=== PATIENT | female | born 1985 | race Caucasian/White ===

== ENCOUNTER 2022-01-29 12:18 | Outpatient (CLI) | payer BC, SELFPAY ==
--- NOTE | ~2022-01-29 | XR_ITS ---
EXAMINATION: XR chest 2V DATE: 01/29/2022 12:34 INDICATION: Cough for 3 months. TECHNIQUE: Frontal and lateral views of the chest were obtained. COMPARISON: Chest single view 10/23/2014, CT abdomen and pelvis 12/12/2016 FINDINGS: The chest demonstrates clear lungs without pneumonia, pleural effusion, or pneumothorax. Th e heart size is normal. Breast implants are noted. IMPRESSION: 1. No acute cardiopulmonary disease. Reviewed, dictated and finalized at location A.
== END 2022-01-29 12:19 | disposition home or self-care (01) ==
PROVIDERS: PCP Family Medicine; Visit Provider Nurse Practitioner Family
DX: R05.9 Cough, unspecified (principal)
CPT/HCPCS: 71046

== ENCOUNTER 2022-06-01 12:13 | Emergency (ER) | payer BC, SELFPAY ==
[2022-06-01 12:22] VITALS: BP 116/82; PULSE 65; RESP 20; TEMP 36.9; O2SAT 99
--- NOTE | 2022-06-01 12:47 | ED.EAR ---
HPI - Ear Problem General Chief complaint: Ear Stated complaint: left ear issue Time Seen by Provider: 06/01/22 12:47 Source: patient Mode of arrival: ambulatory Limitations: no limitations History of Present Illness HPI Narrative: 36-year-old female presented for complaint of left ear pressure for 3 days. States she felt a sudden onset of pressure while swimming, and has not been able to hear out of the ear since. She denies significant pain, drainage ear ringing, headache or sinus congestion. She has used hydrogen peroxide and Debrox for history of earwax impactions. MD Complaint: ear pain Related Data Home Medications Medication Instructions Recorded Confirmed alprazolam 1 mg tablet 0.5 mg PO DAILY 07/07/21 06/01/22 dextroamphetamine-amphetamine 30 15 mg PO DAILY 07/07/21 06/01/22 mg tablet escitalopram oxalate 10 mg tablet 10 mg PO DAILY 07/07/21 06/01/22 zolpidem 10 mg tablet 10 mg PO ONCE 07/07/21 06/01/22 Allergies Allergy/AdvReac Type Severity Reaction Status Date / Time oak Allergy Mild Unknown Verified 06/01/22 12:27 CATS Allergy Mild WATERY EYES Uncoded 06/01/22 12:27 DUST MITES Allergy Mild WATERY EYES Uncoded 06/01/22 12:27 Review of Systems Review of Systems: CONSTITUTIONAL: Denies malaise, chills, or fever. EYES: Denies visual changes, redness, or discharge. ENT: Denies rhinorrhea, congestion, sinus pain, and sore throat. Reports ear pain CARDIOVASCULAR: Denies chest pain, palpitations, or edema. RESPIRATORY: Denies cough or dyspnea. GASTROINTESTINAL: Denies abdominal pain, nausea, vomiting, diarrhea SKIN: Denies rash or itching. MUSCULOSKELETAL: Denies myalgia. NEUROLOGIC: Denies headache. All systems reviewed & are unremarkable except as noted in HPI and below PMFSH Past Medical History Medical History BMI 25.0-25.9,adult Family History Family History Father No problems noted. Mother No problems noted. 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 There is no relevant family history pertinent to the presenting complaint Exam Narrative: GENERAL: Well-appearing EYES: conjunctivae clear ENT: Nares clear. Mucous membranes moist. TMs unable to visualize bilaterally due to cerumen impaction; no tragal tenderness. Oropharynx not erythematous without lesions. CHEST: Clear to auscultation, breath sounds equal. No wheezing, rhonchi, rales, or stridor.s. HEART: Regular rate and rhythm. No murmur heard. SKIN: Warm, dry, no rash. NEURO: Alert and oriented x3. PSYCH: Normal mood and affect Course Course Emergency Course: Patient is aware of diagnosis, understands and agrees to treatment plan. Anticipatory guidance given. Patient agrees to follow-up as directed and is aware of reasons to seek care at the emergency department. Portions of this record may have been created with voice recognition software Level of Care: Express Care Visit Vital Signs Vital signs: Vital Signs Temperature 98.5 F 06/01/22 12:22 Pulse Rate 65 06/01/22 12:22 Respiratory Rate 20 06/01/22 12:22 Blood Pressure 116/82 06/01/22 12:22 Pulse Oximetry 99 06/01/22 12:22 Oxygen Delivery Room Air 06/01/22 12:22 Temperature 98.5 F 06/01/22 12:22 Pulse Rate 65 06/01/22 12:22 Respiratory Rate 20 06/01/22 12:22 Blood Pressure 116/82 06/01/22 12:22 Pulse Oximetry 99 06/01/22 12:22 Oxygen Delivery Room Air 06/01/22 12:22 Reviewed Procedur
== END 2022-06-01 13:30 | disposition home or self-care (01) ==
PROVIDERS: Emergency Provider Nurse Practitioner Family; PCP Family Medicine
DX: H66.002 Acute suppurative otitis media without spontaneous rupture of ear drum, left ear (principal); H61.23 Impacted cerumen, bilateral
CPT/HCPCS: 69210; 99213; A9270; G0463

== ENCOUNTER 2022-06-08 14:34 | Outpatient (CLI) | payer BC, SELFPAY ==
--- NOTE | ~2022-06-08 | XR_ITS ---
XR lumbar spine min 4V 06/08/2022 14:56 Indication: Low back pain Procedure: 5 views lumbar spine Comparison: 02/26/2011 Findings: Vertebral body and disc heights are preserved. Normal lumbar lordosis. No fracture, subluxa tion or spondylolisthesis. Sacral foramen are symmetric. Impression: 1: No acute abnormality of the lumbar spine. Reviewed, dictated and finalized at location A. Impression: 1: No acute abnormality of the lumbar spine.
== END 2022-06-08 14:35 | disposition home or self-care (01) ==
PROVIDERS: PCP Family Medicine; Visit Provider Nurse Practitioner Family
DX: M54.50 Low back pain, unspecified (principal)
CPT/HCPCS: 72110

== ENCOUNTER 2022-06-12 04:31 | Emergency (ER) | payer BC, SELFPAY ==
--- NOTE | ~2022-06-12 | CT_ITS ---
EXAMINATION: CT abdomen pelvis w con DATE: 06/12/2022 06:24 INDICATION: Epigastric abdominal pain TECHNIQUE: Computed tomography (CT) of the abdomen and pelvis was performed with 100 CC Omnipaque 300 intravenous contrast. Automated exposure control and iterative reconstruction technique were employe jeanette. Exam dose: 385.99 mGy-cm total exam DLP. COMPARISON: 12/12/2017 CT abdomen pelvis FINDINGS: The lung bases are clear of infiltrate or consolidation. Normal heart size. No pericardial or pleural effusion. Status post bilateral augmentation mammoplasty. The liver, spleen, pancreas, adrenal glands and kidneys are unremarkable. No bile duct or pancreatic duct dilatation. No urinary tract calculus or hydroureteronephrosis. The u rinary bladder is unremarkable. Normal caliber of the abdominal aorta. No intraperitoneal or retroperitoneal or pelvic mass lesion or adenopathy or ascites. Retroverted uterus. 2.7 cm peripherally enhancing involuting left ovarian cyst.. Mild free fluid in t he posterior cul-de-sac. There is prominent thickening of the wall of the gastric antrum. Prominent fluid accumulation in the duodenum. There are nondilated fluid containing small bowel segments with air-fluid levels. There is a prominent of fecal material within the colon. No bowel obstruction or intraperitoneal free air is d etected. Included skeletal structures are unremarkable. IMPRESSION: Thickening of the wall of the gastric antrum, fluid containing small bowel segments with air-fluid levels seminal consider gastroenteritis. Involuting 2.7 cm left ovarian cyst with mild free fluid in the posterior cul-de-sac Reviewed, dictated and finalized at Location [facility]. Reviewed, dictated and finalized at location A. IMPRESSION: Thickening of the wall of the gastric antrum, fluid containing sma ll bowel segments with air-fluid levels seminal consider gastroenteritis. Involuting 2.7 cm left ovarian cyst with mild free fluid in the posterior cul-d e-sac
[2022-06-12 04:33] VITALS: BP 130/90; PULSE 95; RESP 18; TEMP 36.1; O2SAT 99
[2022-06-12 04:47] VITALS: BP 131/118; PULSE 84; RESP 18; O2SAT 99
--- NOTE | 2022-06-12 04:58 | ED.ABDPAIN ---
HPI - Abdominal Pain General Chief Complaint: Nausea/Vomiting/Diarrhea Stated Complaint: abd and back pain Time Seen by Provider: 06/12/22 04:50 History of Present Illness HPI narrative: Patient is a 36-year-old female complaining of gastric pain, 7 out of 10, radiating to back accompanied by coffee-ground emesis that started last night. Patient states that she only had 1 episode of coffee-ground emesis, has not had any since. Patient states that she has a history of peptic ulcer. Related Data Home Medications Medication Instructions Recorded Confirmed alprazolam 1 mg tablet 0.5 mg PO DAILY 07/07/21 06/10/22 dextroamphetamine-amphetamine 30 15 mg PO DAILY 07/07/21 06/10/22 mg tablet escitalopram oxalate 10 mg tablet 10 mg PO DAILY 07/07/21 06/10/22 zolpidem 10 mg tablet 10 mg PO ONCE 07/07/21 06/10/22 Allergies Allergy/AdvReac Type Severity Reaction Status Date / Time oak Allergy Mild Unknown Verified 06/12/22 04:36 CATS Allergy Mild WATERY EYES Uncoded 06/12/22 04:36 DUST MITES Allergy Mild WATERY EYES Uncoded 06/12/22 04:36 Review of Systems Review of Systems: All systems reviewed & are unremarkable except as noted in HPI and below Constitutional: Constitutional: Denies body ache(s), Denies chills, Denies excessive sweating, Denies fatigue, Denies fever(s), Denies headache(s), Denies lethargy, Denies malaise, Denies weakness and Denies weight loss Eyes: Eyes: Denies blurry vision, Denies change in vision and Denies loss of vision ENT: Denies dizziness, Denies ear discharge, Denies headache(s), Denies lip swelling, Denies epistaxis, Denies nasal congestion, Denies neck pain, Denies throat swelling and Denies tongue swelling Cardiovascular: Cardiovascular: Denies chest pain, Denies chest pain at rest, Denies chest pain with activity, Denies diaphoresis, Denies rapid heart rate, Denies edema, Denies irregular heart rhythm, Denies lightheadedness, Denies palpitations, Denies dyspnea and Denies dyspnea on exertion Respiratory: Respiratory: Denies chest congestion, Denies cough, Denies hemoptysis, Denies dyspnea and Denies dyspnea on exertion Gastrointestinal: Gastrointestinal: Denies melena, Denies hematochezia and Denies diarrhea Musculoskeletal: Musculoskeletal: Denies abnormal gait, Denies deformity, Denies joint swelling, Denies limited range of motion, Denies neck pain and Denies numbness Neurologic: Denies Abnormal speech present, Denies abnormal gait, Denies confusion, Denies dizziness, Denies headache(s), Denies focal weakness, Denies loss of vision, Denies numbness, Denies Other visual disturbances, Denies Sensory deficit (Neuro) and Denies weakness Psychiatric: Psychiatric: Denies confusion, Denies depression, Denies auditory hallucinations, Denies homicidal ideation and Denies suicidal ideation Endocrine: Endocrine: Denies cold intolerance, Denies excessive sweating, Denies fatigue, Denies heat intolerance and Denies palpitations Hematologic/Lymphatic: Hematologic/Lymphatic: Denies easy bleeding and Denies easy bruising Allergic/Immunologic: Allergic/Immunologic: Denies lip swelling, Denies throat swelling and Denies tongue swelling PMFSH Past Medical History Medical History BMI 25.0-25.9,adult Diarrhea Family History Family History Father No problems noted. Mother No problems noted. 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
[2022-06-12 05:05] LABS: Basophils Percent Auto 0.4 % (0.2-1.2); Eosinophils Absolute Auto 0.3 K/mm3 (0-0.3); Eosinophils Percent Auto 3.5 % (0-4.4); Hematocrit 41.9 % (37.0-47.0); Hemoglobin 14.3 g/dL (12.0-15.0); Immature Granulocyte Absolute 0.02 K/mm3 (0.00-0.031); Immature Granulocyte Percent A 0.2 % (0-0.5); Lymphocytes Absolute Auto 2.45 K/mm3 (0.9-3.2); Lymphocytes Percent Auto 26.2 % (18.3-44.2); Mean Corpuscular HGB Conc 34.1 g/dl (32-36); Mean Corpuscular Hemoglobin 30.4 pg (26-34); Mean Platelet Volume 9.6 fl (7.4-10.4); Monocytes Absolute Auto 0.6 K/mm3 (0.1-0.6); Monocytes Percent Auto 6.5 % (2.6-8.5); Neutrophils Absolute Auto 5.9 K/mm3 (1.3-6.7); Neutrophils Percent Auto 63.2 % (45.5-73.1); Platelet Count Result 279 k/mm3 (150-375); Red Blood Count 4.71 M/mm3 (4.2-5.4); Red Cell Distribution Width 12.3 % (11.5-14.5); White Blood Count 9.4 K/mm3 (4.5-10.0)
[2022-06-12] MEDS: LACTATED RINGERS 1,000 ML 999 ML IV CONT (05:16)
[2022-06-12] MEDS: PANTOPRAZOLE SODIUM IV 40 MG VIAL 80 MG IV PUSH (05:17)
[2022-06-12 05:21] LABS: Alanine Aminotransferase 14 U/L (6-35); Albumin Level 4.5 g/dL (3.5-5.1); Alkaline Phosphatase 56 U/L (38-126); Anion Gap 8 mmol/L (8-16); Aspartate Amino Transferase 22 U/L (14-36); Bilirubin,Total 0.4 mg/dL (0.2-1.3); Blood Urea Nitrogen 11 mg/dL (7-17); Calcium 9.7 mg/dL (8.4-10.2); Carbon Dioxide 32 mmol/L (22-30); Chloride 101 mmol/L (98-107); Estimated CRCL calculation 66 ml/min; Estimated Glomerular Filt Rate > 60; Glucose 105 mg/dL (65-110); Lipase 46 U/L (23-300); Potassium 3.9 mmol/L (3.4-5.0); Sodium 141 mmol/L (137-145)
[2022-06-12] MEDS: PROMETHAZINE HCL 25 MG/ML AMPUL 12.5 MG IV PUSH (05:21)
[2022-06-12] MEDS: HYDROmorphone HCL INJ (*CRX) 1 MG/ML SYR 0.5 MG IV PUSH ×2 (05:35→06:44)
[2022-06-12] MEDS: HYDROcodone/acetaminophen (*CRX) 7.5-325 MG TABLET 1 TAB PO (07:15)
== END 2022-06-12 07:20 | disposition home or self-care (01) ==
PROVIDERS: Emergency Provider Emergency Medicine; PCP Family Medicine
DX: K27.4 Chronic or unspecified peptic ulcer, site unspecified, with hemorrhage (principal)
CPT/HCPCS: 36415; 74177; 80053; 81025; 83690; 85025; 96361; 96374; 96375; 96376; 99284; A9270; C9113; J1170; J2550; J7120; Q9967

== ENCOUNTER 2023-01-11 10:42 | Emergency (ER) | payer BC, SELFPAY ==
[2023-01-11 11:20] VITALS: BP 113/81; PULSE 86; RESP 16; TEMP 36.6; O2SAT 96
[2023-01-11 11:28] VITALS: BP 124/85
[2023-01-11 12:15] LABS: Alanine Aminotransferase 16 U/L (6-35); Albumin Level 4.8 g/dL (3.5-5.1); Alkaline Phosphatase 59 U/L (38-126); Anion Gap 6 mmol/L (8-16); Appearance Urine Clear (Clear); Aspartate Amino Transferase 21 U/L (14-36); Basophils Percent Auto 0.4 % (0.2-1.2); Bilirubin Urine Negative (Negative); Bilirubin,Total 0.4 mg/dL (0.2-1.3); Blood Urea Nitrogen 16 mg/dL (7-17); Blood Urine Negative (Negative); Calcium 8.3 mg/dL (8.4-10.2); Carbon Dioxide 26 mmol/L (22-30); Chloride 101 mmol/L (98-107); Color Urine Yellow (Yellow); Eosinophils Absolute Auto 0.4 K/mm3 (0-0.3); Eosinophils Percent Auto 3.6 % (0-4.4); Estimated CRCL calculation 85 ml/min; Estimated Glomerular Filt Rate > 60; Glucose 112 mg/dL (65-110); Glucose Urine UA Negative (Negative); Hematocrit 41.8 % (37.0-47.0); Immature Granulocyte Absolute 0.03 K/mm3 (0.00-0.031); Immature Granulocyte Percent A 0.3 % (0-0.5); Ketones Urine Negative (Negative); Leukocyte Esterase Ur Negative LEU/UL (Negative); Lipase 46 U/L (23-300); Lymphocytes Absolute Auto 1.74 K/mm3 (0.9-3.2); Lymphocytes Percent Auto 16.1 % (18.3-44.2); Mean Corpuscular HGB Conc 33.5 g/dl (32-36); Mean Corpuscular Hemoglobin 30.5 pg (26-34); Mean Corpuscular Volume 91.1 fl (80-100); Monocytes Absolute Auto 0.4 K/mm3 (0.1-0.6); Monocytes Percent Auto 3.9 % (2.6-8.5); Neutrophils Absolute Auto 8.2 K/mm3 (1.3-6.7); Neutrophils Percent Auto 75.7 % (45.5-73.1); Nitrate Urine Negative (Negative); Platelet Count Result 265 k/mm3 (150-375); Potassium 3.7 mmol/L (3.4-5.0); Protein Urine 1+ mg/dL (Negative); Red Blood Count 4.59 M/mm3 (4.2-5.4); Sodium 133 mmol/L (137-145); Specific Grav Ur 1.015 (1.001-1.035); Urobilinogen Urine 0.2 mg/dL (<2.0); White Blood Count 10.8 K/mm3 (4.5-10.0); pH Urine 8.5 (5.0-9.0)
[2023-01-11 12:25] LABS: Mucus Urine Rare /lpf; Squamous Epithelial Cell Urine Moderate /hpf (Few); WBC Urine 0-3 /hpf
[2023-01-11 12:29] LABS: Add Urine Microscopic? YES
--- NOTE | 2023-01-11 12:35 | ED.ABDPAIN ---
HPI - Abdominal Pain General Chief Complaint: Abdominal Pain Stated Complaint: vomiting blood/back spasms Time Seen by Provider: 01/11/23 12:05 History of Present Illness HPI narrative: Patient is a 37-year-old female with a history of peptic ulcers presenting with abdominal pain. Patient states that she has been diagnosed with ulcers and this feels similarly to these prior episodes. States that the pain started yesterday in her epigastrium and goes to her back. States that this leads to muscle spasms. States that she then had several episodes of emesis overnight with a small amount of blood in it. States she was able to eat part of a banana this morning but she again developed severe pain and nausea. States that she has seen GI in the past but she has not seen them for a while. She is on daily Protonix and Carafate. She denies fevers or chills, chest pain, shortness of breath, diarrhea, constipation, dysuria, hematuria. States she is currently menstruating. States she had a normal bowel movement this morning. Related Data Home Medications Medication Instructions Recorded Confirmed alprazolam 1 mg tablet 0.5 mg PO DAILY 07/07/21 06/21/22 dextroamphetamine-amphetamine 30 15 mg PO DAILY 07/07/21 06/21/22 mg tablet escitalopram oxalate 10 mg tablet 10 mg PO DAILY 07/07/21 06/21/22 zolpidem 10 mg tablet 10 mg PO ONCE 07/07/21 06/21/22 Allergies Allergy/AdvReac Type Severity Reaction Status Date / Time oak Allergy Mild Unknown Verified 06/21/22 17:45 CATS Allergy Mild WATERY EYES Uncoded 06/21/22 17:45 DUST MITES Allergy Mild WATERY EYES Uncoded 06/21/22 17:45 Review of Systems Review of Systems: All systems reviewed & are unremarkable except as noted in HPI and below PMFSH Past Medical History Medical History BMI 23.0-23.9, adult BMI 25.0-25.9,adult Diarrhea Family History Family History Father No problems noted. Mother No problems noted. 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 HEAD: Normocephalic, atraumatic. EYES: PERRLA and EOMI. ENT: Nares clear, no rhinorrhea or epistaxis. Mucous membranes moist. NECK: Supple. CHEST: Clear to auscultation. No respiratory distress. HEART: Regular rate and rhythm. No murmur heard. Normal peripheral pulses. ABDOMEN: Soft, mild epigastric and left upper quadrant tenderness, no guarding or rebound. EXTREMITIES: Normal range of motion. No edema. SKIN: Warm, dry, no rash. NEURO: No focal deficits. Alert and oriented x3. PSYCH: Normal mood and affect. Course Vital Signs Vital signs: Vital Signs Temperature 97.8 F 01/11/23 11:20 Pulse Rate 86 01/11/23 11:20 Respiratory Rate 16 01/11/23 11:20 Blood Pressure 113/81 01/11/23 11:20 Pulse Oximetry 96 01/11/23 11:20 Oxygen Delivery Room Air 01/11/23 11:20 Temperature 97.8 F 01/11/23 11:20 Pulse Rate 61 01/11/23 14:39 Respiratory Rate 16 01/11/23 14:39 Blood Pressure 122/93 H 01/11/23 14:39 Pulse Oximetry 100 01/11/23 14:39 Oxygen Delivery Room Air 01/11/23 11:20 MDM - Abdominal Pain MDM Narrative Medical decision making narrative: Patient is a 37-year-old female presenting with 1 day of epigastric pain and vomiting. Vitals are within normal limits. Exam is remarkable for mild epigastric and left upper quadrant tenderness. Patient states that this feels similarly to prior [facility]
[2023-01-11] MEDS: SODIUM CHLORIDE 0.9% IV 1,000 ML 999 ML IV CONT (12:46)
[2023-01-11] MEDS: HYDROmorphone HCL INJ (*CRX) 1 MG/ML SYR 0.5 MG IV PUSH (12:48)
[2023-01-11] MEDS: ONDANSETRON INJ 4 MG/2 ML VIAL IV PUSH (12:48)
[2023-01-11] MEDS: FAMOTIDINE 20 MG/2 ML VIAL IV PUSH (12:48)
[2023-01-11 12:50] VITALS: BP 114/81; PULSE 64; RESP 16; O2SAT 100
[2023-01-11] MEDS: BELLADONNA ALK/PHENOB ELIX 10 ML, MAG HYDROX/ALUMINUM HYD/SIMETH 30 ML, LIDOCAINE HCL 2... PO (14:34)
[2023-01-11] MEDS: HYDROcodone/acetaminophen (*CRX) 5-325 MG TABLET 1 TAB PO (14:34)
[2023-01-11 14:39] VITALS: BP 122/93; PULSE 61; RESP 16; O2SAT 100
== END 2023-01-11 16:05 | disposition home or self-care (01) ==
PROVIDERS: Emergency Medicine; Emergency Provider Emergency Medicine; PCP Family Medicine
DX: R10.9 Unspecified abdominal pain (principal); R11.2 Nausea with vomiting, unspecified
CPT/HCPCS: 36415; 80053; 81001; 81025; 83690; 85025; 96361; 96374; 96375; 99284; A9270; J1170; J2405; J7030

== ENCOUNTER → 2024-09-24 14:17 | Outpatient (REF) | payer BC, SELFPAY | LOC: ANHLAB 14:17 | PROVIDERS: PCP Family Medicine; Visit Provider Plastic Surgery | DX: D23.5 Other benign neoplasm of skin of trunk (principal) | CPT/HCPCS: 88305 ==

== ENCOUNTER 2024-11-22 08:09 | Outpatient (CLI) | payer SELFPAY ==
[2024-11-22 08:32] LABS: Basophils Absolute Auto 0.1 K/mm3 (0.0-0.1); Basophils Percent Auto 0.8 % (0.2-1.2); Eosinophils Absolute Auto 0.3 K/mm3 (0-0.3); Eosinophils Percent Auto 5.5 % (0-4.4); Hematocrit 40.9 % (37.0-47.0); Hemoglobin 13.5 g/dL (12.0-15.0); Immature Granulocyte Absolute 0.02 K/mm3 (0.00-0.031); Immature Granulocyte Percent A 0.3 % (0-0.5); Lymphocytes Absolute Auto 2.09 K/mm3 (0.9-3.2); Lymphocytes Percent Auto 34.8 % (18.3-44.2); Mean Corpuscular Hemoglobin 30.3 pg (26-34); Mean Corpuscular Volume 91.9 fl (80-100); Mean Platelet Volume 9.1 fl (7.4-10.4); Monocytes Absolute Auto 0.4 K/mm3 (0.1-0.6); Neutrophils Absolute Auto 3.1 K/mm3 (1.3-6.7); Neutrophils Percent Auto 51.6 % (45.5-73.1); Platelet Count Result 254 k/mm3 (150-375); Red Blood Count 4.45 M/mm3 (4.2-5.4)
[2024-11-22 08:48] LABS: Alanine Aminotransferase 21 U/L (6-35); Albumin Level 4.2 g/dL (3.5-5.1); Alkaline Phosphatase 59 U/L (38-126); Anion Gap 5 mmol/L (4-12); Aspartate Amino Transferase 23 U/L (14-36); Bilirubin,Total 0.3 mg/dL (0.2-1.3); Blood Urea Nitrogen 18 mg/dL (7-17); Calcium 8.4 mg/dL (8.4-10.2); Carbon Dioxide 26 mmol/L (22-30); Chloride 108 mmol/L (98-107); Estimated Glomerular Filt Rate > 60; Glucose 95 mg/dL (65-110); Potassium 4.2 mmol/L (3.4-5.0); Sodium 139 mmol/L (137-145)
[2024-11-22 08:51] LABS: Rheumatoid Factor < 12.0 IU/ML (<12)
[2024-11-22 09:18] LABS: Thyroid Stimulating Hormone 0.753 uIU/mL (0.465-4.680)
[2024-11-22 09:25] LABS: Iron 72 ug/dL (37-170)
[2024-11-22 09:32] LABS: Percent Iron Saturation 21 % (20-50)
[2024-11-24 07:44] LABS: ANA Cascade Screen NEGATIVE (NEGATIVE)
== END 2024-11-22 08:10 | disposition home or self-care (01) ==
PROVIDERS: PCP Family Medicine; Visit Provider Nurse Practitioner Adult Health
DX: E55.9 Vitamin D deficiency, unspecified (principal); K27.4 Chronic or unspecified peptic ulcer, site unspecified, with hemorrhage; Z13.29 Encounter for screening for other suspected endocrine disorder; R53.83 Other fatigue; M79.2 Neuralgia and neuritis, unspecified; M79.641 Pain in right hand; M79.642 Pain in left hand
CPT/HCPCS: 36415; 80053; 82306; 82607; 82746; 83540; 83550; 84443; 85025; 86038; 86225; 86235; 86364; 86430

== ENCOUNTER 2024-11-22 10:55 | Outpatient (CLI) | payer SELFPAY ==
--- NOTE | ~2024-11-22 | XR_ITS ---
EXAM: XR hand LT 2V, XR hand RT 2V DATE: 11/22/2024 11:40 HISTORY: M79.641 - Pain in right hand . COMPARISON: None available. FINDINGS: Normal mineralization. No fracture or dislocation. No lytic or blastic lesion. Mild scatte red arthritic changes, typical of osteoarthritis. No erosion or periosteal change. Soft tissues withi n normal limits. IMPRESSION: Mild polyarticular osteoarthritis of the hands. Reviewed, dictated and finalized at location K. FF CLERK IMPRESSION: Mild polyarticular osteoarthritis of the hands.
== END 2024-11-22 10:56 | disposition home or self-care (01) ==
PROVIDERS: PCP Family Medicine; Visit Provider Nurse Practitioner Adult Health
DX: M19.042 Primary osteoarthritis, left hand (principal); M19.041 Primary osteoarthritis, right hand
CPT/HCPCS: 73120

== ENCOUNTER 2025-03-25 20:13 | Observation (INO) | payer OTHER, SELFPAY ==
--- NOTE | ~2025-03-25 | CT_ITS ---
EXAMINATION: CT abdomen pelvis w con DATE: 03/25/2025 21:40 INDICATION: epigastirc pain, n/v, hx pud TECHNIQUE: Computed tomography (CT) of the abdomen and pelvis was performed with 100 mL Omnipaque-350 intravenous contrast. Automated exposure control and iterative reconstruction technique were employe d. The dose-length product was 311.09 mGy-cm. COMPARISON: None. FINDINGS: Lower thorax: Bilateral breast implants. Liver: Normal. Biliary/Gallbladder: Gallbladder is normal. No bile duct dilation. Pancreas: No mass or duct dilation. Spleen: Normal. Adrenals:No mass. Kidneys: No suspicious mass, obstructing stone, or hydronephrosis. GI tract: Mild distal esophageal and moderate antral wall edema. No small or large bowel dilation. Ap pendix not confidently visualized. Mesentery/Peritoneum: No ascites, mass, or free air. Retroperitoneum: No mass. Pelvis: Pelvic organs are within normal limits. Retroverted uterus. 2.0 cm simple appearing right ova rishabh cyst Soft Tissues: Soft tissues and body wall unremarkable. Bones: No acute osseous finding. IMPRESSION: Mild esophagitis. Moderate antral gastritis. Reviewed, dictated and finalized at location K.
--- OUTSIDE RECORDS SUMMARY | 2025-03-25 20:16 | XMS_ITS | Encounter Summary ---
Author Organization [facility] Address [address] [place] [address] Phone Care Team Providers Care Communications Director Name Role Phone Provider, None Primary Care Provider Mario Perez MD Primary Care Provider [phone] Encounter Details Date Type Department Care Team (Late st Contact Info) Description 01/15/2022 Lab Requisition [facility] Services [address] [place] [id number] Ana Espinoza, TRAFFIC OPERATIONS ENGINEER, CANVAS GOODS MAKER [address] [place] [address] Encounter for pre-employment examination Social History Tobacco Use Types Packs/Day Years Used Date Smoking Tobacco: Never Assessed Comments Unknown Sex and Gender Information Value Date Recorded Sex Assigned at Not on file Legal Sex Female 7:09 PM CDT Gender Identity Not on file Sexual Orientation Not on file COVID-19 Exposure Response Date Recorded In the last month, have you been in contact with someone who was confirmed or suspected to have Coronavirus / COVID-19? No / Unsure 01/15/2022 8:51 AM STOCK PARTS INSPECTOR documented as of this encounter Plan of Treatment Not on file documented as of this encounter Procedures Procedure Name Priority Date/Time Associated Diagnosis Comments QUANTIFERON-TB GOLD PLUS Routine 01/15/2022 9:00 AM STOCK PARTS INSPECTOR Encounter for pre-employment examination MMRV PANEL Routine 01/15/2022 9:00 AM STOCK PARTS INSPECTOR Encounter for pre-employment examination MUMPS IGG Routine 01/15/2022 9:00 AM STOCK PARTS INSPECTOR Encounter for pre-employment examination HERPES ZOSTER (VARICELLA) IGG Routine 01/15/2022 9:00 AM STOCK PARTS INSPECTOR Encounter for pre-employment examination RUBEOLA (MEASLES) IGG Routine 01/15/2022 9:00 AM STOCK PARTS INSPECTOR Encounter for pre-employment examination RUBELLA IMMUNITY IGG Routine 01/15/2022 9:00 AM STOCK PARTS INSPECTOR Encounter for pre-employment examination HEPATITIS B SURFACE ANTIBODY (HBSAB) Routine 01/15/2022 9:00 AM STOCK PARTS INSPECTOR Encounter for pre-employment examination documented in this encounter Results * HERPES ZOSTER (VARICELLA) IGG (01/15/2022 9:00 AM STOCK PARTS INSPECTOR) VARICELLA ZOSTER IGG 4.6 >=1.1 AI 01/15/2022 11:30 PM STOCK PARTS INSPECTOR [facility] Blood No Phlebotomy Charged / Unknown 01/15/2022 9:00 AM STOCK PARTS INSPECTOR 01/15/2022 1:08 PM STOCK PARTS INSPECTOR Narrative [facility] - 01/15/2022 11:30 PM STOCK PARTS INSPECTOR <= 0.8 Negative. No detectable VZV IgG antibody. 0.9 - 1.0 Equivocal >=1.1 Positive Antibody testing was performed by multiplex flow immunoassay on the Visitar platform. us Ana L Behjoe TRAFFIC OPERATIONS ENGINEER, CANVAS GOODS MAKER IMMUNOLOGY ORDERABL ES Final Result [facility] [address] [place] [address], * (ABNORMAL) RUBEOLA (MEASLES) IGG (01/15/2022 9:00 AM STOCK PARTS INSPECTOR) MEASLES AB IGG 0.7(L) >=1.1 AI 01/15/2022 11:30 PM STOCK PARTS INSPECTOR [facility] Blood No Phlebotomy Charged / Unknown 01/15/2022 9:00 AM STOCK PARTS INSPECTOR 01/15/2022 1:08 PM STOCK PARTS INSPECTOR Narrative [facility] - 01/15/2022 11:30 PM STOCK PARTS INSPECTOR <= 0.8 Negative. No detectable Measles IgG antibody. 0.9 - 1.0 Equivocal >=1.1 Positive Antibody testing was performed by multiplex flow immunoassay on the BioPlex platform. us Ana L Behrends TRAFFIC OPERATIONS ENGINEER, CANVAS GOODS MAKER IMMUNOLOGY ORDERABL ES Final Result Performing Organization Address City/[facility]/ZIP Co de Phone Number [facility] [address] [place] [address], [place] * RUBELLA IMMUNITY IGG (01/15/2022 9:00 AM STOCK PARTS INSPECTOR) RUBELLA IMMUNITY Immune Immune, Invalid 01/15/2022 11:30 PM STOCK PARTS INSPECTOR [facility] Blood No Phlebotomy Charged / Unknown 01/15/2022 9:00 AM STOCK PARTS INSPECTOR 01/15/2022 1:08 PM STOCK PARTS INSPECTOR Narrative [facility] - 01/15/2022 11:30 PM STOCK PARTS INSPECTOR Antibody testing was performed by multiplex flow immunoassay on the BioPlex platform. us Ana L Behrends TRAFFIC OPERATIONS ENGINEER, CANVAS GOODS MAKER CHEMISTRY ORDERABLE S Final Result Performing Organization Address City/[facility]/ZIP Co de Phone Number [facility] [address] [place] [address], [place] * MUMPS IGG (01/15/2022 9:00 AM STOCK PARTS INSPECTOR) Mumps Ab IgG 1.2 >=1.1 AI 01/15/2022 11:30 PM STOCK PARTS INSPECTOR [facility] Blood No Phlebotomy Charged / Unknown 01/15/2022 9:00 AM STOCK PARTS INSPECTOR 01/15/2022 1:08 PM STOCK PARTS INSPECTOR Narrative [facility] - 01/15/2022 11:30 PM STOCK PARTS INSPECTOR <= 0.8 Negative. No detectable Mumps IgG antibody. 0.9 - 1.0 Equivocal >=1.1 Positive Antibody testing was performed by multiplex flow immunoassay on the Visitar platform. us Ana Espinoza APRN, CNP IMMUNOLOGY ORDERABL ES Final Result [facility] [address] [place] [address], [place] * QUANTIFERON-TB GOLD PLUS (01/15/2022 9:00 AM STOCK PARTS INSPECTOR) NIL CONTROL 0.05 <8.01 IU/mL 01/17/2022 1:34 PM STOCK PARTS INSPECTOR [facility] TB ANTIGEN 1 0.03 <0.35 IU/mL 01/17/2022 1:34 PM STOCK PARTS INSPECTOR [facility] TB ANTIGEN 2 0.01 <0.35 IU/mL 01/17/2022 1:34 PM STOCK PARTS INSPECTOR [facility] MITOGEN CONTROL 8.21 >0.49 IU/mL 01/18/20 22 1:34 PM STOCK PARTS INSPECTOR [facility] INTEPRETATION TB NEGATIVE NEGATIVE, NEGATIVE (TB antigen response less than 25% of internal negative control value) 01/17/2022 1:34 PM STOCK PARTS INSPECTOR [facility] Comment:No immune response t o Mycobacterium tuberculosis antigens was noted. M. tuberculosis infection unlikely. Blood No Phlebotomy Charged / Unknown 01/15/2022 9:00 AM STOCK PARTS INSPECTOR 01/15/2022 1:08 PM STOCK PARTS INSPECTOR Narrative [facility] - 01/17/2022 1:34 PM STOCK PARTS INSPECTOR A POSITIVE QUANTIFERON-TB GOLD PLUS RESULT SHOULD NOT BE THE SOLE OR DEFINITIVE BASIS FOR DETERMINING INFECTION WITH M.TUBERCULOSIS. Diagnosing or excluding tuberculosis disease, and assessing the probability of LTBI, requires a combination of epidemiological, historical, medical and diagnostic findings (e.g., acid fast bacilli (AFB) smear and culture, chest xray) that should be taken into account when interpreting QFT-Plus results. Furthermore, the magnitude of the measured gamma interferon level cannot be correlated to stage or degree of infection, level of immune responsiveness, or likelihood for progression to active disease. The Nil control adjusts for background (e.g., elevated levels of circulating gamma interferon or presence of heterophile antibodies). The Mitogen control serves as an internal positive control and verifies each specimen tested can produce a gamma interferon response. Low mitogen may occur with insufficient lymphocytes, reduced lymphocyte activity due to improper specimen handling, filling/mixing of the mitogen tube, or inability of the patient's lymphocytes to generate gamma interferon. Infection with other Mycobacteria, including M. kansasii, M. szulgai, and M. marinum, may cause false positive results. A negative QuantiFERON-TB Gold Plus result does not preclude the possibility of M. tuberculosis infection or tuberculosis disease: false negative results can be due to incorrect blood sample collection/ improper handling of the specimen, stage of infection (e.g., specimen obtained prior to the development of cellular immune response), co-morbid conditions which affect immune function, or other individual immunological factors. The minimum number of lymphocytes required for a reliable test has not been established and may also be variable. Diagnostic testing for Mycobacterium tuberculosis using Interferon Gamma Release Assays should follow applicable published guidelines, including when testing in populations such as children, women, and HIV-infected or otherwise immunocompromised individuals. https://www.cdc.gov/tb/publications/guidelines/testing.htm us Ana Espinoza APRN, CANVAS GOODS MAKER IMMUNOLOGY ORDERABL ES Final Result Performing Organization Address [facility] Co de Phone Number [facility] [address] [place] [address], [place] * HEPATITIS B SURFACE ANTIBODY (HBSAB) (01/15/2022 9:00 AM STOCK PARTS INSPECTOR) HEPATITIS B SURFACE ANTIBODY 47.68 mIU/mL [facility] ARCH [id number] 01/15/2022 11:22 PM STOCK PARTS INSPECTOR [facility] Comment: Detected Range: >12.00 Individual is considered immune to HBV infection Blood No Phlebotomy Charged / Unknown 01/15/2022 9:00 AM STOCK PARTS INSPECTOR 01/15/2022 1:08 PM STOCK PARTS INSPECTOR us Ana Espinoza TRAFFIC OPERATIONS ENGINEER, CANVAS GOODS MAKER CHEMISTRY ORDERABLE S Final Result Performing Organization Address [facility] Co de Phone Number [facility] [address] [place] [address], documented in this encounter Visit Diagnoses Diagnosis Encounter for pre-employment examination Health examination of defined subpopulation documented in this encounter Care Teams Communications Director Relationship Specialty Start Date End Date Provider, None [place] PCP - General 01/15/22 08/03/22 Mario Hernandez MD [address] [place], [place] [id number] PCP - General Family Medicine 08/04/22 documented as of this encounter
--- OUTSIDE RECORDS SUMMARY | 2025-03-25 20:16 | XMS_ITS | Clinical Summary ---
Author Organization [facility] Address [address] [facility], [address] [address] Phone Care Team Providers Care Fish Hatchery Superintendent Name Role Phone Mario Hernandez MD Primary Care Provider [phone] Social History Tobacco Use Types Packs/Day Years Used Date Smoking Tobacco: Never Assessed Comments Unknown Sex and Gender Information Value Date Recorded Sex Assigned at Not on file Legal Sex Female 7:09 PM CDT Gender Identity Not on file Sexual Orientation Not on file Plan of Treatment Health Maintenance Due Date Last Done Comments Hepatitis C Virus (HCV) Screening 1983 TdaP Immunization 1983 Hepatitis B Immunization (1 of 3 - 19+ 3-dose series) 2002 SARS-COV-2 Immunization ( season) 2024 03/17/2021 Influenza Immunization (Seas on Ended) 2025 Respiratory Syncytial Virus (RSV) Immunization (Adult) (1 - 1-dose 75+ series) 2058 Meningococcal Immunization (ACWY) Aged Out No longer eligible based on patient's age to complete this topic Pneumococcal Immunization Combined Aged Out No longer eligible based on patient's age to complete this topic Rotavirus Immunization Aged Out No lo nger eligible based on patient's age to complete this topic Care Teams Fish Hatchery Superintendent Relationship Specialty Start Date End Date Mario Hernandez MD [address] [address] PCP - General Family Medicine 08/04/22
--- OUTSIDE RECORDS SUMMARY | 2025-03-25 20:16 | XMS_ITS | Referral Summary ---
Author Organization [facility] [address] [place] [address] Care Team Providers Care Pressure Tester Operator Name Role Phone Micki Pride MD Primary Care Provider [phone] Encounters Date Type Department Care Team Description 02/20/2025 4:30 PM CDT Telemedicine [address] [phone] Yobany Mehta MD Moderate episode of recurrent major depressive disorder (HCC) (Primary Dx); Panic disorder; JOSEPHINE (generalized anxiety disorder); Attention deficit hyperactivity disorder (ADHD), combined type; Insomnia, unspecified type 02/14/[address] [phone] Yobany Mehta MD 01/01/2025 4:30 PM LIME KILN WORKER HELPER Telemedicine [address] [phone] Yobany Mehta MD Moderate episode of recurrent major depressive disorder (HCC) (Primary Dx); Panic disorder; JOSEPHINE (generalized anxiety disorder); Attention deficit hyperactivity disorder (ADHD), unspecified ADHD type 12/26/[address] [phone] Yobany Mehta MD Med Refill (Adderall ) from Last 3 Months Allergies Active Allergy Reactions Criticality Noted Date Comments Nsaids (Non-Steroidal Anti-Inflammatory Drug) Unknown 12/11/2016 Stomach ulcer Medications Ubrelvy 100 mg tablet 3 Active traZODone (DESYREL) 50 mg tablet TAKE 1 TABLET BY MOUTH EVERY NIGHT 30 tablet 4 Active dextroamphetamine -amphetamine (AdderalL) 30 mg tabletIndications :Attention-Defici t Hyperactivity Disorder Take 1 tablet (30 mg total) by mouth 2 (two) times a day 60 tablet 4 Active dextroamphetamine -amphetamine (AdderalL) 30 mg tabletIndications :Attention-Defici t Hyperactivity Disorder Take 1 tablet (30 mg total) by mouth 2 (two) times a day 60 tablet 4 Active dextroamphetamine -amphetamine (AdderalL) 30 mg tabletIndications :Attention-Defici t Hyperactivity Disorder Take 1 tablet (30 mg total) by mouth 2 (two) times a day 60 tablet 4 Active traZODone (DESYREL) 50 mg tabletIndications :insomnia associated with depression Take 1 tablet (50 mg total) by mouth nightly as needed for sleep 60 tablet 2 4 Active dextroamphetamine -amphetamine (AdderalL) 20 mg tabletIndications :Attention-Defici t Hyperactivity Disorder Take 1 tablet (20 mg total) by mouth 2 (two) times a day 60 tablet 4 Active dextroamphetamine -amphetamine (AdderalL) 10 mg tabletIndications :Attention-Defici t Hyperactivity Disorder Take 1 tablet (10 mg total) by mouth 2 (two) times a day 60 tablet 4 Active dextroamphetamine -amphetamine (AdderalL) 10 mg tabletIndications :Attention-Defici t Hyperactivity Disorder Take 1 tablet (10 mg total) by mouth 2 (two) times a day 60 tablet 4 Active eszopiclone (LUNESTA) 3 mg tabletIndications :Insomnia Take 1 tablet (3 mg total) by mouth daily Take immediately before bedtime 30 tablet 4 Active QUEtiapine (SEROquel) 50 mg tablet Take 1-2 tablets (50-100 mg total) by mouth nightly as needed (insomnia) 60 tablet 4 Active traZODone (DESYREL) 100 mg tablet TAKE 1 TABLET(100 MG) BY MOUTH EVERY NIGHT NEEDED FOR SLEEP 30 tablet 2 5 Active dextroamphetamine -amphetamine (AdderalL) 10 mg tabletIndications :Attention-Defici t Hyperactivity Disorder Take 1 tablet (10 mg total) by mouth 2 (two) times a day 60 tablet 5 Active escitalopram (LEXAPRO) 20 mg tablet TAKE 1 TABLET(20 MG) BY MOUTH DAILY 30 tablet 2 5 Active ALPRAZolam (XANAX) 1 mg tabletIndications :Anxiety with Depression,Genera lized Anxiety Disorder,Panic Disorder,anxiety Take 1 tablet (1 mg total) by mouth 2 (two) times a day as needed for anxiety 60 tablet 2 5 Active zolpidem (Ambien) 10 mg tabletIndications :Sleep-Onset Insomnia Take 1 tablet (10 mg total) by mouth nightly as needed for sleep 30 tablet 2 5 Active Active Problems Problem Noted Date Diagnosed Date Recurrent major depression 03/30/2023 Panic disorder 03/30/2023 JOSEPHINE (generalized anxiety disorder) 03/30/2023 ADHD 03/30/2023 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 Social History Tobacco Use Types Packs/Day Years Used Date Smoking Tobacco: Never Assessed Comments Unknown Sex and Gender Information Value Date Recorded Sex Assigned at Not on file Legal Sex Female 3:14 AM LIME KILN WORKER HELPER Gender Identity Female 03/30/2023 10:16 AM CDT Sexual Orientation Not on file Last Filed Vital Signs Vital Sign Reading Time Taken Comments Blood Pressure 120/90 11/01/2023 2:17 PM LIME KILN WORKER HELPER Pulse 90 11/01/2023 2:17 PM LIME KILN WORKER HELPER Temperature 36.5 C (97.7 F) 11/01/2023 2:17 PM LIME KILN WORKER HELPER Respiratory Rate 18 11/01/2023 2:17 PM LIME KILN WORKER HELPER Oxygen Saturation 97% 11/01/2023 2:17 PM LIME KILN WORKER HELPER Inhaled Oxygen Concentration - - Weight 59.9 kg (132 lb) 11/01/2023 2:17 PM LIME KILN WORKER HELPER Height 157.5 cm (5' 2 ) 11/01/2023 2:17 PM LIME KILN WORKER HELPER Body Mass Index 24.14 11/01/2023 2:17 PM LIME KILN WORKER HELPER Plan of Treatment [place] [address] [facility] [place] [address] [facility] Care Teams Pressure Tester Operator Relationship Specialty Start Date End Date Micki Pride MD PCP - General 02/28/14
--- OUTSIDE RECORDS SUMMARY | 2025-03-25 20:16 | XMS_ITS | Clinical Summary ---
Author Organization [facility] Physician Office Building [address] [place] [phone] Care Team Providers Care Biofuels Product Development Manager Name Role Phone Micki Pride MD Primary Care Provider [phone] Allergies Active Allergy Reactions Criticality Noted Date [...] disorder) 03/30/2023 ADHD 03/30/2023 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 Encounters Date Type Department Care Team Description 02/20/2025 4:30 PM CDT Telemedicine [facility] [address] [place] [phone] Yobany Mehta MD Moderate episode of recurrent major depressive disorder (HCC) (Primary Dx); Panic disorder; JOSEPHINE (generalized anxiety disorder); Attention deficit hyperactivity disorder (ADHD), combined type; Insomnia, unspecified type 02/14/[address] [place] [phone] Yobany Mehta MD 01/01/2025 4:30 PM HYDRODYNAMICIST Telemedicine [address] [place] [phone] Yobany Mehta MD Moderate episode of recurrent major depressive disorder (HCC) (Primary Dx); Panic disorder; JOSEPHINE (generalized anxiety disorder); Attention deficit hyperactivity disorder (ADHD), unspecified ADHD type 12/26/[address] [place] [phone] Yobany Mehta MD Med Refill (Adderall ) from Last 3 Months Social History Tobacco Use Types Packs/Day Years Used Date Smoking Tobacco: Never Assessed Comments Unknown Sex and Gender Information Value Date Recorded Sex Assigned at Not on file Legal Sex Female 3:14 AM HYDRODYNAMICIST Gender Identity Female 03/30/2023 10:16 AM CDT Sexual Orientation Not on file Obstetrics History Last Filed Vital Signs Vital Sign Reading Time Taken Comments Blood Pressure 120/90 11/01/2023 2:17 PM HYDRODYNAMICIST Pulse 90 11/01/2023 2:17 PM HYDRODYNAMICIST Temperature 36.5 C (97.7 F) 11/01/2023 2:17 PM HYDRODYNAMICIST Respiratory Rate 18 11/01/2023 2:17 PM HYDRODYNAMICIST Oxygen Saturation 97% 11/01/2023 2:17 PM HYDRODYNAMICIST Inhaled Oxygen Concentration - - Weight 59.9 kg (132 lb) 11/01/2023 2:17 PM HYDRODYNAMICIST Height 157.5 cm (5' 2 ) 11/01/2023 2:17 PM HYDRODYNAMICIST Body Mass Index 24.14 11/01/2023 2:17 PM HYDRODYNAMICIST Plan of Treatment Health Maintenance Due Date Last Done Comments Breast Cancer Screening-Mammogram 1983 Cervical Cancer Screening 1983 Depression Screening 1983 Hepatitis C Screening 1983 DTaP/Tdap/Td Vaccine (1 - Tdap) 1994 Varicella Vaccines (1 of 2 - 13+ 2-dose series) 1996 Hepatitis B Screening 2001 Regular Well Visit/Exam 18-64 2001 Covid-19 Vaccine (2 - 2023-2 5 season) 2024 03/17/2021 Influenza Vaccine (Season Ended) 2025 10/26/20 22 HPV Vaccines Aged Out No longer eligi ble based on patient's age to complete this topic Pneumococcal vaccine <65 Aged Out No longer eligible based on patient's age to complete this topic [facility] PPO Care Teams Biofuels Product Development Manager Relationship Specialty Start Date End Date Micki Pride MD PCP - General 02/28/14
[2025-03-25 20:19] VITALS: BP 130/86; PULSE 87; RESP 16; TEMP 36.7; O2SAT 100
--- NOTE | 2025-03-25 20:22 | ECG_ITS ---
Test Date: 2025-03-25 20:33:50 Measurements Intervals [place] Rate: 77 P: 58 HI: 137 QRS: 60 QRSD: 100 T: 56 QT: 373 QTc: 425 Interpretive Statements SINUS RHYTHM No previous ECG available for comparison Electronically Signed On 03-26-2025 14:51:03 CDT by Johnathan Gonzalez M.D.
[2025-03-25 20:37] LABS: Basophils Percent Auto 0.5 % (0.2-1.2); Eosinophils Absolute Auto 0.4 K/mm3 (0-0.3); Eosinophils Percent Auto 4.4 % (0-4.4); Hemoglobin 11.1 g/dL (12.0-15.0); Immature Granulocyte Absolute 0.01 K/mm3 (0.00-0.031); Immature Granulocyte Percent A 0.1 % (0-0.5); Lymphocytes Absolute Auto 3.65 K/mm3 (0.9-3.2); Lymphocytes Percent Auto 42.9 % (18.3-44.2); Mean Corpuscular HGB Conc 31.7 g/dl (32-36); Mean Corpuscular Hemoglobin 29.1 pg (26-34); Mean Corpuscular Volume 91.6 fl (80-100); Mean Platelet Volume 10.3 fl (7.4-10.4); Monocytes Absolute Auto 0.5 K/mm3 (0.1-0.6); Neutrophils Absolute Auto 3.9 K/mm3 (1.3-6.7); Neutrophils Percent Auto 46.1 % (45.5-73.1); Platelet Count Result 262 k/mm3 (150-375); Red Blood Count 3.82 M/mm3 (4.2-5.4); White Blood Count 8.5 K/mm3 (4.5-10.0)
[2025-03-25 20:38] LABS: BEDSIDEPREGUCG Negative (Negative)
[2025-03-25 20:45] LABS: Add Urine Microscopic? YES; Appearance Urine Clear (Clear); Bacteria Urine None Seen /hpf; Bilirubin Urine Negative (Negative); Blood Urine Negative (Negative); Color Urine Yellow (Yellow); Glucose Urine UA Negative (Negative); Ketones Urine Trace mg/dL (Negative); Leukocyte Esterase Ur Trace LEU/UL (Negative); Nitrate Urine Negative (Negative); Non Pathogenic Casts 0-2; Protein Urine Negative (Negative); RBC Urine 0-2 /hpf (0-2); Specific Grav Ur 1.016 (1.001-1.035); Squamous Epithelial Cell Urine Few /hpf (Few); Urobilinogen Urine 0.2 mg/dL (<2.0); WBC Urine 0-5 /hpf (0-3)
[2025-03-25 20:47] LABS: Alanine Aminotransferase 17 U/L (6-35); Albumin Level 4.1 g/dL (3.5-5.1); Alkaline Phosphatase 49 U/L (38-126); Anion Gap 5 mmol/L (4-12); Aspartate Amino Transferase 29 U/L (14-36); Bilirubin,Total 0.3 mg/dL (0.2-1.3); Blood Urea Nitrogen 24 mg/dL (7-17); Calcium 8.5 mg/dL (8.4-10.2); Carbon Dioxide 30 mmol/L (22-30); Chloride 102 mmol/L (98-107); Estimated CRCL calculation 69 ml/min; Estimated Glomerular Filt Rate > 60; Glucose 90 mg/dL (65-110); Lipase 53 U/L (23-300); Potassium 3.8 mmol/L (3.4-5.0); Sodium 137 mmol/L (137-145)
--- OUTSIDE RECORDS SUMMARY | 2025-03-25 20:48 | XMS_ITS | Referral Summary ---
Author Organization [facility] Physician Office Building [address] [place] [phone] Care Team Providers Care Media Center Specialist Name Role Phone Micki Pride MD Primary Care Provider [phone] Encounters Date Type Department Care Team Description 02/20/2025 4:30 PM CDT Telemedicine [address] [phone] Yobany Mehta MD Moderate episode of recurrent major depressive disorder (HCC) (Primary Dx); Panic disorder; JOSEPHINE (generalized anxiety disorder); Attention deficit hyperactivity disorder (ADHD), combined type; Insomnia, unspecified type 02/14/[address] [phone] Yobany Mehta MD 01/01/2025 4:30 PM CENTER MACHINE SET UP OPERATOR Telemedicine [address] [phone] Yobany Mehta MD Moderate episode of recurrent major depressive disorder (HCC) (Primary Dx); Panic disorder; JOSEPHINE (generalized anxiety disorder); Attention deficit hyperactivity disorder (ADHD), unspecified ADHD type 12/26/[address] [phone] Yobany Mehta MD Med Refill [...] on file Legal Sex Female 3:14 AM CENTER MACHINE SET UP OPERATOR Gender Identity Female 03/30/2023 10:16 AM CDT Sexual Orientation Not on file Last Filed Vital Signs Vital Sign Reading Time Taken Comments Blood Pressure 120/90 11/01/2023 2:17 PM CENTER MACHINE SET UP OPERATOR Pulse 90 11/01/2023 2:17 PM CENTER MACHINE SET UP OPERATOR Temperature 36.5 C (97.7 F) 11/01/2023 2:17 PM CENTER MACHINE SET UP OPERATOR Respiratory Rate 18 11/01/2023 2:17 PM CENTER MACHINE SET UP OPERATOR Oxygen Saturation 97% 11/01/2023 2:17 PM CENTER MACHINE SET UP OPERATOR Inhaled Oxygen Concentration - - Weight 59.9 kg (132 lb) 11/01/2023 2:17 PM CENTER MACHINE SET UP OPERATOR Height 157.5 cm (5' 2 ) 11/01/2023 2:17 PM CENTER MACHINE SET UP OPERATOR Body Mass Index 24.14 11/01/2023 2:17 PM CENTER MACHINE SET UP OPERATOR Plan of Treatment [place] [address] [facility] [place] [address] [facility] Care Teams Media Center Specialist Relationship Specialty Start Date End Date Micki Pride MD PCP - General 02/28/14
--- OUTSIDE RECORDS SUMMARY | 2025-03-25 20:48 | XMS_ITS | Encounter Summary ---
Author Organization [facility] Address [address] [place] [address] Phone Care Team Providers Care Floatlight Powder Mixer Name Role Phone Provider, None Primary Care Provider Mario Perez MD Primary Care Provider [phone] Encounter Details Date Type Department Care Team (Late st Contact Info) Description 01/15/2022 Lab Requisition [facility] [address] [place] [id number] Ana Espinoza, FINE ARTS CHAIR, INTERDISCIPLINARY PROFESSOR [address] [place] [address] Encounter for pre-employment examination Social [...] COVID-19? No / Unsure 01/15/2022 8:51 AM MARKETING PROJECT LEAD documented as of this encounter Plan of Treatment Not on file documented as of this encounter Procedures Procedure Name Priority Date/Time Associated Diagnosis Comments QUANTIFERON-TB GOLD PLUS Routine 01/15/2022 9:00 AM MARKETING PROJECT LEAD Encounter for pre-employment examination MMRV PANEL Routine 01/15/2022 9:00 AM MARKETING PROJECT LEAD Encounter for pre-employment examination MUMPS IGG Routine 01/15/2022 9:00 AM MARKETING PROJECT LEAD Encounter for pre-employment examination HERPES ZOSTER (VARICELLA) IGG Routine 01/15/2022 9:00 AM MARKETING PROJECT LEAD Encounter for pre-employment examination RUBEOLA (MEASLES) IGG Routine 01/15/2022 9:00 AM MARKETING PROJECT LEAD Encounter for pre-employment examination RUBELLA IMMUNITY IGG Routine 01/15/2022 9:00 AM MARKETING PROJECT LEAD Encounter for pre-employment examination HEPATITIS B SURFACE ANTIBODY (HBSAB) Routine 01/15/2022 9:00 AM MARKETING PROJECT LEAD Encounter for pre-employment examination documented in this encounter Results * HERPES ZOSTER (VARICELLA) IGG (01/15/2022 9:00 AM MARKETING PROJECT LEAD) VARICELLA ZOSTER IGG 4.6 >=1.1 AI 01/15/2022 11:30 PM MARKETING PROJECT LEAD [facility] Blood No Phlebotomy Charged / Unknown 01/15/2022 9:00 AM MARKETING PROJECT LEAD 01/15/2022 1:08 PM MARKETING PROJECT LEAD Narrative [facility] - 01/15/2022 11:30 PM MARKETING PROJECT LEAD <= 0.8 Negative. No detectable VZV IgG antibody. 0.9 - 1.0 Equivocal >=1.1 Positive Antibody testing was performed by multiplex flow immunoassay on the [employer] platform. us Ana L Behjoe FINE ARTS CHAIR, INTERDISCIPLINARY PROFESSOR IMMUNOLOGY ORDERABL ES Final Result [facility] [address] [place] [address], * (ABNORMAL) RUBEOLA (MEASLES) IGG (01/15/2022 9:00 AM MARKETING PROJECT LEAD) MEASLES AB IGG 0.7(L) >=1.1 AI 01/15/2022 11:30 PM MARKETING PROJECT LEAD [facility] Blood No Phlebotomy Charged / Unknown 01/15/2022 9:00 AM MARKETING PROJECT LEAD 01/15/2022 1:08 PM MARKETING PROJECT LEAD Narrative [facility] - 01/15/2022 11:30 PM MARKETING PROJECT LEAD <= 0.8 Negative. No detectable Measles IgG antibody. 0.9 - 1.0 Equivocal >=1.1 Positive Antibody testing was performed by multiplex flow immunoassay on the [employer] platform. us Ana L Behrends FINE ARTS CHAIR, INTERDISCIPLINARY PROFESSOR IMMUNOLOGY ORDERABL ES Final Result Performing Organization Address City/[facility]/ZIP Co de Phone Number [facility] [address] [place] [address], [place] * RUBELLA IMMUNITY IGG (01/15/2022 9:00 AM MARKETING PROJECT LEAD) RUBELLA IMMUNITY Immune Immune, Invalid 01/15/2022 11:30 PM MARKETING PROJECT LEAD [facility] Blood No Phlebotomy Charged / Unknown 01/15/2022 9:00 AM MARKETING PROJECT LEAD 01/15/2022 1:08 PM MARKETING PROJECT LEAD Narrative [facility] - 01/15/2022 11:30 PM MARKETING PROJECT LEAD Antibody testing was performed by multiplex flow immunoassay on the [employer] platform. us Ana L Behrends FINE ARTS CHAIR, INTERDISCIPLINARY PROFESSOR CHEMISTRY ORDERABLE S Final Result Performing Organization Address City/[facility]/ZIP Co de Phone Number [facility] [address] [place] [address], [place] * MUMPS IGG (01/15/2022 9:00 AM MARKETING PROJECT LEAD) Mumps Ab IgG 1.2 >=1.1 AI 01/15/2022 11:30 PM MARKETING PROJECT LEAD [facility] Blood No Phlebotomy Charged / Unknown 01/15/2022 9:00 AM MARKETING PROJECT LEAD 01/15/2022 1:08 PM MARKETING PROJECT LEAD Narrative [facility] - 01/15/2022 11:30 PM MARKETING PROJECT LEAD <= 0.8 Negative. No detectable Mumps IgG antibody. 0.9 - 1.0 Equivocal >=1.1 Positive Antibody testing was performed by multiplex flow immunoassay on the [employer] platform. us Ana Espinoza APRN, CNP IMMUNOLOGY ORDERABL ES Final Result [facility] [address] [place] [address], [place] * QUANTIFERON-TB GOLD PLUS (01/15/2022 9:00 AM MARKETING PROJECT LEAD) NIL CONTROL 0.05 <8.01 IU/mL 01/17/2022 1:34 PM MARKETING PROJECT LEAD [facility] TB ANTIGEN 1 0.03 <0.35 IU/mL 01/17/2022 1:34 PM MARKETING PROJECT LEAD [facility] TB ANTIGEN 2 0.01 <0.35 IU/mL 01/17/2022 1:34 PM MARKETING PROJECT LEAD [facility] MITOGEN CONTROL 8.21 >0.49 IU/mL 01/18/20 22 1:34 PM MARKETING PROJECT LEAD [facility] INTEPRETATION TB NEGATIVE NEGATIVE, NEGATIVE (TB antigen response less than 25% of internal negative control value) 01/17/2022 1:34 PM MARKETING PROJECT LEAD [facility] Comment:No immune response t o Mycobacterium tuberculosis antigens was noted. M. tuberculosis infection unlikely. Blood No Phlebotomy Charged / Unknown 01/15/2022 9:00 AM MARKETING PROJECT LEAD 01/15/2022 1:08 PM MARKETING PROJECT LEAD Narrative [facility] - 01/17/2022 1:34 PM MARKETING PROJECT LEAD A POSITIVE QUANTIFERON-TB GOLD PLUS RESULT SHOULD [...] immunocompromised individuals. https://www.cdc.gov/tb/publications/guidelines/testing.htm us Ana Espinoza APRN, INTERDISCIPLINARY PROFESSOR IMMUNOLOGY ORDERABL ES Final Result Performing Organization Address [facility] Co de Phone Number [facility] [address] [place] [address], [place] * HEPATITIS B SURFACE ANTIBODY (HBSAB) (01/15/2022 9:00 AM MARKETING PROJECT LEAD) HEPATITIS B SURFACE ANTIBODY 47.68 mIU/mL [facility] ARCH [id number] B 01/15/2022 11:22 PM MARKETING PROJECT LEAD [facility] Comment: Detected Range: >12.00 Individual is considered immune to HBV infection Blood No Phlebotomy Charged / Unknown 01/15/2022 9:00 AM MARKETING PROJECT LEAD 01/15/2022 1:08 PM MARKETING PROJECT LEAD us Ana Espinoza FINE ARTS CHAIR, INTERDISCIPLINARY PROFESSOR CHEMISTRY ORDERABLE S Final Result Performing Organization Address [facility] Co de Phone Number [facility] [address] [place] [address], documented in this encounter Visit Diagnoses Diagnosis Encounter for pre-employment examination Health examination of defined subpopulation documented in this encounter Care Teams Floatlight Powder Mixer Relationship Specialty Start Date End Date Provider, None [place] PCP - General 01/15/22 08/03/22 Mario Hernandez MD [address] [place], [place] [id number] PCP - General Family Medicine 08/04/22 documented as of this encounter
--- OUTSIDE RECORDS SUMMARY | 2025-03-25 20:48 | XMS_ITS | Clinical Summary ---
Author Organization [facility] [address] [place] [phone] Care Team Providers Care News Analyst Name Role Phone Micki Pride MD Primary Care Provider [phone] Allergies Active Allergy Reactions Criticality Noted Date [...] Team Description 02/20/2025 4:30 PM CDT Telemedicine [facility] [address] [place] [phone] Yobany Mehta MD Moderate episode of recurrent major depressive disorder (HCC) (Primary Dx); Panic disorder; JOSEPHINE (generalized anxiety disorder); Attention deficit hyperactivity disorder (ADHD), combined type; Insomnia, unspecified type 02/14/[address] [place] [phone] Yobany Mehta MD 01/01/2025 4:30 PM VALUE ANALYST Telemedicine [address] [place] [phone] Yobany Mehta MD Moderate episode of recurrent major depressive disorder (HCC) (Primary Dx); Panic disorder; JOSEPHINE (generalized anxiety disorder); Attention deficit hyperactivity disorder (ADHD), unspecified ADHD type 12/26/[address] [place] [phone] Yobany Mehta MD Med Refill (Adderall ) from Last 3 Months Social History Tobacco Use Types Packs/Day Years Used Date Smoking Tobacco: Never Assessed Comments Unknown Sex and Gender Information Value Date Recorded Sex Assigned at Not on file Legal Sex Female 3:14 AM VALUE ANALYST Gender Identity Female 03/30/2023 10:16 AM CDT Sexual Orientation Not on file Obstetrics History Last Filed Vital Signs Vital Sign Reading Time Taken Comments Blood Pressure 120/90 11/01/2023 2:17 PM VALUE ANALYST Pulse 90 11/01/2023 2:17 PM VALUE ANALYST Temperature 36.5 C (97.7 F) 11/01/2023 2:17 PM VALUE ANALYST Respiratory Rate 18 11/01/2023 2:17 PM VALUE ANALYST Oxygen Saturation 97% 11/01/2023 2:17 PM VALUE ANALYST Inhaled Oxygen Concentration - - Weight 59.9 kg (132 lb) 11/01/2023 2:17 PM VALUE ANALYST Height 157.5 cm (5' 2 ) 11/01/2023 2:17 PM VALUE ANALYST Body Mass Index 24.14 11/01/2023 2:17 PM VALUE ANALYST Plan of Treatment Health Maintenance Due Date [...] patient's age to complete this topic Insurance [employer] PPO [facility] PPO Care Teams News Analyst Relationship Specialty Start Date End Date Micki Pride MD PCP - General 02/28/14
--- OUTSIDE RECORDS SUMMARY | 2025-03-25 20:48 | XMS_ITS | Clinical Summary ---
Author Organization [facility] Address [address] [facility], [address] [phone] Phone Care Team Providers Care Ship Cleaner Name Role Phone Mario Hernandez MD Primary Care Provider [phone] Social History Tobacco Use Types Packs/Day Years [...] age to complete this topic Care Teams Ship Cleaner Relationship Specialty Start Date End Date Mario Hernandez MD [address] [address] PCP - General Family Medicine 08/04/22
--- NOTE | 2025-03-25 20:57 | ED_ITS ---
HPI - Abdominal Pain General Chief Complaint: Abdominal Pain Stated Complaint: coffee ground emesis, abd/back pn Time Seen by Provider: 03/25/25 20:26 Source: patient Mode of arrival: ambulatory Limitations: no limitations History of Present Illness HPI narrative: Patient is a 39-year-old female who presents the ED with report of epigastric abdominal pain. Patient has history of peptic ulcer disease, history of bleeding ulcers. She states this pain feels similar. She began feeling somewhat nauseous over the weekend, developed pain throughout her epigastric region, radiating to her back. States this feels similar to her previous episodes of ulcer related pain. Is on Protonix daily. Has had previous endoscopies, but does not currently follow with GI. She reports vomiting small amounts of coffee-ground emesis yesterday and today. Denies bright red hematemesis. She states it has been a couple of days since her last bowel movement, but it was normal at that time. Denies rectal bleeding or melena. Denies fevers, shortness of breath, chest pain. Related Data Home Medications Medication Instructions Recorded Confirmed Last Taken Type alprazolam 1 mg tablet 0.5 mg PO DAILY 07/07/21 11/20/24 Unknown History escitalopram oxalate 10 mg tablet 10 mg PO DAILY 07/07/21 11/20/24 Unknown History zolpidem 10 mg tablet 10 mg PO ONCE 07/07/21 11/20/24 Unknown History dextroamphetamine-amphetamine 30 10 mg PO BID 09/12/24 11/20/24 Unknown History mg tablet Allergies Allergy/AdvReac Type Severity Reaction Status Date / Time cat dander Allergy Mild Watery Eye Verified 03/25/25 20:14 house dust mite Allergy Mild Watery Eye Verified 03/25/25 20:14 oak Allergy Mild Unknown Verified 03/25/25 20:14 NSAIDS (Non-Steroidal AdvReac Severe Abdominal Verified 03/25/25 20:14 Anti-Inflamma Pain Review of Systems 2 Review of Systems: All systems reviewed & are unremarkable except as noted in HPI. All systems reviewed & are unremarkable except as noted in HPI and below PMFSH Past Medical History Medical History Peptic ulcer disease Screening for thyroid disorder Bilateral hand pain Neuralgia Well woman exam Back skin lesion Thoracic back pain Screening for lipoid disorders Diarrhea Family History Family History Father No problems noted. Mother No problems noted. 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 HEAD: Normocephalic, atraumatic. RESPIRATORY: Airway patent, respirations nonlabored. Clear to auscultation bilaterally, no rales, rhonchi, wheezing. CARDIOVASCULAR: Regular rate and rhythm without murmurs, rubs, or gallops. ABDOMINAL: Soft, tenderness to palpation epigastric region, nondistended. Normoactive BS. MUSCULOSKELETAL: Moves all extremities. No gross deformities. No tenderness throughout midline spine. SKIN: Warm, dry, normal color. NEURO: A&O X3. Speech clear. Cranial nerves II-XII grossly intact. Steady gait. No ataxic movements. PSYCHIATRIC: Appropriate mood and affect. Normal interaction. Course Vital Signs Vital signs: Vital Signs Temperature 98.1 F 03/25/25 20:19 Pulse Rate 87 03/25/25 20:19 Respiratory Rate 16 03/25/25 20:19 Blood Pressure 130/86 03/25/25 20:19 Pulse Oximetry 100 03/25/25 20:19 Oxygen Delivery Room Air 03/25/25 20:19 Temperature 98.1 F 03/25/25 20:19 Pulse Rate 75 03/25/25 21:48 Respiratory Rate 17 03/25/25 21:48 Blood Pressure 134/86 03/25/25 21:48 Pulse Oximetry 96 03/25/25 21:48 Oxygen Delivery Room Air 03/25/25 20:19 MDM - Abdominal Pain MDM Narrative Medical decision making narrative: Patient presented to ED with epigastric abdominal pain, small amounts of coffee- ground emesis X2d. History of peptic ulcer disease with history of bleeding ulcers. Vital signs are stable upon arrival. Patient in no acute distress. Cbc without leukocytosis. Hemoglobin today 11.1. This does appear to be an approx 2.5 point drop in her hemoglobin from November of this year. Platelets within normal range. CMP is unremarkable. No significant electrolyte derangement. Normal LFTs and lipase. UA is clear. negative. EKG without concerning ischemic changes. CT scan of abdomen/pelvis was obtained and showing evidence of moderate antral gastritis, esophagitis. Consistent with clinical picture. Discussed lab and imaging findings with patient. She was given Protonix, GI cocktail, morphine, Zofran, fluids. Given additional dose of Dilaudid for pain control. She is still reporting fairly persistent pain. Given significant ongoing pain, acute drop in hemoglobin, will admit for continued pain control, serial H&Hs, potential endoscopy. Discussed case with Dr. Ladd, GI, agrees with plan, will consult. Discussed case with Dr. Fowler, hospitalist, accepted patient for admission. Patient and family in agreement with plan. Medical Records Attestation: I reviewed the patient's medical records. Lab Data Attestation: I reviewed the patient's lab results. 03/25/25 23:23 03/25/25 20:26 Labs: Lab Results 03/25/25 03/25/25 03/25/25 Range/Units 20:26 20:30 20:36 WBC 8.5 (4.5-10.0) K/mm3 RBC 3.82 L (4.2-5.4) M/mm3 Hgb 11.1 L (12.0-15.0) g/dL Hct 35.0 L (37.0-47.0) % MCV 91.6 (80-100) fl MCH 29.1 (26-34) pg MCHC 31.7 L (32-36) g/dl RDW 13.0 (11.5-14.5) % Plt Count 262 (150-375) k/mm3 MPV 10.3 (7.4-10.4) fl Immature Gran % (Auto) 0.1 (0-0.5) % Neut % (Auto) 46.1 (45.5-73.1) % Lymph % (Auto) 42.9 (18.3-44.2) % [place] % (Auto) 6.0 (2.6-8.5) % Eos % (Auto) 4.4 (0-4.4) % Baso % (Auto) 0.5 (0.2-1.2) % Lymph # (Auto) 3.65 H (0.9-3.2) K/mm3 [place] # (Auto) 0.5 (0.1-0.6) K/mm3 Eos # (Auto) 0.4 H (0-0.3) K/mm3 Baso # (Auto) 0.0 (0.0-0.1) K/mm3 Abs Immat Gran (auto) 0.01 (0.00-0.031) K/mm3 Absolute Neuts (auto) 3.9 (1.3-6.7) K/mm3 Absolute Nucleated RBC 0.000 (0.0-0.012) K/mm3 Nucleated RBC % 0.0 (0.0-0.2) % Sodium 137 (137-145) mmol/L Potassium 3.8 (3.4-5.0) mmol/L Chloride 102 (98-107) mmol/L Carbon Dioxide 30 (22-30) mmol/L Anion Gap 5 (4-12) mmol/L BUN 24 H (7-17) mg/dL Creatinine 0.73 (0.7-1.0) mg/dL Estim Creat Clear Calc 69 ml/min Estimated GFR > 60 (59 - ) Glucose 90 (65-110) mg/dL Lactic Acid (0.7-2.0) mmol/L Calcium 8.5 (8.4-10.2) mg/dL Total Bilirubin 0.3 (0.2-1.3) mg/dL AST 29 (14-36) U/L ALT 17 (6-35) U/L Alkaline Phosphatase 49 (38-126) U/L Total Protein 7.0 (6.3-8.2) g/dL Albumin 4.1 (3.5-5.1) g/dL Lipase 53 (23-300) U/L Urine Color Yellow (Yellow) Urine Appearance Clear (Clear) Urine pH 6.0 (5.0-9.0) Ur Specific [place] 1.016 (1.001-1.035) Urine Protein Negative (Negative) mg/dL Urine Glucose (UA) Negative (Negative) mg/dL Urine Ketones Trace H (Negative) mg/dL Ur Blood (Man) Negative (Negative) Urine Nitrate Negative (Negative) Urine Bilirubin Negative (Negative) Urine Urobilinogen 0.2 (<2.0) mg/dL Leukocyte Esterase Rfl Trace H (Negative) FOX/UL Urine RBC 0-2 (0-2) /hpf Urine WBC 0-5 (0-3) /hpf Ur Squamous Epith Cells Few (Few) /hpf Urine Bacteria None seen /hpf Urine Casts 0-2 POC Urine HCG, Qual Negative (Negative) 03/25/25 Range/Units 23:23 WBC (4.5-10.0) K/mm3 RBC (4.2-5.4) M/mm3 Hgb 10.5 L (12.0-15.0) g/dL Hct 33.7 L (37.0-47.0) % MCV (80-100) fl MCH (26-34) pg MCHC (32-36) g/dl RDW (11.5-14.5) % Plt Count (150-375) k/mm3 MPV (7.4-10.4) fl Immature Gran % (Auto) (0-0.5) % Neut % (Auto) (45.5-73.1) % Lymph % (Auto) (18.3-44.2) % [place] % (Auto) (2.6-8.5) % Eos % (Auto) (0-4.4) % Baso % (Auto) (0.2-1.2) % Lymph # (Auto) (0.9-3.2) K/mm3 [place] # (Auto) (0.1-0.6) K/mm3 Eos # (Auto) (0-0.3) K/mm3 Baso # (Auto) (0.0-0.1) K/mm3 Abs Immat Gran (auto) (0.00-0.031) K/mm3 Absolute Neuts (auto) (1.3-6.7) K/mm3 Absolute Nucleated RBC (0.0-0.012) K/mm3 Nucleated RBC % (0.0-0.2) % Sodium (137-145) mmol/L Potassium (3.4-5.0) mmol/L Chloride (98-107) mmol/L Carbon Dioxide (22-30) mmol/L Anion Gap (4-12) mmol/L BUN (7-17) mg/dL Creatinine (0.7-1.0) mg/dL Estim Creat Clear Calc ml/min Estimated GFR (59 - ) Glucose (65-110) mg/dL Lactic Acid 0.7 (0.7-2.0) mmol/L Calcium (8.4-10.2) mg/dL Total Bilirubin (0.2-1.3) mg/dL AST (14-36) U/L ALT (6-35) U/L Alkaline Phosphatase (38-126) U/L Total Protein (6.3-8.2) g/dL Albumin (3.5-5.1) g/dL Lipase (23-300) U/L Urine Color (Yellow) Urine Appearance (Clear) Urine pH (5.0-9.0) Ur Specific [place] (1.001-1.035) Urine Protein (Negative) mg/dL Urine Glucose (UA) (Negative) mg/dL Urine Ketones (Negative) mg/dL Ur Blood (Man) (Negative) Urine Nitrate (Negative) Urine Bilirubin (Negative) Urine Urobilinogen (<2.0) mg/dL Leukocyte Esterase Rfl (Negative) FOX/UL Urine RBC (0-2) /hpf Urine WBC (0-3) /hpf Ur Squamous Epith Cells (Few) /hpf Urine Bacteria /hpf Urine Casts POC Urine HCG, Qual (Negative) Imaging Data Attestation: I personally reviewed and interpreted this imaging study as follows: Radiologist's impression: ITS Impressions Abdomen/Pelvis CT 03/25/25 21:49 IMPRESSION: Mild esophagitis. Moderate antral gastritis. ECG Data EKG #1: Attestation: I personally reviewed and interpreted this ECG as follows: ECG completion date: 03/25/25 ECG completion time: 20:33 normal rate (77), sinus rhythm and no ST changes Discharge Plan Discharge Clinical Impression: Epigastric abdominal pain, Peptic ulcer disease with hemorrhage Anemia Qualifiers: Anemia type: unspecified type Qualified Code(s): D64.9 - Anemia, unspecified Gastritis Qualifiers: Gastritis type: unspecified gastritis Chronicity: acute Gastritis bleeding: w ith bleeding Qualified Code(s): K29.01 - Acute gastritis with bleeding Patient Disposition: Still a Patient Condition: Stable Patient Language: Latvian Prescriptions: No Action escitalopram oxalate 10 mg tablet 10 mg PO DAILY zolpidem 10 mg tablet 10 mg PO ONCE alprazolam 1 mg tablet 0.5 mg PO DAILY dextroamphetamine-amphetamine 30 mg tablet 10 mg PO BID meloxicam 7.5 mg tablet 7.5 mg PO DAILY Qty: 14 0RF prednisone 10 mg tablet 10 mg PO TID Qty: 15 0RF Rx Instructions: Take 3 times daily for 5 days. sucralfate [Carafate] 1 gram tablet 1 g PO Q6H PRN (Reason: stomach upset) Qty: 20 0RF pantoprazole [Protonix] 40 mg tablet,delayed release (DR/EC) 40 mg PO QAM Qty: 30 2RF Ubrelvy 100 mg tablet 100 mg PO ONCE Qty: 10 2RF Rx Instructions: as a single dose; may repeat once in >=2 hours after first dose if needed Follow-up/Referrals: Mario Hernandez MD [Primary Care Provider] -
[2025-03-25] MEDS: BELLADONNA ALK/PHENOB ELIX 10 ML, MAG HYDROX/ALUMINUM HYD/SIMETH 30 ML, LIDOCAINE 2% VI... PO (21:15)
[2025-03-25] MEDS: PANTOPRAZOLE SODIUM IV 40 MG VIAL IV PUSH (21:15)
[2025-03-25] MEDS: ONDANSETRON INJ 4 MG/2 ML VIAL IV PUSH (21:16)
[2025-03-25] MEDS: MORPHINE SULFATE (*CRX) 4 MG/ML INJ IV PUSH (21:16)
[2025-03-25] MEDS: SODIUM CHLORIDE 0.9% IV 1,000 ML 999 ML IV CONT (21:24)
[2025-03-25] MEDS: SODIUM CHLORIDE 0.9% IV 50 ML 999 ML (21:25)
[2025-03-25 21:48] VITALS: BP 134/86; PULSE 75; RESP 17; O2SAT 96
[2025-03-25] MEDS: HYDROmorphone HCL INJ (*CRX) 2 MG/ML VIAL 0.5 MG IV PUSH ×2 (22:30→23:24)
[2025-03-25 23:34] LABS: Hematocrit 33.7 % (37.0-47.0); Hemoglobin 10.5 g/dL (12.0-15.0)
[2025-03-25 23:49] LABS: Lactic Acid Reflex 0.7 mmol/L (0.7-2.0)
[2025-03-25 23:52] VITALS: PULSE 81; RESP 13; O2SAT 96
--- NOTE | 2025-03-25 23:55 | P.HP_ITS ---
H&P: HPI History of Present Illness Date/Time: 03/25/25 23:55 Chief Complaint: Abdominal pain Narrative: Patient is a 39-year-old female with a past medical history of chronic back pain and multiple bleeding ulcers in the past. Patient reports that she has a history of chronic back pain, which started in 2010, and she was diagnosed with various bleeding ulcers (6) in 2011. The patient has been seen for pain management lately for her back pain. She was prescribed tramadol, and no surgical intervention was performed in her spine including steroid injection. Patient felt nauseous on Tuesday, and her nausea was aggravated more severely on Tuesday, along with back pain. On Tuesday, she had a small amount of hematemesis. 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 Pertinent ED labs: WBC 8.5, hemoglobin 10.5(13.5 on 11/22/2024), platelet 262, sodium 137, potassium 3.8, BUN 24, creatinine 0.73, GFR greater than 60 CT abdomen pelvis shows mild esophagitis and moderate antral gastritis. Lactic acid pending The patient is admitted to the setting of upper GI bleed. Dr. Ladd is consulted. Patient will be NPO for possible EGD tomorrow. Patient will be started with the Protonix 40 mg IV b.i.d.. Patient has irregular menstrual cycles but denies any heavy menstrual bleeding. Will monitor serial H&H Review of Systems Review of Systems: All systems reviewed & are unremarkable except as noted in HPI. All systems reviewed & are unremarkable except as noted in HPI and below PMFSH Past Medical History Medical History Peptic ulcer disease Screening for thyroid disorder Bilateral hand pain Neuralgia Well woman exam Back skin lesion Thoracic back pain Screening for lipoid disorders Diarrhea Family History Family History Father No problems noted. Mother No problems noted. 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 Gender identity (if verbalized by the patient): Female Spiritual care concerns: No Meds Home Medications and Allergies Home Medications Medication Instructions Recorded Confirmed Type alprazolam 1 mg tablet 0.5 mg PO DAILY PRN anxiety 07/07/21 03/26/25 History escitalopram oxalate 10 mg tablet 10 mg PO DAILY 07/07/21 03/26/25 History zolpidem 10 mg tablet 10 mg PO QHS 07/07/21 03/26/25 History pantoprazole 40 mg tablet,delayed 40 mg PO QAM #30 tabs 12/17/22 03/26/25 Rx release (Protonix) dextroamphetamine-amphetamine 30 10 mg PO BID 09/12/24 03/26/25 History mg tablet ubrogepant 100 mg tablet (Ubrelvy) 100 mg PO ONCE #10 tabs 03/22/25 03/26/25 Rx tizanidine 4 mg capsule 4 mg PO TID PRN muscle spasticity 03/26/25 03/26/25 History Allergies Allergy/AdvReac Type Severity Reaction Status Date / Time cat dander Allergy Mild Watery Eye Verified 03/25/25 20:14 house dust mite Allergy Mild Watery Eye Verified 03/25/25 20:14 oak Allergy Mild Unknown Verified 03/25/25 20:14 NSAIDS (Non-Steroidal AdvReac Severe Abdominal Verified 03/25/25 20:14 Anti-Inflamma Pain Vital Signs Vital Signs - 24 hr 03/25/25 20:19 03/25/25 21:48 03/25/25 23:52 Temperature 98.1 F Pulse Rate 87 75 81 Respiratory Rate 16 17 13 Blood Pressure 130/86 134/86 Pulse Oximetry 100 96 96 Oxygen Delivery Room Air Exam Narrative: GENERAL: Mildly uncomfortable appearing, well-nourished, non-toxic, in no acute distress. HEAD: Normocephalic, atraumatic. RESPIRATORY: Airway patent, respirations nonlabored. Clear to auscultation bilaterally, no rales, rhonchi, wheezing. CARDIOVASCULAR: Regular rate and rhythm without murmurs, rubs, or gallops. ABDOMINAL: Soft, tenderness to palpation epigastric region, nondistended. Normoactive BS. MUSCULOSKELETAL: Moves all extremities. No gross deformities. No tenderness throughout midline spine. SKIN: Warm, dry, normal color. NEURO: A&O X3. Speech clear. Cranial nerves II-XII grossly intact. Steady gait. No ataxic movements. PSYCHIATRIC: Appropriate mood and affect. Normal interaction. H&P: Results Labs Labs: Short CBC 03/25/25 03/25/25 Range/Units 20:26 23:23 WBC 8.5 (4.5-10.0) K/mm3 Hgb 11.1 L 10.5 L (12.0-15.0) g/dL Hct 35.0 L 33.7 L (37.0-47.0) % Plt Count 262 (150-375) k/mm3 BMP 03/25/25 20:26 Sodium 137 Potassium 3.8 Chloride 102 Carbon Dioxide 30 BUN 24 H Creatinine 0.73 Glucose 90 Calcium 8.5 Liver Function 03/25/25 Range/Units 20:26 Total Bilirubin 0.3 (0.2-1.3) mg/dL AST 29 (14-36) U/L ALT 17 (6-35) U/L Alkaline Phosphatase 49 (38-126) U/L Albumin 4.1 (3.5-5.1) g/dL Urine 03/25/25 Range/Units 20:36 Urine Color Yellow (Yellow) Urine Appearance Clear (Clear) Urine pH 6.0 (5.0-9.0) Ur Specific [place] 1.016 (1.001-1.035) Urine Protein Negative (Negative) mg/dL Urine Glucose (UA) Negative (Negative) mg/dL Assessment and Plan Assessment and plan (1) Hx of gastric ulcer: Code(s): Z87.11 - Personal history of peptic ulcer disease Status: Acute (2) Peptic ulcer disease with hemorrhage: Code(s): K27.4 - Chronic or unspecified peptic ulcer, site unspecified, with hemorrhage Status: Acute (3) Peptic ulcer disease: Code(s): K27.9 - Peptic ulcer, site unspecified, unspecified as acute or chronic, without hemorrhage or perforation Status: Acute (4) Gastritis: Qualifiers: Chronicity: acute Gastritis bleeding: with bleeding Gastritis type: unspecified gastritis Qualified Code(s): K29.01 - Acute gastritis with bleeding Code(s): K29.70 - Gastritis, unspecified, without bleeding Status: Acute (5) Epigastric abdominal pain: Code(s): R10.13 - Epigastric pain Status: Acute (6) Back pain: Code(s): M54.9 - Dorsalgia, unspecified Status: Acute Plan Upper GI bleed History of multiple ulcer/GI clips Monitor H&H NPO for possible upper EGD Last EGD approximately 2 years ago Started on IV fluids NS at 100 mL/hr Protonix 40 mg IV b.i.d. Since patient has active bleeding transfuse early for hemoglobin less than 10 GI consulted Back Pain Chronic Multimodal pain management PT OT Call if any changes in CGS/Motor/Sensory exam Anxiety Continue home medication Medication reconciliation pending DVT prophylaxis: SCD GI prophylaxis: Protonix 40 mg IV b.i.d. Hospitalist MIPS Advance Care Plan I have confirmed that the patient's Advanced Care Plan is present, code status is documented, or surrogate decision maker is listed in patient medical record.: Yes Medication Reconciliation I have utilized all available resources to obtain, update and review the patients current medications (includes all prescriptions, OTC, herbals, cannabis, and nutritional supplements).: Yes
[2025-03-26] VITALS (9 sets, daily range): BP systolic 100–127; BP diastolic 63–82; PULSE 60–101; RESP 13–21; TEMP 36.2–36.6; O2SAT 94–100; BMI 25.2
[2025-03-26] MEDS: MORPHINE SULFATE (*CRX) 4 MG/ML INJ 1 MG IV PUSH ×2 (01:04→06:16)
--- NOTE | 2025-03-26 01:24 | ADMGEN ---
This patient, Yesenia Miranda, was admitted to Medical Room 254-01. Patient/family oriented to hospital policies and general routines including ID bracelet, bed and alarms, visiting hours, pain management, procedures, bathroom and other care routines, personal items, smoking policy, room service/diet, and visiting hours. Information on how to activate the Rapid Response Team has been discussed. Patient/Family are encouraged to report perceived risks to care and to ask questions if they do not understand what they are told or what they should do.
[2025-03-26] MEDS: ZOLPIDEM TARTRATE (*CRX) 5 MG TABLET 10 MG PO (01:28)
[2025-03-26] MEDS: SODIUM CHLORIDE 0.9% IV 1,000 ML 100 ML IV CONT ×2 (01:44→12:14)
[2025-03-26] MEDS: HYDROmorphone HCL INJ (*CRX) 2 MG/ML VIAL 0.5 MG IV PUSH ×3 (03:31→11:56)
[2025-03-26] MEDS: ONDANSETRON INJ 4 MG/2 ML VIAL IV PUSH (03:31)
[2025-03-26 05:07] LABS: Hematocrit 33.4 % (37.0-47.0); Hemoglobin 10.6 g/dL (12.0-15.0)
[2025-03-26] MEDS: LORazepam INJ (*CRX) 2 MG/ML VIAL 0.5 MG IV PUSH (10:19)
[2025-03-26] MEDS: PANTOPRAZOLE SODIUM IV 40 MG VIAL IV PUSH (10:55)
[2025-03-26 11:12] LABS: Hematocrit 31.7 % (37.0-47.0); Hemoglobin 9.7 g/dL (12.0-15.0)
--- NOTE | 2025-03-26 14:18 | P.PNIM_ITS ---
Progress Note: A&P Assessment and Plan (1) Peptic ulcer disease with hemorrhage: Code(s): K27.4 - Chronic or unspecified peptic ulcer, site unspecified, with hemorrhage Status: Acute Assessment and Plan: Diagnosed with various bleeding ulcers (6) in 2012, CT abdomen pelvis shows mild esophagitis and moderate antral gastritis. Last EGD approximately 2 years ago * Monitor H&H * NPO * Started on IV fluids NS at 100 mL/hr * Protonix 40 mg IV b.i.d. * Since patient has active bleeding transfuse early for hemoglobin less than 10 * GI consulted EGD 03/26/2025 1700 (2) Back pain: Code(s): M54.9 - Dorsalgia, unspecified Status: Acute Assessment and Plan: The patient has been seen for pain management lately for her back pain. She was prescribed tramadol, and no surgical intervention was performed in her spine including steroid injection * Gave Valium x 1 dose * pain management * Lidocaine patch * recommended PT * follows with a pain specialist outpatient Plan Code status: Full code per patient DVT prophylaxis: SCD's Stress ulcer prophylaxis: Protonix 40 BID PT/OT notes: NA Disposition: Patient admitted for exacerbation of PUD plan for EGD later today for further evaluation. Time Spent With Patient Time with patient: 15 - 25 minutes Subjective Date/time seen: 03/26/25 14:18 Interval history: Patient is a 39 year old female admitted for evaluation of PUD with bleeding ulcer and back pain with plans for EGD 03/26/2025. 03/26/25: Patient still reported back pain/spasm reports HX of and exacerbates her PUD. Patient denies N/V but reports ABD pain. Review of Systems Review of Systems: All systems reviewed & are unremarkable except as noted in HPI. All systems reviewed & are unremarkable except as noted in HPI and below Exam Narrative: GENERAL: Mildly uncomfortable RESPIRATORY: Clear to auscultation CARDIOVASCULAR: Tachycardia ABDOMINAL: Soft, tenderness to palpation epigastric region, nondistended. Normoactive BS. MUSCULOSKELETAL: Moves all extremities. tenderness throughout midline spine. SKIN: Warm, dry, normal color. NEURO: A&O X3. Speech clear PSYCHIATRIC: anxious tearful due to pain Objective Data Vital Signs Vital Signs: Vital Signs - 24 hr 03/25/25 20:19 03/25/25 21:48 03/25/25 23:52 Temperature 98.1 F Pulse Rate 87 75 81 Respiratory Rate 16 17 13 Blood Pressure 130/86 134/86 Pulse Oximetry 100 96 96 Oxygen Delivery Room Air 03/26/25 01:08 03/26/25 01:20 03/26/25 01:45 Temperature 97.8 F Pulse Rate 80 82 Respiratory Rate 14 17 Blood Pressure 124/82 113/69 Pulse Oximetry 97 94 Oxygen Delivery Room Air 03/26/25 04:59 03/26/25 07:49 Temperature 97.7 F Pulse Rate 96 101 H Respiratory Rate 16 Blood Pressure 117/75 Pulse Oximetry 99 99 Oxygen Delivery Room Air Intake/Output Intake/Output: Intake & Output 03/23/25 03/24/25 03/25/25 03/26/25 23:59 23:59 23:59 23:59 Intake Total 1050 1000 Output Total 200 Balance 1050 800 Meds/Results Medications: Active Medications Generic Name Dose Route Start Last Admin Trade Name Freq PRN Reason Stop Dose Admin Hydromorphone HCl 0.5 mg 03/26/25 14:16 Hydromorphone Hcl Inj (*Crx) 2 Mg/Ml Vial IV PUSH Q3H PRN Pain Rated 7-10 Sodium Chloride 1,000 mls @ 100 mls/hr 03/25/25 23:50 03/26/25 12:14 Normal Saline Iv IV CONT 100 mls/hr .Q10H KAILA Administration Lorazepam 0.5 mg 03/26/25 08:50 03/26/25 10:19 Lorazepam Inj (*Crx) 2 Mg/Ml Vial IV PUSH 0.5 mg BID PRN Administration Anxiety Ondansetron HCl 4 mg 03/25/25 23:48 03/26/25 03:31 Ondansetron Inj 4 Mg/2 Ml Vial IV PUSH 4 mg Q4H PRN Administration Nausea Pantoprazole Sodium 40 mg 03/26/25 09:00 03/26/25 10:55 Pantoprazole Sodium Iv 40 Mg Vial IV PUSH 40 mg BID KAILA Administration Zolpidem Tartrate 10 mg 03/26/25 01:00 03/26/25 01:28 Zolpidem Tartrate (*Crx) 5 Mg Tablet PO 10 mg HS PRN Administration Insomnia Radiology Results: ITS Impressions Abdomen/Pelvis CT 03/25/25 21:49 IMPRESSION: Mild esophagitis. Moderate antral gastritis. Labs Labs: Laboratory Results - last 24 hr 03/25/25 03/25/25 03/25/25 20:26 20:30 20:36 WBC 8.5 RBC 3.82 L Hgb 11.1 L Hct 35.0 L MCV 91.6 MCH 29.1 MCHC 31.7 L RDW 13.0 Plt Count 262 MPV 10.3 Immature Gran % (Auto) 0.1 Neut % (Auto) 46.1 Lymph % (Auto) 42.9 [place] % (Auto) 6.0 Eos % (Auto) 4.4 Baso % (Auto) 0.5 Lymph # (Auto) 3.65 H [place] # (Auto) 0.5 Eos # (Auto) 0.4 H Baso # (Auto) 0.0 Abs Immat Gran (auto) 0.01 Absolute Neuts (auto) 3.9 Absolute Nucleated RBC 0.000 Nucleated RBC % 0.0 Sodium 137 Potassium 3.8 Chloride 102 Carbon Dioxide 30 Anion Gap 5 BUN 24 H Creatinine 0.73 Estim Creat Clear Calc 69 Estimated GFR > 60 Glucose 90 Lactic Acid Calcium 8.5 Total Bilirubin 0.3 AST 29 ALT 17 Alkaline Phosphatase 49 Total Protein 7.0 Albumin 4.1 Lipase 53 Urine Color Yellow Urine Appearance Clear Urine pH 6.0 Ur Specific [place] 1.016 Urine Protein Negative Urine Glucose (UA) Negative Urine Ketones Trace H Ur Blood (Man) Negative Urine Nitrate Negative Urine Bilirubin Negative Urine Urobilinogen 0.2 Leukocyte Esterase Rfl Trace H Urine RBC 0-2 Urine WBC 0-5 Ur Squamous Epith Cells Few Urine Bacteria None seen Urine Casts 0-2 POC Urine HCG, Qual Negative Blood Type Antibody Screen 03/25/25 03/26/25 03/26/25 23:23 04:28 10:59 WBC RBC Hgb 10.5 L 10.6 L 9.7 L Hct 33.7 L 33.4 L 31.7 L MCV MCH MCHC RDW Plt Count MPV Immature Gran % (Auto) Neut % (Auto) Lymph % (Auto) [place] % (Auto) Eos % (Auto) Baso % (Auto) Lymph # (Auto) [place] # (Auto) Eos # (Auto) Baso # (Auto) Abs Immat Gran (auto) Absolute Neuts (auto) Absolute Nucleated RBC Nucleated RBC % Sodium Potassium Chloride Carbon Dioxide Anion Gap BUN Creatinine Estim Creat Clear Calc Estimated GFR Glucose Lactic Acid 0.7 Calcium Total Bilirubin AST ALT Alkaline Phosphatase Total Protein Albumin Lipase Urine Color Urine Appearance Urine pH Ur Specific [place] Urine Protein Urine Glucose (UA) Urine Ketones Ur Blood (Man) Urine Nitrate Urine Bilirubin Urine Urobilinogen Leukocyte Esterase Rfl Urine RBC Urine WBC Ur Squamous Epith Cells Urine Bacteria Urine Casts POC Urine HCG, Qual Blood Type O Positive Antibody Screen Negative Quality VTE Prophylaxis VTE prophylaxis: mechanical ordered -Patient's previous records reviewed on admission -ER notes reviewed in detail on admission -discussed all findings and current treatment plan with patient/Family/POA -Consultations reviewed for recommendations -Patient's disposition for safe discharge discussed with case technician Dictation performed by [facility] direct speech recognition software, therefore personal care assistant variants and typographical errors may occur. Hospitalist MIPS Advance Care Plan I have confirmed that the patient's Advanced Care Plan is present, code status is documented, or surrogate decision maker is listed in patient medical record.: Yes Medication Reconciliation I have utilized all available resources to obtain, update and review the patients current medications (includes all prescriptions, OTC, herbals, cannabis, and nutritional supplements).: Yes The patient is not eligible for med reconciliation; the patient is in a emergent medical situation where delaying treatment would jeopardize the patients health.: No
[2025-03-26] MEDS: diazePAM INJ (*CRX) 10 MG/2 ML SYRINGE 5 MG IV PUSH (14:34)
[2025-03-26] MEDS: LACTATED RINGERS 1,000 ML 150 ML IV CONT (14:58)
--- NOTE | 2025-03-26 15:00 | WPDGICN ---
Assessment and Plan Assessment and plan (1) Gastritis: Qualifiers: Chronicity: acute Gastritis bleeding: with bleeding Gastritis type: unspecified gastritis Qualified Code(s): K29.01 - Acute gastritis with bleeding Code(s): K29.70 - Gastritis, unspecified, without bleeding Status: Acute Assessment and Plan: noted drop of h/h, known history of gastric ulcers using protonix daily, denies nsaid's egd today to check, continue in the meantime with protonix bid more recommendations after egd (2) Epigastric abdominal pain: Code(s): R10.13 - Epigastric pain Status: Acute (3) Coffee ground emesis: Code(s): K92.0 - Hematemesis Status: Acute (4) Acute blood loss anemia: Code(s): D62 - Acute posthemorrhagic anemia Status: Acute (5) Hx of gastric ulcer: Code(s): Z87.11 - Personal history of peptic ulcer disease Status: Acute GI Consult Note Consult date/time: 03/26/25 15:00 Reason for consult: epigastric pain, coffee ground emesis HPI: Yesenia Miranda is a 39 year old female with known gastric ulcers in the past that required endoscopic intervention, she had negative H pylori and also tested for Pedro Saenz that was negative. Here with new onset of epigastric pain since Tuesday radiated to her back then nausea and finally coffee ground emesis, denies melena. No nsaid's use. Hgb 9.6 from normal baseline 13, bun elevated 24, normal creatinine. CT scan showed gastritis. She normally takes protonix once daily Review of Systems Constitutional: Constitutional: Denies headache(s) Eyes: Eyes: Denies blurry vision ENT: Reports Normal hearing present and Denies headache(s) Cardiovascular: Cardiovascular: Denies chest pain and Denies dyspnea Respiratory: Respiratory: Denies dyspnea Gastrointestinal: Gastrointestinal: Reports no additional gastrointestinal complaints Genitourinary: Genitourinary: Denies dysuria Musculoskeletal: Musculoskeletal: Reports back pain Integumentary/Breasts: Skin/Breast: Denies dry skin Neurologic: Reports Normal hearing present Psychiatric: Psychiatric: Denies anxiety PMFSH Past Medical History Medical History (Updated 03/26/25 @ 15:10 by New Moran MD) Acute blood loss anemia Coffee ground emesis Peptic ulcer disease Screening for thyroid disorder Bilateral hand pain Neuralgia Well woman exam Back skin lesion Thoracic back pain Screening for lipoid disorders Diarrhea Family History Family History Father No problems noted. Mother No problems noted. 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 Gender identity (if verbalized by the patient): Female Spiritual care concerns: No Meds Home Medications and Allergies Home Medications Medication Instructions Recorded Confirmed Type alprazolam 1 mg tablet 0.5 mg PO DAILY PRN anxiety 07/07/21 03/26/25 History escitalopram oxalate 10 mg tablet 10 mg PO DAILY 07/07/21 03/26/25 History zolpidem 10 mg tablet 10 mg PO QHS 07/07/21 03/26/25 History pantoprazole 40 mg tablet,delayed 40 mg PO QAM #30 tabs 12/17/22 03/26/25 Rx release (Protonix) dextroamphetamine-amphetamine 30 10 mg PO BID 09/12/24 03/26/25 History mg tablet ubrogepant 100 mg tablet (Ubrelvy) 100 mg PO ONCE #10 tabs 03/22/25 03/26/25 Rx tizanidine 4 mg capsule 4 mg PO TID PRN muscle spasticity 03/26/25 03/26/25 History Allergies Allergy/AdvReac Type Severity Reaction Status Date / Time cat dander Allergy Mild Watery Eye Verified 03/25/25 20:14 house dust mite Allergy Mild Watery Eye Verified 03/25/25 20:14 oak Allergy Mild Unknown Verified 03/25/25 20:14 NSAIDS (Non-Steroidal AdvReac Severe Abdominal Verified 03/25/25 20:14 Anti-Inflamma Pain Vital Signs Vital Signs - 24 hr 03/25/25 20:19 03/25/25 21:48 03/25/25 23:52 Temperature 98.1 F Pulse Rate 87 75 81 Respiratory Rate 16 17 13 Blood Pressure 130/86 134/86 Pulse Oximetry 100 96 96 Oxygen Delivery Room Air 03/26/25 01:08 03/26/25 01:20 03/26/25 01:45 Temperature 97.8 F Pulse Rate 80 82 Respiratory Rate 14 17 Blood Pressure 124/82 113/69 Pulse Oximetry 97 94 Oxygen Delivery Room Air 03/26/25 04:59 03/26/25 07:49 03/26/25 14:53 Temperature 97.7 F 97.2 F L Pulse Rate 96 101 H 67 Respiratory Rate 16 16 Blood Pressure 117/75 127/80 Pulse Oximetry 99 99 97 Oxygen Delivery Room Air Room Air Exam Const: General: comfortable and no acute distress HENMT: Face/Nose/Sinus: Normal nares present Eyes: General: appearance normal, both eyes and all related structures Neck: Neck: supple Resp: Auscultation: clear to auscultation bilaterally Cardio: Rate: regular rate Rhythm: regular rhythm GI: Inspection: non-distended GI Palp: Yes Soft to palpation and Yes Tenderness to palpation present (GI) (mild epigastric, no rebound) Auscultation: normal bowel sounds Skin: General skin exam: normal color Neuro: Speech: normal speech Motor exam (neuro): 5/5 motor strength present throughout Extrem: General: normal to inspection Psych: Mental Status: mental status grossly normal Results Labs 03/26/25 10:59 03/25/25 20:26 Labs: Short CBC 03/25/25 03/25/25 03/26/25 Range/Units 20:26 23:23 04:28 WBC 8.5 (4.5-10.0) K/mm3 Hgb 11.1 L 10.5 L 10.6 L (12.0-15.0) g/dL Hct 35.0 L 33.7 L 33.4 L (37.0-47.0) % Plt Count 262 (150-375) k/mm3 03/26/25 Range/Units 10:59 WBC (4.5-10.0) K/mm3 Hgb 9.7 L (12.0-15.0) g/dL Hct 31.7 L (37.0-47.0) % Plt Count (150-375) k/mm3 BMP 03/25/25 20:26 Sodium 137 Potassium 3.8 Chloride 102 Carbon Dioxide 30 BUN 24 H Creatinine 0.73 Glucose 90 Calcium 8.5 Liver Function 03/25/25 Range/Units 20:26 Total Bilirubin 0.3 (0.2-1.3) mg/dL AST 29 (14-36) U/L ALT 17 (6-35) U/L Alkaline Phosphatase 49 (38-126) U/L Albumin 4.1 (3.5-5.1) g/dL Urine 03/25/25 Range/Units 20:36 Urine Color Yellow (Yellow) Urine Appearance Clear (Clear) Urine pH 6.0 (5.0-9.0) Ur Specific [place] 1.016 (1.001-1.035) Urine Protein Negative (Negative) mg/dL Urine Glucose (UA) Negative (Negative) mg/dL
--- NOTE | 2025-03-26 15:01 | WPDANESEPPF ---
Anes - Initial Pre Proc Eval Procedure: Operation Date: 03/26/25 17:00 Proposed Procedures p Esophagogastroduodenoscopy - New Moran MD Date/Time: 03/26/25 15:01 Surgeon: Mk Fowler MD Pre Op Diagnosis: PUD, Epigastric pain, Anemia Patient Data Age: 39 Gender: F Height: 1.57 m Weight: 62.6 kg Last Vital Signs Temp 36.2 C L 03/26/25 14:53 Pulse 67 03/26/25 14:53 Resp 16 03/26/25 14:53 BP 127/80 03/26/25 14:53 Pulse Ox 97 03/26/25 14:53 O2 Del Method Room Air 03/26/25 14:53 Allergies Allergy/AdvReac Type Severity Reaction Status Date / Time cat dander Allergy Mild Watery Eye Verified 03/25/25 20:14 house dust mite Allergy Mild Watery Eye Verified 03/25/25 20:14 oak Allergy Mild Unknown Verified 03/25/25 20:14 NSAIDS (Non-Steroidal AdvReac Severe Abdominal Verified 03/25/25 20:14 Anti-Inflamma Pain Home Medications Medication Instructions Recorded Confirmed Type alprazolam 1 mg tablet 0.5 mg PO DAILY PRN anxiety 07/07/21 03/26/25 History escitalopram oxalate 10 mg tablet 10 mg PO DAILY 07/07/21 03/26/25 History zolpidem 10 mg tablet 10 mg PO QHS 07/07/21 03/26/25 History pantoprazole 40 mg tablet,delayed 40 mg PO QAM #30 tabs 12/17/22 03/26/25 Rx release (Protonix) dextroamphetamine-amphetamine 30 10 mg PO BID 09/12/24 03/26/25 History mg tablet ubrogepant 100 mg tablet (Ubrelvy) 100 mg PO ONCE #10 tabs 03/22/25 03/26/25 Rx tizanidine 4 mg capsule 4 mg PO TID PRN muscle spasticity 03/26/25 03/26/25 History Laboratory Tests 03/25/25 03/25/25 03/25/25 20:26 20:30 20:36 WBC 8.5 K/mm3 (4.5-10.0) RBC 3.82 L M/mm3 (4.2-5.4) Hgb 11.1 L g/dL (12.0-15.0) Hct 35.0 L % (37.0-47.0) MCV 91.6 fl (80-100) MCH 29.1 pg (26-34) MCHC 31.7 L g/dl (32-36) RDW 13.0 % (11.5-14.5) Plt Count 262 k/mm3 (150-375) MPV 10.3 fl (7.4-10.4) Immature Gran % (Auto) 0.1 % (0-0.5) Neut % (Auto) 46.1 % (45.5-73.1) Lymph % (Auto) 42.9 % (18.3-44.2) [place] % (Auto) 6.0 % (2.6-8.5) Eos % (Auto) 4.4 % (0-4.4) Baso % (Auto) 0.5 % (0.2-1.2) Lymph # (Auto) 3.65 H K/mm3 (0.9-3.2) [place] # (Auto) 0.5 K/mm3 (0.1-0.6) Eos # (Auto) 0.4 H K/mm3 (0-0.3) Baso # (Auto) 0.0 K/mm3 (0.0-0.1) Abs Immat Gran (auto) 0.01 K/mm3 (0.00-0.031) Absolute Neuts (auto) 3.9 K/mm3 (1.3-6.7) Absolute Nucleated RBC 0.000 K/mm3 (0.0-0.012) Nucleated RBC % 0.0 % (0.0-0.2) Sodium 137 mmol/L (137-145) Potassium 3.8 mmol/L (3.4-5.0) Chloride 102 mmol/L (98-107) Carbon Dioxide 30 mmol/L (22-30) Anion Gap 5 mmol/L (4-12) BUN 24 H mg/dL (7-17) Creatinine 0.73 mg/dL (0.7-1.0) Estim Creat Clear Calc 69 ml/min Estimated GFR > 60 (59 - ) Glucose 90 mg/dL (65-110) Lactic Acid Calcium 8.5 mg/dL (8.4-10.2) Total Bilirubin 0.3 mg/dL (0.2-1.3) AST 29 U/L (14-36) ALT 17 U/L (6-35) Alkaline Phosphatase 49 U/L (38-126) Total Protein 7.0 g/dL (6.3-8.2) Albumin 4.1 g/dL (3.5-5.1) Lipase 53 U/L (23-300) Urine Color Yellow (Yellow) Urine Appearance Clear (Clear) Urine pH 6.0 (5.0-9.0) Ur Specific [place] 1.016 (1.001-1.035) Urine Protein Negative mg/dL (Negative) Urine Glucose (UA) Negative mg/dL (Negative) Urine Ketones Trace H mg/dL (Negative) Ur Blood (Man) Negative (Negative) Urine Nitrate Negative (Negative) Urine Bilirubin Negative (Negative) Urine Urobilinogen 0.2 mg/dL (<2.0) Leukocyte Esterase Rfl Trace H FOX/UL (Negative) Urine RBC 0-2 /hpf (0-2) Urine WBC 0-5 /hpf (0-3) Ur Squamous Epith Cells Few /hpf (Few) Urine Bacteria None seen /hpf Urine Casts 0-2 POC Urine HCG, Qual Negative (Negative) Blood Type Antibody Screen 03/25/25 03/26/25 03/26/25 23:23 04:28 10:59 WBC RBC Hgb 10.5 L g/dL 10.6 L g/dL 9.7 L g/dL (12.0-15.0) (12.0-15.0) (12.0-15.0) Hct 33.7 L % 33.4 L % 31.7 L % (37.0-47.0) (37.0-47.0) (37.0-47.0) MCV MCH MCHC RDW Plt Count MPV Immature Gran % (Auto) Neut % (Auto) Lymph % (Auto) [place] % (Auto) Eos % (Auto) Baso % (Auto) Lymph # (Auto) [place] # (Auto) Eos # (Auto) Baso # (Auto) Abs Immat Gran (auto) Absolute Neuts (auto) Absolute Nucleated RBC Nucleated RBC % Sodium Potassium Chloride Carbon Dioxide Anion Gap BUN Creatinine Estim Creat Clear Calc Estimated GFR Glucose Lactic Acid 0.7 mmol/L (0.7-2.0) Calcium Total Bilirubin AST ALT Alkaline Phosphatase Total Protein Albumin Lipase Urine Color Urine Appearance Urine pH Ur Specific [place] Urine Protein Urine Glucose (UA) Urine Ketones Ur Blood (Man) Urine Nitrate Urine Bilirubin Urine Urobilinogen Leukocyte Esterase Rfl Urine RBC Urine WBC Ur Squamous Epith Cells Urine Bacteria Urine Casts POC Urine HCG, Qual Blood Type O Positive Antibody Screen Negative Patient hx anesthesia problems: none Family hx anesthesia problems: none Results Review: All pre-operative results and documents have been reviewed as part of the pre-operative evaluation. [facility] Past Medical History Medical History Peptic ulcer disease Screening for thyroid disorder Bilateral hand pain Neuralgia Well woman exam Back skin lesion Thoracic back pain Screening for lipoid disorders Diarrhea Family History Family History Father No problems noted. Mother No problems noted. 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 Informed Consent: The patient's anesthetic plan and its attendant risks and benefits were discussed with the patient/family/POA. Questions were solicited and answers provided to the satisfaction of the patient/family/POA.
--- NOTE | 2025-03-26 16:16 | P.DS_ITS ---
DS: Admitting Diagnosis Discharge Date 03/26/2025 Admitting Diagnosis Coffee-ground emesis/ gastritis/ back pain DS: Discharge Diagnosis Discharge Diagnosis (1) Peptic ulcer disease with hemorrhage: Code(s): K27.4 - Chronic or unspecified peptic ulcer, site unspecified, with hemorrhage Status: Acute Assessment and Plan: Diagnosed with various bleeding ulcers (6) in 2012, CT abdomen pelvis shows mild esophagitis and moderate antral gastritis. Last EGD approximately 2 years ago * Continue with PPI BID * follow-up EGD 3-4 months (2) Back pain: Code(s): M54.9 - Dorsalgia, unspecified Status: Acute Assessment and Plan: The patient has been seen for pain management lately for her back pain. She was prescribed tramadol, and no surgical intervention was performed in her spine including steroid injection * valium PRN * pain management * Lidocaine patch * recommended PT * follows with a pain specialist outpatient Plan Disposition: Discharged to home DS: Summary Hospital Course Reason for hospitalization: coffee-ground emesis/ gastritis/ back pain Hospital Course: Admission: Patient was [id number] female with a past medical history of chronic back pain and multiple bleeding ulcers in the past. Patient reports that she has a history of chronic back pain, which started in 2010, and she was diagnosed with various bleeding ulcers (6) in 2011. The patient has been seen for pain management lately for her back pain. She was prescribed tramadol, and no surgical intervention was performed in her spine including steroid injection. Patient felt nauseous on Tuesday, and her nausea was aggravated more severely on Tuesday, along with back pain. On Tuesday, she had a small amount of hematemesis. 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 In the ED: WBC 8.5, hemoglobin 10.5(13.5 on 11/22/2024), platelet 262, sodium 137, potassium 3.8, BUN 24, creatinine 0.73, GFR greater than 60 CT abdomen pelvis shows mild esophagitis and moderate antral gastritis. Hospital course: The patient was admitted to the setting of upper GI bleed with a consult to Dr. Ladd. patient was made NPO and underwent an EGD for further evaluation at which time they found gastritis but no active bleed. Patient still with moderate to severe back pain which she reports chronic follows with pain specialist outpatient but improved when I gave 1 time dose Valium for muscle spasm. Postprocedure patient was tolerating oral intake with no complaints and hemoglobin was stable. Patient was discharged to home increase her pantoprazole to b.i.d. advised her to advance diet as tolerated and to follow-up with neurosurgeon for further evaluation of her chronic back pain as well as with her pain specialist. patient ambulatory on own and was discharged home patient acknowledged and agreed with discharge plan. Status at Discharge Functional status at discharge: independent ambulation Overall status at discharge: patient is back to baseline Time Spent with Patient Time attestation: Total time spent providing and/or coordinating discharge services: Time spent: Greater than 30 minutes Exam Narrative: GENERAL: Mildly uncomfortable but tolerated oral intake post EGD RESPIRATORY: Clear to auscultation CARDIOVASCULAR: Tachycardia ABDOMINAL: Soft, tenderness to palpation epigastric region, nondistended. Normoactive BS. MUSCULOSKELETAL: Moves all extremities. tenderness throughout midline spine but improved with medication SKIN: Warm, dry, normal color. NEURO: A&O X3. Speech clear PSYCHIATRIC: anxious tearful due to pain DS: Data Data Completed and Pending Pending studies at discharge: Pending at discharge 03/26/25 15:16 Surgical [PTH] Routine Labs on day of discharge: Labs from last 24 hours 03/26/25 03/26/25 03/25/25 10:59 04:28 23:23 WBC RBC Hgb 9.7 L 10.6 L 10.5 L Hct 31.7 L 33.4 L 33.7 L MCV MCH MCHC RDW Plt Count MPV Immature Gran % (Auto) Neut % (Auto) Lymph % (Auto) [place] % (Auto) Eos % (Auto) Baso % (Auto) Lymph # (Auto) [place] # (Auto) Eos # (Auto) Baso # (Auto) Abs Immat Gran (auto) Absolute Neuts (auto) Absolute Nucleated RBC Nucleated RBC % Sodium Potassium Chloride Carbon Dioxide Anion Gap BUN Creatinine Estim Creat Clear Calc Estimated GFR Glucose Lactic Acid 0.7 Calcium Total Bilirubin AST ALT Alkaline Phosphatase Total Protein Albumin Lipase Urine Color Urine Appearance Urine pH Ur Specific [place] Urine Protein Urine Glucose (UA) Urine Ketones Ur Blood (Man) Urine Nitrate Urine Bilirubin Urine Urobilinogen Leukocyte Esterase Rfl Urine RBC Urine WBC Ur Squamous Epith Cells Urine Bacteria Urine Casts POC Urine HCG, Qual Blood Type O Positive Antibody Screen Negative 03/25/25 03/25/25 03/25/25 20:36 20:30 20:26 WBC 8.5 RBC 3.82 L Hgb 11.1 L Hct 35.0 L MCV 91.6 MCH 29.1 MCHC 31.7 L RDW 13.0 Plt Count 262 MPV 10.3 Immature Gran % (Auto) 0.1 Neut % (Auto) 46.1 Lymph % (Auto) 42.9 [place] % (Auto) 6.0 Eos % (Auto) 4.4 Baso % (Auto) 0.5 Lymph # (Auto) 3.65 H [place] # (Auto) 0.5 Eos # (Auto) 0.4 H Baso # (Auto) 0.0 Abs Immat Gran (auto) 0.01 Absolute Neuts (auto) 3.9 Absolute Nucleated RBC 0.000 Nucleated RBC % 0.0 Sodium 137 Potassium 3.8 Chloride 102 Carbon Dioxide 30 Anion Gap 5 BUN 24 H Creatinine 0.73 Estim Creat Clear Calc 69 Estimated GFR > 60 Glucose 90 Lactic Acid Calcium 8.5 Total Bilirubin 0.3 AST 29 ALT 17 Alkaline Phosphatase 49 Total Protein 7.0 Albumin 4.1 Lipase 53 Urine Color Yellow Urine Appearance Clear Urine pH 6.0 Ur Specific [place] 1.016 Urine Protein Negative Urine Glucose (UA) Negative Urine Ketones Trace H Ur Blood (Man) Negative Urine Nitrate Negative Urine Bilirubin Negative Urine Urobilinogen 0.2 Leukocyte Esterase Rfl Trace H Urine RBC 0-2 Urine WBC 0-5 Ur Squamous Epith Cells Few Urine Bacteria None seen Urine Casts 0-2 POC Urine HCG, Qual Negative Blood Type Antibody Screen Discharge Plan Discharge Attending physician on discharge: Gutierrez Wills Consulting providers: Jenniffer Guevara; New Moran; Johnathan Gonzalez; Yusef Finch; Jenniffer Schulz; Henrry Rowan Discharging Clinician: Jenniffer Guevara Anticipated Discharge Date/Time: 03/26/25 16:07 Patient Disposition: Home Activity: may shower and as tolerated Diet: as tolerated Discharge Instructions: Gastritis: * Continue with pantoprazole twice a day care home * Advance diet as tolerated * Follow-up EGD in 3-4 months for evaluation of healing * Avoid NSAIDS Back Pain * I have prescribed Flexeril and Valium as needed for muscle spasm * Can use lidocaine patches OTC * follow-up with pain specialist * Recommend follow-up with neurosurgery for further evaluation of back pain Patient Instructions: Antibiotic Form Patient Language: Honduran Stand Alone Forms: General Discharge Information Follow-up/Referrals: New Moran MD [Physician] - Call for Appointment (3-4 months ) Discharge Medications: New cyclobenzaprine 10 mg Tablet 10 mg PO Q8H PRN (Reason: Muscle Spasm) Qty: 30 0RF lidocaine [Lidoderm] 5 % Adhesive Patch,Medicated 1 patch transdermal DAILY Qty: 30 0RF diazepam [Valium] 5 mg tablet 5 mg PO BID PRN (Reason: muscle spasm) Qty: 10 0RF Continued escitalopram oxalate 10 mg tablet 10 mg PO DAILY zolpidem 10 mg tablet 10 mg PO QHS alprazolam 1 mg tablet 0.5 mg PO DAILY PRN (Reason: anxiety) dextroamphetamine-amphetamine 30 mg tablet 10 mg PO BID tizanidine 4 mg capsule 4 mg PO TID PRN (Reason: muscle spasticity) Ubrelvy 100 mg tablet 100 mg PO ONCE Qty: 10 2RF Rx Instructions: as a single dose; may repeat once in >=2 hours after first dose if needed Changed pantoprazole [Protonix] 40 mg tablet,delayed release (DR/EC) 40 mg PO BID Qty: 60 2RF Date of admission: 03/25/25 23:48 Primary Care Provider: Mario Hernandez Admitting Provider: Mk Fowler Attending physician on admission: Gutierrez Wills Condition: Stable Quality VTE Prophylaxis VTE prophylaxis: mechanical ordered -Patient's previous records reviewed on admission -ER notes reviewed in detail on admission -discussed all findings and current treatment plan with patient/Family/POA -Consultations reviewed for recommendations -Patient's disposition for safe discharge discussed with correctional case manager Dictation performed by [employer] direct speech recognition software, therefore examiner of currency variants and typographical errors may occur. Hospitalist MIPS Heart Failure (Exclusion) Patient has history of Heart Transplant or Left Ventricular Assistive Device?: No IF YES, STOP HERE Heart Failure (Qualifier) Patient has current or prior documentation of LVEF less than or equal to 40%, or mod/servere depressed LVSF?: No IF NO, STOP HERE
[2025-03-26 16:44] LABS: HPYLORIRESULT Negative (Negative)
== END 2025-03-26 17:34 | disposition home or self-care (01) ==
LOC: ANHED 23:16 → ANH2MED 03-26 07:29
PROVIDERS: Emergency Medicine; Internal Medicine Gastroenterology; Admitting Provider General Practice; Emergency Provider Physician Assistant; PCP Family Medicine; Visit Provider Internal Medicine
PROC: 0DJ08ZZ Inspection of Upper Intestinal Tract, Via Natural or Artificial Opening Endoscopic (ICD-10-PCS; CPT 43239; principal; 2025-03-26 17:00)
DX: K25.4 Chronic or unspecified gastric ulcer with hemorrhage (principal); K29.51 Unspecified chronic gastritis with bleeding; D62 Acute posthemorrhagic anemia; M54.9 Dorsalgia, unspecified; G89.29 Other chronic pain; F41.9 Anxiety disorder, unspecified; Z79.899 Other long term (current) drug therapy; Z87.11 Personal history of peptic ulcer disease
CPT/HCPCS: 43239; 36415; 74177; 80053; 81001; 81025; 83605; 83690; 85014; 85018; 85025; 86850; 86900; 86901; 87081; 88305; 88342; 93005; 96361; 96374; 96375; 96376; 99285; A9270; G0378; J1171; J2003; J2060; J2270; J2405; J2470; J2704; J3360; J7030; J7120; Q9967

== ENCOUNTER 2025-04-02 21:14 | Emergency (ER) | payer OTHER, BC, SELFPAY ==
--- OUTSIDE RECORDS SUMMARY | 2025-04-02 21:17 | XMS_ITS | Clinical Summary ---
Author Organization [facility] [address] [place] [phone] Care Team Providers Care Ict Security Specialist Name Role Phone Micki Pride MD Primary Care Provider [phone] Allergies Active Allergy Reactions Criticality Noted Date [...] Team Description 02/20/2025 4:30 PM CDT Telemedicine [facility] [address] [place] [phone] Yobany Mehta MD Moderate episode of recurrent major depressive disorder (HCC) (Primary Dx); Panic disorder; JOSEPHINE (generalized anxiety disorder); Attention deficit hyperactivity disorder (ADHD), combined type; Insomnia, unspecified type 02/14/2025 Telephone [facility] [id number] [facility] [address] [place] [phone] Yobany Mehta MD from Last 3 Months Social History Tobacco Use Types Packs/Day Years Used Date Smoking Tobacco: Never Assessed Comments Unknown Sex and Gender Information Value Date Recorded Sex Assigned at Not on file Legal Sex 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 Gender Identity Female 03/30/2023 10:16 AM CDT Sexual Orientation Not on file Obstetrics History Last Filed Vital Signs Vital Sign Reading Time Taken Comments Blood Pressure 120/90 11/01/2023 2:17 PM BALANCE BRIDGE INSPECTOR Pulse 90 11/01/2023 2:17 PM BALANCE BRIDGE INSPECTOR Temperature 36.5 C (97.7 F) 11/01/2023 2:17 PM BALANCE BRIDGE INSPECTOR Respiratory Rate 18 11/01/2023 2:17 PM BALANCE BRIDGE INSPECTOR Oxygen Saturation 97% 11/01/2023 2:17 PM BALANCE BRIDGE INSPECTOR Inhaled Oxygen Concentration - - Weight 59.9 kg (132 lb) 11/01/2023 2:17 PM BALANCE BRIDGE INSPECTOR Height 157.5 cm (5' 2) 11/01/2023 2:17 PM BALANCE BRIDGE INSPECTOR Body Mass Index 24.14 11/01/2023 2:17 PM BALANCE BRIDGE INSPECTOR Plan of Treatment Health Maintenance Due Date [...] patient's age to complete this topic Insurance [facility] P[facility] Care Teams Ict Security Specialist Relationship Specialty Start Date End Date Micki Pride MD PCP - General 02/28/14
--- OUTSIDE RECORDS SUMMARY | 2025-04-02 21:17 | XMS_ITS | Encounter Summary ---
Author Organization [facility] Address [address] [place] [address] Phone Care Team Providers Care Verification Clerk Name Role Phone Provider, None Primary Care Provider Mario Perez MD Primary Care Provider [phone] Encounter Details Date Type Department Care Team (Late st Contact Info) Description 01/15/2022 Lab Requisition [facility] [address] [place] [id number] Ana Espinoza, YOUTH CORRECTIONS OFFICER, PARACHUTE OFFICER [address] [place] [address] Encounter for pre-employment examination Social [...] COVID-19? No / Unsure 01/15/2022 8:51 AM COMPLIANCE ADMINISTRATOR documented as of this encounter Plan of Treatment Not on file documented as of this encounter Procedures Procedure Name Priority Date/Time Associated Diagnosis Comments QUANTIFERON-TB GOLD PLUS Routine 01/15/2022 9:00 AM COMPLIANCE ADMINISTRATOR Encounter for pre-employment examination MMRV PANEL Routine 01/15/2022 9:00 AM COMPLIANCE ADMINISTRATOR Encounter for pre-employment examination MUMPS IGG Routine 01/15/2022 9:00 AM COMPLIANCE ADMINISTRATOR Encounter for pre-employment examination HERPES ZOSTER (VARICELLA) IGG Routine 01/15/2022 9:00 AM COMPLIANCE ADMINISTRATOR Encounter for pre-employment examination RUBEOLA (MEASLES) IGG Routine 01/15/2022 9:00 AM COMPLIANCE ADMINISTRATOR Encounter for pre-employment examination RUBELLA IMMUNITY IGG Routine 01/15/2022 9:00 AM COMPLIANCE ADMINISTRATOR Encounter for pre-employment examination HEPATITIS B SURFACE ANTIBODY (HBSAB) Routine 01/15/2022 9:00 AM COMPLIANCE ADMINISTRATOR Encounter for pre-employment examination documented in this encounter Results * HERPES ZOSTER (VARICELLA) IGG (01/15/2022 9:00 AM COMPLIANCE ADMINISTRATOR) VARICELLA ZOSTER IGG 4.6 >=1.1 AI 01/15/2022 11:30 PM COMPLIANCE ADMINISTRATOR [facility] Blood No Phlebotomy Charged / Unknown 01/15/2022 9:00 AM COMPLIANCE ADMINISTRATOR 01/15/2022 1:08 PM COMPLIANCE ADMINISTRATOR Narrative [facility] - 01/15/2022 11:30 PM COMPLIANCE ADMINISTRATOR <= 0.8 Negative. No detectable VZV IgG antibody. 0.9 - 1.0 Equivocal >=1.1 Positive Antibody testing was performed by multiplex flow immunoassay on the [employer] platform. us Ana L Behjoe YOUTH CORRECTIONS OFFICER, PARACHUTE OFFICER IMMUNOLOGY ORDERABL ES Final Result [facility] [address] [place] [address], * (ABNORMAL) RUBEOLA (MEASLES) IGG (01/15/2022 9:00 AM COMPLIANCE ADMINISTRATOR) MEASLES AB IGG 0.7(L) >=1.1 AI 01/15/2022 11:30 PM COMPLIANCE ADMINISTRATOR [facility] Blood No Phlebotomy Charged / Unknown 01/15/2022 9:00 AM COMPLIANCE ADMINISTRATOR 01/15/2022 1:08 PM COMPLIANCE ADMINISTRATOR Narrative [facility] - 01/15/2022 11:30 PM COMPLIANCE ADMINISTRATOR <= 0.8 Negative. No detectable Measles IgG antibody. 0.9 - 1.0 Equivocal >=1.1 Positive Antibody testing was performed by multiplex flow immunoassay on the [employer] platform. us Ana L Behrends YOUTH CORRECTIONS OFFICER, PARACHUTE OFFICER IMMUNOLOGY ORDERABL ES Final Result Performing Organization Address City/[facility]/ZIP Co de Phone Number [facility] [address] [place] [address], [place] * RUBELLA IMMUNITY IGG (01/15/2022 9:00 AM COMPLIANCE ADMINISTRATOR) RUBELLA IMMUNITY Immune Immune, Invalid 01/15/2022 11:30 PM COMPLIANCE ADMINISTRATOR [facility] Blood No Phlebotomy Charged / Unknown 01/15/2022 9:00 AM COMPLIANCE ADMINISTRATOR 01/15/2022 1:08 PM COMPLIANCE ADMINISTRATOR Narrative [facility] - 01/15/2022 11:30 PM COMPLIANCE ADMINISTRATOR Antibody testing was performed by multiplex flow immunoassay on the [employer] platform. us Ana L Behrends YOUTH CORRECTIONS OFFICER, PARACHUTE OFFICER CHEMISTRY ORDERABLE S Final Result Performing Organization Address City/[facility]/ZIP Co de Phone Number [facility] [address] [place] [address], [place] * MUMPS IGG (01/15/2022 9:00 AM COMPLIANCE ADMINISTRATOR) Mumps Ab IgG 1.2 >=1.1 AI 01/15/2022 11:30 PM COMPLIANCE ADMINISTRATOR [facility] Blood No Phlebotomy Charged / Unknown 01/15/2022 9:00 AM COMPLIANCE ADMINISTRATOR 01/15/2022 1:08 PM COMPLIANCE ADMINISTRATOR Narrative [facility] - 01/15/2022 11:30 PM COMPLIANCE ADMINISTRATOR <= 0.8 Negative. No detectable Mumps IgG antibody. 0.9 - 1.0 Equivocal >=1.1 Positive Antibody testing was performed by multiplex flow immunoassay on the [employer] platform. us Ana Espinoza APRN, CNP IMMUNOLOGY ORDERABL ES Final Result [facility] [address] [place] [address], [place] * QUANTIFERON-TB GOLD PLUS (01/15/2022 9:00 AM COMPLIANCE ADMINISTRATOR) NIL CONTROL 0.05 <8.01 IU/mL 01/17/2022 1:34 PM COMPLIANCE ADMINISTRATOR [facility] TB ANTIGEN 1 0.03 <0.35 IU/mL 01/17/2022 1:34 PM COMPLIANCE ADMINISTRATOR [facility] TB ANTIGEN 2 0.01 <0.35 IU/mL 01/17/2022 1:34 PM COMPLIANCE ADMINISTRATOR [facility] MITOGEN CONTROL 8.21 >0.49 IU/mL 01/18/20 22 1:34 PM COMPLIANCE ADMINISTRATOR [facility] INTEPRETATION TB NEGATIVE NEGATIVE, NEGATIVE (TB antigen response less than 25% of internal negative control value) 01/17/2022 1:34 PM COMPLIANCE ADMINISTRATOR [facility] Comment:No immune response t o Mycobacterium tuberculosis antigens was noted. M. tuberculosis infection unlikely. Blood No Phlebotomy Charged / Unknown 01/15/2022 9:00 AM COMPLIANCE ADMINISTRATOR 01/15/2022 1:08 PM COMPLIANCE ADMINISTRATOR Narrative [facility] - 01/17/2022 1:34 PM COMPLIANCE ADMINISTRATOR A POSITIVE QUANTIFERON-TB GOLD PLUS RESULT SHOULD [...] immunocompromised individuals. https://www.cdc.gov/tb/publications/guidelines/testing.htm us Ana Espinoza APRN, PARACHUTE OFFICER IMMUNOLOGY ORDERABL ES Final Result Performing Organization Address [facility] Co de Phone Number [facility] [address] [place] [address], [place] * HEPATITIS B SURFACE ANTIBODY (HBSAB) (01/15/2022 9:00 AM COMPLIANCE ADMINISTRATOR) HEPATITIS B SURFACE ANTIBODY 47.68 mIU/mL [facility] ARCH [id number] B 01/15/2022 11:22 PM COMPLIANCE ADMINISTRATOR [facility] Comment: Detected Range: >12.00 Individual is considered immune to HBV infection Blood No Phlebotomy Charged / Unknown 01/15/2022 9:00 AM COMPLIANCE ADMINISTRATOR 01/15/2022 1:08 PM COMPLIANCE ADMINISTRATOR us Ana Espinoza YOUTH CORRECTIONS OFFICER, PARACHUTE OFFICER CHEMISTRY ORDERABLE S Final Result Performing Organization Address [facility] Co de Phone Number [facility] [address] [place] [address], documented in this encounter Visit Diagnoses Diagnosis Encounter for pre-employment examination Health examination of defined subpopulation documented in this encounter Care Teams Verification Clerk Relationship Specialty Start Date End Date Provider, None [place] PCP - General 01/15/22 08/03/22 Mario Hernandez MD [address] [place], [place] [id number] PCP - General Family Medicine 08/04/22 documented as of this encounter
--- OUTSIDE RECORDS SUMMARY | 2025-04-02 21:17 | XMS_ITS | Clinical Summary ---
Author Organization [facility] Address [address] [facility], [address] [address] Phone Care Team Providers Care Stove Mounter Name Role Phone Mario Hernandez MD Primary Care Provider [phone] Social History Tobacco Use Types Packs/Day Years [...] (Adult) (1 - 1-dose 75+ series) 2058 Human Papillomavirus (HPV) Immunization Aged Out No longer eligible b ased on patient's age to complete this topic Meningococcal Immunization (ACWY) Aged Out No longer eligible based on patient's age to complete this topic Pneumococcal Immunization Combined Aged Out No longer eligible based on patient's age to complete this topic Rotavirus Immunization Aged Out No lo nger eligible based on patient's age to complete this topic Care Teams Stove Mounter Relationship Specialty Start Date End Date Mario Hernandez MD [address] [place] [address] PCP - General Family Medicine 08/04/22
--- OUTSIDE RECORDS SUMMARY | 2025-04-02 21:17 | XMS_ITS | Referral Summary ---
Author Organization [facility] [address] [place] [phone] Care Team Providers Care Development Rep Name Role Phone Micki Pride MD Primary Care Provider [phone] Encounters Date Type Department Care Team Description 02/20/2025 4:30 PM CDT Telemedicine [address] [phone] Yobany Mehta MD Moderate episode of recurrent major depressive disorder (HCC) (Primary Dx); Panic disorder; JOSEPHINE (generalized anxiety disorder); Attention deficit hyperactivity disorder (ADHD), combined type; Insomnia, unspecified type 02/14/[address] [address] Yobany Mehta MD from Last 3 Months Allergies Active Allergy [...] on file Legal Sex Female 3:14 AM BIT SHAVER Gender Identity Female 03/30/2023 10:16 AM CDT Sexual Orientation Not on file Last Filed Vital Signs Vital Sign Reading Time Taken Comments Blood Pressure 120/90 11/01/2023 2:17 PM BIT SHAVER Pulse 90 11/01/2023 2:17 PM BIT SHAVER Temperature 36.5 C (97.7 F) 11/01/2023 2:17 PM BIT SHAVER Respiratory Rate 18 11/01/2023 2:17 PM BIT SHAVER Oxygen Saturation 97% 11/01/2023 2:17 PM BIT SHAVER Inhaled Oxygen Concentration - - Weight 59.9 kg (132 lb) 11/01/2023 2:17 PM BIT SHAVER Height 157.5 cm (5' 2) 11/01/2023 2:17 PM BIT SHAVER Body Mass Index 24.14 11/01/2023 2:17 PM BIT SHAVER Plan of Treatment Not on file Insurance [employer] HEALTHCARE PPO LOCAL PLUS [facility] PPO Care Teams Development Rep Relationship Specialty Start Date End Date Micki Pride MD PCP - General 02/28/14
[2025-04-02 21:28] VITALS: BP 133/81; PULSE 84; RESP 18; TEMP 36.6; O2SAT 100
--- OUTSIDE RECORDS SUMMARY | 2025-04-02 22:58 | XMS_ITS | Referral Summary ---
Author Organization [facility] [address] [place] [phone] Care Team Providers Care Cherry Sorter Name Role Phone Micki Pride MD Primary Care Provider [phone] Encounters Date Type Department Care Team Description 02/20/2025 4:30 PM CDT Telemedicine [address] [address] Yobany Mehta MD Moderate episode of recurrent major depressive disorder (HCC) (Primary Dx); Panic disorder; JOSEPHINE (generalized anxiety disorder); Attention deficit hyperactivity disorder (ADHD), combined type; Insomnia, unspecified type 02/14/[address] [address] Yobany Mehta MD from Last [...] on file Legal Sex Female 3:14 AM MOLD SHOP SUPERVISOR Gender Identity Female 03/30/2023 10:16 AM CDT Sexual Orientation Not on file Last Filed Vital Signs Vital Sign Reading Time Taken Comments Blood Pressure 120/90 11/01/2023 2:17 PM MOLD SHOP SUPERVISOR Pulse 90 11/01/2023 2:17 PM MOLD SHOP SUPERVISOR Temperature 36.5 C (97.7 F) 11/01/2023 2:17 PM MOLD SHOP SUPERVISOR Respiratory Rate 18 11/01/2023 2:17 PM MOLD SHOP SUPERVISOR Oxygen Saturation 97% 11/01/2023 2:17 PM MOLD SHOP SUPERVISOR Inhaled Oxygen Concentration - - Weight 59.9 kg (132 lb) 11/01/2023 2:17 PM MOLD SHOP SUPERVISOR Height 157.5 cm (5' 2) 11/01/2023 2:17 PM MOLD SHOP SUPERVISOR Body Mass Index 24.14 11/01/2023 2:17 PM MOLD SHOP SUPERVISOR Plan of Treatment Not on file Insurance [employer] PPO LOCAL PLUS [facility] PPO Care Teams Cherry Sorter Relationship Specialty Start Date End Date Micki Pride MD PCP - General 02/28/14
--- OUTSIDE RECORDS SUMMARY | 2025-04-02 22:59 | XMS_ITS | Clinical Summary ---
Author Organization [facility] [address] [place] [phone] Care Team Providers Care Certified Drug Counselor Name Role Phone Micki Pride MD Primary Care Provider [phone] Allergies Active Allergy Reactions Criticality Noted Date [...] Team Description 02/20/2025 4:30 PM CDT Telemedicine [facility] [address] [place] [phone] Yobany Mehta MD Moderate episode of recurrent major depressive disorder (HCC) (Primary Dx); Panic disorder; JOSEPHINE (generalized anxiety disorder); Attention deficit hyperactivity disorder (ADHD), combined type; Insomnia, unspecified type 02/14/2025 Telephone [facility] [address] [facility] [address] [place] [phone] Yobany Mehta MD from Last 3 Months Social History Tobacco Use Types Packs/Day Years Used Date Smoking Tobacco: Never Assessed Comments Unknown Sex and Gender Information Value Date Recorded Sex Assigned at Not on file Legal Sex Female 3:14 AM SHELL SHOP SUPERVISOR Gender Identity Female 03/30/2023 10:16 AM CDT Sexual Orientation Not on file Obstetrics History Last Filed Vital Signs Vital Sign Reading Time Taken Comments Blood Pressure 120/90 11/01/2023 2:17 PM SHELL SHOP SUPERVISOR Pulse 90 11/01/2023 2:17 PM SHELL SHOP SUPERVISOR Temperature 36.5 C (97.7 F) 11/01/2023 2:17 PM SHELL SHOP SUPERVISOR Respiratory Rate 18 11/01/2023 2:17 PM SHELL SHOP SUPERVISOR Oxygen Saturation 97% 11/01/2023 2:17 PM SHELL SHOP SUPERVISOR Inhaled Oxygen Concentration - - Weight 59.9 kg (132 lb) 11/01/2023 2:17 PM SHELL SHOP SUPERVISOR Height 157.5 cm (5' 2) 11/01/2023 2:17 PM SHELL SHOP SUPERVISOR Body Mass Index 24.14 11/01/2023 2:17 PM SHELL SHOP SUPERVISOR Plan of Treatment Health Maintenance Due Date [...] patient's age to complete this topic Insurance [facility] PPO [facility] Care Teams Certified Drug Counselor Relationship Specialty Start Date End Date Micki Pride MD PCP - General 02/28/14
[2025-04-02] MEDS: diazePAM (*CRX) 5 MG TABLET PO (23:15)
[2025-04-02] MEDS: HYDROcodone/acetaminophen (*CRX) 5-325 MG TABLET 1 TAB PO (23:15)
--- NOTE | 2025-04-02 23:27 | ECG_ITS ---
Test Date: 2025-04-03 01:49:32 Measurements Intervals [place] Rate: 79 P: 56 UT: 141 QRS: 48 QRSD: 99 T: 59 QT: 393 QTc: 451 Interpretive Statements SINUS RHYTHM POSSIBLE LEFT ATRIAL ENLARGEMENT [-0.1mV P-WAVE IN V1/V2] NONSPECIFIC T-WAVE ABNORMALITY ABNORMAL ECG Compared to ECG 03/25/2025 20:33:50 No significant changes Electronically Signed On 04-03-2025 13:11:30 CDT by David Mcdowell M.D.
--- NOTE | 2025-04-02 23:28 | PC.NURSE ---
pt verbalized dizzy/weak, wanting ct redone since previous admission and HGB checked so we know that she is not bleeding out. EDP Courtney notified.
[2025-04-02] MEDS: SUCRALFATE 1 GM TABLET PO (23:30)
[2025-04-02 23:33] VITALS: PULSE 82; RESP 10; O2SAT 100
[2025-04-02 23:34] VITALS: BP 123/92; PULSE 80; RESP 13; O2SAT 100
[2025-04-02 23:42] LABS: Alanine Aminotransferase 19 U/L (6-35); Albumin Level 4.5 g/dL (3.5-5.1); Alkaline Phosphatase 57 U/L (38-126); Anion Gap 9 mmol/L (4-12); Aspartate Amino Transferase 29 U/L (14-36); Bilirubin,Total 0.2 mg/dL (0.2-1.3); Blood Urea Nitrogen 20 mg/dL (7-17); Calcium 8.4 mg/dL (8.4-10.2); Carbon Dioxide 25 mmol/L (22-30); Chloride 103 mmol/L (98-107); Estimated CRCL calculation 67 ml/min; Estimated Glomerular Filt Rate > 60; Glucose 84 mg/dL (65-110); Potassium 3.5 mmol/L (3.4-5.0); Sodium 137 mmol/L (137-145)
[2025-04-02 23:45] VITALS: PULSE 79; RESP 15; O2SAT 99
[2025-04-02 23:46] VITALS: BP 116/82; PULSE 82; RESP 16; O2SAT 100
[2025-04-02 23:58] LABS: Basophils Absolute Auto 0.1 K/mm3 (0.0-0.1); Basophils Percent Auto 0.8 % (0.2-1.2); Eosinophils Absolute Auto 0.3 K/mm3 (0-0.3); Eosinophils Percent Auto 4.2 % (0-4.4); Hemoglobin 11.2 g/dL (12.0-15.0); Immature Granulocyte Absolute 0.06 K/mm3 (0.00-0.031); Immature Granulocyte Percent A 0.8 % (0-0.5); Lymphocytes Absolute Auto 3.38 K/mm3 (0.9-3.2); Lymphocytes Percent Auto 43.3 % (18.3-44.2); Mean Corpuscular HGB Conc 32.9 g/dl (32-36); Mean Corpuscular Hemoglobin 29.1 pg (26-34); Mean Corpuscular Volume 88.3 fl (80-100); Monocytes Absolute Auto 0.6 K/mm3 (0.1-0.6); Monocytes Percent Auto 7.2 % (2.6-8.5); Neutrophils Absolute Auto 3.4 K/mm3 (1.3-6.7); Neutrophils Percent Auto 43.7 % (45.5-73.1); Platelet Count Result 312 k/mm3 (150-375); Red Blood Count 3.85 M/mm3 (4.2-5.4); Red Cell Distribution Width 13.1 % (11.5-14.5); White Blood Count 7.8 K/mm3 (4.5-10.0)
[2025-04-03] VITALS (12 sets, daily range): BP systolic 127; BP diastolic 92; PULSE 76–82; RESP 11–18; TEMP 36.6; O2SAT 97–100
--- NOTE | 2025-04-03 00:42 | ED_ITS ---
HPI - Abdominal Pain General Chief Complaint: Abdominal Pain Stated Complaint: abd pain/back pain Time Seen by Provider: 04/02/25 22:49 History of Present Illness HPI narrative: Patient was admitted here recently and diagnosed with multiple stomach ulcers presents here with ongoing abdominal pain and chronic back pain. Had trouble getting her prescriptions filled at the pharmacy, had seen her doctor earlier. Related Data Home Medications ?Medication ?Instructions ?Recorded ?Confirmed ?Last Taken ?Type alprazolam 1 mg tablet 0.5 mg PO DAILY PRN anxiety 07/07/21 04/01/25 Unknown History escitalopram oxalate 10 mg tablet 10 mg PO DAILY 07/07/21 04/01/25 03/26/25 History zolpidem 10 mg tablet 10 mg PO QHS 07/07/21 04/01/25 03/26/25 History Allergies Allergy/AdvReac Type Severity Reaction Status Date / Time cat dander Allergy Mild Watery Eye Verified 04/02/25 21:15 house dust mite Allergy Mild Watery Eye Verified 04/02/25 21:15 oak Allergy Mild Unknown Verified 04/02/25 21:15 NSAIDS (Non-Steroidal AdvReac Severe Abdominal Verified 04/02/25 21:15 Anti-Inflamma Pain PMFSH Past Medical History Medical History Acute blood loss anemia Coffee ground emesis Peptic ulcer disease Screening for thyroid disorder Bilateral hand pain Neuralgia Well woman exam Back skin lesion Thoracic back pain Screening for lipoid disorders Diarrhea Family History Family History Father No problems noted. Mother No problems noted. 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 Gender identity (if verbalized by the patient): Female Spiritual care concerns: No Course Vital Signs Vital signs: Vital Signs Temperature 97.9 F 04/02/25 21:28 Pulse Rate 84 04/02/25 21:28 Respiratory Rate 18 04/02/25 21:28 Blood Pressure 133/81 04/02/25 21:28 Pulse Oximetry 100 04/02/25 21:28 Oxygen Delivery Room Air 04/02/25 21:28 Temperature 97.9 F 04/02/25 21:28 Pulse Rate 84 04/02/25 21:28 Respiratory Rate 18 04/02/25 21:28 Blood Pressure 133/81 04/02/25 21:28 Pulse Oximetry 100 04/02/25 21:28 Oxygen Delivery Room Air 04/02/25 21:28 MDM - Abdominal Pain MDM Narrative Medical decision making narrative: Patient was admitted here recently and diagnosed with multiple stomach ulcers presents here with ongoing abdominal pain and chronic back pain. Had trouble getting her prescriptions filled at the pharmacy, had seen her doctor earlier. I did review the offices in nodes as well as her admission records and endoscopy results showing the gastritis/ulcers. I did discuss with patient that I unfortunately do not feel comfortable prescribing her narcotics for her chronic pain especially since she has interventional pain physician. I will however give her a does of medications here and add additional medications for her ulcers. She would like to have blood work again to make sure her hemoglobin is stable and thankfully especially gone up 2 points. Patient continuing to ask for narcotic pain medication. At this point I do feel she is stable for discharge since she is in no distress, has normal labs, has normal vital signs, and her symptoms are essentially chronic have been ongoing for months to years. I have let her know she should follow up with doctor for any further issues; she has follow-up already with her pain specialist in 2 days Lab Data 04/02/25 23:26 04/02/25 23:26 Labs: Lab Results 04/02/25 Range/Units 23:26 WBC 7.8 (4.5-10.0) K/mm3 RBC 3.85 L (4.2-5.4) M/mm3 Hgb 11.2 L (12.0-15.0) g/dL Hct 34.0 L (37.0-47.0) % MCV 88.3 (80-100) fl MCH 29.1 (26-34) pg MCHC 32.9 (32-36) g/dl RDW 13.1 (11.5-14.5) % Plt Count 312 (150-375) k/mm3 MPV 10.0 (7.4-10.4) fl Immature Gran % (Auto) 0.8 H (0-0.5) % Neut % (Auto) 43.7 L (45.5-73.1) % Lymph % (Auto) 43.3 (18.3-44.2) % [place] % (Auto) 7.2 (2.6-8.5) % Eos % (Auto) 4.2 (0-4.4) % Baso % (Auto) 0.8 (0.2-1.2) % Lymph # (Auto) 3.38 H (0.9-3.2) K/mm3 [place] # (Auto) 0.6 (0.1-0.6) K/mm3 Eos # (Auto) 0.3 (0-0.3) K/mm3 Baso # (Auto) 0.1 (0.0-0.1) K/mm3 Abs Immat Gran (auto) 0.06 H (0.00-0.031) K/mm3 Absolute Neuts (auto) 3.4 (1.3-6.7) K/mm3 Absolute Nucleated RBC 0.000 (0.0-0.012) K/mm3 Nucleated RBC % 0.0 (0.0-0.2) % Sodium 137 (137-145) mmol/L Potassium 3.5 (3.4-5.0) mmol/L Chloride 103 (98-107) mmol/L Carbon Dioxide 25 (22-30) mmol/L Anion Gap 9 (4-12) mmol/L BUN 20 H (7-17) mg/dL Creatinine 0.87 (0.7-1.0) mg/dL Estim Creat Clear Calc 67 ml/min Estimated GFR > 60 (59 - ) Glucose 84 (65-110) mg/dL Calcium 8.4 (8.4-10.2) mg/dL Total Bilirubin 0.2 (0.2-1.3) mg/dL AST 29 (14-36) U/L ALT 19 (6-35) U/L Alkaline Phosphatase 57 (38-126) U/L Total Protein 7.0 (6.3-8.2) g/dL Albumin 4.5 (3.5-5.1) g/dL Discharge Plan Discharge Clinical Impression: Abdominal pain, Back pain Patient Disposition: Home Condition: Stable Instructions: Diet for Stomach Ulcers and Gastritis (ED) Additional Instructions: Please follow-up with your doctor, your GI doctor, and your interventional pain physician, if your symptoms get worse especially if you notice any new vomiting or blood in your vomit, come back to the hospital. Patient Language: Colombian Prescriptions: New sucralfate 1 gram tablet 1 g PO DAILY Qty: 30 0RF famotidine 20 mg tablet 20 mg PO DAILY Qty: 30 0RF ondansetron 4 mg tablet,disintegrating 4 mg PO Q8H PRN (Reason: nausea and vomiting) Qty: 14 0RF No Action escitalopram oxalate 10 mg tablet 10 mg PO DAILY zolpidem 10 mg tablet 10 mg PO QHS alprazolam 1 mg tablet 0.5 mg PO DAILY PRN (Reason: anxiety) tramadol 50 mg tablet 50 mg PO Q8H PRN (Reason: pain) Qty: 60 0RF metaxalone 800 mg tablet 800 mg PO TID PRN (Reason: muscle pain) Qty: 60 0RF lidocaine [Lidoderm] 5 % Adhesive Patch,Medicated 1 patch transdermal DAILY Qty: 30 0RF pantoprazole [Protonix] 40 mg tablet,delayed release (DR/EC) 40 mg PO BID Qty: 60 2RF Ubrelvy 100 mg tablet 100 mg PO ONCE Qty: 10 2RF Rx Instructions: as a single dose; may repeat once in >=2 hours after first dose if needed Follow-up/Referrals: Mario Hernandez MD [Primary Care Provider] -
[2025-04-03] MEDS: ONDANSETRON INJ 4 MG/2 ML VIAL IV PUSH (00:50)
[2025-04-03] MEDS: FAMOTIDINE 20 MG/2 ML VIAL IV PUSH (00:50)
[2025-04-03] MEDS: MORPHINE SULFATE (*CRX) 2 MG/ML INJ IV PUSH (00:53)
== END 2025-04-03 02:31 | disposition home or self-care (01) ==
PROVIDERS: Emergency Provider Emergency Medicine; PCP Family Medicine
DX: R10.9 Unspecified abdominal pain (principal); M54.9 Dorsalgia, unspecified; G89.29 Other chronic pain; K27.9 Peptic ulcer, site unspecified, unspecified as acute or chronic, without hemorrhage or perforation; R94.31 Abnormal electrocardiogram [ECG] [EKG]
CPT/HCPCS: 36415; 80053; 85025; 93005; 96374; 96375; 99284; A9270; J2270; J2405

== ENCOUNTER 2025-07-12 01:10 | Day surgery (SDC) | payer OTHER, SELFPAY ==
[2025-06-26 13:01] VITALS: BMI 24.5
--- OUTSIDE RECORDS SUMMARY | 2025-07-11 16:00 | XMS_ITS | Encounter Summary ---
Author Organization [facility] Healthcare Address [address] [place] [address] Care Team Providers Care Assistant To The Director Name Role Phone Micki Pride MD Primary Care Provider [phone] Reason for Visit * Reason Comments Anxiety Depression Panic Attack ADHD Encounter Details Date Type Department Care Team (Latest Contact Info) Description 07/11/2025 4:00 PM CDT Telemedicine [facility] Medical [facility] [id number] [address] [place] [id number] [address] Attention deficit hyperactivity disorder (ADHD), combined type (Primary Dx); JOSEPHINE (generalized anxiety disorder); Panic disorder Social History Tobacco Use Types Packs/Day Years Used Date Smoking Tobacco: Never Assessed Comments Unknown Sex and Gender Information Value Date Recorded Sex Assigned at Not on file 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 Gender Identity Female 03/30/2023 10:16 AM CDT Sexual Orientation Not on file documented as of this encounter Ordered Prescriptions Prescription Sig Dispense Quantity Refills Last Filled Start Date End Date ALPRAZolam (XANAX) 1 mg tabletIndications: Anxiety with Depression,General ized Anxiety Disorder,Panic Disorder,anxiety Take 1 tablet (1 mg total) by mouth 2 (two) times a day as needed for anxiety 60 tablet 2 07/11/2025 zolpidem (Ambien) 10 mg tabletIndications: Sleep-Onset Insomnia Take 1 tablet (10 mg total) by mouth nightly as needed for sleep 30 tablet 2 07/11/2025 escitalopram (LEXAPRO) 20 mg tablet Take 1 tablet (20 mg total) by mouth daily 30 tablet 2 07/11/2025 buPROPion XL (Wellbutrin XL) 150 mg 24 hr tabletIndications: major depressive disorder Take 1 tablet (150 mg total) by mouth every morning 30 tablet 2 07/11/2025 documented in this encounter Progress Notes * Yobany Mehta MD - 07/11/2025 4:00 PM CDT CONFIDENTIAL: NOT FOR SECONDARY RELEASE This was a telemedicine visit with Yesenia Miranda alone which took place via real-time video connection. During the visit, I was located in [facility] and the patient was located at home in the [facility]. Time started: 4:50 pm Time ended: 5:30 pm My total time on 07/11/2025 was spent in the activities documented in the note. This includes time spent prior to the visit and after the visit in direct care of the patient. This time does not include time spent in any separately reportable services. I have explained the option of participating in a telemedicine visit to the patient. After being given an opportunity to ask questions about and discuss this type of visit, the patient verbally consented to proceeding with the telemedicine visit. The patient understands that this service replaces an office visit and they may be billed and/or responsible for any applicable copayments. Subjective/Objective Patient ID: Yesenia Miranda is a 39 y.o. female. Chief Complaint:I have not been doing well Anxiety, Depression, and Panic Attack (ADHD) HPI: Patient laments not to have been doing well during today's encounter. She goes on laments thatdilip has been feeling really depressed since the past couple weeks, and also has been struggling with her sleep so much so she went through a period of 40 hours staying awake. She further laments jam has no drive/motivation do anything here lately, and not just her usual self hence the need forsomething to be done to get her to start feeling better, and not as depressed like she is feeling right now. She subsequently welcomed recommendation for adjunctive Wellbutrin XL trial to augment hercurrent psychotropic medications to help improve her depression/get her start feeling better. We then discussed risk, benefits, alternatives, and adverse effects of Wellbutrin XL with patient who voiced understanding, and gave consent. She states that she has been taking her medications, and deniedany medication adverse effects. Appetite is not optimal. Review of Systems Constitutional: Negative. HENT: Negative. Eyes: Negative. Respiratory: Negative. Cardiovascular: Negative. Gastrointestinal: Negative. Endocrine: Negative. Genitourinary: Negative. Musculoskeletal: Negative. Skin: Negative. Allergic/Immunologic: Negative. Neurological: Negative. Hematological: Negative. Psychiatric/Behavioral: Positive for dysphoric mood. The patient is nervous/anxious. MENTAL STATUS EXAMINATION: General appearance and Behavior: cooperative Good eye contact Speech: Normal rate Normal tone Normal volume Normal latency - 3 seconds Average vocabulary Thought Process: linear Content of Thought: She denies Si, Hi, and or AVH Mood: depressed Affect: congruent with mood Insight: fair Judgement: fair Sensorium and Intellect: normal Orientation: full(x3) Memory:intact Attention/Concentration:fair Associations: normal Language:normal Fund of Knowledge: adequate Musculoskeletal:normal Physical Exam Constitutional: Appearance: Normal appearance. HENT: Head: Normocephalic. Neurological: Mental Status: She is alert. Assessment/Plan : Patient is currently not doing well due to worsening depression for which we haveinitiated adjunctive Wellbutrin XL p.o. 150 mg Q a.m. to help target. She will continue her other current psychotropic medications of Ambien p.o. 10 mg Q HS p.r.n. for sleep induction, hydroxyzine p.o. 25 mg Q HS PRN for sleep maintenance, Lexapro p.o. 20 mg q.day, and alprazolam p.o. 1 mg b.i.d. p.r.n. for anxiety/panic attacks for now with the exception of trazodone, Adderall and Seroquel all of which we have since formally discontinued. She will be re-evaluated in 4-6 weeks' time. Psychotherapy: I provided cognitive behavioral and supportive psychotherapy focusing on increasing pleasant events, increasing socialization, coping with anxiety and coping with depression. Diagnoses and all orders for this visit: Attention deficit hyperactivity disorder (ADHD), combined type (F90.2) (Primary) JOSEPHINE (generalized anxiety disorder) (F41.1) Panic disorder (F41.0) Other orders - buPROPion XL (Wellbutrin XL) 150 mg 24 hr tablet; Take 1 tablet (150 mg total) by mouth every morning - escitalopram (LEXAPRO) 20 mg tablet; Take 1 tablet (20 mg total) by mouth daily - zolpidem (Ambien) 10 mg tablet; Take 1 tablet (10 mg total) by mouth nightly as needed for sleep - ALPRAZolam (XANAX) 1 mg tablet; Take 1 tablet (1 mg total) by mouth 2 (two) times a day as neededfor anxiety documented in this encounter Plan of Treatment Not on file documented as of this encounter Visit Diagnoses Diagnosis Attention deficit hyperactivity disorder (ADHD), combined type- Primary JOSEPHINE (generalized anxiety disorder) Generalized anxiety disorder Panic disorder Panic disorder without agoraphobia documented in this encounter Discontinued Medications Medication Sig Discontinue Reason Start Date End Da te escitalopram (LEXAPRO) 20 mg tablet TAKE 1 TABLET(20 MG) BY MOUTH DAILY Reorder 04/21/2025 07/11/2025 ALPRAZolam (XANAX) 1 mg tabletIndications:Anxiet y with Depression,Generalized Anxiety Disorder,Panic Disorder,anxiety Take 1 tablet (1 mg total) by mouth 2 (two) times a day as needed for anxiety Reorder 05/02/2025 07/11/2025 zolpidem (Ambien) 10 mg tabletIndications:Sleep- Onset Insomnia Take 1 tablet (10 mg total) by mouth nightly as needed for sleep Reorder 05/02/2025 07/11/2025 documented as of this encounter Care Teams Assistant To The Director Relationship Specialty Start Date End Date Micki Pride MD PCP - General 02/28/14 documented as of this encounter
--- OUTSIDE RECORDS SUMMARY | 2025-07-12 01:15 | XMS_ITS | Clinical Summary ---
Author Organization [facility] Address [address], [address] [address] Phone Care Team Providers Care Cash Management Associate Name Role Phone Mario Hernandez MD Primary Care Provider [phone] Social History Tobacco Use Types Packs/Day Years [...] of 3 - 19+ 3-dose series) 2002 Pap Smear 2004 Human Papillomavirus (HPV) Immunization (1 - 3-dose SCDM series) 2010 Cervical Cancer Screening (CCS) 2013 HPV/Cotest 2013 SARS-COV-2 Immunization ( season) 2024 03/17/2021 Influenza Immunization (#1) 2025 Respiratory Syncytial Virus (RSV) Immunization (Adult) (1 - 1-dose 75+ series) 2058 Meningococcal Immunization (ACWY) Aged Out No longer eligible based on patient's age to complete this topic Pneumococcal Immunization Combined Aged Out No longer eligible based on patient's age to complete this topic Rotavirus Immunization Aged Out No lo nger eligible based on patient's age to complete this topic Care Teams Cash Management Associate Relationship Specialty Start Date End Date Mario Hernandez MD [address] [address] [place] [address] PCP - General Family Medicine 08/04/22
--- OUTSIDE RECORDS SUMMARY | 2025-07-12 01:15 | XMS_ITS | Patient Health Record ---
Author Organization [facility] [employer] [facility] Address [address] [place] [address] Care Team Providers Care Produce Assistant Name Role Phone Jozef Thomas Unavailable [phone] Reason For Referral No Information Medications Medication SIG (Take, Route, Frequency, Duration) Notes Start Date End Date Status Lexapro 20 MG Tablet Oral 09/08/2018 Active Adderall 10 MG Tablet Oral 09/08/2018 Active Zolpidem Tartrate 5 MG Tablet Oral 09/08/2018 Active Zolpidem Tartrate 10 MG Tablet Oral 09/08/2018 Active Xanax 1 MG Tablet Oral 09/08/2018 A ctive ALPRAZolam 1 MG Tablet Oral 09/08/2018 Active Ambien 10 MG Tablet Oral 09/08/2018 Active Belsomra 20 mg Tablet Oral 09/08/2018 Active Adderall 5 MG Tablet Oral 09/08/2018 Active Social History Social History Additional Details Category Social Info Options Details Migrated Social History Migrated Social History Alcohol Intake: Occasional 09/08/2018,Tobacco Years: Never smoker 09/08/2018 Plan Of Treatment No Information Insurance Providers Payer Name Payer Address Payer Phone Subscriber Number Group Number Insured Name Patient Relationship to Insured Coverage Start Date Coverage End Date [facility] [address] [place] [address] [id number] ANGUIANO Spouse - patient is the spouse of the insured
--- OUTSIDE RECORDS SUMMARY | 2025-07-12 01:15 | XMS_ITS | Clinical Summary ---
Author Organization [facility] Physician Office Building [address] [place] [address] Care Team Providers Care Manager Oracle Name Role Phone Micki Pride MD Primary Care Provider [phone] Allergies Active Allergy Reactions Criticality Noted Date Comments Nsaids (Non-Steroidal Anti-Inflammatory Drug) Unknown 12/11/2016 Stomach ulcer Medications Ubrelvy 100 mg tablet 10/15/20 23 Active traZODone (DESYREL) 50 mg tablet TAKE 1 TABLET BY MOUTH EVERY NIGHT 30 tablet 11/24/19 24 Active dextroamphetamine -amphetamine (AdderalL) 30 mg tabletIndications :Attention-Defici t Hyperactivity Disorder Take 1 tablet (30 mg total) by mouth 2 (two) times a day 60 tablet 02/07/20 24 Active dextroamphetamine -amphetamine (AdderalL) 30 mg tabletIndications :Attention-Defici t Hyperactivity Disorder Take 1 tablet (30 mg total) by mouth 2 (two) times a day 60 tablet 03/06/20 24 Active dextroamphetamine -amphetamine (AdderalL) 30 mg tabletIndications :Attention-Defici t Hyperactivity Disorder Take 1 tablet (30 mg total) by mouth 2 (two) times a day 60 tablet 01/10/20 24 Active traZODone (DESYREL) 50 mg tabletIndications :insomnia associated with depression Take 1 tablet (50 mg total) by mouth nightly as needed for sleep 60 tablet 2 02/16/20 24 Active dextroamphetamine -amphetamine (AdderalL) 20 mg tabletIndications :Attention-Defici t Hyperactivity Disorder Take 1 tablet (20 mg total) by mouth 2 (two) times a day 60 tablet 03/29/20 24 Active dextroamphetamine -amphetamine (AdderalL) 10 mg tabletIndications :Attention-Defici t Hyperactivity Disorder Take 1 tablet (10 mg total) by mouth 2 (two) times a day 60 tablet 10/02/20 24 Active dextroamphetamine -amphetamine (AdderalL) 10 mg tabletIndications :Attention-Defici t Hyperactivity Disorder Take 1 tablet (10 mg total) by mouth 2 (two) times a day 60 tablet 10/30/20 24 Active eszopiclone (LUNESTA) 3 mg tabletIndications :Insomnia Take 1 tablet (3 mg total) by mouth daily Take immediately before bedtime 30 tablet 11/04/20 24 Active QUEtiapine (SEROquel) 50 mg tablet Take 1-2 tablets (50-100 mg total) by mouth nightly as needed (insomnia) 60 tablet 11/10/20 24 Active traZODone (DESYREL) 100 mg tablet TAKE 1 TABLET(100 MG) BY MOUTH EVERY NIGHT NEEDED FOR SLEEP 30 tablet 2 11/22/19 25 Active dextroamphetamine -amphetamine (AdderalL) 10 mg tabletIndications :Attention-Defici t Hyperactivity Disorder Take 1 tablet (10 mg total) by mouth 2 (two) times a day 60 tablet 12/20/19 25 Active hydrOXYzine (ATARAX) 25 mg tablet TAKE 1 TABLET BY MOUTH AT BEDTIME NEEDED 20 tablet 2 07/11/20 25 Active buPROPion XL (Wellbutrin XL) 150 mg 24 hr tabletIndications :major depressive disorder Take 1 tablet (150 mg total) by mouth every morning 30 tablet 2 07/11/20 25 Active escitalopram (LEXAPRO) 20 mg tablet Take 1 tablet (20 mg total) by mouth daily 30 tablet 2 07/11/20 25 Active zolpidem (Ambien) 10 mg tabletIndications :Sleep-Onset Insomnia Take 1 tablet (10 mg total) by mouth nightly as needed for sleep 30 tablet 2 07/11/20 25 Active ALPRAZolam (XANAX) 1 mg tabletIndications :Anxiety with Depression,Genera lized Anxiety Disorder,Panic Disorder,anxiety Take 1 tablet (1 mg total) by mouth 2 (two) times a day as needed for anxiety 60 tablet 2 07/11/20 25 Active escitalopram (LEXAPRO) 20 mg tablet TAKE 1 TABLET(20 MG) BY MOUTH DAILY 30 tablet 2 04/21/20 25 025 Discontin ued(Reord er) ALPRAZolam (XANAX) 1 mg tabletIndications :Anxiety with Depression,Genera lized Anxiety Disorder,Panic Disorder,anxiety Take 1 tablet (1 mg total) by mouth 2 (two) times a day as needed for anxiety 60 tablet 2 05/02/20 25 025 Discontin ued(Reord er) zolpidem (Ambien) 10 mg tabletIndications :Sleep-Onset Insomnia Take 1 tablet (10 mg total) by mouth nightly as needed for sleep 30 tablet 2 05/02/20 25 025 Discontin ued(Reord er) Active Problems Problem Noted Date Diagnosed Date Recurrent major depression 03/30/2023 Panic disorder 03/30/2023 JOSEPHINE (generalized anxiety disorder) 03/30/2023 ADHD 03/30/2023 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 Encounters Date Type Department Care Team Description 07/11/2025 4:00 PM CDT Telemedicine [address] [address] Yobany Mehta MD Attention deficit hyperactivity disorder (ADHD), combined type (Primary Dx); JOSEPHINE (generalized anxiety disorder); Panic disorder 06/24/[address] [address] Yobany Mehta MD Med Refill (Early fill request Ambien/Called in Hydroxyzine ) 05/02/2025 4:00 PM CDT Telemedicine [address] [address] Yobany Mehta MD Moderate episode of recurrent major depressive disorder (HCC) (Primary Dx); Panic disorder; JOSEPHINE (generalized anxiety disorder); Attention deficit hyperactivity disorder (ADHD), combined type from Last 3 Months Social History Tobacco Use Types Packs/Day Years Used Date Smoking Tobacco: Never Assessed Comments Unknown Sex and Gender Information Value Date Recorded Sex Assigned at Not on file 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 Gender Identity Female 03/30/2023 10:16 AM CDT Sexual Orientation Not on file Obstetrics History Last Filed Vital Signs Vital Sign Reading Time Taken Comments Blood Pressure 120/90 11/01/2023 2:17 PM TEST ARCHITECT Pulse 90 11/01/2023 2:17 PM TEST ARCHITECT Temperature 36.5 C (97.7 F) 11/01/2023 2:17 PM TEST ARCHITECT Respiratory Rate 18 11/01/2023 2:17 PM TEST ARCHITECT Oxygen Saturation 97% 11/01/2023 2:17 PM TEST ARCHITECT Inhaled Oxygen Concentration - - Weight 59.9 kg (132 lb) 11/01/2023 2:17 PM TEST ARCHITECT Height 157.5 cm (5' 2) 11/01/2023 2:17 PM TEST ARCHITECT Body Mass Index 24.14 11/01/2023 2:17 PM TEST ARCHITECT Plan of Treatment Health Maintenance Due Date Last Done Comments Breast Cancer Screening-Mammogram 1983 Cervical Cancer Screening 1983 Depression Screening 1983 Hepatitis C Screening 1983 Varicella Vaccines (1 of 2 - 13+ 2-dose series) 1996 Hepatitis B Screening 2001 Regular Well Visit/Exam 18-64 2001 HPV Vaccines (1 - 3-dose SCD M series) 2010 Covid-19 Vaccine (2 - 2023-2 5 season) 2024 03/17/2021 Influenza Vaccine (#1) 2025 10/26/2022 DTaP/Tdap/Td Vaccine (2 - Td or Tdap) 06/27/2027 06/27/2017 Pneumococcal vaccine <65 Aged Out No longer eligible based on patient's age to complete this topic Insurance [facility] Care Teams Manager Oracle Relationship Specialty Start Date End Date Micki Pride MD PCP - General 02/28/14
--- OUTSIDE RECORDS SUMMARY | 2025-07-12 01:15 | XMS_ITS | Encounter Summary ---
Author Organization [facility] Address [address] [place] [address] Phone Care Team Providers Care Finisher Cold Rolling Name Role Phone Provider, None Primary Care Provider Mario Perez MD Primary Care Provider [phone] Encounter Details Date Type Department Care Team (Late st Contact Info) Description 01/15/2022 Lab Requisition [facility] [address] [place] [id number] Ana Espinoza, STOP ATTACHER, HOGSHEAD WEIGHER [address] [place] [address] Encounter for pre-employment examination Social [...] COVID-19? No / Unsure 01/15/2022 8:51 AM HEDIS MANAGER documented as of this encounter Plan of Treatment Not on file documented as of this encounter Procedures Procedure Name Priority Date/Time Associated Diagnosis Comments QUANTIFERON-TB GOLD PLUS Routine 01/15/2022 9:00 AM HEDIS MANAGER Encounter for pre-employment examination MMRV PANEL Routine 01/15/2022 9:00 AM HEDIS MANAGER Encounter for pre-employment examination MUMPS IGG Routine 01/15/2022 9:00 AM HEDIS MANAGER Encounter for pre-employment examination HERPES ZOSTER (VARICELLA) IGG Routine 01/15/2022 9:00 AM HEDIS MANAGER Encounter for pre-employment examination RUBEOLA (MEASLES) IGG Routine 01/15/2022 9:00 AM HEDIS MANAGER Encounter for pre-employment examination RUBELLA IMMUNITY IGG Routine 01/15/2022 9:00 AM HEDIS MANAGER Encounter for pre-employment examination HEPATITIS B SURFACE ANTIBODY (HBSAB) Routine 01/15/2022 9:00 AM HEDIS MANAGER Encounter for pre-employment examination documented in this encounter Results * HERPES ZOSTER (VARICELLA) IGG (01/15/2022 9:00 AM HEDIS MANAGER) VARICELLA ZOSTER IGG 4.6 >=1.1 AI 01/15/2022 11:30 PM HEDIS MANAGER [facility] Blood No Phlebotomy Charged / Unknown 01/15/2022 9:00 AM HEDIS MANAGER 01/15/2022 1:08 PM HEDIS MANAGER Narrative [facility] - 01/15/2022 11:30 PM HEDIS MANAGER <= 0.8 Negative. No detectable VZV IgG antibody. 0.9 - 1.0 Equivocal >=1.1 Positive Antibody testing was performed by multiplex flow immunoassay on the [employer] platform. us Ana L Behjoe STOP ATTACHER, HOGSHEAD WEIGHER IMMUNOLOGY ORDERABL ES Final Result [facility] [address] [place] [address], * (ABNORMAL) RUBEOLA (MEASLES) IGG (01/15/2022 9:00 AM HEDIS MANAGER) MEASLES AB IGG 0.7(L) >=1.1 AI 01/15/2022 11:30 PM HEDIS MANAGER [facility] Blood No Phlebotomy Charged / Unknown 01/15/2022 9:00 AM HEDIS MANAGER 01/15/2022 1:08 PM HEDIS MANAGER Narrative [facility] - 01/15/2022 11:30 PM HEDIS MANAGER <= 0.8 Negative. No detectable Measles IgG antibody. 0.9 - 1.0 Equivocal >=1.1 Positive Antibody testing was performed by multiplex flow immunoassay on the [employer] platform. us Ana L Behrends STOP ATTACHER, HOGSHEAD WEIGHER IMMUNOLOGY ORDERABL ES Final Result Performing Organization Address City/[facility]/ZIP Co de Phone Number [facility] [address] [place] [address], [place] * RUBELLA IMMUNITY IGG (01/15/2022 9:00 AM HEDIS MANAGER) RUBELLA IMMUNITY Immune Immune, Invalid 01/15/2022 11:30 PM HEDIS MANAGER [facility] Blood No Phlebotomy Charged / Unknown 01/15/2022 9:00 AM HEDIS MANAGER 01/15/2022 1:08 PM HEDIS MANAGER Narrative [facility] - 01/15/2022 11:30 PM HEDIS MANAGER Antibody testing was performed by multiplex flow immunoassay on the [employer] platform. us Ana L Behrends STOP ATTACHER, HOGSHEAD WEIGHER CHEMISTRY ORDERABLE S Final Result Performing Organization Address City/[facility]/ZIP Co de Phone Number [facility] [address] [place] [address], [place] * MUMPS IGG (01/15/2022 9:00 AM HEDIS MANAGER) Mumps Ab IgG 1.2 >=1.1 AI 01/15/2022 11:30 PM HEDIS MANAGER [facility] Blood No Phlebotomy Charged / Unknown 01/15/2022 9:00 AM HEDIS MANAGER 01/15/2022 1:08 PM HEDIS MANAGER Narrative [facility] - 01/15/2022 11:30 PM HEDIS MANAGER <= 0.8 Negative. No detectable Mumps IgG antibody. 0.9 - 1.0 Equivocal >=1.1 Positive Antibody testing was performed by multiplex flow immunoassay on the [employer] platform. us Ana Espinoza APRN, CNP IMMUNOLOGY ORDERABL ES Final Result [facility] [address] [place] [address], [place] * QUANTIFERON-TB GOLD PLUS (01/15/2022 9:00 AM HEDIS MANAGER) NIL CONTROL 0.05 <8.01 IU/mL 01/17/2022 1:34 PM HEDIS MANAGER [facility] TB ANTIGEN 1 0.03 <0.35 IU/mL 01/17/2022 1:34 PM HEDIS MANAGER [facility] TB ANTIGEN 2 0.01 <0.35 IU/mL 01/17/2022 1:34 PM HEDIS MANAGER [facility] MITOGEN CONTROL 8.21 >0.49 IU/mL 01/18/20 22 1:34 PM HEDIS MANAGER [facility] INTEPRETATION TB NEGATIVE NEGATIVE, NEGATIVE (TB antigen response less than 25% of internal negative control value) 01/17/2022 1:34 PM HEDIS MANAGER [facility] Comment:No immune response t o Mycobacterium tuberculosis antigens was noted. M. tuberculosis infection unlikely. Blood No Phlebotomy Charged / Unknown 01/15/2022 9:00 AM HEDIS MANAGER 01/15/2022 1:08 PM HEDIS MANAGER Narrative [facility] - 01/17/2022 1:34 PM HEDIS MANAGER A POSITIVE QUANTIFERON-TB GOLD PLUS RESULT SHOULD [...] immunocompromised individuals. https://www.cdc.gov/tb/publications/guidelines/testing.htm us Ana Espinoza APRN, HOGSHEAD WEIGHER IMMUNOLOGY ORDERABL ES Final Result Performing Organization Address [facility] Co de Phone Number [facility] [address] [place] [address], [place] * HEPATITIS B SURFACE ANTIBODY (HBSAB) (01/15/2022 9:00 AM HEDIS MANAGER) HEPATITIS B SURFACE ANTIBODY 47.68 mIU/mL [facility] [id number] B 01/15/2022 11:22 PM HEDIS MANAGER [facility] Comment: Detected Range: >12.00 Individual is considered immune to HBV infection Blood No Phlebotomy Charged / Unknown 01/15/2022 9:00 AM HEDIS MANAGER 01/15/2022 1:08 PM HEDIS MANAGER us Ana Espinoza STOP ATTACHER, HOGSHEAD WEIGHER CHEMISTRY ORDERABLE S Final Result Performing Organization Address [facility] Co de Phone Number [facility] [address] [place] [address], documented in this encounter Visit Diagnoses Diagnosis Encounter for pre-employment examination Health examination of defined subpopulation documented in this encounter Care Teams Finisher Cold Rolling Relationship Specialty Start Date End Date Provider, None [place] PCP - General 01/15/22 08/03/22 Mario Hernandez MD [address] [place], [place] [id number] PCP - General Family Medicine 08/04/22 documented as of this encounter
--- NOTE | 2025-07-12 07:14 | WPDANESEPPF ---
Anes - Initial Pre Proc Eval Procedure: Operation Date: 07/12/25 08:45 Proposed Procedures p Esophagogastroduodenoscopy - New Moran MD Date/Time: 07/12/25 07:14 Surgeon: New Moran MD Pre Op Diagnosis: Gastric ulcer Patient Data Age: 39 Gender: F Height: 1.6 m Weight: 63 kg Allergies Allergy/AdvReac Type Severity Reaction Status Date / Time cat dander Allergy Mild Watery Eye Verified 07/12/25 07:35 house dust mite Allergy Mild Watery Eye Verified 07/12/25 07:35 oak Allergy Mild Unknown Verified 07/12/25 07:35 NSAIDS (Non-Steroidal AdvReac Severe Abdominal Verified 07/12/25 07:35 Anti-Inflamma Pain metoclopramide (From Reglan) AdvReac Unknown Anxiety Verified 07/12/25 07:35 Home Medications ?Medication ?Instructions ?Recorded ?Confirmed ?Type alprazolam 1 mg tablet 0.5 mg PO DAILY PRN anxiety 07/07/21 06/26/25 History zolpidem 10 mg tablet 10 mg PO QHS 07/07/21 07/12/25 History pantoprazole 40 mg tablet,delayed 40 mg PO BID #60 tabs 03/26/25 07/12/25 Rx release (Protonix) famotidine 20 mg tablet 20 mg PO DAILY #30 tabs 04/03/25 07/12/25 Rx ondansetron 4 mg disintegrating 4 mg PO Q8H PRN nausea and 04/03/25 06/26/25 Rx tablet vomiting #14 tabs sucralfate 1 gram tablet 1 g PO DAILY #30 tabs 04/03/25 07/12/25 Rx escitalopram oxalate 20 mg tablet 20 mg PO DAILY 05/21/25 07/12/25 History Patient hx anesthesia problems: none Family hx anesthesia problems: none Results Review: All pre-operative results and documents have been reviewed as part of the pre-operative evaluation. [facility] Past Medical History Medical History (Updated 07/12/25 @ 07:15 by Pravin Richardson DO) GERD (gastroesophageal reflux disease) Stomach ulcer Migraine Arthritis Anxiety Allergies Acute blood loss anemia Coffee ground emesis Peptic ulcer disease Screening for thyroid disorder Bilateral hand pain Neuralgia Well woman exam Back skin lesion Thoracic back pain Screening for lipoid disorders Diarrhea Surgical History Surgical History H/O breast implant Family History Family History Father No problems noted. Mother No problems noted. Grandparent Alcoholism Esophageal cancer Depression Diabetes mellitus Heart disease Hypertension Other Malignant neoplasm of prostate Social History Social History Smoking status: Never smoker Second hand tobacco smoke exposure: No Alcohol intake: current Drinks per week: 2 Alcohol use details: socially Substance use: never Substance use type: does not use Do You Feel Safe in your Home?: Yes Lack of Transportation: No Lack of Food: Never True Current Housing: I Have Housing Concerned About Future Housing: No Difficulty Paying Gas/Electric Bills: No Difficulty Paying for Meds: No Currently Unemployed: No Education: Master's Degree or Higher Difficulty w/ Childcare or Family Care: No Living arrangements: with family Occupation/Education: occupation 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 Informed Consent: The patient's anesthetic plan and its attendant risks and benefits were discussed with the patient/family/POA. Questions were solicited and answers provided to the satisfaction of the patient/family/POA.
[2025-07-12 07:37] VITALS: BP 129/88; PULSE 76; RESP 16; TEMP 36.4; O2SAT 100; BMI 24.0
[2025-07-12 07:44] LABS: BEDSIDEPREGUCG Negative (Negative)
[2025-07-12] MEDS: LACTATED RINGERS 1,000 ML 150 ML IV CONT ×2 (07:47→08:22)
--- NOTE | 2025-07-12 08:18 | PM.HPGS ---
History of Present Illness History of Present Illness Consent: Risks, benefits, and alternatives have been discussed and questions answered. Patient agrees to proceed with procedure. Chief complaint: Gastric ulcer Narrative: Yesenia Miranda is a 39 year old female with gastric ulcers on protonix bid Review of Systems Review of Systems: All systems reviewed & are unremarkable except as noted in HPI and below PMFSH Past Medical History Medical History (Updated 07/12/25 @ 07:15 by Pravin Richardson, DO) GERD (gastroesophageal reflux disease) Stomach ulcer Migraine Arthritis Anxiety Allergies Acute blood loss anemia Coffee ground emesis Peptic ulcer disease Screening for thyroid disorder Bilateral hand pain Neuralgia Well woman exam Back skin lesion Thoracic back pain Screening for lipoid disorders Diarrhea Surgical History Surgical History H/O breast implant Family History Family History Father No problems noted. Mother No problems noted. Grandparent Alcoholism Esophageal cancer Depression Diabetes mellitus Heart disease Hypertension Other Malignant neoplasm of prostate Social History Social History Smoking status: Never smoker Second hand tobacco smoke exposure: No Alcohol intake: current Drinks per week: 2 Alcohol use details: socially Substance use: never Substance use type: does not use Do You Feel Safe in your Home?: Yes Lack of Transportation: No Lack of Food: Never True Current Housing: I Have Housing Concerned About Future Housing: No Difficulty Paying Gas/Electric Bills: No Difficulty Paying for Meds: No Currently Unemployed: No Education: Master's Degree or Higher Difficulty w/ Childcare or Family Care: No Living arrangements: with family Occupation/Education: occupation 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 Gender identity (if verbalized by the patient): Female Spiritual care concerns: No Meds Home Medications and Allergies Home Medications ?Medication ?Instructions ?Recorded ?Confirmed ?Type alprazolam 1 mg tablet 0.5 mg PO DAILY PRN anxiety 07/07/21 06/26/25 History zolpidem 10 mg tablet 10 mg PO QHS 07/07/21 07/12/25 History pantoprazole 40 mg tablet,delayed 40 mg PO BID #60 tabs 03/26/25 07/12/25 Rx release (Protonix) famotidine 20 mg tablet 20 mg PO DAILY #30 tabs 04/03/25 07/12/25 Rx ondansetron 4 mg disintegrating 4 mg PO Q8H PRN nausea and 04/03/25 06/26/25 Rx tablet vomiting #14 tabs sucralfate 1 gram tablet 1 g PO DAILY #30 tabs 04/03/25 07/12/25 Rx escitalopram oxalate 20 mg tablet 20 mg PO DAILY 05/21/25 07/12/25 History Allergies Allergy/AdvReac Type Severity Reaction Status Date / Time cat dander Allergy Mild Watery Eye Verified 07/12/25 07:35 house dust mite Allergy Mild Watery Eye Verified 07/12/25 07:35 oak Allergy Mild Unknown Verified 07/12/25 07:35 NSAIDS (Non-Steroidal AdvReac Severe Abdominal Verified 07/12/25 07:35 Anti-Inflamma Pain metoclopramide (From Reglan) AdvReac Unknown Anxiety Verified 07/12/25 07:35 Vital Signs Vital Signs - 24 hr 07/12/25 07:37 Temperature 97.5 F L Pulse Rate 76 Respiratory Rate 16 Blood Pressure 129/88 Pulse Oximetry 100 Oxygen Delivery Room Air Exam Const: General: comfortable and no acute distress HENMT: Face/Nose/Sinus: Normal nares present Eyes: General: appearance normal, both eyes and all related structures Neck: Neck: no JVD Resp: Auscultation: clear to auscultation bilaterally Cardio: Rate: regular rate Rhythm: regular rhythm GI: Inspection: non-distended GI Palp: Yes Soft to palpation Skin: General skin exam: normal color Neuro: General: gait normal Speech: normal speech Extrem: General: normal to inspection Psych: Mental Status: mental status grossly normal Assessment and Plan Assessment and plan (1) Peptic ulcer disease: Code(s): K27.9 - Peptic ulcer, site unspecified, unspecified as acute or chronic, without hemorrhage or perforation Status: Acute Assessment and Plan: egd
[2025-07-12 08:23] VITALS: BP 97/60; PULSE 65; RESP 16; O2SAT 98
--- NOTE | 2025-07-12 08:23 | S_PTH ---
PATIENT: Yesenia Miranda LOC: [facility] L[facility]#:[id number] AGE/SX: 39/F ROOM: RE07/12/[address]: New Moran MD : 1985 BED: DIS: 07/12/2025 SPEC #: [id number] RECD: 07/12/25 10:37 STATUS: RFANCISCA REMarianne #: [id number] TENISHA: 07/12/25 08:[address]: New Moran DEPT: [facility] Surgical RECD BY: Shireen Rowland ENTERED: 07/12/25 10:37 SP TYPE: Surgical OTHR DR: Mario Hernandez MD Tissues: A - Gastric Biopsy Procedures: Hematoxylin and Eosin Stain Gross and Microscopic Level 4
[2025-07-12 08:33] VITALS: BP 115/83; PULSE 73; RESP 21; O2SAT 98
[2025-07-12 08:43] VITALS: BP 114/73; PULSE 78; RESP 16; O2SAT 100
== END 2025-07-12 08:55 | disposition home or self-care (01) ==
PROVIDERS: Anesthesiology; PCP Family Medicine; Referring Provider Internal Medicine Gastroenterology; Visit Provider Internal Medicine Gastroenterology
PROC: 0DJ08ZZ Inspection of Upper Intestinal Tract, Via Natural or Artificial Opening Endoscopic (ICD-10-PCS; CPT 43239; principal; 2025-07-12 08:45)
DX: K29.50 Unspecified chronic gastritis without bleeding (principal); K21.9 Gastro-esophageal reflux disease without esophagitis; M19.90 Unspecified osteoarthritis, unspecified site; F41.9 Anxiety disorder, unspecified; D62 Acute posthemorrhagic anemia; Z98.890 Other specified postprocedural states; Z87.11 Personal history of peptic ulcer disease; Z80.0 Family history of malignant neoplasm of digestive organs; Z80.42 Family history of malignant neoplasm of prostate; Z82.49 Family history of ischemic heart disease and other diseases of the circulatory system
CPT/HCPCS: 43239; 88305; J2704; J7120

== ENCOUNTER 2025-07-22 14:44 | Outpatient (CLI) | payer OTHER, SELFPAY ==
--- OUTSIDE RECORDS SUMMARY | 2025-07-22 14:49 | XMS_ITS | Encounter Summary ---
Author Organization [facility] Address [address] [place] [address] Phone Care Team Providers Care Record Press Tender Name Role Phone Provider, None Primary Care Provider Mario Perez MD Primary Care Provider [phone] Encounter Details Date Type Department Care Team (Late st Contact Info) Description 01/15/2022 Lab Requisition [facility] [address] [place] [id number] Ana Espinoza, PROPERTY MANAGER, PATTERNMAKER HELPER [address] [place] [address] Encounter for pre-employment examination Social [...] COVID-19? No / Unsure 01/15/2022 8:51 AM GEM CUTTER documented as of this encounter Plan of Treatment Not on file documented as of this encounter Procedures Procedure Name Priority Date/Time Associated Diagnosis Comments QUANTIFERON-TB GOLD PLUS Routine 01/15/2022 9:00 AM GEM CUTTER Encounter for pre-employment examination MMRV PANEL Routine 01/15/2022 9:00 AM GEM CUTTER Encounter for pre-employment examination MUMPS IGG Routine 01/15/2022 9:00 AM GEM CUTTER Encounter for pre-employment examination HERPES ZOSTER (VARICELLA) IGG Routine 01/15/2022 9:00 AM GEM CUTTER Encounter for pre-employment examination RUBEOLA (MEASLES) IGG Routine 01/15/2022 9:00 AM GEM CUTTER Encounter for pre-employment examination RUBELLA IMMUNITY IGG Routine 01/15/2022 9:00 AM GEM CUTTER Encounter for pre-employment examination HEPATITIS B SURFACE ANTIBODY (HBSAB) Routine 01/15/2022 9:00 AM GEM CUTTER Encounter for pre-employment examination documented in this encounter Results * HERPES ZOSTER (VARICELLA) IGG (01/15/2022 9:00 AM GEM CUTTER) VARICELLA ZOSTER IGG 4.6 >=1.1 AI 01/15/2022 11:30 PM GEM CUTTER [facility] Blood No Phlebotomy Charged / Unknown 01/15/2022 9:00 AM GEM CUTTER 01/15/2022 1:08 PM GEM CUTTER Narrative [facility] - 01/15/2022 11:30 PM GEM CUTTER <= 0.8 Negative. No detectable VZV IgG antibody. 0.9 - 1.0 Equivocal >=1.1 Positive Antibody testing was performed by multiplex flow immunoassay on the [employer] Software platform. us Ana L Behjoe PROPERTY MANAGER, PATTERNMAKER HELPER IMMUNOLOGY ORDERABL ES Final Result [facility] [address] [place] [address], * (ABNORMAL) RUBEOLA (MEASLES) IGG (01/15/2022 9:00 AM GEM CUTTER) MEASLES AB IGG 0.7(L) >=1.1 AI 01/15/2022 11:30 PM GEM CUTTER [facility] Blood No Phlebotomy Charged / Unknown 01/15/2022 9:00 AM GEM CUTTER 01/15/2022 1:08 PM GEM CUTTER Narrative [facility] - 01/15/2022 11:30 PM GEM CUTTER <= 0.8 Negative. No detectable Measles IgG antibody. 0.9 - 1.0 Equivocal >=1.1 Positive Antibody testing was performed by multiplex flow immunoassay on the [employer] platform. us Ana L Behrends PROPERTY MANAGER, PATTERNMAKER HELPER IMMUNOLOGY ORDERABL ES Final Result Performing Organization Address City/[facility]/ZIP Co de Phone Number [facility] [address] [place] [address], [place] * RUBELLA IMMUNITY IGG (01/15/2022 9:00 AM GEM CUTTER) RUBELLA IMMUNITY Immune Immune, Invalid 01/15/2022 11:30 PM GEM CUTTER [facility] Blood No Phlebotomy Charged / Unknown 01/15/2022 9:00 AM GEM CUTTER 01/15/2022 1:08 PM GEM CUTTER Narrative [facility] - 01/15/2022 11:30 PM GEM CUTTER Antibody testing was performed by multiplex flow immunoassay on the [employer] platform. us Ana L Behrends PROPERTY MANAGER, PATTERNMAKER HELPER CHEMISTRY ORDERABLE S Final Result Performing Organization Address City/[facility]/ZIP Co de Phone Number [facility] [address] [place] [address], [place] * MUMPS IGG (01/15/2022 9:00 AM GEM CUTTER) Mumps Ab IgG 1.2 >=1.1 AI 01/15/2022 11:30 PM GEM CUTTER [facility] Blood No Phlebotomy Charged / Unknown 01/15/2022 9:00 AM GEM CUTTER 01/15/2022 1:08 PM GEM CUTTER Narrative [facility] - 01/15/2022 11:30 PM GEM CUTTER <= 0.8 Negative. No detectable Mumps IgG antibody. 0.9 - 1.0 Equivocal >=1.1 Positive Antibody testing was performed by multiplex flow immunoassay on the [employer] Software platform. us Ana Espinoza APRN, CNP IMMUNOLOGY ORDERABL ES Final Result [facility] [address] [place] [address], [place] * QUANTIFERON-TB GOLD PLUS (01/15/2022 9:00 AM GEM CUTTER) NIL CONTROL 0.05 <8.01 IU/mL 01/17/2022 1:34 PM GEM CUTTER [facility] TB ANTIGEN 1 0.03 <0.35 IU/mL 01/17/2022 1:34 PM GEM CUTTER [facility] TB ANTIGEN 2 0.01 <0.35 IU/mL 01/17/2022 1:34 PM GEM CUTTER [facility] MITOGEN CONTROL 8.21 >0.49 IU/mL 01/18/20 22 1:34 PM GEM CUTTER [facility] INTEPRETATION TB NEGATIVE NEGATIVE, NEGATIVE (TB antigen response less than 25% of internal negative control value) 01/17/2022 1:34 PM GEM CUTTER [facility] Comment:No immune response t o Mycobacterium tuberculosis antigens was noted. M. tuberculosis infection unlikely. Blood No Phlebotomy Charged / Unknown 01/15/2022 9:00 AM GEM CUTTER 01/15/2022 1:08 PM GEM CUTTER Narrative [facility] - 01/17/2022 1:34 PM GEM CUTTER A POSITIVE QUANTIFERON-TB GOLD PLUS RESULT SHOULD [...] immunocompromised individuals. https://www.cdc.gov/tb/publications/guidelines/testing.htm us Ana Espinoza APRN, PATTERNMAKER HELPER IMMUNOLOGY ORDERABL ES Final Result Performing Organization Address [facility] Co de Phone Number [facility] [address] [place] [address], [place] * HEPATITIS B SURFACE ANTIBODY (HBSAB) (01/15/2022 9:00 AM GEM CUTTER) HEPATITIS B SURFACE ANTIBODY 47.68 mIU/mL [facility] ARCH [id number] 01/15/2022 11:22 PM GEM CUTTER [facility] Comment: Detected Range: >12.00 Individual is considered immune to HBV infection Blood No Phlebotomy Charged / Unknown 01/15/2022 9:00 AM GEM CUTTER 01/15/2022 1:08 PM GEM CUTTER us Ana Espinoza PROPERTY MANAGER, PATTERNMAKER HELPER CHEMISTRY ORDERABLE S Final Result Performing Organization Address [facility] Co de Phone Number [facility] [address] [place] [address], documented in this encounter Visit Diagnoses Diagnosis Encounter for pre-employment examination Health examination of defined subpopulation documented in this encounter Care Teams Record Press Tender Relationship Specialty Start Date End Date Provider, None [place] PCP - General 01/15/22 08/03/22 Mario Hernandez MD [address] [place], [place] [id number] PCP - General Family Medicine 08/04/22 documented as of this encounter
--- OUTSIDE RECORDS SUMMARY | 2025-07-22 14:49 | XMS_ITS | Clinical Summary ---
Author Organization [facility] [address] [place] [id number] Care Team Providers Care Plate Glass Installer Helper Name Role Phone Micki Pride MD Primary Care Provider [phone] Allergies Active Allergy Reactions Criticality Noted Date [...] Team Description 07/11/2025 4:00 PM CDT Telemedicine [address] [address] Yobany Mehta MD Attention deficit hyperactivity disorder (ADHD), combined type (Primary Dx); JOSEPHINE (generalized anxiety disorder); Panic disorder 06/24/[address] [address] Yobany Mehta MD Med Refill (Early fill request Ambien/Called in Hydroxyzine ) 05/02/2025 4:00 PM CDT Telemedicine [address] [address] Yobany Mehta MD Moderate [...] on file Legal Sex Female 3:14 AM ARCHITECTURAL JOB CAPTAIN Gender Identity Female 03/30/2023 10:16 AM CDT Sexual Orientation Not on file Obstetrics History Last Filed Vital Signs Vital Sign Reading Time Taken Comments Blood Pressure 120/90 11/01/2023 2:17 PM ARCHITECTURAL JOB CAPTAIN Pulse 90 11/01/2023 2:17 PM ARCHITECTURAL JOB CAPTAIN Temperature 36.5 C (97.7 F) 11/01/2023 2:17 PM ARCHITECTURAL JOB CAPTAIN Respiratory Rate 18 11/01/2023 2:17 PM ARCHITECTURAL JOB CAPTAIN Oxygen Saturation 97% 11/01/2023 2:17 PM ARCHITECTURAL JOB CAPTAIN Inhaled Oxygen Concentration - - Weight 59.9 kg (132 lb) 11/01/2023 2:17 PM ARCHITECTURAL JOB CAPTAIN Height 157.5 cm (5' 2) 11/01/2023 2:17 PM ARCHITECTURAL JOB CAPTAIN Body Mass Index 24.14 11/01/2023 2:17 PM ARCHITECTURAL JOB CAPTAIN Plan of Treatment Health Maintenance Due Date Last Done Comments Breast Cancer Screening-Mammogram 1985 Cervical Cancer Screening 1985 Depression Screening 1985 Hepatitis C Screening 1985 Varicella Vaccines (1 of 2 - 13+ 2-dose series) 1996 Hepatitis B Screening 2001 Regular Well Visit/Exam 18-64 2001 HPV Vaccines (1 - 3-dose SCD M series) 2010 Covid-19 Vaccine (2 - 2024-2 6 season) 2025 03/17/2021 Influenza Vaccine (#1) 2025 10/26/2022 DTaP/Tdap/Td Vaccine (2 - Td or Tdap) 06/27/2027 06/27/2017 Pneumococcal vaccine <65 Aged Out No longer eligible based on patient's age to complete this topic Insurance [facility] H[facility]/PPO Address: [address] [address] [place] [address] [facility] Care Teams Plate Glass Installer Helper Relationship Specialty Start Date End Date Micki Pride MD PCP - General 02/28/14
--- OUTSIDE RECORDS SUMMARY | 2025-07-22 14:49 | XMS_ITS | Clinical Summary ---
Author Organization [facility] Address [address] [place], [address] [address] Phone Care Team Providers Care Head Of Sales Name Role Phone Mario Hernandez MD Primary Care Provider [phone] Social History Tobacco Use Types Packs/Day Years [...] Cervical Cancer Screening (CCS) 2013 HPV/Cotest 2013 Influenza Immunization (#1) 2025 SARS-COV-2 Immunization ( season) 2025 03/17/2021 Respiratory Syncytial Virus (RSV) Immunization (Adult) (1 - 1-dose 75+ series) 2058 Meningococcal Immunization (ACWY) Aged Out No longer eligible based on patient's age to complete this topic Pneumococcal Immunization Combined Aged Out No longer eligible based on patient's age to complete this topic Rotavirus Immunization Aged Out No lo nger eligible based on patient's age to complete this topic Care Teams Head Of Sales Relationship Specialty Start Date End Date Mario Hernandez MD [address] [place] [address] PCP - General Family Medicine 08/04/22
[2025-07-22 15:08] LABS: Hematocrit 39.1 % (37.0-47.0); Hemoglobin 12.9 g/dL (12.0-15.0); Immature Granulocyte Percent A 0.2 % (0-0.5); Lymphocytes Absolute Auto 2.35 K/mm3 (0.9-3.2); Mean Corpuscular HGB Conc 33.0 g/dl (32-36); Mean Corpuscular Hemoglobin 27.8 pg (26-34); Mean Corpuscular Volume 84.3 fl (80-100); Nucleated Red Blood Cells Absolute Auto 0.000 K/mm3 (0.0-0.012); Nucleated Red Blood Cells Perc 0.0 % (0.0-0.2); Platelet Count Result 296 k/mm3 (150-375); Red Blood Count 4.64 M/mm3 (4.2-5.4); White Blood Count 6.2 K/mm3 (4.5-10.0)
[2025-07-22 15:30] LABS: Alanine Aminotransferase 22 U/L (6-35); Albumin Level 4.7 g/dL (3.5-5.1); Alkaline Phosphatase 72 U/L (38-126); Anion Gap 8 mmol/L (4-12); Aspartate Amino Transferase 27 U/L (14-36); Bilirubin,Total 0.3 mg/dL (0.2-1.3); Blood Urea Nitrogen 10 mg/dL (7-17); Calcium 8.8 mg/dL (8.4-10.2); Carbon Dioxide 26 mmol/L (22-30); Chloride 102 mmol/L (98-107); Estimated Glomerular Filt Rate > 60; Glucose 94 mg/dL (65-110); Potassium 3.7 mmol/L (3.4-5.0); Sodium 136 mmol/L (137-145); Total Protein 8.0 g/dL (6.3-8.2)
[2025-07-22 15:38] LABS: NT Pro B Type Natriuretic Pept < 20 pg/mL (19.9-100)
[2025-07-22 15:59] LABS: Thyroid Stimulating Hormone 0.509 uIU/mL (0.465-4.680)
== END 2025-07-22 14:45 | disposition home or self-care (01) ==
LOC: ANHLAB 14:47
PROVIDERS: PCP Family Medicine
DX: R07.9 Chest pain, unspecified (principal); Z87.11 Personal history of peptic ulcer disease; R53.83 Other fatigue; E55.9 Vitamin D deficiency, unspecified; F41.9 Anxiety disorder, unspecified; R07.0 Pain in throat
CPT/HCPCS: 36415; 80053; 82306; 83880; 84443; 85025

== ENCOUNTER 2025-08-01 22:40 | Observation (INO) | payer OTHER, SELFPAY ==
--- NOTE | ~2025-08-01 | CT_ITS ---
EXAMINATION: CT brain wo con DATE: 08/03/2025 09:10 INDICATION: Intractable migraine headache. TECHNIQUE: Computed tomography (CT) of the head was performed without intravenous contrast. The mA was adjusted according to patient size. Iterative reconstruction technique was employed. The dose-length product was 605.33 mGy-cm. COMPARISON: None FINDINGS: There is no intracranial hemorrhage, acute infarction, or abnormal intracranial mass lesion. The ventricles are normal in size. The orbits are normal. The paranasal sinuses are clear. The mastoid air cells are normal. IMPRESSION: 1. Normal brain. Reviewed, dictated and finalized at location E. IMPRESSION: 1. Normal brain.
--- NOTE | ~2025-08-01 | XR_ITS ---
Examination: XR chest 2V Clinical History: CP Comparison: 01/29/2022 Technique: PA and Lateral Findings: Cardiomediastinal silhouette normal size and configuration. Lungs clear. No acute bony abnormality. IMPRESSION: 1. No acute cardiopulmonary findings. Reviewed, dictated and finalized at location R.
--- NOTE | ~2025-08-01 | CT_ITS ---
CTA CHEST ABDOMEN PELVIS CLINICAL HISTORY: CP radiates to her back, R/O AORTIC DISSECTION, PE . COMPARISON: Chest x-ray today CT abdomen and pelvis 03/25/2025 TECHNIQUE: Helical CT performed from thoracic inlet to symphysis pubis IV contrast information not listed in PACS Coronal, sagittal reformats. Multiplanar MIPS CT images acquired with automatic exposure control for dose reduction DLP: 346 mGy-cm FINDINGS: CHEST- Thoracic Aorta: No dissection. No aneurysm. Pulmonary arteries: Normal caliber. No PE Lungs/Pleura: Clear. Heart: Unremarkable. Tracheobronchial tree: Patent. Nodes: No enlarged nodes. Bones: No acute bony abnormality. Soft tissues: Breast implants. ABDOMEN/PELVIS- CTA Abdominal aorta: No aneurysm or dissection. Common iliac arteries: Patent. External iliac arteries: Patent. Hypogastric arteries: Patent. CFAs: Patent. Proximal visualized SFAs and profundas: Patent. Celiac: Patent. SMA: Patent. LOGAN: Patent. Renal arteries: Patent. NON-CTA Liver: Enlarged. Steatosis. Gallbladder: Unremarkable. Spleen: Unremarkable. Pancreas: Unremarkable. Adrenal glands: Unremarkable. Kidneys: Right kidney- No hydronephrosis. No renal stones. Left kidney- No hydronephrosis. No renal stones. Distal esophagus/stomach: Mild distal esophageal wall thickening. Small bowel loops: Normal caliber and wall thickness. Colon: A few diverticula. Normal caliber and wall thickness. Normal RLQ appendix. Nodes: No enlarged nodes. Peritoneum: No ascites. No free air. Urinary bladder: Unremarkable. Uterus: Unremarkable. Adnexa: No masses. Tampon within vaginal vault. Bones: No acute bony abnormality. Soft tissues: Unremarkable. IMPRESSION: CHEST- 1. No acute cardiopulmonary findings. ABDOMEN/PELVIS- 1. No acute abdominopelvic findings. 2. Mild chronic esophagitis. Reviewed, dictated and finalized at location R.
[2025-08-01 22:40] VITALS: BP 119/75; PULSE 97; RESP 16; TEMP 36.4; O2SAT 100
--- NOTE | 2025-08-01 22:42 | ECG_ITS ---
Test Date: 2025-08-01 22:51:00 Measurements Intervals [place] Rate: 83 P: 71 WY: 140 QRS: 69 QRSD: 96 T: 59 QT: 386 QTc: 456 Interpretive Statements SINUS RHYTHM POSSIBLE LEFT ATRIAL ENLARGEMENT [-0.1mV P-WAVE IN V1/V2] NONSPECIFIC T-WAVE ABNORMALITY ABNORMAL ECG Compared to ECG 04/03/2025 01:49:32 No significant changes Electronically Signed On 08-02-2025 08:07:27 CDT by David Mcdowell M.D.
[2025-08-01 23:03] LABS: Hematocrit 36.2 % (37.0-47.0); Hemoglobin 11.8 g/dL (12.0-15.0); Immature Granulocyte Percent A 0.3 % (0-0.5); Lymphocytes Absolute Auto 3.79 K/mm3 (0.9-3.2); Mean Corpuscular HGB Conc 32.6 g/dl (32-36); Mean Corpuscular Hemoglobin 27.3 pg (26-34); Mean Corpuscular Volume 83.8 fl (80-100); Nucleated Red Blood Cells Absolute Auto 0.000 K/mm3 (0.0-0.012); Nucleated Red Blood Cells Perc 0.0 % (0.0-0.2); Platelet Count Result 289 k/mm3 (150-375); Red Blood Count 4.32 M/mm3 (4.2-5.4); White Blood Count 9.6 K/mm3 (4.5-10.0)
[2025-08-01 23:14] LABS: INR 1.0; Prothrombin Time 13.5 Seconds (11.1-14.7)
[2025-08-01 23:15] LABS: Partial Thromboplastin Time 28.5 Seconds (22.3-36.8)
[2025-08-01 23:34] LABS: Alanine Aminotransferase 17 U/L (6-35); Albumin Level 4.4 g/dL (3.5-5.1); Alkaline Phosphatase 65 U/L (38-126); Anion Gap 8 mmol/L (4-12); Aspartate Amino Transferase 35 U/L (14-36); Bilirubin,Total 0.3 mg/dL (0.2-1.3); Blood Urea Nitrogen 12 mg/dL (7-17); Calcium 8.5 mg/dL (8.4-10.2); Carbon Dioxide 25 mmol/L (22-30); Chloride 101 mmol/L (98-107); Estimated Glomerular Filt Rate > 60; Glucose 75 mg/dL (65-110); Lipase 194 U/L (23-300); Potassium 3.5 mmol/L (3.4-5.0); Sodium 134 mmol/L (137-145); Total Protein 7.4 g/dL (6.3-8.2)
[2025-08-01 23:41] LABS: Troponin I < 0.012 ng/mL (0.000-0.034)
[2025-08-02] VITALS (37 sets, daily range): BP systolic 106–141; BP diastolic 78–104; PULSE 60–93; RESP 9–24; TEMP 36.6–36.9; O2SAT 92–100; BMI 24.7
--- NOTE | 2025-08-02 | ECHO_ITS ---
Patient Info Name: Yesenia Miranda Age: 39 years : 1985 Gender: Female Ht: 62 in Wt: 135 lbs BSA: 1.65 m2 HR: 93 bpm BP: 131 / 97 mmHg Technical Quality: Fair Exam Date: 08/02/2025 1:24 PM Patient Status: unknown Admit Date: 08/02/2025 Exam Type: CA echo dop color flow w con Complete two-dimensional, color flow and Doppler transthoracic echocardiogram is performed with contrast to opacify the left ventricle and to improve the deliniation of the left ventricle endocardial borders. Staff Referring Physician: Massiel Hunt NP Automotive Assembler: Christie Duenas Attending Provider: Gutierrez Wills Contrast/Agitated Saline Contrast/Ag. Saline: Definity Amount: 2.00 ml Summary 1. Definity contrast administered improved wall motion interpretation. 2. Left ventricular chamber dimension is normal. 3. Left ventricular systolic function is normal, estimated at 60-65. 4. The left ventricular diastolic function is normal. 5. E/e' 4 is not elevated. Left Ventricle E/e' 4 is not elevated. Left ventricular chamber dimension is normal. Left ventricular systolic function is normal, estimated at 60-65. The left ventricular diastolic function is normal. Definity contrast administered improved wall motion interpretation. Right Ventricle Right ventricular chamber dimension is normal. Right ventricular systolic function is normal. Left Atria Left atrial chamber dimension is normal. Right Atria Right atrial chamber dimension is normal. Aortic Valve The aortic valve is trileaflet. There is no aortic valve stenosis. There is no aortic valve regurgitation. Pulmonic Valve There is no pulmonic regurgitation. Mitral Valve There is no mitral valve stenosis. There is no mitral valve regurgitation. Tricuspid Valve There is no tricuspid valve regurgitation. Pericardium/Pleural There is no pericardial effusion. Inferior Vena Cava Normal inferior vena cava with >50% collapse upon inspiration consistent with normal right atrial pressure, 5 mmHg. Aorta The aortic root size at the sinus of Valsalva is normal. Left Ventricular Outflow Tract Name Value Normal LVOT 2D LVOT Diameter 1.9 cm LVOT Doppler LVOT Peak Velocity 101 cm/s LVOT Peak Gradient 4 mmHg LVOT Mean Gradient 2 mmHg LVOT VTI 20 cm LVOT VTI/AV VTI Ratio 1.1 LVOT Stroke Volume 57 ml LVOT CO 11.5 l/min LVOT CI 7.0 l/min/m2 Pulmonic Valve Name Value Normal PV Doppler PV Peak Velocity 71 cm/s PV Peak Gradient 2 mmHg Mitral Valve Name Value Normal MV Diastolic Function MV E Peak Velocity 53 cm/s MV A Peak Velocity 39 cm/s MV E/A 1.3 MV Decel Time (PW) 283 ms MV Annular TDI MV E/e' (Septal) 7.1 MV E/e' (Lateral) 3.3 MV E/e' (Average) 5.2 Tricuspid Valve Name Value Normal Estimated PAP/RSVP RA Pressure 5 mmHg <=5 TV Annular TDI TV Lateral Sally s' Velocity 7.3 cm/s >=9.5 Aorta Name Value Normal Ascending Aorta Ao Root Diameter (MM) 3.0 cm Ao Root Diam Index (MM) 1.8 cm/m2 Aortic Valve Name Value Normal AV Doppler AV Peak Velocity 98 cm/s AV Peak Gradient 4 mmHg AV Mean Gradient 2 mmHg AV VTI 19 cm AV Area (Cont Eq VTI) 3.0 cm2 >=3.0 AV Area (Cont Eq Phil) 2.9 cm2 AV DI (Phil) 1.04 AV Regurgitation 2D LVOT Area 2.8 cm2 Ventricles Name Value Normal LV Dimensions 2D/MM IVS Diastolic Thickness (2D) 0.8 cm 0.6-1.0 LVID Diastole (2D) 4.6 cm 3.8-5.2 LVIW Diastolic Thickness (2D) 0.8 cm 0.6-0.9 LVID Systole (2D) 3.1 cm 2.2-3.5 LVOT Diameter 1.9 cm LV Mass (2D Cubed) 118.45 g 67.00-162.00 LV Mass Index (2D Cubed) 72 g/m2 43-95 Relative Wall Thickness (2D) 0.35 <=0.42 LV Fractional Shortening/Ejection Fraction 2D/MM LV Fractional Shortening (2D) 33 % 27-45 LV EF (2D Teichholz) 62 % LV Diastolic Volume (4C MOD) 91 ml LV EF (4C MOD) 49 % LV Diastolic Volume (2C MOD) 92 ml LV EF (2C MOD) 55 % LV Diastolic Volume (BP MOD) 92 ml 46-106 LV Diastolic Volume Index (BP MOD) 56 ml/m2 29-61 LV Systolic Volume (BP MOD) 44 ml 14-42 LV Systolic Volume Index (BP MOD) 27 ml/m2 8-24 LV EF (BP MOD) 52 % 54-74 LV Diastolic Length (4C) 7.5 cm LV Systolic Length (4C) 6.3 cm LV Stroke Volume (4C MOD) 45 ml RV Dimensions 2D/MM RVID Diastole (2D) 3.1 cm 2.1-3.5 Atria Name Value Normal LA Dimensions LA Dimension (MM) 3.0 cm 2.7-3.8 LA Volume (4C A-L) 49 ml LA Volume (BP A-L) 41 ml RA Dimensions RA Systolic Major Helena Length (4C) 4.0 cm 2.2-2.8 RA Area (4C) 12.3 cm2 <=18.0 Report Signatures
[2025-08-02] MEDS: LORazepam (*CRX) 0.5 MG TABLET PO (00:31)
[2025-08-02] MEDS: PANTOPRAZOLE SODIUM IV 40 MG VIAL IV PUSH (00:31)
--- OUTSIDE RECORDS SUMMARY | 2025-08-02 00:41 | XMS_ITS | Clinical Summary ---
Author Organization [facility] Address [address], [address] [address] Phone Care Team Providers Care Lobby Concierge Name Role Phone Mario Hernandez MD Primary Care Provider [phone] Social History Tobacco Use Types Packs/Day Years [...] age to complete this topic Care Teams Lobby Concierge Relationship Specialty Start Date End Date Mario Hernandez MD [address] [place] [address] PCP - General Family Medicine 08/04/22
--- OUTSIDE RECORDS SUMMARY | 2025-08-02 00:41 | XMS_ITS | Clinical Summary ---
Author Organization [facility] Physician Office Building [address] [place] [address] Care Team Providers Care Whizzer Operator Name Role Phone Micki Pride MD Primary Care Provider [phone] Allergies Active Allergy Reactions Criticality Noted Date [...] anxiety 60 tablet 2 07/11/20 25 Active dextroamphetamine -amphetamine (AdderalL) 10 mg tabletIndications :Attention-Defici t Hyperactivity Disorder Take 1 tablet (10 mg total) by mouth 2 (two) times a day 60 tablet 07/25/20 Active escitalopram (LEXAPRO) 20 mg tablet TAKE [...] Encounters Date Type Department Care Team Description 07/25/2025 1:15 PM CDT Telemedicine [address] [address] Yobany Mehta MD Moderate episode of recurrent major depressive disorder (HCC) (Primary Dx); Panic disorder; JOSEPHINE (generalized anxiety disorder); Attention deficit hyperactivity disorder (ADHD), combined type 07/11/2025 4:00 PM CDT Telemedicine [address] [address] Yobany Mehta MD Attention deficit hyperactivity disorder (ADHD), combined type (Primary Dx); JOSEPHINE (generalized anxiety disorder); Panic disorder 06/24/[address] [address] Yobany Mehta MD Med Refill (Early fill request Ambien/Called in Hydroxyzine ) 05/02/2025 4:00 PM CDT Telemedicine [facility] [id number] [address] Yobany Mehta MD Moderate episode [...] on file Legal Sex Female 3:14 AM WOOD GRAINER Gender Identity Female 03/30/2023 10:16 AM CDT Sexual Orientation Not on file Obstetrics History Last Filed Vital Signs Vital Sign Reading Time Taken Comments Blood Pressure 120/90 11/01/2023 2:17 PM WOOD GRAINER Pulse 90 11/01/2023 2:17 PM WOOD GRAINER Temperature 36.5 C (97.7 F) 11/01/2023 2:17 PM WOOD GRAINER Respiratory Rate 18 11/01/2023 2:17 PM WOOD GRAINER Oxygen Saturation 97% 11/01/2023 2:17 PM WOOD GRAINER Inhaled Oxygen Concentration - - Weight 59.9 kg (132 lb) 11/01/2023 2:17 PM WOOD GRAINER Height 157.5 cm (5' 2) 11/01/2023 2:17 PM WOOD GRAINER Body Mass Index 24.14 11/01/2023 2:17 PM WOOD GRAINER Plan of Treatment Health Maintenance Due Date [...] patient's age to complete this topic Insurance [facility] Care Teams Whizzer Operator Relationship Specialty Start Date End Date Micki Pride MD PCP - General 02/28/14
--- OUTSIDE RECORDS SUMMARY | 2025-08-02 00:41 | XMS_ITS | Encounter Summary ---
Author Organization [facility] Address [address] [address] Phone Care Team Providers Care Grab Jack Man Name Role Phone Provider, None Primary Care Provider Mario Perez MD Primary Care Provider [phone] Encounter Details Date Type Department Care Team (Late st Contact Info) Description 01/15/2022 Lab Requisition [facility] Services [address] [place] [id number] Ana Espinoza, PROFESSOR OF PSYCHIATRY, HAND DRY CLEANER [address] [place] [address] Encounter for pre-employment examination Social [...] COVID-19? No / Unsure 01/15/2022 8:51 AM VALVE PIPE IRRIGATOR documented as of this encounter Plan of Treatment Not on file documented as of this encounter Procedures Procedure Name Priority Date/Time Associated Diagnosis Comments QUANTIFERON-TB GOLD PLUS Routine 01/15/2022 9:00 AM VALVE PIPE IRRIGATOR Encounter for pre-employment examination MMRV PANEL Routine 01/15/2022 9:00 AM VALVE PIPE IRRIGATOR Encounter for pre-employment examination MUMPS IGG Routine 01/15/2022 9:00 AM VALVE PIPE IRRIGATOR Encounter for pre-employment examination HERPES ZOSTER (VARICELLA) IGG Routine 01/15/2022 9:00 AM VALVE PIPE IRRIGATOR Encounter for pre-employment examination RUBEOLA (MEASLES) IGG Routine 01/15/2022 9:00 AM VALVE PIPE IRRIGATOR Encounter for pre-employment examination RUBELLA IMMUNITY IGG Routine 01/15/2022 9:00 AM VALVE PIPE IRRIGATOR Encounter for pre-employment examination HEPATITIS B SURFACE ANTIBODY (HBSAB) Routine 01/15/2022 9:00 AM VALVE PIPE IRRIGATOR Encounter for pre-employment examination documented in this encounter Results * HERPES ZOSTER (VARICELLA) IGG (01/15/2022 9:00 AM VALVE PIPE IRRIGATOR) VARICELLA ZOSTER IGG 4.6 >=1.1 AI 01/15/2022 11:30 PM VALVE PIPE IRRIGATOR [facility] Blood No Phlebotomy Charged / Unknown 01/15/2022 9:00 AM VALVE PIPE IRRIGATOR 01/15/2022 1:08 PM VALVE PIPE IRRIGATOR Narrative [facility] - 01/15/2022 11:30 PM VALVE PIPE IRRIGATOR <= 0.8 Negative. No detectable VZV IgG antibody. 0.9 - 1.0 Equivocal >=1.1 Positive Antibody testing was performed by multiplex flow immunoassay on the [employer] platform. us Ana L Behjoe PROFESSOR OF PSYCHIATRY, HAND DRY CLEANER IMMUNOLOGY ORDERABL ES Final Result [facility] [address] [place] [address], * (ABNORMAL) RUBEOLA (MEASLES) IGG (01/15/2022 9:00 AM VALVE PIPE IRRIGATOR) MEASLES AB IGG 0.7(L) >=1.1 AI 01/15/2022 11:30 PM VALVE PIPE IRRIGATOR [facility] Blood No Phlebotomy Charged / Unknown 01/15/2022 9:00 AM VALVE PIPE IRRIGATOR 01/15/2022 1:08 PM VALVE PIPE IRRIGATOR Narrative [facility] - 01/15/2022 11:30 PM VALVE PIPE IRRIGATOR <= 0.8 Negative. No detectable Measles IgG antibody. 0.9 - 1.0 Equivocal >=1.1 Positive Antibody testing was performed by multiplex flow immunoassay on the [employer] platform. us Ana L Behrends PROFESSOR OF PSYCHIATRY, HAND DRY CLEANER IMMUNOLOGY ORDERABL ES Final Result Performing Organization Address City/[facility]/ZIP Co de Phone Number [facility] [address] [place] [address], [place] * RUBELLA IMMUNITY IGG (01/15/2022 9:00 AM VALVE PIPE IRRIGATOR) RUBELLA IMMUNITY Immune Immune, Invalid 01/15/2022 11:30 PM VALVE PIPE IRRIGATOR [facility] Blood No Phlebotomy Charged / Unknown 01/15/2022 9:00 AM VALVE PIPE IRRIGATOR 01/15/2022 1:08 PM VALVE PIPE IRRIGATOR Narrative [facility] - 01/15/2022 11:30 PM VALVE PIPE IRRIGATOR Antibody testing was performed by multiplex flow immunoassay on the [employer] platform. us Ana L Behrends PROFESSOR OF PSYCHIATRY, HAND DRY CLEANER CHEMISTRY ORDERABLE S Final Result Performing Organization Address City/[facility]/ZIP Co de Phone Number [facility] [address] [place] [address], [place] * MUMPS IGG (01/15/2022 9:00 AM VALVE PIPE IRRIGATOR) Mumps Ab IgG 1.2 >=1.1 AI 01/15/2022 11:30 PM VALVE PIPE IRRIGATOR [facility] Blood No Phlebotomy Charged / Unknown 01/15/2022 9:00 AM VALVE PIPE IRRIGATOR 01/15/2022 1:08 PM VALVE PIPE IRRIGATOR Narrative [facility] - 01/15/2022 11:30 PM VALVE PIPE IRRIGATOR <= 0.8 Negative. No detectable Mumps IgG antibody. 0.9 - 1.0 Equivocal >=1.1 Positive Antibody testing was performed by multiplex flow immunoassay on the [employer] platform. us Ana Espinoza APRN, CNP IMMUNOLOGY ORDERABL ES Final Result [facility] [address] [place] [address], [place] * QUANTIFERON-TB GOLD PLUS (01/15/2022 9:00 AM VALVE PIPE IRRIGATOR) NIL CONTROL 0.05 <8.01 IU/mL 01/17/2022 1:34 PM VALVE PIPE IRRIGATOR [facility] TB ANTIGEN 1 0.03 <0.35 IU/mL 01/17/2022 1:34 PM VALVE PIPE IRRIGATOR [facility] TB ANTIGEN 2 0.01 <0.35 IU/mL 01/17/2022 1:34 PM VALVE PIPE IRRIGATOR [facility] MITOGEN CONTROL 8.21 >0.49 IU/mL 01/18/20 22 1:34 PM VALVE PIPE IRRIGATOR [facility] INTEPRETATION TB NEGATIVE NEGATIVE, NEGATIVE (TB antigen response less than 25% of internal negative control value) 01/17/2022 1:34 PM VALVE PIPE IRRIGATOR [facility] Comment:No immune response t o Mycobacterium tuberculosis antigens was noted. M. tuberculosis infection unlikely. Blood No Phlebotomy Charged / Unknown 01/15/2022 9:00 AM VALVE PIPE IRRIGATOR 01/15/2022 1:08 PM VALVE PIPE IRRIGATOR Narrative [facility] - 01/17/2022 1:34 PM VALVE PIPE IRRIGATOR A POSITIVE QUANTIFERON-TB GOLD PLUS RESULT SHOULD [...] immunocompromised individuals. https://www.cdc.gov/tb/publications/guidelines/testing.htm us Ana Espinoza APRN, HAND DRY CLEANER IMMUNOLOGY ORDERABL ES Final Result Performing Organization Address [facility] [[email or web address]] Co de Phone Number [facility] [address] [place] [address], [place] * HEPATITIS B SURFACE ANTIBODY (HBSAB) (01/15/2022 9:00 AM VALVE PIPE IRRIGATOR) HEPATITIS B SURFACE ANTIBODY 47.68 mIU/mL [facility] ARCH [id number] B 01/15/2022 11:22 PM VALVE PIPE IRRIGATOR [facility] Comment: Detected Range: >12.00 Individual is considered immune to HBV infection Blood No Phlebotomy Charged / Unknown 01/15/2022 9:00 AM VALVE PIPE IRRIGATOR 01/15/2022 1:08 PM VALVE PIPE IRRIGATOR us Ana Espinoza PROFESSOR OF PSYCHIATRY, HAND DRY CLEANER CHEMISTRY ORDERABLE S Final Result Performing Organization Address [facility] [[email or web address]] Co de Phone Number [facility] [address] [place] [address], documented in this encounter Visit Diagnoses Diagnosis Encounter for pre-employment examination Health examination of defined subpopulation documented in this encounter Care Teams Grab Jack Man Relationship Specialty Start Date End Date Provider, None [place] PCP - General 01/15/22 08/03/22 Mario Hernandez MD [address] [place], [place] [id number] PCP - General Family Medicine 08/04/22 documented as of this encounter
--- NOTE | 2025-08-02 00:44 | ED_ITS ---
HPI - Chest Pain General Chief Complaint: Chest Pain Stated Complaint: Chest pain-shortness of breath Time Seen by Provider: 08/02/25 00:20 History of Present Illness HPI narrative: The patient states that a few hours prior to presentation to the ER she started having severe chest pain, felt like it was going up to her jaw and her arm, with nausea, shortness of breath, has had symptoms like this about a week ago that resolved. Has history of panic attacks, ulcers, this feels different. She is worried about her heart and has a clinical rehabilitation aide appointment in the next 2 weeks Related Data Home Medications ?Medication ?Instructions ?Recorded ?Confirmed ?Last Taken ?Type alprazolam 1 mg tablet 0.5 mg PO DAILY PRN anxiety 07/07/21 07/22/25 Unknown History zolpidem 10 mg tablet 10 mg PO QHS 07/07/2107/11/25 History escitalopram oxalate 20 mg tablet 20 mg PO DAILY 05/2107/22/25 07/11/25 History Allergies Allergy/AdvReac Type Severity Reaction Status Date / Time cat dander Allergy Mild Watery Eye Verified 07/22/25 13:13 house dust mite Allergy Mild Watery Eye Verified 07/22/25 13:13 oak Allergy Mild Unknown Verified 07/22/25 13:13 NSAIDS (Non-Steroidal AdvReac Severe Abdominal Verified 07/22/25 13:13 Anti-Inflamma Pain metoclopramide (From Reglan) AdvReac Unknown Anxiety Verified 07/22/25 13:13 Review of Systems 2 Review of Systems: All systems reviewed & are unremarkable except as noted in HPI and below PMFSH Past Medical History Medical History GERD (gastroesophageal reflux disease) Stomach ulcer Migraine Arthritis Anxiety Allergies Acute blood loss anemia Coffee ground emesis Peptic ulcer disease Screening for thyroid disorder Bilateral hand pain Neuralgia Well woman exam Back skin lesion Thoracic back pain Screening for lipoid disorders Diarrhea Surgical History Surgical History H/O breast implant Family History Family History Father No problems noted. Mother No problems noted. Grandparent Alcoholism Esophageal cancer Depression Diabetes mellitus Heart disease Hypertension Other Malignant neoplasm of prostate Social History Social History (Updated 07/22/25 @ 13:12 by Leydi Flores MA) Smoking status: Never smoker Second hand tobacco smoke exposure: No Alcohol intake: current Drinks per week: 2 Alcohol use details: socially Substance use: never Substance use type: does not use Do You Feel Safe in your Home?: Yes Lack of Transportation: No Lack of Food: Never True Current Housing: I Have Housing Concerned About Future Housing: No Difficulty Paying Gas/Electric Bills: No Difficulty Paying for Meds: No Currently Unemployed: No Education: Master's Degree or Higher Difficulty w/ Childcare or Family Care: No Living arrangements: with family Occupation/Education: occupation 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 EYES: EOMI, conjunctiva normal ENT: Hearing grossly intact LUNGS: Nonlabored breathing. HEART: [Regular rate and rhythm], normal radial pulses bilaterally ABD: [Soft], [nontender to palpation] EXT: Normal range of motion SKIN: [No rashes or lesions.] NEURO: [Alert and oriented x 3. No gross focal sensory or strength deficits.] PSYCH: Anxious affect Course Vital Signs Vital signs: Vital Signs Temperature 97.6 F 08/01/25 22:40 Pulse Rate 97 08/01/25 22:40 Respiratory Rate 16 08/01/25 22:40 Blood Pressure 119/75 08/01/25 22:40 Pulse Oximetry 100 08/01/25 22:40 Oxygen Delivery Room Air 08/01/25 22:40 Temperature 97.6 F 08/01/25 22:40 Pulse Rate 97 08/01/25 22:40 Respiratory Rate 16 08/01/25 22:40 Blood Pressure 119/75 08/01/25 22:40 Pulse Oximetry 100 08/02/25 00:10 Oxygen Delivery Room Air 08/02/25 00:10 MDM - Chest Pain MDM Narrative Medical decision making narrative: Patient with history of anxiety/panic attacks, gastric ulcers, presenting here with chest pain. On exam patient is anxious appearing but with otherwise normal cardiopulmonary exam. I will obtain EKG and chest xray to rule out arrhythmia/ischemia, pneumothorax, or other cause of chest discomfort/shortness of breath. Chest x-ray on my independent interpretation does not show any acute abnormality, no pneumothorax or consolidation. EKG - 12-Lead: Performed at 2251. Interpreted by me. [Sinus rhythm]. Rate 83. [Normal] axis. AR-interval [normal]. QRS duration [normal]. QTc [normal]. [No ST segment elevation or depression]. [T-wave normal]. Impression: No EKG evidence of acute ischemia or dysrhythmia. Symptomatic management provided here. She is x-ray on my independent interpretation does not show any obvious consolidations or pneumothorax Perc negative. No DVT symptoms. Troponins negative. Patient reassured on her negative findings here. I do feel patient is stable for discharge home at this time with followup to their doctor and clinical rehabilitation aide, and return here if symptoms return or worsen. Agreeable to outpatient management with return precautions. Lab Data 08/01/25 22:57 08/01/25 22:57 Labs: Lab Results 08/01/25 08/01/25 Range/Units 22:56 22:57 WBC 9.6 (4.5-10.0) K/mm3 RBC 4.32 (4.2-5.4) M/mm3 Hgb 11.8 L (12.0-15.0) g/dL Hct 36.2 L (37.0-47.0) % MCV 83.8 (80-100) fl MCH 27.3 (26-34) pg MCHC 32.6 (32-36) g/dl RDW 14.7 H (11.5-14.5) % Plt Count 289 (150-375) k/mm3 MPV 9.2 (7.4-10.4) fl Immature Gran % (Auto) 0.3 (0-0.5) % Neut % (Auto) 48.5 (45.5-73.1) % Lymph % (Auto) 39.3 (18.3-44.2) % Mobile % (Auto) 7.3 (2.6-8.5) % Eos % (Auto) 3.9 (0-4.4) % Baso % (Auto) 0.7 (0.2-1.2) % Lymph # (Auto) 3.79 H (0.9-3.2) K/mm3 Mobile # (Auto) 0.7 H (0.1-0.6) K/mm3 Eos # (Auto) 0.4 H (0-0.3) K/mm3 Baso # (Auto) 0.1 (0.0-0.1) K/mm3 Abs Immat Gran (auto) 0.03 (0.00-0.031) K/mm3 Absolute Neuts (auto) 4.7 (1.3-6.7) K/mm3 Absolute Nucleated RBC 0.000 (0.0-0.012) K/mm3 Nucleated RBC % 0.0 (0.0-0.2) % PT 13.5 (11.1-14.7) Seconds INR 1.0 APTT 28.5 (22.3-36.8) Seconds Sodium 134 L (137-145) mmol/L Potassium 3.5 (3.4-5.0) mmol/L Chloride 101 (98-107) mmol/L Carbon Dioxide 25 (22-30) mmol/L Anion Gap 8 (4-12) mmol/L BUN 12 (7-17) mg/dL Creatinine 0.83 (0.7-1.0) mg/dL Estim Creat Clear Calc Not Reportable Estimated GFR > 60 (59 - ) Glucose 75 (65-110) mg/dL Calcium 8.5 (8.4-10.2) mg/dL Total Bilirubin 0.3 (0.2-1.3) mg/dL AST 35 (14-36) U/L ALT 17 (6-35) U/L Alkaline Phosphatase 65 (38-126) U/L Troponin I < 0.012 (0.000-0.034) ng/mL Total Protein 7.4 (6.3-8.2) g/dL Albumin 4.4 (3.5-5.1) g/dL Lipase 194 (23-300) U/L Discharge Plan Discharge Clinical Impression: Chest pain Patient Disposition: Home Condition: Stable Instructions: Chest Pain (ED) Additional Instructions: Please follow-up with clinical rehabilitation aide and your primary care doctor. Continue taking your medications you are prescribed and you can always return to the emergency room for any further issues. Patient Language: Wolof Prescriptions: No Action zolpidem 10 mg tablet 10 mg PO QHS alprazolam 1 mg tablet 0.5 mg PO DAILY PRN (Reason: anxiety) escitalopram oxalate 20 mg tablet 20 mg PO DAILY sucralfate 1 gram tablet 1 g PO DAILY Qty: 30 0RF famotidine 20 mg tablet 20 mg PO DAILY Qty: 30 0RF ondansetron 4 mg tablet,disintegrating 4 mg PO Q8H PRN (Reason: nausea and vomiting) Qty: 14 0RF pantoprazole [Protonix] 40 mg tablet,delayed release (DR/EC) 40 mg PO BID Qty: 60 2RF Follow-up/Referrals: Mario Hernandez MD [Primary Care Provider, Family Practice]
[2025-08-02] MEDS: MORPHINE SULFATE (*CRX) 2 MG/ML INJ IV PUSH ×4 (00:51→22:24)
[2025-08-02] MEDS: diazePAM INJ (*CRX) 10 MG/2 ML SYRINGE (03:36)
[2025-08-02 03:58] LABS: Troponin I < 0.012 ng/mL (0.000-0.034)
[2025-08-02] MEDS: MAG HYDROX/AL HYDROX/SIMETH 30 ML UDC PO (04:00)
[2025-08-02] MEDS: HYDROmorphone HCL INJ (*CRX) 1 MG/ML SYR 0.5 MG IV PUSH (04:02)
[2025-08-02 05:19] LABS: Troponin I < 0.012 ng/mL (0.000-0.034)
--- NOTE | 2025-08-02 05:53 | ADMGEN ---
This patient, Yesenia Miranda, was admitted to IMU Room 212-01. Patient/family oriented to hospital policies and general routines including ID bracelet, bed and alarms, visiting hours, pain management, procedures, bathroom and other care routines, personal items, smoking policy, room service/diet, and visiting hours. Information on how to activate the Rapid Response Team has been discussed. Patient/Family are encouraged to report perceived risks to care and to ask questions if they do not understand what they are told or what they should do. Received report from GEORGE Mcwilliams at 0416, patient arrived via stretcher without issue at 0426 with family. at bedside.
--- NOTE | 2025-08-02 09:58 | PCCARD ---
SPOKE WITH PATIENTS RN APPROXIMATELY 9:00AM. THE PATIENT HAD EATEN BREAKFAST AND SHE WASN'T SURE IF SHE HAD CAFFEINE. COULD NOT DO LEXISCAN STRESS TEST TODAY 08/02 DUE TO NOT BEING NPO SINCE MIDNIGHT
--- NOTE | 2025-08-02 10:21 | ECG_ITS ---
Test Date: 2025-08-02 01:50:11 Measurements Intervals [place] Rate: 78 P: 59 UT: 147 QRS: 49 QRSD: 102 T: 28 QT: 400 QTc: 457 Interpretive Statements SINUS RHYTHM Nonspecific T-wave abnormality Abnormal ECG Electronically Signed On 08-02-2025 13:00:16 CDT by David Mcdowell M.D.
--- NOTE | 2025-08-02 10:31 | ECG_ITS ---
Test Date: 2025-08-02 10:38:27 Measurements Intervals [place] Rate: 86 P: 72 IN: 123 QRS: 69 QRSD: 101 T: 54 QT: 380 QTc: 456 Interpretive Statements SINUS RHYTHM NORMAL ECG Compared to ECG 08/02/2025 01:50:11 T-wave abnormality no longer present Electronically Signed On 08-02-2025 13:05:35 CDT by David Mcdowell M.D.
[2025-08-02] MEDS: NITROGLYCERIN SL 0.4 MG TABLET SUBLINGUAL ×2 (11:32→11:41)
--- NOTE | 2025-08-02 13:07 | CONS_ITS ---
Report was recreated on 08/14/25. Original report was signed by Jeane Frederick APRN on 08/02/25 at 1328. Assessment and Plan Assessment and plan (1) Chest pain: Qualifiers: Chest pain type: unspecified Qualified Code(s): R07.9 - Chest pain, unspecified Code(s): R07.9 - Chest pain, unspecified Status: Acute (2) Gastritis: Qualifiers: Chronicity: acute Gastritis bleeding: with bleeding Gastritis type: u nspecified gastritis Qualified Code(s): K29.01 - Acute gastritis with bleeding Code(s): K29.70 - Gastritis, unspecified, without bleeding Status: Acute (3) Elevated blood pressure reading: Code(s): R03.0 - Elevated blood-pressure reading, without diagnosis of hypertension Status: Acute Plan Chest pain. Etiology remains unclear at this time, pain has both typical and atypical features. Patient has r/o for VT with negative serial enzymes. EKG NSR with no acute ST/T wave changes. CXR with no acute cardiopulmonary process and CTA chest negative for PE or dissection. A 2D echocardiogram has been ordered to look for any LV dysfunction or WMA. Will add CCB to help with possible coronary spasm and elevated BP noted. Will check lipid panel. If echo without significant finding would recommend OP evaluation with stress test vs coronary CTA, would be hesistant to perform LHC on patient with negative w/u and no risk factors for CAD. Elevated BP. patient with no history of hypertension. Unclear if secondary to anxiety. Will add low dose norvasc 2.5 mg daily as noted above and monitor Gastritis. with recent EGD that showed no active bleeding. Remains on PPI and carfate at home Anxiety. continue present medication regimen as per primary team Insomnia History of Present Illness History of Present Illness Consult date/time: 08/02/25 13:07 Requesting physician: Virginia Cueva MD Consult reason: chest pain Reason For Visit: chest pain Narrative: Yesenia Miranda is a 39 y.o. female with a PMH of gastritis with stomach ulceration and anxiety. Patient reports that about 2 weeks ago she was at home when she developed a sharp stabbing like pain that radiated across her chest. She went in and saw her PCP, who referred her to outpatient cardiology for echo and telemetry monitoring. She states last night she was sitting at home when pain returned. Pain was stabbing and heavy across her chest it radiated to jaw and back. She at that point told her mother she needed to go to the ER. She denies any shortness of breath, dizziness, or palpitations. No previous cardiac history. She was admitted to the ER and once again this morning had recurrent chest pain that was made better with nitro. We were consulted for further evaluation Review of Systems 2 Review of Systems: All systems reviewed & are unremarkable except as noted in HPI and below (in HPI ) [facility]LY [facility] Past Medical History Medical History GERD (gastroesophageal reflux disease) Stomach ulcer Migraine Arthritis Anxiety Allergies Acute blood loss anemia Coffee ground emesis Peptic ulcer disease Screening for thyroid disorder Bilateral hand pain Neuralgia Well woman exam Back skin lesion Thoracic back pain Screening for lipoid disorders Diarrhea Surgical History Surgical History H/O breast implant Family History Family History Father No problems noted. Mother No problems noted. Grandparent Alcoholism Esophageal cancer Depression Diabetes mellitus Heart disease Hypertension Other Malignant neoplasm of prostate Social History Social History (Updated 07/22/25 @ 13:12 by Leydi Flores MA) Smoking status: Never smoker Second hand tobacco smoke exposure: No Alcohol intake: current Drinks per week: 2 Alcohol use details: socially Substance use: never Substance use type: does not use Do You Feel Safe in your Home?: Yes Lack of Transportation: No Lack of Food: Never True Current Housing: I Have Housing Concerned About Future Housing: No Difficulty Paying Gas/Electric Bills: No Difficulty Paying for Meds: No Currently Unemployed: No Education: Master's Degree or Higher Difficulty w/ Childcare or Family Care: No Living arrangements: with family Occupation/Education: occupation 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 Gender identity (if verbalized by the patient): Female Spiritual care concerns: No Meds Home Medications and Allergies Home Medications ?Medication ?Instructions ?Recorded ?Confirmed ?Type alprazolam 1 mg tablet 1 mg PO DAILY PRN anxiety 07/07/2108/02 History zolpidem 10 mg tablet 10 mg PO QHS 07/07/21 08/02/25 History pantoprazole 40 mg tablet,delayed 40 mg PO BID #60 tabs 03/26/25 08/02/25 Rx release (Protonix) famotidine 20 mg tablet 20 mg PO DAILY #30 tabs 04/03/25 5 Rx ondansetron 4 mg disintegrating 4 mg PO Q8H PRN nausea and 04/03/2507/15 Rx tablet vomiting #14 tabs sucralfate 1 gram tablet 1 g PO DAILY #30 tabs 04/03/25 08/02/25 Rx escitalopram oxalate 20 mg tablet 20 mg PO HS 05/21/25 08/02/25 History Allergies Allergy/AdvReac Type Severity Reaction Status Date / Time cat dander Allergy Mild Watery Eye Verified 07/22/25 13:13 house dust mite Allergy Mild Watery Eye Verified 07/22/25 13:13 oak Allergy Mild Unknown Verified 07/22/25 13:13 NSAIDS (Non-Steroidal AdvReac Severe Abdominal Verified 07/22/25 13:13 Anti-Inflamma Pain metoclopramide (From Reglan) AdvReac Unknown Anxiety Verified 07/22/25 13:13 Vital Signs Vital Signs - 24 hr 08/01/25 22:40 08/02/25 00:04 08/02/25 00:05 Temperature 36.4 C Pulse Rate 97 77 83 Respiratory Rate 16 21 H Blood Pressure 119/75 129/92 H Pulse Oximetry 100 100 100 Oxygen Delivery Room Air 08/02/25 00:10 08/02/25 00:18 08/02/25 00:30 Temperature Pulse Rate 72 83 Respiratory Rate 16 14 Blood Pressure Pulse Oximetry 100 100 98 Oxygen Delivery Room Air 08/02/25 00:32 08/02/25 00:45 08/02/25 01:00 Temperature Pulse Rate 76 74 81 Respiratory Rate 17 14 23 H Blood Pressure 111/87 Pulse Oximetry 97 98 98 Oxygen Delivery 08/02/25 01:01 08/02/25 01:17 08/02/25 01:18 Temperature Pulse Rate 81 81 82 Respiratory Rate 9 L 16 16 Blood Pressure 132/100 H 138/97 H Pulse Oximetry 95 100 97 Oxygen Delivery 08/02/25 01:31 08/02/25 01:46 08/02/25 02:02 Temperature Pulse Rate 87 84 82 Respiratory Rate 15 16 13 Blood Pressure 138/104 H Pulse Oximetry 92 97 100 Oxygen Delivery 08/02/25 02:03 08/02/25 02:18 08/02/25 02:34 Temperature Pulse Rate 80 84 92 Respiratory Rate 15 13 17 Blood Pressure Pulse Oximetry 99 99 98 Oxygen Delivery 08/02/25 02:46 08/02/25 03:00 08/02/25 03:17 Temperature Pulse Rate 87 80 80 Respiratory Rate 10 L 14 10 L Blood Pressure Pulse Oximetry 98 98 98 Oxygen Delivery 08/02/25 03:34 08/02/25 03:46 08/02/25 04:06 Temperature Pulse Rate 75 77 89 Respiratory Rate 10 L 18 17 Blood Pressure Pulse Oximetry 98 99 98 Oxygen Delivery 08/02/25 05:14 08/02/25 06:00 08/02/25 08:00 Temperature 36.8 C 36.6 C Pulse Rate 78 71 93 Respiratory Rate 14 16 Blood Pressure 128/81 131/97 H Pulse Oximetry 100 97 Oxygen Delivery 08/02/25 11:59 Temperature 36.8 C Pulse Rate 83 Respiratory Rate 24 H Blood Pressure 141/92 H Pulse Oximetry 97 Oxygen Delivery Exam 2 Const: General: comfortable and no acute distress Eyes: General: appearance normal, both eyes and all related structures Neck: Neck: supple and no JVD Other: no carotid bruit Resp: Effort & Inspection: normal respiratory effort Auscultation: clear to auscultation bilaterally Cardio: Rate: regular rate Rhythm: regular rhythm GI: GI Palp: Yes Soft to palpation Auscultation: normal bowel sounds Skin: General skin exam: normal color and no rashes or lesions noted Neuro: Speech: normal speech Extrem: General: normal to inspection Psych: Mental Status: mental status grossly normal Results Labs and Meds 08/01/25 22:57 08/01/25 22:57 Lab results: Cardiac Enzymes 08/01/25 08/02/25 08/02/25 Range/Units 22:57 01:42 04:47 AST 35 (14-36) U/L Troponin I < 0.012 < 0.012 < 0.012 (0.000-0.034) ng/mL Coagulation 08/01/25 Range/Units 22:56 PT 13.5 (11.1-14.7) Seconds APTT 28.5 (22.3-36.8) Seconds CBC 08/01/25 Range/Units 22:57 WBC 9.6 (4.5-10.0) K/mm3 RBC 4.32 (4.2-5.4) M/mm3 Hgb 11.8 L (12.0-15.0) g/dL Hct 36.2 L (37.0-47.0) % Plt Count 289 (150-375) k/mm3 Lymph # (Auto) 3.79 H (0.9-3.2) K/mm3 [place] # (Auto) 0.7 H (0.1-0.6) K/mm3 Eos # (Auto) 0.4 H (0-0.3) K/mm3 Baso # (Auto) 0.1 (0.0-0.1) K/mm3 Comprehensive Metabolic Panel 08/01/25 Range/Units 22:57 Sodium 134 L (137-145) mmol/L Potassium 3.5 (3.4-5.0) mmol/L Chloride 101 (98-107) mmol/L Carbon Dioxide 25 (22-30) mmol/L BUN 12 (7-17) mg/dL Creatinine 0.83 (0.7-1.0) mg/dL Glucose 75 (65-110) mg/dL Calcium 8.5 (8.4-10.2) mg/dL AST 35 (14-36) U/L ALT 17 (6-35) U/L Alkaline Phosphatase 65 (38-126) U/L Total Protein 7.4 (6.3-8.2) g/dL Albumin 4.4 (3.5-5.1) g/dL Patient Weight 08/02/25 23:59 Weight 61.5 kg EKG Interpretation EKG: sinus rhythm EKG shows: sinus rhythm (with nonspecific T-wave changes. No acute ST/T wave changes ) Please be advised this is a medical document. It is intended for [id number] communication. It is written in medical language and may contain unfamiliar abbreviations or verbiage. Medical documents are intended to carry relevant information, facts as evident, and the clinical opinion of the practitioner at the time of the encounter. This report may have been done utilizing a voice recognition system. Attempts have been made to correct errors. However, there may be uncorrected grammatical, spelling, and recognition errors present. The file time of this note does not necessarily represent the time the patient was seen. Report Initialized date/time: 680908/02/25 1317 Electronically signed by: [id number]/02/25 1328 Med Solano MD 08/03/25 0806
[2025-08-02] MEDS: PERFLUTREN LIPID MICROSPHERES 1.5 ML VIAL DILUTED TO 10 ML TOTAL VOLUME IV PUSH (13:30)
[2025-08-02] MEDS: traMADol HCL (*CRX) 25 MG TABLET PO ×2 (14:23→19:51)
[2025-08-02] MEDS: ACETAMINOPHEN 325 MG TABLET 650 MG PO ×2 (14:24→22:16)
[2025-08-02 14:38] LABS: Cholesterol 171 mg/dL (0-200); HDL Direct 59 mg/dL; Triglycerides 67 mg/dL (<150)
--- NOTE | 2025-08-02 14:40 | PM.IMHP ---
H&P: HPI History of Present Illness Date/Time: 08/02/25 14:40 Chief Complaint: Chest pain Narrative: 39-year-old female with history of peptic ulcer disease, GERD, anxiety and depression, presenting with recurrent chest pain. It happened 1 time in the past but spontaneous resolved. Again happened on 07/22/2025, she reports it as sharp chest pain in the middle of her chest which radiates to her back into her bilateral jaws. Feels like it is a knife twisting. Associated lightheadedness and shortness of breath due to the severe pain. Does not feel like it is related to her peptic ulcer disease, she had an EGD in 07/12/2025 which reports gastritis, resolution of large ulcers. She does not feel the pain is due to stress/anxiety disorder, that has been controlled. She took her p.r.n. Xanax for and is not prove her pain. She has been ordered to have a Holter monitor and echocardiogram after having a normal EKG in her PCP office. Those were not done yet. She reports she had a PFO the child and a previous murmur but there is no intervention and has not been an issue. She denies palpitations, cough, fever, abdominal pain, syncope, diarrhea. Review of Systems Review of Systems: All systems reviewed & are unremarkable except as noted in HPI and below (Subjective) [facility] Past Medical History Medical History GERD (gastroesophageal reflux disease) Stomach ulcer Migraine Arthritis Anxiety Allergies Acute blood loss anemia Coffee ground emesis Peptic ulcer disease Screening for thyroid disorder Bilateral hand pain Neuralgia Well woman exam Back skin lesion Thoracic back pain Screening for lipoid disorders Diarrhea Surgical History Surgical History H/O breast implant Family History Family History Father No problems noted. Mother No problems noted. Grandparent Alcoholism Esophageal cancer Depression Diabetes mellitus Heart disease Hypertension Other Malignant neoplasm of prostate Social History Social History (Updated 07/22/25 @ 13:12 by Leydi Flores MA) Smoking status: Never smoker Second hand tobacco smoke exposure: No Alcohol intake: current Drinks per week: 2 Alcohol use details: socially Substance use: never Substance use type: does not use Do You Feel Safe in your Home?: Yes Lack of Transportation: No Lack of Food: Never True Current Housing: I Have Housing Concerned About Future Housing: No Difficulty Paying Gas/Electric Bills: No Difficulty Paying for Meds: No Currently Unemployed: No Education: Master's Degree or Higher Difficulty w/ Childcare or Family Care: No Living arrangements: with family Occupation/Education: occupation 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 Gender identity (if verbalized by the patient): Female Spiritual care concerns: No Meds Home Medications and Allergies Home Medications ?Medication ?Instructions ?Recorded ?Confirmed ?Type alprazolam 1 mg tablet 1 mg PO DAILY PRN anxiety 07/07/21 08/02/25 History zolpidem 10 mg tablet 10 mg PO QHS 07/07/21 08/02/25 History pantoprazole 40 mg tablet,delayed 40 mg PO BID #60 tabs 03/26/25 08/02/25 Rx release (Protonix) famotidine 20 mg tablet 20 mg PO DAILY #30 tabs 04/03/25 08/02/25 Rx ondansetron 4 mg disintegrating 4 mg PO Q8H PRN nausea and 04/03/25 08/02/25 Rx tablet vomiting #14 tabs sucralfate 1 gram tablet 1 g PO DAILY #30 tabs 04/03/25 08/02/25 Rx escitalopram oxalate 20 mg tablet 20 mg PO HS 05/21/25 08/02/25 History Allergies Allergy/AdvReac Type Severity Reaction Status Date / Time cat dander Allergy Mild Watery Eye Verified 07/22/25 13:13 house dust mite Allergy Mild Watery Eye Verified 07/22/25 13:13 oak Allergy Mild Unknown Verified 07/22/25 13:13 NSAIDS (Non-Steroidal AdvReac Severe Abdominal Verified 07/22/25 13:13 Anti-Inflamma Pain metoclopramide (From Reglan) AdvReac Unknown Anxiety Verified 07/22/25 13:13 Vital Signs Vital Signs - 24 hr 08/01/25 22:40 08/02/25 00:04 08/02/25 00:05 Temperature 97.6 F Pulse Rate 97 77 83 Respiratory Rate 16 21 H Blood Pressure 119/75 129/92 H Pulse Oximetry 100 100 100 Oxygen Delivery Room Air 08/02/25 00:10 08/02/25 00:18 08/02/25 00:30 Temperature Pulse Rate 72 83 Respiratory Rate 16 14 Blood Pressure Pulse Oximetry 100 100 98 Oxygen Delivery Room Air 08/02/25 00:32 08/02/25 00:45 08/02/25 01:00 Temperature Pulse Rate 76 74 81 Respiratory Rate 17 14 23 H Blood Pressure 111/87 Pulse Oximetry 97 98 98 Oxygen Delivery 08/02/25 01:01 08/02/25 01:17 08/02/25 01:18 Temperature Pulse Rate 81 81 82 Respiratory Rate 9 L 16 16 Blood Pressure 132/100 H 138/97 H Pulse Oximetry 95 100 97 Oxygen Delivery 08/02/25 01:31 08/02/25 01:46 08/02/25 02:02 Temperature Pulse Rate 87 84 82 Respiratory Rate 15 16 13 Blood Pressure 138/104 H Pulse Oximetry 92 97 100 Oxygen Delivery 08/02/25 02:03 08/02/25 02:18 08/02/25 02:34 Temperature Pulse Rate 80 84 92 Respiratory Rate 15 13 17 Blood Pressure Pulse Oximetry 99 99 98 Oxygen Delivery 08/02/25 02:46 08/02/25 03:00 08/02/25 03:17 Temperature Pulse Rate 87 80 80 Respiratory Rate 10 L 14 10 L Blood Pressure Pulse Oximetry 98 98 98 Oxygen Delivery 08/02/25 03:34 08/02/25 03:46 08/02/25 04:06 Temperature Pulse Rate 75 77 89 Respiratory Rate 10 L 18 17 Blood Pressure Pulse Oximetry 98 99 98 Oxygen Delivery 08/02/25 05:14 08/02/25 06:00 08/02/25 08:00 Temperature 98.2 F 98 F Pulse Rate 78 71 93 Respiratory Rate 14 16 Blood Pressure 128/81 131/97 H Pulse Oximetry 100 97 Oxygen Delivery 08/02/25 08:00 08/02/25 10:00 08/02/25 11:59 Temperature 98.3 F Pulse Rate 77 74 83 Respiratory Rate 24 H Blood Pressure 141/92 H Pulse Oximetry 97 Oxygen Delivery 08/02/25 12:00 08/02/25 14:00 Temperature Pulse Rate 78 78 Respiratory Rate Blood Pressure Pulse Oximetry Oxygen Delivery Exam Const: General: comfortable and no acute distress Other: A&O x3 HENMT: Mouth: Yes moist mucous membranes Eyes: Pupils: Equal, round and reactive pupils present Neck: Neck: supple Resp: Effort & Inspection: normal respiratory effort Auscultation: clear to auscultation bilaterally Cardio: Rate: regular rate Rhythm: regular rhythm Heart sounds: no murmurs and no rubs GI: Inspection: non-distended GI Palp: Yes Soft to palpation and No Tenderness to palpation present (GI) Auscultation: normal bowel sounds : General: Yes bladder normal to palpation Neuro: Motor exam (neuro): 5/5 motor strength present throughout Extrem: General: no edema Psych: Mental Status: mental status grossly normal H&P: Results Labs Labs: Short CBC 08/01/25 Range/Units 22:57 WBC 9.6 (4.5-10.0) K/mm3 Hgb 11.8 L (12.0-15.0) g/dL Hct 36.2 L (37.0-47.0) % Plt Count 289 (150-375) k/mm3 BMP 08/01/25 22:57 Sodium 134 L Potassium 3.5 Chloride 101 Carbon Dioxide 25 BUN 12 Creatinine 0.83 Glucose 75 Calcium 8.5 Cardiac Enzymes 08/01/25 08/02/25 08/02/25 Range/Units 22:57 01:42 04:47 Troponin I < 0.012 < 0.012 < 0.012 (0.000-0.034) ng/mL Liver Function 08/01/25 Range/Units 22:57 Total Bilirubin 0.3 (0.2-1.3) mg/dL AST 35 (14-36) U/L ALT 17 (6-35) U/L Alkaline Phosphatase 65 (38-126) U/L Albumin 4.4 (3.5-5.1) g/dL Assessment and Plan Assessment and plan (1) Anxiety: Code(s): F41.9 - Anxiety disorder, unspecified Status: Acute (2) Chest pain: Qualifiers: Chest pain type: unspecified Qualified Code(s): R07.9 - Chest pain, unspecified Code(s): R07.9 - Chest pain, unspecified Status: Acute (3) Peptic ulcer disease: Code(s): K27.9 - Peptic ulcer, site unspecified, unspecified as acute or chronic, without hemorrhage or perforation Status: Acute Plan 39-year-old female with history of peptic ulcer disease, GERD, anxiety and depression, presenting with recurrent chest pain. It happened 1 time in the past but spontaneous resolved. Again happened on 07/22/2025, she reports it as sharp chest pain in the middle of her chest which radiates to her back into her bilateral jaws. Feels like it is a knife twisting. Associated lightheadedness and shortness of breath due to the severe pain. Does not feel like it is related to her peptic ulcer disease, she had an EGD in 07/12/2025 which reports gastritis, resolution of large ulcers. She does not feel the pain is due to stress/anxiety disorder, that has been controlled. She took her p.r.n. Xanax for and is not prove her pain. She has been ordered to have a Holter monitor and echocardiogram after having a normal EKG in her PCP office. Those were not done yet. She reports she had a PFO the child and a previous murmur but there is no intervention and has not been an issue. She denies palpitations, cough, fever, abdominal pain, syncope, diarrhea. ----- ACS ruled out. Patient had return of pain this afternoon, given morphine with interval resolution, then returned and resolved with nitroglycerin x2. 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 Consult Cardiology. CTA negative for PE or dissection, surface echocardiogram pending. Cardiology has added calcium channel janice for possible coronary spasm. Slightly elevated blood pressure although she is under stress. Check lipid panel. Discussed with the patient the side effects of medications especially including narcotics, Ambien, Xanax and a synergistic effects. ----- Patient lives at home with . She is independent at baseline. 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 Denies alcohol use, illicit drugs, tobacco abuse. Patient wishes to be full code. Saline lock IV. SCDs. Continue to monitor on telemetry. Hospitalist [facility] Advance Care Plan I have confirmed that the patient's Advanced Care Plan is present, code status is documented, or surrogate decision maker is listed in patient medical record.: Yes Medication Reconciliation I have utilized all available resources to obtain, update and review the patients current medications (includes all prescriptions, OTC, herbals, cannabis, and nutritional supplements).: Yes
--- NOTE | 2025-08-02 14:44 | IVDEFINITY ---
Prior to administration of IV Definity the patient was educated on the risks and benefits of the imaging enhancing agent including potential adverse side effects. The patient verbalized understanding. Allergies were verified. No exclusion criteria were identified and at least one of the following inclusion criteria were met: 1) physician request, 2) patient technically difficult to image (per the [place] [employer] guidelines of two or more segments not discernable within the apical view), or 3) questionable left ventricular function. ?
[2025-08-02] MEDS: ALPRAZolam (*CRX) 0.5 MG TABLET 1 MG PO (19:50)
[2025-08-02] MEDS: ESCITALOPRAM OXALATE 10 MG TABLET 20 MG PO (19:51)
[2025-08-02] MEDS: PANTOPRAZOLE 40 MG TABLET PO (19:51)
[2025-08-02] MEDS: ZOLPIDEM TARTRATE (*CRX) 5 MG TABLET 10 MG PO (19:51)
[2025-08-02] MEDS: ONDANSETRON INJ 4 MG/2 ML VIAL IV PUSH (22:15)
[2025-08-03] VITALS (9 sets, daily range): BP systolic 90–98; BP diastolic 51–60; PULSE 54–77; RESP 12–16; TEMP 36.5–37.1; O2SAT 97–100
[2025-08-03] MEDS: HYDROmorphone HCL INJ (*CRX) 1 MG/ML SYR 0.5 MG IV PUSH (00:48)
[2025-08-03] MEDS: SUCRALFATE 1 GM TABLET PO (08:49)
[2025-08-03] MEDS: PANTOPRAZOLE 40 MG TABLET PO (08:49)
[2025-08-03] MEDS: traMADol HCL (*CRX) 25 MG TABLET PO (08:49)
[2025-08-03] MEDS: FAMOTIDINE 20 MG TABLET PO (08:49)
--- NOTE | 2025-08-03 12:00 | P.PNCA_ITS ---
Progress Note: A&P Assessment and Plan (1) Chest pain: Qualifiers: Chest pain type: unspecified Qualified Code(s): R07.9 - Chest pain, unspecified Code(s): R07.9 - Chest pain, unspecified Status: Acute Plan 39-year-old lady with what appears to be noncardiac chest pain. Explained to the patient and her that the fact that pain is alleviated with nitroglycerin does not indicated his necessarily related to myocardial ischemia. The fact that her troponin levels remain completely undetectable is strong e vidence against any sort of ischemic component to her symptoms. In my opinion she can be discharged and I will see her in the office for outpatient follow-up and determine if further testing such as stress testing would be necessary to arrange. Her echocardiogram that was done yesterday cannot be read because the computer software in the echo lab was not functioning at this time and echocardiogram therefore are not presented to me for interpretation. She does not have to wait in the hospital for that to be interpreted in my opinion Med Solano MD [facility] Subjective Date/time seen: Date of service: 08/03/25 12:00 Interval history: Follow-up visit in this 47-year-old lady with: Chest pain syndrome which is atypical of angina on noncardiac by history. She feels better this morning reports that nitroglycerin improved her symptoms yesterday and she feels well this morning. ECGs are all unremarkable troponin levels are also unremarkable. No exertional symptoms to indicate angina and no risk factors for premature coronary artery disease. She does have an interesting history of severe peptic ulcer disease but reports that the symptoms do not feel like any of her GI symptoms in the past. Exam Const: General: comfortable and no acute distress Other: Pleasant healthy-looking lady without any complaints at this time HENMT: Mouth: Yes moist mucous membranes Eyes: Sclera: sclerae normal Neck: Neck: supple Resp: Effort & Inspection: normal respiratory effort Auscultation: clear to auscultation bilaterally Cardio: Rate: regular rate Rhythm: regular rhythm Other: No murmur no gallop Skin: General skin exam: normal color Neuro: Other: Alert and oriented Objective Data Vital Signs Vital Signs: Vital Signs - 24 hr 08/02/25 14:00 08/02/25 15:49 08/02/25 16:00 Temperature 36.9 C Pulse Rate 78 73 Respiratory Rate 16 Blood Pressure 106/78 Pulse Oximetry 100 100 Oxygen Delivery Nasal Cannula Oxygen Flow Rate 2 08/02/25 16:00 08/02/25 18:00 08/02/25 20:00 Temperature 36.9 C Pulse Rate 70 87 80 Respiratory Rate 16 Blood Pressure 114/83 Pulse Oximetry 99 Oxygen Delivery Oxygen Flow Rate 08/02/25 20:00 08/02/25 20:00 08/02/25 21:44 Temperature Pulse Rate 70 Respiratory Rate Blood Pressure Pulse Oximetry 99 99 Oxygen Delivery Nasal Cannula Nasal Cannula Oxygen Flow Rate 2 2 08/02/25 21:58 08/02/25 22:31 08/02/25 23:16 Temperature 36.8 C Pulse Rate 60 85 Respiratory Rate 15 Blood Pressure 130/87 Pulse Oximetry 98 Oxygen Delivery Room Air Oxygen Flow Rate 08/03/25 00:00 08/03/25 02:00 08/03/25 04:00 Temperature Pulse Rate 59 L 59 L Respiratory Rate Blood Pressure Pulse Oximetry Oxygen Delivery Room Air Oxygen Flow Rate 08/03/25 04:00 08/03/25 04:00 08/03/25 06:00 Temperature 36.5 C Pulse Rate 77 61 61 Respiratory Rate 14 Blood Pressure 98/60 L Pulse Oximetry 99 Oxygen Delivery Oxygen Flow Rate 08/03/25 08:00 08/03/25 11:50 Temperature 36.6 C 37.1 C Pulse Rate 54 L 62 Respiratory Rate 12 16 Blood Pressure 90/55 L 92/51 L Pulse Oximetry 100 97 Oxygen Delivery Oxygen Flow Rate Intake/Output Intake/Output: Intake & Output 07/31/25 08/01/25 08/02/25 08/03/25 23:59 23:59 23:59 23:59 Intake Total 240 1020 Balance 240 1020 Meds/Results Medications: Active Medications Generic Name Dose Route Start Last Admin Trade Name Freq PRN Reason Stop Dose Admin Acetaminophen 650 mg 08/02/25 14:04 08/02/25 22:16 Acetaminophen 325 Mg Tablet PO 650 mg Q4H PRN Administration Headache Alprazolam 1 mg 08/02/25 14:39 08/02/25 19:50 Alprazolam (*Crx) 0.5 Mg Tablet PO 1 mg DAILY PRN Administration Anxiety Amlodipine Besylate 2.5 mg 08/02/25 13:15 08/03/25 08:49 Amlodipine Besylate 2.5 Mg Tablet PO Not Given QAM [facility] Escitalopram Oxalate 20 mg 08/02/25 21:00 08/02/25 19:51 Escitalopram Oxalate 10 Mg Tablet PO 20 mg HS KAILA Administration Famotidine 20 mg 08/03/25 09:00 08/03/25 08:49 Famotidine 20 Mg Tablet PO 20 mg DAILY KAILA Administration Morphine Sulfate 2 mg 08/02/25 10:38 08/02/25 22:24 Morphine Sulfate (*Crx) 2 Mg/Ml Inj IV PUSH 2 mg Q4H PRN Administration Pain Rated 7-10 Ondansetron HCl 4 mg 08/02/25 14:39 Ondansetron Hcl Odt 4 Mg Tablet PO Q8H PRN Nausea And Vomiting Pantoprazole Sodium 40 mg 08/02/25 21:00 08/03/25 08:49 Pantoprazole 40 Mg Tablet PO 40 mg Q12HR KAILA Administration Sucralfate 1 gm 08/03/25 09:00 08/03/25 08:49 Sucralfate 1 Gm Tablet PO 1 gm DAILY KAILA Administration Tramadol HCl 25 mg 08/02/25 14:16 08/03/25 08:49 Tramadol Hcl (*Crx) 25 Mg Tablet PO 25 mg Q4H PRN Administration Pain Rated 4-6 Zolpidem Tartrate 10 mg 08/02/25 21:00 08/02/25 19:51 Zolpidem Tartrate (*Crx) 5 Mg Tablet PO 10 mg QHS KAILA Administration Radiology Results: ITS Impressions Chest X-Ray 08/02/25 06:01 IMPRESSION: 1. No acute cardiopulmonary findings. Chest/Abdomen/Pelvis CTA 08/02/25 09:05 IMPRESSION: CHEST- 1. No acute cardiopulmonary findings. ABDOMEN/PELVIS- 1. No acute abdominopelvic findings. 2. Mild chronic esophagitis. Head CT 08/03/25 09:22 IMPRESSION: 1. Normal brain. Labs Labs: Laboratory Results - last 24 hr 08/02/25 04:47 Triglycerides 67 Cholesterol 171 LDL Cholesterol Direct 84 HDL Direct 59
--- NOTE | 2025-08-03 14:20 | P.DS_ITS ---
DS: Admitting Diagnosis Discharge Date 08/03/2025 Admitting Diagnosis Chest pain DS: Discharge Diagnosis Discharge Diagnosis (1) Anxiety: Code(s): F41.9 - Anxiety disorder, unspecified Status: Acute (2) Chest pain: Qualifiers: Chest pain type: unspecified Qualified Code(s): R07.9 - Chest pain, unspecified Code(s): R07.9 - Chest pain, unspecified Status: Acute DS: Summary Hospital Course Hospital Course: 39-year-old female with history of peptic ulcer disease, GERD, anxiety and depression, presenting with recurrent chest pain. It happened 1 time in the past but spontaneous resolved. Again happened on 07/22/2025, she reports it as sharp chest pain in the middle of her chest which radiates to her back into her bilateral jaws. Feels like it is a knife twisting. Associated lightheadedness and shortness of breath due to the severe pain. Does not feel like it is related to her peptic ulcer disease, she had an EGD in 07/12/2025 which reports gastritis, resolution of large ulcers. She does not feel the pain is due to stress/anxiety disorder, that has been controlled. She took her p.r.n. Xanax for and is not prove her pain. She has been ordered to have a Holter monitor and echocardiogram after having a normal EKG in her PCP office. Those were not done yet. She reports she had a PFO the child and a previous murmur but there is no intervention and has not been an issue. She denies palpitations, cough, fever, abdominal pain, syncope, diarrhea. ----- She has been seen by Cardiology and they have advised she follow-up in the outpatient setting. ACS ruled out. She is discharged in stable condition to home on 08/03/2025. The patient is currently resting comfortably without any pain. Request nitroglycerin for possible esophageal spasm as that has helped her pain. We discussed the risks especially since she has a headache after using it and she usually has a blood pressure which is on the lower side. Advised caution, close follow with PCP. Patient understands, all of her questions were answered to her satisfaction. She was full code. Time Spent with Patient Time attestation: Total time spent providing and/or coordinating discharge services: Time spent: Greater than 30 minutes Exam Const: General: comfortable and no acute distress Other: Pleasant healthy-looking lady without any complaints at this time. No chest wall tenderness. HENMT: Mouth: Yes moist mucous membranes Eyes: Sclera: sclerae normal Neck: Neck: supple Resp: Effort & Inspection: normal respiratory effort Auscultation: clear to auscultation bilaterally Cardio: Rate: regular rate Rhythm: regular rhythm Other: No murmur no gallop Skin: General skin exam: normal color Neuro: Other: Alert and oriented DS: Data Data Completed and Pending Labs on day of discharge: Labs from last 24 hours 08/02/25 04:47 Triglycerides 67 Cholesterol 171 LDL Cholesterol Direct 84 HDL Direct 59 Discharge Plan Discharge Attending physician on discharge: Virginia Cueva Consulting providers: Jeane Frederick Discharging Clinician: Virginia Cueva Patient Disposition: Home Activity: may shower Diet: as tolerated Patient Instructions: Antibiotic Form Patient Language: Senegalese Stand Alone Forms: General Discharge Information Follow-up/Referrals: Med Solano MD [Physician, Cardiology] - 08/16/25 Referral Note: hospital f/u Mario Hernandez MD [Primary Care Provider, Family Practice] - 08/08/25 Referral Note: hospital f/u. Discharge Medications: New nitroglycerin 0.4 mg tablet, sublingual 0.4 mg sublingual ONCE Qty: 7 0RF Rx Instructions: as a single dose; administer 5-10 minutes before situation known to precipitate spasm/pain Continued zolpidem 10 mg tablet 10 mg PO QHS alprazolam 1 mg tablet 1 mg PO DAILY PRN (Reason: anxiety) escitalopram oxalate 20 mg tablet 20 mg PO HS sucralfate 1 gram tablet 1 g PO DAILY Qty: 30 0RF famotidine 20 mg tablet 20 mg PO DAILY Qty: 30 0RF ondansetron 4 mg tablet,disintegrating 4 mg PO Q8H PRN (Reason: nausea and vomiting) Qty: 14 0RF pantoprazole [Protonix] 40 mg tablet,delayed release (DR/EC) 40 mg PO BID Qty: 60 2RF Date of admission: 08/02/25 03:15 Primary Care Provider: Mario Hernandez Admitting Provider: Gutierrez Wills Attending physician on admission: Nnanna,Onyema Condition: Stable Hospitalist MIPS Heart Failure (Exclusion) Patient has history of Heart Transplant or Left Ventricular Assistive Device?: No IF YES, STOP HERE Heart Failure (Qualifier) Patient has current or prior documentation of LVEF less than or equal to 40%, or mod/servere depressed LVSF?: No IF NO, STOP HERE
--- OUTSIDE RECORDS SUMMARY | 2025-08-05 10:00 | XMS_ITS | Encounter Summary ---
Author Organization [facility] Address [address] [place] [address] Phone Care Team Providers Care Profiler Hand Name Role Phone Provider, None Primary Care Provider Mario Perez MD Primary Care Provider [phone] Encounter Details Date Type Department Care Team (Late st Contact Info) Description 01/15/2022 Lab Requisition [facility] [address] [place] [id number] Ana Espinoza, CORRECTIONAL COUNSELOR/CASE MANAGER, INSTALLMENT ACCOUNT CHECKER [address] [place] [address] Encounter for pre-employment examination Social [...] COVID-19? No / Unsure 01/15/2022 8:51 AM SLOT MACHINE DEPARTMENT FLOORPERSON documented as of this encounter Plan of Treatment Not on file documented as of this encounter Procedures Procedure Name Priority Date/Time Associated Diagnosis Comments QUANTIFERON-TB GOLD PLUS Routine 01/15/2022 9:00 AM SLOT MACHINE DEPARTMENT FLOORPERSON Encounter for pre-employment examination MMRV PANEL Routine 01/15/2022 9:00 AM SLOT MACHINE DEPARTMENT FLOORPERSON Encounter for pre-employment examination MUMPS IGG Routine 01/15/2022 9:00 AM SLOT MACHINE DEPARTMENT FLOORPERSON Encounter for pre-employment examination HERPES ZOSTER (VARICELLA) IGG Routine 01/15/2022 9:00 AM SLOT MACHINE DEPARTMENT FLOORPERSON Encounter for pre-employment examination RUBEOLA (MEASLES) IGG Routine 01/15/2022 9:00 AM SLOT MACHINE DEPARTMENT FLOORPERSON Encounter for pre-employment examination RUBELLA IMMUNITY IGG Routine 01/15/2022 9:00 AM SLOT MACHINE DEPARTMENT FLOORPERSON Encounter for pre-employment examination HEPATITIS B SURFACE ANTIBODY (HBSAB) Routine 01/15/2022 9:00 AM SLOT MACHINE DEPARTMENT FLOORPERSON Encounter for pre-employment examination documented in this encounter Results * HERPES ZOSTER (VARICELLA) IGG (01/15/2022 9:00 AM SLOT MACHINE DEPARTMENT FLOORPERSON) VARICELLA ZOSTER IGG 4.6 >=1.1 AI 01/15/2022 11:30 PM SLOT MACHINE DEPARTMENT FLOORPERSON [facility] Blood No Phlebotomy Charged / Unknown 01/15/2022 9:00 AM SLOT MACHINE DEPARTMENT FLOORPERSON 01/15/2022 1:08 PM SLOT MACHINE DEPARTMENT FLOORPERSON Narrative [facility] - 01/15/2022 11:30 PM SLOT MACHINE DEPARTMENT FLOORPERSON <= 0.8 Negative. No detectable VZV IgG antibody. 0.9 - 1.0 Equivocal >=1.1 Positive Antibody testing was performed by multiplex flow immunoassay on the [employer] platform. us Ana L Behjoe CORRECTIONAL COUNSELOR/CASE MANAGER, INSTALLMENT ACCOUNT CHECKER IMMUNOLOGY ORDERABL ES Final Result [facility] [address] [place] [address], * (ABNORMAL) RUBEOLA (MEASLES) IGG (01/15/2022 9:00 AM SLOT MACHINE DEPARTMENT FLOORPERSON) MEASLES AB IGG 0.7(L) >=1.1 AI 01/15/2022 11:30 PM SLOT MACHINE DEPARTMENT FLOORPERSON [facility] Blood No Phlebotomy Charged / Unknown 01/15/2022 9:00 AM SLOT MACHINE DEPARTMENT FLOORPERSON 01/15/2022 1:08 PM SLOT MACHINE DEPARTMENT FLOORPERSON Narrative [facility] - 01/15/2022 11:30 PM SLOT MACHINE DEPARTMENT FLOORPERSON <= 0.8 Negative. No detectable Measles IgG antibody. 0.9 - 1.0 Equivocal >=1.1 Positive Antibody testing was performed by multiplex flow immunoassay on the [employer] platform. us Ana L Behrends CORRECTIONAL COUNSELOR/CASE MANAGER, INSTALLMENT ACCOUNT CHECKER IMMUNOLOGY ORDERABL ES Final Result Performing Organization Address City/[facility] [address]/ZIP Co de Phone Number [facility] [address] [place] [address], [place] * RUBELLA IMMUNITY IGG (01/15/2022 9:00 AM SLOT MACHINE DEPARTMENT FLOORPERSON) RUBELLA IMMUNITY Immune Immune, Invalid 01/15/2022 11:30 PM SLOT MACHINE DEPARTMENT FLOORPERSON [facility] Blood No Phlebotomy Charged / Unknown 01/15/2022 9:00 AM SLOT MACHINE DEPARTMENT FLOORPERSON 01/15/2022 1:08 PM SLOT MACHINE DEPARTMENT FLOORPERSON Narrative [facility] - 01/15/2022 11:30 PM SLOT MACHINE DEPARTMENT FLOORPERSON Antibody testing was performed by multiplex flow immunoassay on the [employer] platform. us Ana L Behrends CORRECTIONAL COUNSELOR/CASE MANAGER, INSTALLMENT ACCOUNT CHECKER CHEMISTRY ORDERABLE S Final Result Performing Organization Address City/[facility] [address]/ZIP Co de Phone Number [facility] [address] [place] [address], [place] * MUMPS IGG (01/15/2022 9:00 AM SLOT MACHINE DEPARTMENT FLOORPERSON) Mumps Ab IgG 1.2 >=1.1 AI 01/15/2022 11:30 PM SLOT MACHINE DEPARTMENT FLOORPERSON [facility] Blood No Phlebotomy Charged / Unknown 01/15/2022 9:00 AM SLOT MACHINE DEPARTMENT FLOORPERSON 01/15/2022 1:08 PM SLOT MACHINE DEPARTMENT FLOORPERSON Narrative [facility] - 01/15/2022 11:30 PM SLOT MACHINE DEPARTMENT FLOORPERSON <= 0.8 Negative. No detectable Mumps IgG antibody. 0.9 - 1.0 Equivocal >=1.1 Positive Antibody testing was performed by multiplex flow immunoassay on the [employer] platform. us Ana Espinoza APRN, CNP IMMUNOLOGY ORDERABL ES Final Result [facility] [address] [place] [address], [place] * QUANTIFERON-TB GOLD PLUS (01/15/2022 9:00 AM SLOT MACHINE DEPARTMENT FLOORPERSON) NIL CONTROL 0.05 <8.01 IU/mL 01/17/2022 1:34 PM SLOT MACHINE DEPARTMENT FLOORPERSON [facility] TB ANTIGEN 1 0.03 <0.35 IU/mL 01/17/2022 1:34 PM SLOT MACHINE DEPARTMENT FLOORPERSON [facility] TB ANTIGEN 2 0.01 <0.35 IU/mL 01/17/2022 1:34 PM SLOT MACHINE DEPARTMENT FLOORPERSON [facility] MITOGEN CONTROL 8.21 >0.49 IU/mL 01/18/20 22 1:34 PM SLOT MACHINE DEPARTMENT FLOORPERSON [facility] INTEPRETATION TB NEGATIVE NEGATIVE, NEGATIVE (TB antigen response less than 25% of internal negative control value) 01/17/2022 1:34 PM SLOT MACHINE DEPARTMENT FLOORPERSON [facility] Comment:No immune response t o Mycobacterium tuberculosis antigens was noted. M. tuberculosis infection unlikely. Blood No Phlebotomy Charged / Unknown 01/15/2022 9:00 AM SLOT MACHINE DEPARTMENT FLOORPERSON 01/15/2022 1:08 PM SLOT MACHINE DEPARTMENT FLOORPERSON Narrative [facility] - 01/17/2022 1:34 PM SLOT MACHINE DEPARTMENT FLOORPERSON A POSITIVE QUANTIFERON-TB GOLD PLUS RESULT SHOULD [...] immunocompromised individuals. https://www.cdc.gov/tb/publications/guidelines/testing.htm us Ana Espinoza APRN, INSTALLMENT ACCOUNT CHECKER IMMUNOLOGY ORDERABL ES Final Result Performing Organization Address [facility] [address]/[facility] Co de Phone Number [facility] [address] [place] [address], [place] * HEPATITIS B SURFACE ANTIBODY (HBSAB) (01/15/2022 9:00 AM SLOT MACHINE DEPARTMENT FLOORPERSON) HEPATITIS B SURFACE ANTIBODY 47.68 mIU/mL [facility] ARCH [id number] 01/15/2022 11:22 PM SLOT MACHINE DEPARTMENT FLOORPERSON [facility] Comment: Detected Range: >12.00 Individual is considered immune to HBV infection Blood No Phlebotomy Charged / Unknown 01/15/2022 9:00 AM SLOT MACHINE DEPARTMENT FLOORPERSON 01/15/2022 1:08 PM SLOT MACHINE DEPARTMENT FLOORPERSON us Ana Espinoza CORRECTIONAL COUNSELOR/CASE MANAGER, INSTALLMENT ACCOUNT CHECKER CHEMISTRY ORDERABLE S Final Result Performing Organization Address [facility] [address]/[facility] Co de Phone Number [facility] [address] [place] [address], documented in this encounter Visit Diagnoses Diagnosis Encounter for pre-employment examination Health examination of defined subpopulation documented in this encounter Care Teams Profiler Hand Relationship Specialty Start Date End Date Provider, None [place] PCP - General 01/15/22 08/03/22 Mario Hernandez MD [address] [place], [place] [id number] PCP - General Family Medicine 08/04/22 documented as of this encounter
--- OUTSIDE RECORDS SUMMARY | 2025-08-05 10:00 | XMS_ITS | Clinical Summary ---
Author Organization [facility] Address [address], [address] [address] Phone Care Team Providers Care Ham Clerk Name Role Phone Mario Hernandez MD Primary Care Provider [phone] Social History Tobacco Use Types Packs/Day Years [...] age to complete this topic Care Teams Ham Clerk Relationship Specialty Start Date End Date Mario Hernandez MD [address] [place] [place] [address] PCP - General Family Medicine 08/04/22
--- OUTSIDE RECORDS SUMMARY | 2025-08-05 10:00 | XMS_ITS | Clinical Summary ---
Author Organization [facility] [address] [place] [id number] Care Team Providers Care Project Associate Name Role Phone Micki Pride MD Primary Care Provider [phone] Allergies Active Allergy Reactions Criticality Noted Date [...] Team Description 07/25/2025 1:15 PM CDT Telemedicine [address] [phone] Yobany Mehta MD Moderate episode of recurrent major depressive disorder (HCC) (Primary Dx); Panic disorder; JOSEPHINE (generalized anxiety disorder); Attention deficit hyperactivity disorder (ADHD), combined type 07/11/2025 4:00 PM CDT Telemedicine [address] [phone] Yobany Mehta MD Attention deficit hyperactivity disorder (ADHD), combined type (Primary Dx); JOSEPHINE (generalized anxiety disorder); Panic disorder 06/24/[address] [address] Yobany Mehta MD Med Refill (Early fill request Ambien/Called in Hydroxyzine ) from Last 3 Months Social History Tobacco Use Types Packs/Day Years Used Date Smoking Tobacco: Never Assessed Comments Unknown Sex and Gender Information Value Date Recorded Sex Assigned at Not on file Legal Sex Female 3:14 AM TOOL AND FIXTURE REPAIRER Gender Identity Female 03/30/2023 10:16 AM CDT Sexual Orientation Not on file Obstetrics History Last Filed Vital Signs Vital Sign Reading Time Taken Comments Blood Pressure 120/90 11/01/2023 2:17 PM TOOL AND FIXTURE REPAIRER Pulse 90 11/01/2023 2:17 PM TOOL AND FIXTURE REPAIRER Temperature 36.5 C (97.7 F) 11/01/2023 2:17 PM TOOL AND FIXTURE REPAIRER Respiratory Rate 18 11/01/2023 2:17 PM TOOL AND FIXTURE REPAIRER Oxygen Saturation 97% 11/01/2023 2:17 PM TOOL AND FIXTURE REPAIRER Inhaled Oxygen Concentration - - Weight 59.9 kg (132 lb) 11/01/2023 2:17 PM TOOL AND FIXTURE REPAIRER Height 157.5 cm (5' 2) 11/01/2023 2:17 PM TOOL AND FIXTURE REPAIRER Body Mass Index 24.14 11/01/2023 2:17 PM TOOL AND FIXTURE REPAIRER Plan of Treatment Health Maintenance Due Date [...] patient's age to complete this topic Insurance [facility] HMO/PPO Address: [facility] [address] [place] [address] [facility] Care Teams Project Associate Relationship Specialty Start Date End Date Micki Pride MD PCP - General 02/28/14
== END 2025-08-03 14:28 | disposition home or self-care (01) ==
LOC: ANHED 08-02 03:52 → ANHIMU 08-02 13:17
PROVIDERS: Nurse Practitioner Family; Admitting Provider Internal Medicine; Emergency Provider Emergency Medicine; PCP Family Medicine; Visit Provider General Practice
DX: R07.9 Chest pain, unspecified (principal); K29.01 Acute gastritis with bleeding; R03.0 Elevated blood-pressure reading, without diagnosis of hypertension; F41.8 Other specified anxiety disorders; K21.9 Gastro-esophageal reflux disease without esophagitis; Z87.11 Personal history of peptic ulcer disease; Z81.1 Family history of alcohol abuse and dependence; Z80.0 Family history of malignant neoplasm of digestive organs; Z83.3 Family history of diabetes mellitus; Z82.49 Family history of ischemic heart disease and other diseases of the circulatory system; Z80.42 Family history of malignant neoplasm of prostate
CPT/HCPCS: 36415; 70450; 71046; 71275; 74174; 80053; 80061; 83690; 84484; 85025; 85610; 85730; 93005; 96374; 96375; 96376; 99285; A9270; C8929; G0378; J1171; J1200; J2270; J2405; J2470; J3360; Q9957; Q9967

== ENCOUNTER 2025-08-19 09:07 | Outpatient (CLI) | payer OTHER, SELFPAY ==
--- OUTSIDE RECORDS SUMMARY | 2025-08-19 09:46 | XMS_ITS | Encounter Summary ---
Author Organization [facility] Address [address] [place] [address] Phone Care Team Providers Care Urology Nurse Name Role Phone Provider, None Primary Care Provider Mario Perez MD Primary Care Provider [phone] Encounter Details Date Type Department Care Team (Late st Contact Info) Description 01/15/2022 Lab Requisition [facility] Laboratory Services [address] [place] [id number] Ana Espinoza, LITIGATION EXAMINER, JAVA SQL DEVELOPER [address] [place] [address] Encounter for pre-employment examination Social [...] COVID-19? No / Unsure 01/15/2022 8:51 AM CERTIFIED SURGICAL FIRST ASSISTANT documented as of this encounter Plan of Treatment Not on file documented as of this encounter Procedures Procedure Name Priority Date/Time Associated Diagnosis Comments QUANTIFERON-TB GOLD PLUS Routine 01/15/2022 9:00 AM CERTIFIED SURGICAL FIRST ASSISTANT Encounter for pre-employment examination MMRV PANEL Routine 01/15/2022 9:00 AM CERTIFIED SURGICAL FIRST ASSISTANT Encounter for pre-employment examination MUMPS IGG Routine 01/15/2022 9:00 AM CERTIFIED SURGICAL FIRST ASSISTANT Encounter for pre-employment examination HERPES ZOSTER (VARICELLA) IGG Routine 01/15/2022 9:00 AM CERTIFIED SURGICAL FIRST ASSISTANT Encounter for pre-employment examination RUBEOLA (MEASLES) IGG Routine 01/15/2022 9:00 AM CERTIFIED SURGICAL FIRST ASSISTANT Encounter for pre-employment examination RUBELLA IMMUNITY IGG Routine 01/15/2022 9:00 AM CERTIFIED SURGICAL FIRST ASSISTANT Encounter for pre-employment examination HEPATITIS B SURFACE ANTIBODY (HBSAB) Routine 01/15/2022 9:00 AM CERTIFIED SURGICAL FIRST ASSISTANT Encounter for pre-employment examination documented in this encounter Results * HERPES ZOSTER (VARICELLA) IGG (01/15/2022 9:00 AM CERTIFIED SURGICAL FIRST ASSISTANT) VARICELLA ZOSTER IGG 4.6 >=1.1 AI 01/15/2022 11:30 PM CERTIFIED SURGICAL FIRST ASSISTANT [facility] Blood No Phlebotomy Charged / Unknown 01/15/2022 9:00 AM CERTIFIED SURGICAL FIRST ASSISTANT 01/15/2022 1:08 PM CERTIFIED SURGICAL FIRST ASSISTANT Narrative [facility] - 01/15/2022 11:30 PM CERTIFIED SURGICAL FIRST ASSISTANT <= 0.8 Negative. No detectable VZV IgG antibody. 0.9 - 1.0 Equivocal >=1.1 Positive Antibody testing was performed by multiplex flow immunoassay on the Newsana platform. us Ana L Behjoe LITIGATION EXAMINER, JAVA SQL DEVELOPER IMMUNOLOGY ORDERABL ES Final Result [facility] [address] [place] [address], * (ABNORMAL) RUBEOLA (MEASLES) IGG (01/15/2022 9:00 AM CERTIFIED SURGICAL FIRST ASSISTANT) MEASLES AB IGG 0.7(L) >=1.1 AI 01/15/2022 11:30 PM CERTIFIED SURGICAL FIRST ASSISTANT [facility] Blood No Phlebotomy Charged / Unknown 01/15/2022 9:00 AM CERTIFIED SURGICAL FIRST ASSISTANT 01/15/2022 1:08 PM CERTIFIED SURGICAL FIRST ASSISTANT Narrative [facility] - 01/15/2022 11:30 PM CERTIFIED SURGICAL FIRST ASSISTANT <= 0.8 Negative. No detectable Measles IgG antibody. 0.9 - 1.0 Equivocal >=1.1 Positive Antibody testing was performed by multiplex flow immunoassay on the BioPlex platform. us Ana L Behrends LITIGATION EXAMINER, JAVA SQL DEVELOPER IMMUNOLOGY ORDERABL ES Final Result Performing Organization Address City/[facility]/ZIP Co de Phone Number [facility] [address] [place] [address], [place] * RUBELLA IMMUNITY IGG (01/15/2022 9:00 AM CERTIFIED SURGICAL FIRST ASSISTANT) RUBELLA IMMUNITY Immune Immune, Invalid 01/15/2022 11:30 PM CERTIFIED SURGICAL FIRST ASSISTANT [facility] Blood No Phlebotomy Charged / Unknown 01/15/2022 9:00 AM CERTIFIED SURGICAL FIRST ASSISTANT 01/15/2022 1:08 PM CERTIFIED SURGICAL FIRST ASSISTANT Narrative [facility] - 01/15/2022 11:30 PM CERTIFIED SURGICAL FIRST ASSISTANT Antibody testing was performed by multiplex flow immunoassay on the BioPlex platform. us Ana L Behrends LITIGATION EXAMINER, JAVA SQL DEVELOPER CHEMISTRY ORDERABLE S Final Result Performing Organization Address City/[facility]/ZIP Co de Phone Number [facility] [address] [place] [address], [place] * MUMPS IGG (01/15/2022 9:00 AM CERTIFIED SURGICAL FIRST ASSISTANT) Mumps Ab IgG 1.2 >=1.1 AI 01/15/2022 11:30 PM CERTIFIED SURGICAL FIRST ASSISTANT [facility] Blood No Phlebotomy Charged / Unknown 01/15/2022 9:00 AM CERTIFIED SURGICAL FIRST ASSISTANT 01/15/2022 1:08 PM CERTIFIED SURGICAL FIRST ASSISTANT Narrative [facility] - 01/15/2022 11:30 PM CERTIFIED SURGICAL FIRST ASSISTANT <= 0.8 Negative. No detectable Mumps IgG antibody. 0.9 - 1.0 Equivocal >=1.1 Positive Antibody testing was performed by multiplex flow immunoassay on the Newsana platform. us Ana Espinoza APRN, CNP IMMUNOLOGY ORDERABL ES Final Result [facility] [address] [place] [address], [place] * QUANTIFERON-TB GOLD PLUS (01/15/2022 9:00 AM CERTIFIED SURGICAL FIRST ASSISTANT) NIL CONTROL 0.05 <8.01 IU/mL 01/17/2022 1:34 PM CERTIFIED SURGICAL FIRST ASSISTANT [facility] TB ANTIGEN 1 0.03 <0.35 IU/mL 01/17/2022 1:34 PM CERTIFIED SURGICAL FIRST ASSISTANT [facility] TB ANTIGEN 2 0.01 <0.35 IU/mL 01/17/2022 1:34 PM CERTIFIED SURGICAL FIRST ASSISTANT [facility] MITOGEN CONTROL 8.21 >0.49 IU/mL 01/18/20 22 1:34 PM CERTIFIED SURGICAL FIRST ASSISTANT [facility] INTEPRETATION TB NEGATIVE NEGATIVE, NEGATIVE (TB antigen response less than 25% of internal negative control value) 01/17/2022 1:34 PM CERTIFIED SURGICAL FIRST ASSISTANT [facility] Comment:No immune response t o Mycobacterium tuberculosis antigens was noted. M. tuberculosis infection unlikely. Blood No Phlebotomy Charged / Unknown 01/15/2022 9:00 AM CERTIFIED SURGICAL FIRST ASSISTANT 01/15/2022 1:08 PM CERTIFIED SURGICAL FIRST ASSISTANT Narrative [facility] - 01/17/2022 1:34 PM CERTIFIED SURGICAL FIRST ASSISTANT A POSITIVE QUANTIFERON-TB GOLD PLUS RESULT SHOULD [...] immunocompromised individuals. https://www.cdc.gov/tb/publications/guidelines/testing.htm us Ana Espinoza APRN, JAVA SQL DEVELOPER IMMUNOLOGY ORDERABL ES Final Result Performing Organization Address [facility] Co de Phone Number [facility] [address] [place] [address], [place] * HEPATITIS B SURFACE ANTIBODY (HBSAB) (01/15/2022 9:00 AM CERTIFIED SURGICAL FIRST ASSISTANT) HEPATITIS B SURFACE ANTIBODY 47.68 mIU/mL [facility] [place] [facility] [id number] B 01/15/2022 11:22 PM CERTIFIED SURGICAL FIRST ASSISTANT [facility] Comment: Detected Range: >12.00 Individual is considered immune to HBV infection Blood No Phlebotomy Charged / Unknown 01/15/2022 9:00 AM CERTIFIED SURGICAL FIRST ASSISTANT 01/15/2022 1:08 PM CERTIFIED SURGICAL FIRST ASSISTANT us Ana Espinoza LITIGATION EXAMINER, JAVA SQL DEVELOPER CHEMISTRY ORDERABLE S Final Result Performing Organization Address [facility] Co de Phone Number [facility] [address] [place] [address], documented in this encounter Visit Diagnoses Diagnosis Encounter for pre-employment examination Health examination of defined subpopulation documented in this encounter Care Teams Urology Nurse Relationship Specialty Start Date End Date Provider, None [place] PCP - General 01/15/22 08/03/22 Mario Hernandez MD [address] [place], [place] [id number] PCP - General Family Medicine 08/04/22 documented as of this encounter
--- OUTSIDE RECORDS SUMMARY | 2025-08-19 09:46 | XMS_ITS | Patient Health Record ---
Author Organization [facility] Address [address] [place] [address] Care Team Providers Care New Patient Escort Name Role Phone Jozef Thomas Unavailable [phone] Reason For Referral No Information Medications Medication [...] Insured Coverage Start Date Coverage End Date [facility] [address] [place] [address] [id number] ZHANG ANGUIANO Spouse - patient is the spouse of the insured
--- OUTSIDE RECORDS SUMMARY | 2025-08-19 09:46 | XMS_ITS | Clinical Summary ---
Author Organization [facility] Physician Office Building [address] [place] [address] Care Team Providers Care Recreation Leader Name Role Phone Micki Pride MD Primary Care Provider [phone] Allergies Active Allergy Reactions Criticality Noted Date Comments Nsaids (Non-Steroidal Anti-Inflammatory Drug) Unknown 12/11/2016 Stomach ulcer Medications buPROPion XL (Wellbutrin XL) 150 mg 24 hr tabletIndication s:major depressive disorder Take 1 tablet (150 mg total) by mouth every morning 30 tablet 2 Active escitalopram (LEXAPRO) 20 mg tablet Take 1 tablet (20 mg total) by mouth daily 30 tablet 2 Active zolpidem (Ambien) 10 mg tabletIndication s:Sleep-Onset Insomnia Take 1 tablet (10 mg total) by mouth nightly as needed for sleep 30 tablet 2 Active ALPRAZolam (XANAX) 1 mg tabletIndication s:Anxiety with Depression,Gener alized Anxiety Disorder,Panic Disorder,anxiety Take 1 tablet (1 mg total) by mouth 2 (two) times a day as needed for anxiety 60 tablet 2 Active sucralfate (CARAFATE) 1 gram tablet Take 1 tablet (1 g total) by mouth 4 (four) times a day Active nitroglycerin (NITROSTAT) 0.4 mg SL tablet PLEASE SEE ATTACHED FOR DETAILED DIRECTIONS Active pantoprazole DR (PROTONIX) 40 mg EC tablet Take 1 tablet (40 mg total) by mouth daily Active Ubrelvy 100 mg tablet 2024 Discontinued(P atient Reported) traZODone (DESYREL) 50 mg tablet TAKE 1 TABLET BY MOUTH EVERY NIGHT 30 tablet 024 2024 Discontinued(P atient Reported) dextroamphetamin e-amphetamine (AdderalL) 30 mg tabletIndication s:Attention-Defi cit Hyperactivity Disorder Take 1 tablet (30 mg total) by mouth 2 (two) times a day 60 tablet 024 2024 Discontinued(P atient Reported) dextroamphetamin e-amphetamine (AdderalL) 30 mg tabletIndication s:Attention-Defi cit Hyperactivity Disorder Take 1 tablet (30 mg total) by mouth 2 (two) times a day 60 tablet 024 2024 Discontinued(P atient Reported) dextroamphetamin e-amphetamine (AdderalL) 30 mg tabletIndication s:Attention-Defi cit Hyperactivity Disorder Take 1 tablet (30 mg total) by mouth 2 (two) times a day 60 tablet 024 2024 Discontinued(P atient Reported) traZODone (DESYREL) 50 mg tabletIndication s:insomnia associated with depression Take 1 tablet (50 mg total) by mouth nightly as needed for sleep 60 tablet 2 024 2024 Discontinued(P atient Reported) dextroamphetamin e-amphetamine (AdderalL) 20 mg tabletIndication s:Attention-Defi cit Hyperactivity Disorder Take 1 tablet (20 mg total) by mouth 2 (two) times a day 60 tablet 024 2024 Discontinued(P atient Reported) dextroamphetamin e-amphetamine (AdderalL) 10 mg tabletIndication s:Attention-Defi cit Hyperactivity Disorder Take 1 tablet (10 mg total) by mouth 2 (two) times a day 60 tablet 024 2024 Discontinued(P atient Reported) dextroamphetamin e-amphetamine (AdderalL) 10 mg tabletIndication s:Attention-Defi cit Hyperactivity Disorder Take 1 tablet (10 mg total) by mouth 2 (two) times a day 60 tablet /03/ 2025 Discontinued(P atient Reported) eszopiclone (LUNESTA) 3 mg tabletIndication s:Insomnia Take 1 tablet (3 mg total) by mouth daily Take immediately before bedtime 30 tablet 024 2024 Discontinued(P atient Reported) QUEtiapine (SEROquel) 50 mg tablet Take 1-2 tablets (50-100 mg total) by mouth nightly as needed (insomnia) 60 tablet 024 2024 Discontinued traZODone (DESYREL) 100 mg tablet TAKE 1 TABLET(100 MG) BY MOUTH EVERY NIGHT NEEDED FOR SLEEP 30 tablet 2 025 2024 Discontinued(P atient Reported) dextroamphetamin e-amphetamine (AdderalL) 10 mg tabletIndication s:Attention-Defi cit Hyperactivity Disorder Take 1 tablet (10 mg total) by mouth 2 (two) times a day 60 tablet 025 2024 Discontinued(P atient Reported) hydrOXYzine (ATARAX) 25 mg tablet TAKE 1 TABLET BY MOUTH AT BEDTIME NEEDED 20 tablet 2 025 2024 Discontinued(P atient Reported) dextroamphetamin e-amphetamine (AdderalL) 10 mg tabletIndication s:Attention-Defi cit Hyperactivity Disorder Take 1 tablet (10 mg total) by mouth 2 (two) times a day 60 tablet 025 2024 Discontinued(P atient Reported) Active Problems Problem Noted Date Diagnosed Date Other chest pain 08/16/2025 Recurrent major depression 03/30/2023 Panic disorder 03/30/2023 JOSEPHINE (generalized anxiety disorder) 03/30/2023 ADHD 03/30/2023 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 Encounters Date Type Department Care Team Description 08/16/2025 1:30 PM CDT Office Visit [facility] Cardiology at [address] [place] [address] Med Solano MD Other chest pain (Primary Dx) 08/15/2025 Telephone [facility] Cardiology [address] [facility] [address] [place] [address] Jenniffer Perdomo MA Medical Records Request 08/05/2025 Orders Only [facility] Cardiology [address] [place] [address] Med Solano MD 07/25/2025 1:15 PM CDT Telemedicine [facility] [id number] [place] [address] [place] [phone] Yobany Mehta MD Moderate episode of recurrent major depressive disorder (HCC) (Primary Dx); Panic disorder; JOSEPHINE (generalized anxiety disorder); Attention deficit hyperactivity disorder (ADHD), combined type 07/11/2025 4:00 PM CDT Telemedicine [facility] [id number] [place] [address] [place] [phone] Yobany Mehta MD Attention deficit hyperactivity disorder (ADHD), combined type (Primary Dx); JOSEPHINE (generalized anxiety disorder); Panic disorder 06/24/2025 Telephone [facility] [phone] [place] [address] [place] [phone] Yobany Mehta MD Med Refill (Early fill request Ambien/Called in Hydroxyzine ) from Last 3 Months Surgical History Surgery Date Site/Laterality Comments COSMETIC SURGERY Medical History Medical History Date Comments Depression Peptic ulceration Anxiety Migraines Chest pain Family History Medical History Relation Name Comments No Known Problems Mother Relation Name Status Comments Father unknown Alive Mother Alive Social History Tobacco Use Types Packs/Day Years Used Date Smoking Tobacco: Never Tobacco Cessation:Counseling Given: Not Answered Comments Unknown Sex and Gender Information Value Date Recorded Sex Assigned at Not on file Legal Sex Female 3:14 AM BOTTLE SELECTOR Gender Identity Female 03/30/2023 10:16 AM CDT Sexual Orientation Not on file Obstetrics History Last Filed Vital Signs Vital Sign Reading Time Taken Comments Blood Pressure 122/80 08/16/2025 1:22 PM CDT Pulse 68 08/16/2025 1:22 PM CDT Temperature 36.5 C (97.7 F) 11/01/2023 2:17 PM BOTTLE SELECTOR Respiratory Rate 18 11/01/2023 2:17 PM BOTTLE SELECTOR Oxygen Saturation 98% 08/16/2025 1:22 PM CDT Inhaled Oxygen Concentration - - Weight 62.1 kg (136 lb 14.4 oz) 08/16/2025 1:22 PM CDT Height 157.5 cm (5' 2) 08/16/2025 1:22 PM CDT Body Mass Index 25.04 08/16/2025 1:22 PM CDT Plan of Treatment Health Maintenance Due Date [...] 2025 03/17/2021 Influenza Vaccine (#1) 2025 10/26/2022 Pneumococcal vaccine <65 Aged Out No longer eligible based on patient's age to complete this topic Procedures Procedure Name Priority Date/Time Associated Diagnosis Comments CARDIOLOGY DOCUMENT SCAN Routine 08/03/2025 4:17 PM CDT from Last 3 Months Results * Cardiology Document Scan (08/03/2025 4:17 PM CDT) Anatomical Region Laterality Modality Other Med Solano MD CV CARDIAC SERVICES PROC EDURES Final Result from Last 3 Months Insurance [facility] Care Teams Recreation Leader Relationship Specialty Start Date End Date Micki Pride MD PCP - General 02/28/14
--- OUTSIDE RECORDS SUMMARY | 2025-08-19 09:46 | XMS_ITS | Clinical Summary ---
Author Organization [facility] Address [address], [address] [address] Phone Care Team Providers Care Senior Grants Officer Name Role Phone Mario Hernandez MD Primary Care Provider [phone] Social History Tobacco Use Types Packs/Day Years [...] age to complete this topic Care Teams Senior Grants Officer Relationship Specialty Start Date End Date Mario Hernandez MD [address] [address] PCP - General Family Medicine 08/04/22
[2025-08-19 10:33] LABS: CRP < 0.5 mg/dL (<1.0)
[2025-08-20 07:09] LABS: Cytomegalovirus (CMV) Ab, IgG 6.00 U/mL (0.00-0.59)
[2025-08-20 14:08] LABS: ANA by IFA Rfx Titer/Pattern Negative (.)
[2025-08-21 15:09] LABS: CK-BB 0 % (0); CK-MB 0 % (0-3); CK-MM 100 % (97-100); Creatine Kinase,Total 70 U/L (32-182)
[2025-08-22 05:07] LABS: Free Testosterone (Direct) 1.2 pg/mL (0.0-4.2)
== END 2025-08-19 09:08 | disposition home or self-care (01) ==
LOC: ANHLAB 09:08
PROVIDERS: PCP Family Medicine
DX: N92.6 Irregular menstruation, unspecified (principal); F32.81 Premenstrual dysphoric disorder; R07.9 Chest pain, unspecified; R01.1 Cardiac murmur, unspecified; R53.83 Other fatigue; G43.909 Migraine, unspecified, not intractable, without status migrainosus; D64.9 Anemia, unspecified; N83.202 Unspecified ovarian cyst, left side; M79.2 Neuralgia and neuritis, unspecified; R20.2 Paresthesia of skin
CPT/HCPCS: 36415; 82550; 82552; 84402; 84403; 85652; 86038; 86140; 86618; 86644

== ENCOUNTER 2025-09-15 15:43 | Emergency (ER) | payer BC, SELFPAY ==
--- OUTSIDE RECORDS SUMMARY | 2025-09-15 15:45 | XMS_ITS | Clinical Summary ---
Author Organization [facility] Physician Office Building [address] [place] [address] Care Team Providers Care Painter Helper Spray Name Role Phone Micki Pride MD Primary Care Provider [phone] Allergies Active Allergy Reactions Criticality Noted Date Comments Nsaids (Non-Steroidal Anti-Inflammatory Drug) Unknown 12/11/2016 Stomach ulcer Medications buPROPion XL (Wellbutrin XL) 150 mg 24 hr tabletIndicatio ns:major depressive disorder Take 1 tablet (150 mg total) by mouth every morning 30 tablet 2 5 Active escitalopram (LEXAPRO) 20 mg tablet Take 1 tablet (20 mg total) by mouth daily 30 tablet 2 5 Active zolpidem (Ambien) 10 mg tabletIndicatio ns:Sleep-Onset Insomnia Take 1 tablet (10 mg total) by mouth nightly as needed for sleep 30 tablet 2 5 Active ALPRAZolam (XANAX) 1 mg tabletIndicatio ns:Anxiety with Depression,Gene ralized Anxiety Disorder,Panic Disorder,anxiet y Take 1 tablet (1 mg total) by mouth 2 (two) times a day as needed for anxiety 60 tablet 2 5 Active sucralfate (CARAFATE) 1 gram tablet Take 1 tablet (1 g total) by mouth 4 (four) times a day Active nitroglycerin (NITROSTAT) 0.4 mg SL tablet PLEASE SEE ATTACHED FOR DETAILED DIRECTIONS [address] (PROTONIX) 40 mg EC tablet Take 1 tablet (40 mg total) by mouth daily Active ARIPiprazole (ABILIFY) 2 mg tabletIndicatio ns:Depression Treatment Adjunct Take 1 tablet (2 mg total) by mouth daily 30 tablet 2 Active buPROPion XL (Wellbutrin XL) 300 mg 24 hr tablet Take 1 tablet (300 mg total) by mouth every morning 30 tablet 2 Active Active Problems Problem Noted Date Diagnosed Date Other chest pain 08/16/2025 Recurrent major depression 03/30/2023 Panic disorder 03/30/2023 JOSEPHINE (generalized anxiety disorder) 03/30/2023 ADHD 03/30/2023 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 Encounters Date Type Department Care Team Description 08/28/2025 4:15 PM CDT Telemedicine [facility] [address] [place] [address] [place] [phone] Yobany Mehta MD Moderate episode of recurrent major depressive disorder (HCC) (Primary Dx); Panic disorder; JOSEPHINE (generalized anxiety disorder); Attention deficit hyperactivity disorder (ADHD), combined type 08/20/2025 Orders Only [facility] Cardiology [address] [place] [address] [place] [phone] Jeane Frederick NP 08/19/[address] [phone] Yobany Mehta MD 08/16/2025 1:30 PM CDT Office Visit [facility] Cardiology at [address] [place] [address] Med Solano MD Other chest pain (Primary Dx) 08/15/2025 Telephone [facility] Cardiology [address] [place] [address] [place] [phone] Jenniffer Perdomo MA Medical Records Request 08/05/2025 Orders Only [facility] Cardiology [address] [place] [address] [place] [phone] Med Solano MD 08/02/2025 Orders Only [facility] Health Information Management [address] [place] [address] Massiel Hunt NP 07/25/2025 1:15 PM CDT Telemedicine [address] [phone] Yobany Mehta MD Moderate episode of recurrent major depressive disorder (HCC) (Primary Dx); Panic disorder; JOSEPHINE (generalized anxiety disorder); Attention deficit hyperactivity disorder (ADHD), combined type 07/22/2025 Orders Only [facility] Health Information Management [address] [place] [address] Scanning, Provider 07/11/2025 4:00 PM CDT Telemedicine [address] [phone] Yobany Mehta MD Attention deficit hyperactivity disorder (ADHD), combined type (Primary Dx); JOSEPHINE (generalized anxiety disorder); Panic disorder 06/24/[address] [phone] Yobany Mehta MD Med [...] on file Legal Sex Female 3:14 AM WATCH DIAL MAKER Gender Identity Female 03/30/2023 10:16 AM CDT Sexual Orientation Not on file Last Filed Vital Signs Vital Sign Reading Time Taken Comments Blood Pressure 122/80 08/16/2025 1:22 PM CDT Pulse 68 08/16/2025 1:22 PM CDT Temperature 36.5 C (97.7 F) 11/01/2023 2:17 PM WATCH DIAL MAKER Respiratory Rate 18 11/01/2023 2:17 PM WATCH DIAL MAKER Oxygen Saturation 98% 08/16/2025 1:22 PM CDT [...] DOCUMENT SCAN Routine 08/03/2025 4:17 PM CDT CARDIOLOGY DOCUMENT SCAN Routine 08/02/2025 3:28 PM CDT CARDIOLOGY DOCUMENT SCAN 08/02/2025 SCAN - RADIOLOGY/IMAGING 08/02/2025 SCAN - LABS 07/22/2025 from Last 3 Months Results * Cardiology Document Scan (08/03/2025 4:17 PM CDT) Anatomical Region Laterality Modality Other us Med Solano MD CV CARDIAC SERVICES PROC EDURES Final Result * Cardiology Document Scan (08/02/2025 3:28 PM CDT) Anatomical Region Laterality Modality Other us Jeane Frederick NP CV CARDIAC SERVICE S PROCEDURES Final Result * SCAN - RADIOLOGY/IMAGING (08/02/2025) Anatomical Region Laterality Modality Other us Massiel Hunt OUTREACH CLINICIAN Edited Resu lt - Final * Cardiology Document Scan (08/02/2025) Anatomical Region Laterality Modality Other us Provider Scanning CV CARDIAC SERVICES PROCEDURES Final Result * SCAN - LABS (07/22/2025) us Provider Scanning Final Result from Last 3 Months Insurance [facility] PPO [place] Care Teams Painter Helper Spray Relationship Specialty Start Date End Date Micki Pride MD PCP - General 02/28/14
--- OUTSIDE RECORDS SUMMARY | 2025-09-15 15:45 | XMS_ITS | Encounter Summary ---
Author Organization [facility] Healthcare Address [address] [place] [address] Care Team Providers Care Supervisor Game Farm Name Role Phone Micki Pride MD Primary Care Provider [phone] Encounter Details Date Type Department Care Team (Late st Contact Info) Description 07/22/2025 Orders Only [facility] Health Information Management [address] [place] [phone] Scanning, Provider Social History Tobacco Use Types Packs/Day Years Used Date Smoking Tobacco: Never Assessed Comments Unknown Sex and Gender Information Value Date Recorded Sex Assigned at Not on file Legal Sex Female 3:14 AM DIRECTOR OF CASINO Gender Identity Female 03/30/2023 10:16 AM CDT Sexual Orientation Not on file documented as of this encounter Plan of Treatment Not on file documented as of this encounter Procedures Procedure Name Priority Date/Time Associated Diagnosis Comments SCAN - LABS 07/22/2025 documented in this encounter Results * SCAN - LABS (07/22/2025) us Provider Scanning Final Result documented in this encounter Visit Diagnoses Not on filedocumented in this encounter Care Teams Supervisor Game Farm Relationship Specialty Start Date End Date Micki Pride MD PCP - General 02/28/14 documented as of this encounter
--- OUTSIDE RECORDS SUMMARY | 2025-09-15 15:45 | XMS_ITS | Clinical Summary ---
Author Organization [facility] Address [address], [address] [address] Phone Care Team Providers Care Drop Wire Aligner Name Role Phone Mario Hernandez MD Primary Care Provider [phone] Social History Tobacco Use Types Packs/Day Years [...] age to complete this topic Care Teams Drop Wire Aligner Relationship Specialty Start Date End Date Mario Hernandez MD [address] [place] [address] PCP - General Family Medicine 08/04/22
--- OUTSIDE RECORDS SUMMARY | 2025-09-15 15:45 | XMS_ITS | Encounter Summary ---
Author Organization [facility] Healthcare Address [address] [place] [address] Care Team Providers Care Water Meter Reader Name Role Phone Micki Pride MD Primary Care Provider [phone] Encounter Details Date Type Department Care Team (Late st Contact Info) Description 08/02/2025 Orders Only [facility] Health Information Management [address] [place] [address] Massiel Hunt NP [address] [place] [address] [place] [address] Social History Tobacco Use Types Packs/Day Years Used Date Smoking Tobacco: Never Assessed Comments Unknown Sex and Gender Information Value Date Recorded Sex Assigned at Not on file Legal Sex Female 3:14 AM 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 Gender Identity Female 03/30/2023 10:16 AM CDT Sexual Orientation Not on file documented as of this encounter Plan of Treatment Not on file documented as of this encounter Procedures Procedure Name Priority Date/Time Associated Diagnosis Comments SCAN - RADIOLOGY/IMAGING 08/02/2025 CARDIOLOGY DOCUMENT SCAN 08/02/2025 documented in this encounter Results * Cardiology Document Scan (08/02/2025) Anatomical Region Laterality Modality Other us Provider Scanning CV CARDIAC SERVICES PROCEDURES Final Result * SCAN - RADIOLOGY/IMAGING (08/02/2025) Anatomical Region Laterality Modality Other Massiel Hunt NP Edited Resu lt - Final documented in this encounter Visit Diagnoses Not on filedocumented in this encounter Care Teams Water Meter Reader Relationship Specialty Start Date End Date Micki Pride MD PCP - General 02/28/14 documented as of this encounter
--- OUTSIDE RECORDS SUMMARY | 2025-09-15 15:45 | XMS_ITS | Encounter Summary ---
Author Organization [facility] Address [address] [place] [address] Phone Care Team Providers Care Nascar Driver Name Role Phone Provider, None Primary Care Provider Mario Perez MD Primary Care Provider [phone] Encounter Details Date Type Department Care Team (Late st Contact Info) Description 01/15/2022 Lab Requisition [facility] Laboratory Services [address] [place] [id number] Ana Espinoza, CLOTH CLASSER, SUPERVISOR LIQUEFACTION [address] [place] [address] Encounter for pre-employment examination Social [...] COVID-19? No / Unsure 01/15/2022 8:51 AM MANAGER CONTRACT documented as of this encounter Plan of Treatment Not on file documented as of this encounter Procedures Procedure Name Priority Date/Time Associated Diagnosis Comments QUANTIFERON-TB GOLD PLUS Routine 01/15/2022 9:00 AM MANAGER CONTRACT Encounter for pre-employment examination MMRV PANEL Routine 01/15/2022 9:00 AM MANAGER CONTRACT Encounter for pre-employment examination MUMPS IGG Routine 01/15/2022 9:00 AM MANAGER CONTRACT Encounter for pre-employment examination HERPES ZOSTER (VARICELLA) IGG Routine 01/15/2022 9:00 AM MANAGER CONTRACT Encounter for pre-employment examination RUBEOLA (MEASLES) IGG Routine 01/15/2022 9:00 AM MANAGER CONTRACT Encounter for pre-employment examination RUBELLA IMMUNITY IGG Routine 01/15/2022 9:00 AM MANAGER CONTRACT Encounter for pre-employment examination HEPATITIS B SURFACE ANTIBODY (HBSAB) Routine 01/15/2022 9:00 AM MANAGER CONTRACT Encounter for pre-employment examination documented in this encounter Results * HERPES ZOSTER (VARICELLA) IGG (01/15/2022 9:00 AM MANAGER CONTRACT) VARICELLA ZOSTER IGG 4.6 >=1.1 AI 01/15/2022 11:30 PM MANAGER CONTRACT [facility] Blood No Phlebotomy Charged / Unknown 01/15/2022 9:00 AM MANAGER CONTRACT 01/15/2022 1:08 PM MANAGER CONTRACT Narrative [facility] - 01/15/2022 11:30 PM MANAGER CONTRACT <= 0.8 Negative. No detectable VZV IgG antibody. 0.9 - 1.0 Equivocal >=1.1 Positive Antibody testing was performed by multiplex flow immunoassay on the Freeppie platform. us Ana L Behjoe CLOTH CLASSER, SUPERVISOR LIQUEFACTION IMMUNOLOGY ORDERABL ES Final Result [facility] [address] [place] [address], * (ABNORMAL) RUBEOLA (MEASLES) IGG (01/15/2022 9:00 AM MANAGER CONTRACT) MEASLES AB IGG 0.7(L) >=1.1 AI 01/15/2022 11:[address] [facility] Blood No Phlebotomy Charged / Unknown 01/15/2022 9:00 AM MANAGER CONTRACT 01/15/2022 1:08 PM MANAGER CONTRACT N[address]ative [facility] - 01/15/2022 11:30 PM MANAGER CONTRACT <= 0.8 Negative. No detectable Measles IgG antibody. 0.9 - 1.0 Equivocal >=1.1 Positive Antibody testing was performed by multiplex flow immunoassay on the BioPlex platform. us Ana L Behrends CLOTH CLASSER, SUPERVISOR LIQUEFACTION IMMUNOLOGY ORDERABL ES Final Result Performing Organization Address City/[facility]/ZIP Co de Phone Number [facility] [address] [place] [address], [place] * RUBELLA IMMUNITY IGG (01/15/2022 9:00 AM MANAGER CONTRACT) RUBELLA IMMUNITY Immune Immune, Invalid 01/15/2022 11:[address] [facility] Blood No Phlebotomy Charged / Unknown 01/15/2022 9:00 AM MANAGER CONTRACT 01/15/2022 1:08 PM MANAGER CONTRACT N[address]ative [facility] - 01/15/2022 11:30 PM MANAGER CONTRACT Antibody testing was performed by multiplex flow immunoassay on the BioPlex platform. us Ana L Behrends CLOTH CLASSER, SUPERVISOR LIQUEFACTION CHEMISTRY ORDERABLE S Final Result Performing Organization Address City/[facility]/ZIP Co de Phone Number [facility] [address] [place] [address], [place] * MUMPS IGG (01/15/2022 9:00 AM MANAGER CONTRACT) Mumps Ab IgG 1.2 >=1.1 AI 01/15/2022 11:[address] [facility] Blood No Phlebotomy Charged / Unknown 01/15/2022 9:00 AM MANAGER CONTRACT 01/15/2022 1:08 PM MANAGER CONTRACT Narrative [facility] - 01/15/2022 11:30 PM MANAGER CONTRACT <= 0.8 Negative. No detectable Mumps IgG antibody. 0.9 - 1.0 Equivocal >=1.1 Positive Antibody testing was performed by multiplex flow immunoassay on the Freeppie platform. us Ana Espinoza APRN, CNP IMMUNOLOGY ORDERABL ES Final Result [facility] [address] [place] [address], [place] * QUANTIFERON-TB GOLD PLUS (01/15/2022 9:00 AM MANAGER CONTRACT) NIL CONTROL 0.05 <8.01 IU/mL 01/17/2022 1:[address] [facility] TB ANTIGEN 1 0.03 <0.35 IU/mL 01/17/2022 1:[address] [facility] TB ANTIGEN 2 0.01 <0.35 IU/mL 01/17/2022 1:[address] [facility] MITOGEN CONTROL 8.21 >0.49 IU/mL 01/18/20 22 1:[address] [facility] INTEPRETATION TB NEGATIVE NEGATIVE, NEGATIVE (TB antigen response less than 25% of internal negative control value) 01/17/2022 1:[address] [facility] Comment:No immune response t o Mycobacterium tuberculosis antigens was noted. M. tuberculosis infection unlikely. Blood No Phlebotomy Charged / Unknown 01/15/2022 9:00 AM MANAGER CONTRACT 01/15/2022 1:08 PM MANAGER CONTRACT Narrative [facility] - 01/17/2022 1:34 PM MANAGER CONTRACT A POSITIVE QUANTIFERON-TB GOLD PLUS RESULT SHOULD [...] immunocompromised individuals. https://www.cdc.gov/tb/publications/guidelines/testing.htm us Ana Espinoza APRN, SUPERVISOR LIQUEFACTION IMMUNOLOGY ORDERABL ES Final Result Performing Organization Address [facility] Co de Phone Number [facility] [address] [place] [address], [place] * HEPATITIS B SURFACE ANTIBODY (HBSAB) (01/15/2022 9:00 AM MANAGER CONTRACT) HEPATITIS B SURFACE ANTIBODY 47.68 mIU/mL [facility] ARCH [id number] B 01/15/2022 11:[address] [facility] Comment: Detected Range: >12.00 Individual is considered immune to HBV infection Blood No Phlebotomy Charged / Unknown 01/15/2022 9:00 AM MANAGER CONTRACT 01/15/2022 1:08 PM MANAGER CONTRACT us Ana Espinoza CLOTH CLASSER, SUPERVISOR LIQUEFACTION CHEMISTRY ORDERABLE S Final Result Performing Organization Address [facility] Co de Phone Number [facility] [address] [place] [address], documented in this encounter Visit Diagnoses Diagnosis Encounter for pre-employment examination Health examination of defined subpopulation documented in this encounter Care Teams Nascar Driver Relationship Specialty Start Date End Date Provider, None [place] PCP - General 01/15/22 08/03/22 Mario Hernandez MD [address] [place], [place] [id number] PCP - General Family Medicine 08/04/22 documented as of this encounter
--- OUTSIDE RECORDS SUMMARY | 2025-09-15 15:45 | XMS_ITS | Patient Health Record ---
Author Organization [facility] Address [address] [place] [address] Care Team Providers Care Oracle Architect Name Role Phone Jozef Thomas Unavailable [phone] Reason For Referral No Information Medications Medication [...] Insured Coverage Start Date Coverage End Date [facility] [address] [place] [address] [id number] ZHANG ANGUIANO Spouse - patient is the spouse of the insured
[2025-09-15 15:46] VITALS: BP 158/100; PULSE 85; RESP 16; TEMP 36.8; O2SAT 100
--- OUTSIDE RECORDS SUMMARY | 2025-09-15 16:18 | XMS_ITS | Encounter Summary ---
Author Organization [facility] Address [address] [place] [address] Phone Care Team Providers Care Training Professional Name Role Phone Provider, None Primary Care Provider Mario Perez MD Primary Care Provider [phone] Encounter Details Date Type Department Care Team (Late st Contact Info) Description 01/15/2022 Lab Requisition [facility] Laboratory Services [address] [place] [id number] Ana Espinoza, VOUCHER EXAMINER, LIME KILN TENDER [address] [place] [address] Encounter for pre-employment examination Social [...] COVID-19? No / Unsure 01/15/2022 8:51 AM JACKET CHANGER documented as of this encounter Plan of Treatment Not on file documented as of this encounter Procedures Procedure Name Priority Date/Time Associated Diagnosis Comments QUANTIFERON-TB GOLD PLUS Routine 01/15/2022 9:00 AM JACKET CHANGER Encounter for pre-employment examination MMRV PANEL Routine 01/15/2022 9:00 AM JACKET CHANGER Encounter for pre-employment examination MUMPS IGG Routine 01/15/2022 9:00 AM JACKET CHANGER Encounter for pre-employment examination HERPES ZOSTER (VARICELLA) IGG Routine 01/15/2022 9:00 AM JACKET CHANGER Encounter for pre-employment examination RUBEOLA (MEASLES) IGG Routine 01/15/2022 9:00 AM JACKET CHANGER Encounter for pre-employment examination RUBELLA IMMUNITY IGG Routine 01/15/2022 9:00 AM JACKET CHANGER Encounter for pre-employment examination HEPATITIS B SURFACE ANTIBODY (HBSAB) Routine 01/15/2022 9:00 AM JACKET CHANGER Encounter for pre-employment examination documented in this encounter Results * HERPES ZOSTER (VARICELLA) IGG (01/15/2022 9:00 AM JACKET CHANGER) VARICELLA ZOSTER IGG 4.6 >=1.1 AI 01/15/2022 11:30 PM JACKET CHANGER [facility] Blood No Phlebotomy Charged / Unknown 01/15/2022 9:00 AM JACKET CHANGER 01/15/2022 1:08 PM JACKET CHANGER N[facility]ative [facility] - 01/15/2022 11:30 PM JACKET CHANGER <= 0.8 Negative. No detectable VZV IgG antibody. 0.9 - 1.0 Equivocal >=1.1 Positive Antibody testing was performed by multiplex flow immunoassay on the Piper platform. us Ana L Behjoe VOUCHER EXAMINER, LIME KILN TENDER IMMUNOLOGY ORDERABL ES Final Result [facility] [address] [place] [address], * (ABNORMAL) RUBEOLA (MEASLES) IGG (01/15/2022 9:00 AM JACKET CHANGER) MEASLES AB IGG 0.7(L) >=1.1 AI 01/15/2022 11:30 PM JACKET CHANGER [facility] Blood No Phlebotomy Charged / Unknown 01/15/2022 9:00 AM JACKET CHANGER 01/15/2022 1:08 PM JACKET CHANGER Narrative [facility] - 01/15/2022 11:30 PM JACKET CHANGER <= 0.8 Negative. No detectable Measles IgG antibody. 0.9 - 1.0 Equivocal >=1.1 Positive Antibody testing was performed by multiplex flow immunoassay on the BioPlex platform. us Ana L Behrends VOUCHER EXAMINER, LIME KILN TENDER IMMUNOLOGY ORDERABL ES Final Result Performing Organization Address City/[facility]/ZIP Co de Phone Number [facility] [address] [place] [address], [place] * RUBELLA IMMUNITY IGG (01/15/2022 9:00 AM JACKET CHANGER) RUBELLA IMMUNITY Immune Immune, Invalid 01/15/2022 11:30 PM JACKET CHANGER [facility] Blood No Phlebotomy Charged / Unknown 01/15/2022 9:00 AM JACKET CHANGER 01/15/2022 1:08 PM JACKET CHANGER Narrative [facility] - 01/15/2022 11:30 PM JACKET CHANGER Antibody testing was performed by multiplex flow immunoassay on the BioPlex platform. us Ana L Behrends VOUCHER EXAMINER, LIME KILN TENDER CHEMISTRY ORDERABLE S Final Result Performing Organization Address City/[facility]/ZIP Co de Phone Number [facility] [address] [place] [address], [place] * MUMPS IGG (01/15/2022 9:00 AM JACKET CHANGER) Mumps Ab IgG 1.2 >=1.1 AI 01/15/2022 11:30 PM JACKET CHANGER [facility] Blood No Phlebotomy Charged / Unknown 01/15/2022 9:00 AM JACKET CHANGER 01/15/2022 1:08 PM JACKET CHANGER Narrative [facility] - 01/15/2022 11:30 PM JACKET CHANGER <= 0.8 Negative. No detectable Mumps IgG antibody. 0.9 - 1.0 Equivocal >=1.1 Positive Antibody testing was performed by multiplex flow immunoassay on the Piper platform. us Ana Espinoza APRN, CNP IMMUNOLOGY ORDERABL ES Final Result [facility] [address] [place] [address], [place] * QUANTIFERON-TB GOLD PLUS (01/15/2022 9:00 AM JACKET CHANGER) NIL CONTROL 0.05 <8.01 IU/mL 01/17/2022 1:34 PM JACKET CHANGER [facility] TB ANTIGEN 1 0.03 <0.35 IU/mL 01/17/2022 1:34 PM JACKET CHANGER [facility] TB ANTIGEN 2 0.01 <0.35 IU/mL 01/17/2022 1:34 PM JACKET CHANGER [facility] MITOGEN CONTROL 8.21 >0.49 IU/mL 01/18/20 22 1:34 PM JACKET CHANGER [facility] INTEPRETATION TB NEGATIVE NEGATIVE, NEGATIVE (TB antigen response less than 25% of internal negative control value) 01/17/2022 1:34 PM JACKET CHANGER [facility] Comment:No immune response t o Mycobacterium tuberculosis antigens was noted. M. tuberculosis infection unlikely. Blood No Phlebotomy Charged / Unknown 01/15/2022 9:00 AM JACKET CHANGER 01/15/2022 1:08 PM JACKET CHANGER Narrative [facility] - 01/17/2022 1:34 PM JACKET CHANGER A POSITIVE QUANTIFERON-TB GOLD PLUS RESULT SHOULD [...] immunocompromised individuals. https://www.cdc.gov/tb/publications/guidelines/testing.htm us Ana Espinoza APRN, LIME KILN TENDER IMMUNOLOGY ORDERABL ES Final Result Performing Organization Address [facility] Co de Phone Number [facility] [address] [place] [address], [place] * HEPATITIS B SURFACE ANTIBODY (HBSAB) (01/15/2022 9:00 AM JACKET CHANGER) HEPATITIS B SURFACE ANTIBODY 47.68 mIU/mL [facility] ARCH [id number] B 01/15/2022 11:22 PM JACKET CHANGER [facility] Comment: Detected Range: >12.00 Individual is considered immune to HBV infection Blood No Phlebotomy Charged / Unknown 01/15/2022 9:00 AM JACKET CHANGER 01/15/2022 1:08 PM JACKET CHANGER us Ana Espinoza VOUCHER EXAMINER, LIME KILN TENDER CHEMISTRY ORDERABLE S Final Result Performing Organization Address [facility] Co de Phone Number [facility] [address] [place] [address], documented in this encounter Visit Diagnoses Diagnosis Encounter for pre-employment examination Health examination of defined subpopulation documented in this encounter Care Teams Training Professional Relationship Specialty Start Date End Date Provider, None [place] PCP - General 01/15/22 08/03/22 Mario Hernandez MD [address] [place], [place] [id number] PCP - General Family Medicine 08/04/22 documented as of this encounter
--- OUTSIDE RECORDS SUMMARY | 2025-09-15 16:18 | XMS_ITS | Clinical Summary ---
Author Organization [facility] [address] [place] [address] Care Team Providers Care Enrichment Teacher Name Role Phone Micki Pride MD Primary Care Provider [phone] Allergies Active Allergy Reactions Criticality Noted Date [...] Team Description 08/28/2025 4:15 PM CDT Telemedicine [facility] [address] [place] [address] [place] [phone] Yobany Mehta MD Moderate episode of recurrent major depressive disorder (HCC) (Primary Dx); Panic disorder; JOSEPHINE (generalized anxiety disorder); Attention deficit hyperactivity disorder (ADHD), combined type 08/20/2025 Orders Only [facility] Medical [facility] Cardiology [address] [place] [address] [place] [phone] Jeane Frederick NP 08/19/[address] [address] Yobany Mehta MD 08/16/2025 1:30 PM CDT Office Visit [facility] Cardiology at [address] [place] [address] Med Solano MD Other chest pain (Primary Dx) 08/15/2025 Telephone [facility] Cardiology [address] [place] [address] [place] [phone] Jenniffer Perdomo MA Medical Records Request 08/05/2025 Orders Only [facility] Cardiology [address] [place] [address] [place] [phone] Med Solano MD 08/02/2025 Orders Only [facility] Health Information Management [address] [place] [address] Msasiel Hunt NP 07/25/2025 1:15 PM CDT Telemedicine [address] [phone] Yobany Mehta MD Moderate episode of recurrent major depressive disorder (HCC) (Primary Dx); Panic disorder; JOSEPHINE (generalized anxiety disorder); Attention deficit hyperactivity disorder (ADHD), combined type 07/22/2025 Orders Only [facility] Health Information Management [address] [place] [address] Scanning, Provider 07/11/2025 4:00 PM CDT Telemedicine [address] [address] Yobany Mehta MD Attention deficit hyperactivity disorder (ADHD), combined type (Primary Dx); JOSEPHINE (generalized anxiety disorder); Panic disorder 06/24/[address] [address] Yobany Mehta MD Med Refill [...] file Legal Sex Female 3:14 AM MANAGER EMPLOYEE 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 Gender Identity Female 03/30/2023 10:16 AM CDT Sexual Orientation Not on file Last Filed Vital Signs Vital Sign Reading Time Taken Comments Blood Pressure 122/80 08/16/2025 1:22 PM CDT Pulse 68 08/16/2025 1:22 PM CDT Temperature 36.5 C (97.7 F) 11/01/2023 2:17 PM MANAGER EMPLOYEE RELATIONS Respiratory Rate 18 11/01/2023 2:17 PM MANAGER EMPLOYEE RELATIONS Oxygen Saturation 98% 08/16/2025 1:22 PM CDT [...] Region Laterality Modality Other us Massiel Hunt REFRIGERATOR CAR ICER Edited Resu lt - Final * Cardiology Document Scan (08/02/2025) Anatomical Region Laterality Modality Other us Provider Scanning CV CARDIAC SERVICES PROCEDURES Final Result * SCAN - LABS (07/22/2025) us Provider Scanning Final Result from Last 3 Months Insurance [facility] [place] [place] Care Teams Enrichment Teacher Relationship Specialty Start Date End Date Micki Pride MD PCP - General 02/28/14
--- OUTSIDE RECORDS SUMMARY | 2025-09-15 16:18 | XMS_ITS | Encounter Summary ---
Author Organization [facility] Healthcare Address [address] [place] [address] Care Team Providers Care Software Reverse Engineer Name Role Phone Micki Pride MD Primary Care Provider [phone] Encounter Details Date Type Department Care Team (Late st Contact Info) Description 07/22/2025 Orders Only [facility] Health Information Management [address] [place] [address] Scanning, Provider Social History Tobacco Use Types Packs/Day Years Used Date Smoking Tobacco: Never Assessed Comments Unknown Sex and Gender Information Value Date Recorded Sex Assigned at Not on file Legal Sex Female 3:14 AM MANDREL MAKER Gender Identity Female 03/30/2023 10:16 AM [...] on filedocumented in this encounter Care Teams Software Reverse Engineer Relationship Specialty Start Date End Date Micki Pride MD PCP - General 02/28/14 documented as of this encounter
--- OUTSIDE RECORDS SUMMARY | 2025-09-15 16:18 | XMS_ITS | Encounter Summary ---
Author Organization [facility] Healthcare Address [address] [place] [address] Care Team Providers Care Ui Ux Engineer Name Role Phone Micki Pride MD Primary Care Provider [phone] Encounter Details Date Type Department Care Team (Late st Contact Info) Description 08/02/2025 Orders Only [facility] Health Information Management [address] [place] [address] Massiel Hunt NP [address] [place] [address] [place] [address] Social History Tobacco Use Types Packs/Day Years Used Date Smoking Tobacco: Never Assessed Comments Unknown Sex and Gender Information Value Date Recorded Sex Assigned at Not on file Legal Sex Female 3:14 AM 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
--- OUTSIDE RECORDS SUMMARY | 2025-09-15 16:19 | XMS_ITS | Clinical Summary ---
Author Organization [facility] Address [address], [address] [address] Phone Care Team Providers Care Roofer Helper Name Role Phone Mario Hernandez MD Primary Care Provider [phone] Social History Tobacco Use Types Packs/Day Years [...] age to complete this topic Care Teams Roofer Helper Relationship Specialty Start Date End Date Mario Heranndez MD [address] [address] PCP - General Family Medicine 08/04/22
[2025-09-15] MEDS: GABAPENTIN 300 MG CAPSULE PO (16:23)
[2025-09-15 16:36] LABS: Hematocrit 36.5 % (37.0-47.0); Hemoglobin 11.9 g/dL (12.0-15.0); Immature Granulocyte Percent A 0.1 % (0-0.5); Lymphocytes Absolute Auto 2.82 K/mm3 (0.9-3.2); Mean Corpuscular HGB Conc 32.6 g/dl (32-36); Mean Corpuscular Hemoglobin 27.9 pg (26-34); Mean Corpuscular Volume 85.7 fl (80-100); Nucleated Red Blood Cells Absolute Auto 0.000 K/mm3 (0.0-0.012); Nucleated Red Blood Cells Perc 0.0 % (0.0-0.2); Platelet Count Result 231 k/mm3 (150-375); Red Blood Count 4.26 M/mm3 (4.2-5.4); White Blood Count 6.8 K/mm3 (4.5-10.0)
[2025-09-15 16:48] LABS: Add Urine Microscopic? NO; Appearance Urine Clear (Clear); Glucose Urine UA Negative (Negative); Leukocyte Esterase Ur Negative LEU/UL (Negative); Nitrate Urine Negative (Negative); Specific Grav Ur 1.013 (1.001-1.035)
[2025-09-15 16:53] LABS: Alanine Aminotransferase 13 U/L (6-35); Albumin Level 4.2 g/dL (3.5-5.1); Alkaline Phosphatase 55 U/L (38-126); Anion Gap 6 mmol/L (4-12); Aspartate Amino Transferase 20 U/L (14-36); Bilirubin,Total 0.2 mg/dL (0.2-1.3); Blood Urea Nitrogen 16 mg/dL (7-17); CRP < 0.5 mg/dL (<1.0); Calcium 8.1 mg/dL (8.4-10.2); Carbon Dioxide 25 mmol/L (22-30); Chloride 103 mmol/L (98-107); Estimated CRCL calculation 65 ml/min; Estimated Glomerular Filt Rate > 60; Glucose 88 mg/dL (65-110); Potassium 3.9 mmol/L (3.4-5.0); Sodium 134 mmol/L (137-145); Total Protein 7.0 g/dL (6.3-8.2)
[2025-09-15] MEDS: KETOROLAC 30 MG/ML VIAL (*BKC) IV PUSH (17:20)
[2025-09-15 17:22] VITALS: BP 138/102; PULSE 80; RESP 17; O2SAT 99
[2025-09-15 17:57] LABS: Vitamin B12 733.0 pg/mL (239-931)
[2025-09-15] MEDS: MORPHINE SULFATE (*CRX) 4 MG/ML INJ IV PUSH (18:02)
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
[2025-09-15 19:15] VITALS: BP 146/102; PULSE 90; RESP 20; O2SAT 100
== END 2025-09-15 19:20 | disposition home or self-care (01) ==
PROVIDERS: Emergency Provider Emergency Medicine
DX: R20.2 Paresthesia of skin (principal); K21.9 Gastro-esophageal reflux disease without esophagitis; M19.90 Unspecified osteoarthritis, unspecified site; F41.9 Anxiety disorder, unspecified; Z98.82 Breast implant status; Z87.11 Personal history of peptic ulcer disease; Z79.899 Other long term (current) drug therapy
CPT/HCPCS: 36415; 80053; 81003; 82607; 82746; 85025; 85652; 86140; 86658; 96374; 96375; 99284; A9270; J1885; J2270

== ENCOUNTER 2025-09-18 09:56 | Emergency (ER) | payer BC, SELFPAY ==
[2025-09-18 10:00] VITALS: BP 155/107; PULSE 80; RESP 18; TEMP 37.5; O2SAT 99
--- NOTE | 2025-09-18 10:25 | ED_ITS ---
HPI - General Adult General Chief complaint: Unspecified Stated complaint: aches /pains all over Time Seen by Provider: 09/18/25 10:30 Mode of arrival: ambulatory Limitations: no limitations History of Present Illness HPI narrative: 39-year-old female presents with concern for chronic pain. She was seen in the emergency room 3 days ago for generalized pain and joint pain. She was given gabapentin, she followed her primary care doctor since then and they are working on a referral to Rheumatology. She reports the gabapentin has helped but not relieved her pain. She came to this building to try to talk with the rheumatology office in the building, they are not in today so she decided to come here. MD complaint: Pain Related Data Home Medications ?Medication ?Instructions ?Recorded ?Confirmed ?Last Taken ?Type alprazolam 1 mg tablet 1 mg PO DAILY PRN anxiety 09/18/25 08/01/25 17:00 History zolpidem 10 mg tablet 10 mg PO QHS 07/07/2107/31/25 History escitalopram oxalate 20 mg tablet 20 mg PO HS 05/21/25 09/18/25 07/31/25 History Allergies Allergy/AdvReac Type Severity Reaction Status Date / Time cat dander Allergy Mild Watery Eye Verified 09/18/25 10:28 house dust mite Allergy Mild Watery Eye Verified 09/18/25 10:28 oak Allergy Mild Unknown Verified 09/18/25 10:28 NSAIDS (Non-Steroidal AdvReac Severe Abdominal Verified 09/16/25 12:31 Anti-Inflamma Pain metoclopramide (From Reglan) AdvReac Unknown Anxiety Verified 09/18/25 10:28 Review of Systems Review of Systems: MUSCULOSKELETAL: Reports generalized bilateral joint pain PSYCHIATRIC: Reports anxiety All systems reviewed & are unremarkable except as noted in HPI and below PMFSH Past Medical History Medical History GERD (gastroesophageal reflux disease) Stomach ulcer Migraine Arthritis Anxiety Allergies Acute blood loss anemia Coffee ground emesis Peptic ulcer disease Screening for thyroid disorder Bilateral hand pain Neuralgia Well woman exam Back skin lesion Thoracic back pain Screening for lipoid disorders Diarrhea Surgical History Surgical History H/O breast implant Family History Family History Father No problems noted. Mother No problems noted. Grandparent Alcoholism Esophageal cancer Depression Diabetes mellitus Heart disease Hypertension Other Malignant neoplasm of prostate Social History Social History Second hand tobacco smoke exposure: No Alcohol intake: current Drinks per week: 2 Alcohol use details: socially Substance use: never Substance use type: does not use Do You Feel Safe in your Home?: Yes Lack of Transportation: No Lack of Food: Never True Current Housing: I Have Housing Concerned About Future Housing: No Difficulty Paying Gas/Electric Bills: No Difficulty Paying for Meds: No Currently Unemployed: No Education: Master's Degree or Higher Difficulty w/ Childcare or Family Care: No Living arrangements: with family Occupation/Education: occupation 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 There is no relevant family history pertinent to the presenting complaint Exam Narrative: GENERAL: Well-appearing, well-nourished, and in no acute distress. HEAD: Normocephalic, atraumatic. EYES: PERRLA ENT: Nares clear. Mucous membranes moist. NECK: Supple. CHEST: No respiratory distress. Speaks in full sentences. HEART: Regular rate and rhythm. SKIN: Warm, dry, no visible rash. NEURO: Alert and oriented x3. PSYCH: Tearful Course Course Emergency Course: Anticipatory guidance given. Patient agrees to follow-up as directed and is aware of reasons to seek care at the emergency department. Portions of this record may have been created with voice recognition software Level of Care: Express Care Visit Vital Signs Vital signs: Vital Signs Temperature 99.5 F 09/18/25 10:00 Pulse Rate 80 09/18/25 10:00 Respiratory Rate 18 09/18/25 10:00 Blood Pressure 155/107 H 09/18/25 10:00 Pulse Oximetry 99 09/18/25 10:00 Oxygen Delivery Room Air 09/18/25 10:00 Temperature 99.5 F 09/18/25 10:00 Pulse Rate 80 09/18/25 10:00 Respiratory Rate 18 09/18/25 10:00 Blood Pressure 155/107 H 09/18/25 10:00 Pulse Oximetry 99 09/18/25 10:00 Oxygen Delivery Room Air 09/18/25 10:00 Reviewed. Medical Decision Making MDM Narrative Medical decision making narrative: The patient was evaluated by myself in the [facility] Available medical records were reviewed at this time. ? Exam findings show no acute concerns or changes; patient is non-toxic appearing and is in no distress. Patient is appropriate for outpatient treatment and follow-up. ? My discussed with patient are limited diagnostic capability at the [facility] for the symptoms she is having, we do not have Rheumatology available for referral chronic care nurse. I advised patient to follow-up with her primary again and go to the emergency room if her symptoms persist or worsen. Vital Signs Vital Signs: Vital Signs Temperature 99.5 F 09/18/25 10:00 Pulse Rate 80 09/18/25 10:00 Respiratory Rate 18 09/18/25 10:00 Blood Pressure 155/107 H 09/18/25 10:00 Pulse Oximetry 99 09/18/25 10:00 Oxygen Delivery Room Air 09/18/25 10:00 Temperature 99.5 F 09/18/25 10:00 Pulse Rate 80 09/18/25 10:00 Respiratory Rate 18 09/18/25 10:00 Blood Pressure 155/107 H 09/18/25 10:00 Pulse Oximetry 99 09/18/25 10:00 Oxygen Delivery Room Air 09/18/25 10:00 Critical Care Time Critical Care Time Critical Care Time: No Discharge Plan Discharge Clinical Impression: Chronic pain Patient Disposition: Home Condition: Stable Instructions: Chronic Pain (ED) Additional Instructions: 1) Please follow-up with your primary care doctor in the next 1-2 days. 2) If you have any worsening of symptoms or any other urgent concerns please go to the ER. 3) Please take medications as prescribed and continue taking your home medications as usual. 4) Please read and follow information included in discharge instructions. Patient Language: Italian Prescriptions: New prednisone 10 mg tablet 10 mg PO DAILY 5 Days Qty: 5 0RF No Action zolpidem 10 mg tablet 10 mg PO QHS alprazolam 1 mg tablet 1 mg PO DAILY PRN (Reason: anxiety) escitalopram oxalate 20 mg tablet 20 mg PO HS nitroglycerin 0.4 mg tablet, sublingual 0.4 mg sublingual ONCE Qty: 14 2RF Rx Instructions: as a single dose; administer 5-10 minutes before situation known to precipitate spasm/pain Nurtec ODT 75 mg tablet,disintegrating 75 mg PO ONCE PRN (Reason: migraine headache) Qty: 16 2RF Rx Instructions: as a single dose. Can repeat dose in 24 hrs if symptoms persist hydrocodone-acetaminophen 5-325 mg tablet 1 tablet PO Q8H PRN (Reason: pain) Qty: 7 0RF gabapentin 300 mg capsule 300 mg PO TID Qty: 90 0RF sucralfate 1 gram tablet 1 g PO DAILY Qty: 30 0RF famotidine 20 mg tablet 20 mg PO DAILY Qty: 30 0RF ondansetron 4 mg tablet,disintegrating 4 mg PO Q8H PRN (Reason: nausea and vomiting) Qty: 14 0RF pantoprazole [Protonix] 40 mg tablet,delayed release (DR/EC) 40 mg PO BID Qty: 60 2RF Follow-up/Referrals: Emeli Aleman APRN [Primary Care Provider, [facility][1]] Time of Disposition: 10:39
--- OUTSIDE RECORDS SUMMARY | 2025-09-19 09:44 | XMS_ITS | Encounter Summary ---
Author Organization [facility] Healthcare Address [address] [place] [address] Care Team Providers Care Manager Program Management Name Role Phone Micki Pride MD Primary Care Provider [phone] Encounter Details Date Type Department Care Team (Late st Contact Info) Description 08/02/2025 Orders Only [facility] Health Information Management [address] [place] [id number] Massiel Hunt NP [address] [place] [address] [place] [address] Social History Tobacco Use Types Packs/Day Years Used Date Smoking Tobacco: Never Assessed Comments Unknown Sex and Gender Information Value Date Recorded Sex Assigned at Not on file Legal Sex Female 3:14 AM MED ASST Gender Identity Female 03/30/2023 10:16 AM CDT [...] on filedocumented in this encounter Care Teams Manager Program Management Relationship Specialty Start Date End Date Micki Pride MD PCP - General 02/28/14 documented as of this encounter
--- OUTSIDE RECORDS SUMMARY | 2025-09-19 09:44 | XMS_ITS | Clinical Summary ---
Author Organization [facility] Address [address], [address] [address] Phone Care Team Providers Care Centrifugal Station Operator Name Role Phone Mario Hernandez MD Primary Care Provider [phone] Social History Tobacco Use Types Packs/Day Years [...] age to complete this topic Care Teams Centrifugal Station Operator Relationship Specialty Start Date End Date Mario Hernandez MD [address] [address] PCP - General Family Medicine 08/04/22
--- OUTSIDE RECORDS SUMMARY | 2025-09-19 09:44 | XMS_ITS | Encounter Summary ---
Author Organization [facility] Address [address] [place] [address] Phone Care Team Providers Care Job Putter Up And Ticket Preparer Name Role Phone Provider, None Primary Care Provider aMrio Perez MD Primary Care Provider [phone] Encounter Details Date Type Department Care Team (Late st Contact Info) Description 01/15/2022 Lab Requisition [facility] Services [address] [place] [address] Ana Espinoza, HYDRODYNAMICS PROFESSOR, GREEN HOUSE MANAGER [address] [place] [address] Encounter for pre-employment examination Social [...] COVID-19? No / Unsure 01/15/2022 8:51 AM PATTERN LAYOUT WORKER documented as of this encounter Plan of Treatment Not on file documented as of this encounter Procedures Procedure Name Priority Date/Time Associated Diagnosis Comments QUANTIFERON-TB GOLD PLUS Routine 01/15/2022 9:00 AM PATTERN LAYOUT WORKER Encounter for pre-employment examination MMRV PANEL Routine 01/15/2022 9:00 AM PATTERN LAYOUT WORKER Encounter for pre-employment examination MUMPS IGG Routine 01/15/2022 9:00 AM PATTERN LAYOUT WORKER Encounter for pre-employment examination HERPES ZOSTER (VARICELLA) IGG Routine 01/15/2022 9:00 AM PATTERN LAYOUT WORKER Encounter for pre-employment examination RUBEOLA (MEASLES) IGG Routine 01/15/2022 9:00 AM PATTERN LAYOUT WORKER Encounter for pre-employment examination RUBELLA IMMUNITY IGG Routine 01/15/2022 9:00 AM PATTERN LAYOUT WORKER Encounter for pre-employment examination HEPATITIS B SURFACE ANTIBODY (HBSAB) Routine 01/15/2022 9:00 AM PATTERN LAYOUT WORKER Encounter for pre-employment examination documented in this encounter Results * HERPES ZOSTER (VARICELLA) IGG (01/15/2022 9:00 AM PATTERN LAYOUT WORKER) VARICELLA ZOSTER IGG 4.6 >=1.1 AI 01/15/2022 11:30 PM PATTERN LAYOUT WORKER [facility] Blood No Phlebotomy Charged / Unknown 01/15/2022 9:00 AM PATTERN LAYOUT WORKER 01/15/2022 1:08 PM PATTERN LAYOUT WORKER Narrative [facility] - 01/15/2022 11:30 PM PATTERN LAYOUT WORKER <= 0.8 Negative. No detectable VZV IgG antibody. 0.9 - 1.0 Equivocal >=1.1 Positive Antibody testing was performed by multiplex flow immunoassay on the FastConnect platform. us Ana L Behrenjanuary HYDRODYNAMICS PROFESSOR, GREEN HOUSE MANAGER IMMUNOLOGY ORDERABL ES Final Result [facility] [address] [place] [address], * (ABNORMAL) RUBEOLA (MEASLES) IGG (01/15/2022 9:00 AM PATTERN LAYOUT WORKER) MEASLES AB IGG 0.7(L) >=1.1 AI 01/15/2022 11:30 PM PATTERN LAYOUT WORKER [facility] Blood No Phlebotomy Charged / Unknown 01/15/2022 9:00 AM PATTERN LAYOUT WORKER 01/15/2022 1:08 PM PATTERN LAYOUT WORKER Narrative [facility] - 01/15/2022 11:30 PM PATTERN LAYOUT WORKER <= 0.8 Negative. No detectable Measles IgG antibody. 0.9 - 1.0 Equivocal >=1.1 Positive Antibody testing was performed by multiplex flow immunoassay on the BioPlex platform. Ana Rowdy Behjoe HYDRODYNAMICS PROFESSOR, GREEN HOUSE MANAGER IMMUNOLOGY ORDERABL ES Final Result Performing Organization Address City/[facility]/ZIP Co de Phone Number [facility] [address] [place] [address], [place] * RUBELLA IMMUNITY IGG (01/15/2022 9:00 AM PATTERN LAYOUT WORKER) RUBELLA IMMUNITY Immune Immune, Invalid 01/15/2022 11:30 PM PATTERN LAYOUT WORKER [facility] Blood No Phlebotomy Charged / Unknown 01/15/2022 9:00 AM PATTERN LAYOUT WORKER 01/15/2022 1:08 PM PATTERN LAYOUT WORKER Narrative [facility] - 01/15/2022 11:30 PM PATTERN LAYOUT WORKER Antibody testing was performed by multiplex flow immunoassay on the BioPlex platform. us GarzonAna L Behrends HYDRODYNAMICS PROFESSOR, GREEN HOUSE MANAGER CHEMISTRY ORDERABLE S Final Result Performing Organization Address City/[facility] Co de Phone Number [facility] [address] [place] [address], [place] * MUMPS IGG (01/15/2022 9:00 AM PATTERN LAYOUT WORKER) Mumps Ab IgG 1.2 >=1.1 AI 01/15/2022 11:30 PM PATTERN LAYOUT WORKER [facility] Blood No Phlebotomy Charged / Unknown 01/15/2022 9:00 AM PATTERN LAYOUT WORKER 01/15/2022 1:08 PM PATTERN LAYOUT WORKER Narrative [facility] - 01/15/2022 11:30 PM PATTERN LAYOUT WORKER <= 0.8 Negative. No detectable Mumps IgG antibody. 0.9 - 1.0 Equivocal >=1.1 Positive Antibody testing was performed by multiplex flow immunoassay on the FastConnect platform. us Ana Espinoza APRN, CNP IMMUNOLOGY ORDERABL ES Final Result [facility] [address] [place] [address], [place] * QUANTIFERON-TB GOLD PLUS (01/15/2022 9:00 AM PATTERN LAYOUT WORKER) NIL CONTROL 0.05 <8.01 IU/mL 01/17/2022 1:34 PM PATTERN LAYOUT WORKER [facility] TB ANTIGEN 1 0.03 <0.35 IU/mL 01/17/2022 1:34 PM PATTERN LAYOUT WORKER [facility] TB ANTIGEN 2 0.01 <0.35 IU/mL 01/17/2022 1:34 PM PATTERN LAYOUT WORKER [facility] MITOGEN CONTROL 8.21 >0.49 IU/mL 01/18/20 22 1:34 PM PATTERN LAYOUT WORKER [facility] INTEPRETATION TB NEGATIVE NEGATIVE, NEGATIVE (TB antigen response less than 25% of internal negative control value) 01/17/2022 1:34 PM PATTERN LAYOUT WORKER [facility] Comment:No immune response t o Mycobacterium tuberculosis antigens was noted. M. tuberculosis infection unlikely. Blood No Phlebotomy Charged / Unknown 01/15/2022 9:00 AM PATTERN LAYOUT WORKER 01/15/2022 1:08 PM PATTERN LAYOUT WORKER Narrative [facility] - 01/17/2022 1:34 PM PATTERN LAYOUT WORKER A POSITIVE QUANTIFERON-TB GOLD PLUS RESULT SHOULD [...] immunocompromised individuals. https://www.cdc.gov/tb/publications/guidelines/testing.htm us Ana Espinoza APRN, GREEN HOUSE MANAGER IMMUNOLOGY ORDERABL ES Final Result Performing Organization Address City/[facility] Co de Phone Number [facility] [address] [place] [address], [place] * HEPATITIS B SURFACE ANTIBODY (HBSAB) (01/15/2022 9:00 AM PATTERN LAYOUT WORKER) HEPATITIS B SURFACE ANTIBODY 47.68 mIU/mL [facility] ARCH [id number] B 01/15/2022 11:22 PM PATTERN LAYOUT WORKER [facility] Comment: Detected Range: >12.00 Individual is considered immune to HBV infection Blood No Phlebotomy Charged / Unknown 01/15/2022 9:00 AM PATTERN LAYOUT WORKER 01/15/2022 1:08 PM PATTERN LAYOUT WORKER us Ana Espinoza HYDRODYNAMICS PROFESSOR, GREEN HOUSE MANAGER CHEMISTRY ORDERABLE S Final Result Performing Organization Address City/[facility] Co de Phone Number [facility] [address] [place] [address], [place] documented in this encounter Visit Diagnoses Diagnosis Encounter for pre-employment examination Health examination of defined subpopulation documented in this encounter Care Teams Job Putter Up And Ticket Preparer Relationship Specialty Start Date End Date Provider, None [place] PCP - General 01/15/22 08/03/22 Mario Hernandez MD [address] [address] PCP - General Family Medicine 08/04/22 documented as of this encounter
--- OUTSIDE RECORDS SUMMARY | 2025-09-19 09:44 | XMS_ITS | Patient Health Record ---
Author Organization [facility] As Generaytor [facility] Address [address] [place] [address] Care Team Providers Care Naturalization Examiner Name Role Phone Jozef Thomas Unavailable [phone] Reason For Referral No Information Medications Medication [...] Insured Coverage Start Date Coverage End Date [facility] [address] [place] [address] [id number] ZHANG ANGUIANO Spouse - patient is the spouse of the insured
--- OUTSIDE RECORDS SUMMARY | 2025-09-19 09:44 | XMS_ITS | Encounter Summary ---
Author Organization [facility] Healthcare Address [address] [place] [address] Care Team Providers Care Mud Car Worker Name Role Phone Micki Pride MD Primary Care Provider [phone] Encounter Details Date Type Department Care Team (Late st Contact Info) Description 07/22/2025 Orders Only [facility] Health Information Management [address] [place] [address] Scanning, Provider Social History Tobacco Use Types Packs/Day Years Used Date Smoking Tobacco: Never Assessed Comments Unknown Sex and Gender Information Value Date Recorded Sex Assigned at Not on file Legal Sex Female 3:14 AM GLOVE FACTORY SEWER Gender Identity Female 03/30/2023 10:16 AM CDT [...] on filedocumented in this encounter Care Teams Mud Car Worker Relationship Specialty Start Date End Date Micki Pride MD PCP - General 02/28/14 documented as of this encounter
--- OUTSIDE RECORDS SUMMARY | 2025-09-19 09:44 | XMS_ITS | Clinical Summary ---
Author Organization [facility] Physician Office Building [address] [place] [phone] Care Team Providers Care Diploma Medical Assistant Name Role Phone Micki Pride MD Primary Care Provider [phone] Allergies Active Allergy Reactions Criticality Noted Date [...] Team Description 08/28/2025 4:[address] [facility] [address] [place] [address] [place] [phone] Yobany Mehta MD Moderate episode of recurrent major depressive disorder (HCC) (Primary Dx); Panic disorder; JOSEPHINE (generalized anxiety disorder); Attention deficit hyperactivity disorder (ADHD), combined type 08/20/2025 Orders Only [facility] Medical [facility] Cardiology [address] [place] [address] [place] [phone] Jeane Frederick NP 08/19/[address] [phone] Yobany Mehta MD 08/16/2025 1:30 PM CDT Office Visit [facility] Cardiology at [address] [place] [address] Med Solano MD Other chest pain (Primary Dx) 08/15/2025 Telephone [facility] Cardiology [address] [place] [address] [place] [phone] Jenniffer Perdomo MA Medical Records Request 08/05/2025 Orders Only [facility] Cardiology [address] [place] [address] [place] [phone] Med Solano MD 08/02/2025 Orders Only [facility] Health Information Management [address] [place] [address] Massiel Hunt NP 07/25/2025 1:15 PM CDT Telemedicine [address] [phone] Yobany Mehta MD Moderate episode of recurrent major depressive disorder (HCC) (Primary Dx); Panic disorder; JOSEPHINE (generalized anxiety disorder); Attention deficit hyperactivity disorder (ADHD), combined type 07/22/2025 Orders Only [facility] Health Information Management [address] [place] [address] Scanning, Provider 07/11/2025 4:00 PM CDT Telemedicine [address] [phone] Yobany Mehta MD Attention deficit hyperactivity disorder (ADHD), combined type (Primary Dx); JOSEPHINE (generalized anxiety disorder); Panic disorder 06/24/[address] [phone] Yobany Mehta MD Med Refill (Early fill request Ambien/Called in Hydroxyzine ) from Last 3 Months Immunizations Immunization Administration Dates Next Due Influenza, Quadrivalent, Spl it, Preservative Free, Intramuscular 10/26/2022 Tdap 06/27/2017 Surgical History Surgery Date Site/Laterality Comments COSMETIC [...] on file Legal Sex Female 3:14 AM WHEEL TUNER Gender Identity Female 03/30/2023 10:16 AM CDT Sexual Orientation Not on file Last Filed Vital Signs Vital Sign Reading Time Taken Comments Blood Pressure 122/80 08/16/2025 1:22 PM CDT Pulse 68 08/16/2025 1:22 PM CDT Temperature 36.5 C (97.7 F) 11/01/2023 2:17 PM WHEEL TUNER Respiratory Rate 18 11/01/2023 2:17 PM WHEEL TUNER Oxygen Saturation 98% 08/16/2025 1:22 PM CDT [...] Region Laterality Modality Other us Massiel Hunt NP Edited Resu lt - Final * Cardiology Document Scan (08/02/2025) Anatomical Region Laterality Modality Other Provider Scanning [facility] CARDIAC SERVICES PROCEDURES Final Result * SCAN - LABS (07/22/2025) Provider Scanning Final Result from Last 3 Months Insurance CHOICE PRF PPO PA CHOICE PRF PPO PA Care Teams Diploma Medical Assistant Relationship Specialty Start Date End Date Micki Pride MD PCP - General 02/28/14
== END 2025-09-18 10:42 | disposition home or self-care (01) ==
PROVIDERS: Emergency Provider Nurse Practitioner
DX: G89.29 Other chronic pain (principal); K21.9 Gastro-esophageal reflux disease without esophagitis; M19.90 Unspecified osteoarthritis, unspecified site
CPT/HCPCS: 99213; G0463

== ENCOUNTER 2025-09-20 13:25 | Emergency (ER) | payer BC, SELFPAY ==
--- OUTSIDE RECORDS SUMMARY | 2025-09-20 13:29 | XMS_ITS | Clinical Summary ---
Author Organization [facility] Physician Office Building [address] [place] [phone] Care Team Providers Care Bottling Machine Operator Name Role Phone Micki Pride MD Primary Care Provider [phone] Allergies Active Allergy Reactions Criticality Noted Date [...] Team Description 08/28/2025 4:15 PM CDT Telemedicine [facility] [address] [place] [address] [place] [phone] Yobany Mehta MD Moderate episode of recurrent major depressive disorder (HCC) (Primary Dx); Panic disorder; JOSEPHINE (generalized anxiety disorder); Attention deficit hyperactivity disorder (ADHD), combined type 08/20/[address] [facility] Medical [facility] Cardiology [address] [place] [address] [place] [phone] Jeane Frederick NP 08/19/[address] [phone] Yobany Mehta MD 08/16/2025 1:30 PM CDT Office Visit [facility] Cardiology at [address] [place] [address] Med Solano MD Other chest pain (Primary Dx) 08/15/2025 Telephone [facility] Cardiology [address] [place] [address] [place] [phone] Jenniffer Perdomo MA Medical Records Request 08/05/2025 Orders Only [facility] Cardiology [address] [place] [address] [place] [phone] Med Solano MD 08/02/2025 Orders Only [facility] Health Information Management [address] [place] [address] Massiel Hunt NP 07/25/2025 1:15 PM CDT Telemedicine [address] [phone] Yobany Mehta MD Moderate episode of recurrent major depressive disorder (HCC) (Primary Dx); Panic disorder; JOSEPHINE (generalized anxiety disorder); Attention deficit hyperactivity disorder (ADHD), combined type 07/22/2025 Orders Only [facility] Health Information Management [address] [place] [address] Scanning, Provider 07/11/2025 4:00 PM CDT Telemedicine [address] [phone] Yobany Mehta MD Attention deficit hyperactivity disorder (ADHD), combined type (Primary Dx); JOSEPHINE (generalized anxiety disorder); Panic disorder 06/24/[address] [phone] Yobany Mehta MD Med Refill [...] on file Legal Sex Female 3:14 AM IT CONSULTANT Gender Identity Female 03/30/2023 10:16 AM CDT Sexual Orientation Not on file Last Filed Vital Signs Vital Sign Reading Time Taken Comments Blood Pressure 122/80 08/16/2025 1:22 PM CDT Pulse 68 08/16/2025 1:22 PM CDT Temperature 36.5 C (97.7 F) 11/01/2023 2:17 PM IT CONSULTANT Respiratory Rate 18 11/01/2023 2:17 PM IT CONSULTANT Oxygen Saturation 98% 08/16/2025 1:22 PM CDT [...] Last 3 Months Insurance CHOICE PRF PPO MD CHOICE PRF PPO MD Care Teams Bottling Machine Operator Relationship Specialty Start Date End Date Micki Pride MD PCP - General 02/28/14
--- OUTSIDE RECORDS SUMMARY | 2025-09-20 13:29 | XMS_ITS | Encounter Summary ---
Author Organization [facility] Healthcare Address [address] [place] [address] Care Team Providers Care Dean For Student Affairs Name Role Phone Micki Pride MD Primary Care Provider Encounter Details Date Type Department Care Team (Late st Contact Info) Description 07/22/2025 Orders Only [facility] Health Information Management [address] [place] [address] Scanning, Provider Social History Tobacco Use Types Packs/Day Years Used Date Smoking Tobacco: Never Assessed Comments Unknown Sex and Gender Information Value Date Recorded Sex Assigned at Not on file Legal Sex Female 3:14 AM DIVINITY PROFESSOR Gender Identity Female 03/30/2023 10:16 AM CDT [...] on filedocumented in this encounter Care Teams Dean For Student Affairs Relationship Specialty Start Date End Date Micki Pride MD PCP - General 02/28/14 documented as of this encounter
--- OUTSIDE RECORDS SUMMARY | 2025-09-20 13:29 | XMS_ITS | Clinical Summary ---
Author Organization [facility] Address [address], [address] [address] Phone Care Team Providers Care Business Continuity Manager Name Role Phone Mario Hernandez MD Primary Care Provider [phone] Social History Tobacco Use Types Packs/Day Years [...] age to complete this topic Care Teams Business Continuity Manager Relationship Specialty Start Date End Date Mario Hernandez MD [address] [place] [address] PCP - General Family Medicine 08/04/22
--- OUTSIDE RECORDS SUMMARY | 2025-09-20 13:29 | XMS_ITS | Encounter Summary ---
Author Organization [facility] Address [address] [place] [address] Phone Care Team Providers Care Line Production Cook Name Role Phone Provider, None Primary Care Provider Mario Perez MD Primary Care Provider [phone] Encounter Details Date Type Department Care Team (Late st Contact Info) Description 01/15/2022 Lab Requisition [facility] Laboratory Services [address] [place] [address] Ana Espinoza, CRUDE TESTER, PATTERN CHANGER [address] [place] [address] Encounter for pre-employment examination Social [...] COVID-19? No / Unsure 01/15/2022 8:51 AM HAND CANDY CUTTER documented as of this encounter Plan of Treatment Not on file documented as of this encounter Procedures Procedure Name Priority Date/Time Associated Diagnosis Comments QUANTIFERON-TB GOLD PLUS Routine 01/15/2022 9:00 AM HAND CANDY CUTTER Encounter for pre-employment examination MMRV PANEL Routine 01/15/2022 9:00 AM HAND CANDY CUTTER Encounter for pre-employment examination MUMPS IGG Routine 01/15/2022 9:00 AM HAND CANDY CUTTER Encounter for pre-employment examination HERPES ZOSTER (VARICELLA) IGG Routine 01/15/2022 9:00 AM HAND CANDY CUTTER Encounter for pre-employment examination RUBEOLA (MEASLES) IGG Routine 01/15/2022 9:00 AM HAND CANDY CUTTER Encounter for pre-employment examination RUBELLA IMMUNITY IGG Routine 01/15/2022 9:00 AM HAND CANDY CUTTER Encounter for pre-employment examination HEPATITIS B SURFACE ANTIBODY (HBSAB) Routine 01/15/2022 9:00 AM HAND CANDY CUTTER Encounter for pre-employment examination documented in this encounter Results * HERPES ZOSTER (VARICELLA) IGG (01/15/2022 9:00 AM HAND CANDY CUTTER) VARICELLA ZOSTER IGG 4.6 >=1.1 AI 01/15/2022 11:30 PM HAND CANDY CUTTER [facility] Blood No Phlebotomy Charged / Unknown 01/15/2022 9:00 AM HAND CANDY CUTTER 01/15/2022 1:08 PM HAND CANDY CUTTER Narrative [facility] - 01/15/2022 11:30 PM HAND CANDY CUTTER <= 0.8 Negative. No detectable VZV IgG antibody. 0.9 - 1.0 Equivocal >=1.1 Positive Antibody testing was performed by multiplex flow immunoassay on the Yieldex platform. us Ana L Behrenjanuary CRUDE TESTER, PATTERN CHANGER IMMUNOLOGY ORDERABL ES Final Result [facility] [address] [facility] [place] [address], * (ABNORMAL) RUBEOLA (MEASLES) IGG (01/15/2022 9:00 AM HAND CANDY CUTTER) MEASLES AB IGG 0.7(L) >=1.1 AI 01/15/2022 11:30 PM HAND CANDY CUTTER [facility] Blood No Phlebotomy Charged / Unknown 01/15/2022 9:00 AM HAND CANDY CUTTER 01/15/2022 1:08 PM HAND CANDY CUTTER Narrative [facility] - 01/15/2022 11:30 PM HAND CANDY CUTTER <= 0.8 Negative. No detectable Measles IgG antibody. 0.9 - 1.0 Equivocal >=1.1 Positive Antibody testing was performed by multiplex flow immunoassay on the BioPlex platform. Ana Rowdy Behjoe CRUDE TESTER, PATTERN CHANGER IMMUNOLOGY ORDERABL ES Final Result Performing Organization Address City/[facility]/ZIP Co de Phone Number [facility] [address] [place] [address], [place] * RUBELLA IMMUNITY IGG (01/15/2022 9:00 AM HAND CANDY CUTTER) RUBELLA IMMUNITY Immune Immune, Invalid 01/15/2022 11:30 PM HAND CANDY CUTTER [facility] Blood No Phlebotomy Charged / Unknown 01/15/2022 9:00 AM HAND CANDY CUTTER 01/15/2022 1:08 PM HAND CANDY CUTTER Narrative [facility] - 01/15/2022 11:30 PM HAND CANDY CUTTER Antibody testing was performed by multiplex flow immunoassay on the BioPlex platform. us GarzonAna L Behrends CRUDE TESTER, PATTERN CHANGER CHEMISTRY ORDERABLE S Final Result Performing Organization Address City/[facility] Co de Phone Number [facility] [address] [place] [address], [place] * MUMPS IGG (01/15/2022 9:00 AM HAND CANDY CUTTER) Mumps Ab IgG 1.2 >=1.1 AI 01/15/2022 11:30 PM HAND CANDY CUTTER [facility] Blood No Phlebotomy Charged / Unknown 01/15/2022 9:00 AM HAND CANDY CUTTER 01/15/2022 1:08 PM HAND CANDY CUTTER Narrative [facility] - 01/15/2022 11:30 PM HAND CANDY CUTTER <= 0.8 Negative. No detectable Mumps IgG antibody. 0.9 - 1.0 Equivocal >=1.1 Positive Antibody testing was performed by multiplex flow immunoassay on the Yieldex platform. us Ana Espinoza APRN, CNP IMMUNOLOGY ORDERABL ES Final Result [facility] [address] [place] [address], [place] * QUANTIFERON-TB GOLD PLUS (01/15/2022 9:00 AM HAND CANDY CUTTER) NIL CONTROL 0.05 <8.01 IU/mL 01/17/2022 1:34 PM HAND CANDY CUTTER [facility] TB ANTIGEN 1 0.03 <0.35 IU/mL 01/17/2022 1:34 PM HAND CANDY CUTTER [facility] TB ANTIGEN 2 0.01 <0.35 IU/mL 01/17/2022 1:34 PM HAND CANDY CUTTER [facility] MITOGEN CONTROL 8.21 >0.49 IU/mL 01/18/20 22 1:34 PM HAND CANDY CUTTER [facility] INTEPRETATION TB NEGATIVE NEGATIVE, NEGATIVE (TB antigen response less than 25% of internal negative control value) 01/17/2022 1:34 PM HAND CANDY CUTTER [facility] Comment:No immune response t o Mycobacterium tuberculosis antigens was noted. M. tuberculosis infection unlikely. Blood No Phlebotomy Charged / Unknown 01/15/2022 9:00 AM HAND CANDY CUTTER 01/15/2022 1:08 PM HAND CANDY CUTTER Narrative [facility] - 01/17/2022 1:34 PM HAND CANDY CUTTER A POSITIVE QUANTIFERON-TB GOLD PLUS RESULT [...] immunocompromised individuals. https://www.cdc.gov/tb/publications/guidelines/testing.htm us Ana Espinoza APRN, PATTERN CHANGER IMMUNOLOGY ORDERABL ES Final Result Performing Organization Address City/[facility] Co de Phone Number [facility] [address] [place] [address], [place] * HEPATITIS B SURFACE ANTIBODY (HBSAB) (01/15/2022 9:00 AM HAND CANDY CUTTER) HEPATITIS B SURFACE ANTIBODY 47.68 mIU/mL [facility] ARCH [id number] B 01/15/2022 11:22 PM HAND CANDY CUTTER [facility] Comment: Detected Range: >12.00 Individual is considered immune to HBV infection Blood No Phlebotomy Charged / Unknown 01/15/2022 9:00 AM HAND CANDY CUTTER 01/15/2022 1:08 PM HAND CANDY CUTTER us Ana Espinoza CRUDE TESTER, PATTERN CHANGER CHEMISTRY ORDERABLE S Final Result Performing Organization Address City/[facility] Co de Phone Number [facility] [address] [place] [address], [place] documented in this encounter Visit Diagnoses Diagnosis Encounter for pre-employment examination Health examination of defined subpopulation documented in this encounter Care Teams Line Production Cook Relationship Specialty Start Date End Date Provider, None [place] PCP - General 01/15/22 08/03/22 Mario Hernandez MD [address] [address] PCP - General Family Medicine 08/04/22 documented as of this encounter
--- OUTSIDE RECORDS SUMMARY | 2025-09-20 13:29 | XMS_ITS | Encounter Summary ---
Author Organization [facility] Healthcare Address [address] [place] [address] Care Team Providers Care Pin Worker Name Role Phone Micki Pride MD Primary Care Provider [phone] Encounter Details Date Type Department Care Team (Late st Contact Info) Description 08/02/2025 Orders Only [facility] Health Information Management [address] [place] [address] Massiel Hunt NP [address] [place] [address] [place] [address] Social History Tobacco Use Types Packs/Day Years Used Date Smoking Tobacco: Never Assessed Comments Unknown Sex and Gender Information Value Date Recorded Sex Assigned at Not on file Legal Sex Female 3:14 AM PROP DRAWER Gender Identity Female 03/30/2023 10:16 AM CDT [...] on filedocumented in this encounter Care Teams Pin Worker Relationship Specialty Start Date End Date Micki Pride MD PCP - General 02/28/14 documented as of this encounter
[2025-09-20 13:38] VITALS: BP 153/109; PULSE 93; RESP 16; TEMP 37; O2SAT 98
--- OUTSIDE RECORDS SUMMARY | 2025-09-20 15:21 | XMS_ITS | Clinical Summary ---
Author Organization [facility] Physician Office Building [address] [place] [phone] Care Team Providers Care Retort Engineer Name Role Phone Micki Pride MD Primary Care Provider [phone] Allergies Active Allergy Reactions Criticality Noted Date [...] Team Description 08/28/2025 4:15 PM CDT Telemedicine [facility] [address] [place] [address] [place] [phone] Yobany Mehta MD Moderate episode of recurrent major depressive disorder (HCC) (Primary Dx); Panic disorder; JOSEPHINE (generalized anxiety disorder); Attention deficit hyperactivity disorder (ADHD), combined type 08/20/2025 Orders Only [facility] Medical [facility] Cardiology [address] [place] [address] [place] [phone] Jeane Frederick NP 08/19/[address] [phone] Yobany Mehta MD 08/16/2025 1:30 PM CDT Office Visit [facility] Cardiology at [address] [place] [address] Med Solano MD Other chest pain (Primary Dx) 08/15/2025 Telephone [facility] Cardiology [address] [place] [address] [place] [phone] Jenniffer Perdomo MA Medical Records Request 08/05/2025 Orders Only [facility] Cardiology [address] [place] [address] [place] [phone] Med Solano MD 08/02/2025 Orders Only [facility] Health Information Management [address] [place] [address] Massiel Hunt NP 07/25/2025 1:15 PM CDT Telemedicine [address] [phone] Yobany Mehta MD Moderate episode of recurrent major depressive disorder (HCC) (Primary Dx); Panic disorder; JOSEPHINE (generalized anxiety disorder); Attention deficit hyperactivity disorder (ADHD), combined type 07/22/2025 Orders Only [facility] Health Information Management [address] [place] [address] Scanning, Provider 07/11/2025 4:00 PM CDT Telemedicine [address] [phone] Yobany Mehta MD Attention deficit hyperactivity disorder (ADHD), combined type (Primary Dx); JOSEPHINE (generalized anxiety disorder); Panic disorder 06/24/[address] [phone] Yobany Mehta MD Med Refill [...] on file Legal Sex Female 3:14 AM MOTH EXTERMINATOR Gender Identity Female 03/30/2023 10:16 AM CDT Sexual Orientation Not on file Last Filed Vital Signs Vital Sign Reading Time Taken Comments Blood Pressure 122/80 08/16/2025 1:22 PM CDT Pulse 68 08/16/2025 1:22 PM CDT Temperature 36.5 C (97.7 F) 11/01/2023 2:17 PM MOTH EXTERMINATOR Respiratory Rate 18 11/01/2023 2:17 PM MOTH EXTERMINATOR Oxygen Saturation 98% 08/16/2025 1:22 PM CDT [...] Last 3 Months Insurance CHOICE PRF PPO ME CHOICE PRF PPO ME Care Teams Retort Engineer Relationship Specialty Start Date End Date Micki Pride MD PCP - General 02/28/14
--- OUTSIDE RECORDS SUMMARY | 2025-09-20 15:21 | XMS_ITS | Clinical Summary ---
Author Organization [facility] Address [address], [address] [address] Phone Care Team Providers Care Experimental Machinist Name Role Phone Mario Hernandez MD Primary Care Provider [phone] Social History Tobacco Use Types Packs/Day Years [...] age to complete this topic Care Teams Experimental Machinist Relationship Specialty Start Date End Date Mario Hernandez MD [address] [place] [address] PCP - General Family Medicine 08/04/22
--- OUTSIDE RECORDS SUMMARY | 2025-09-20 15:21 | XMS_ITS | Encounter Summary ---
Author Organization [facility] Healthcare Address [address] [place] [address] Care Team Providers Care Electronic Development Technician Name Role Phone Micki Pride MD Primary Care Provider [phone] Encounter Details Date Type Department Care Team (Late st Contact Info) Description 07/22/[address] [facility] Health Information Management [address] [place] [address] Scanning, Provider Social History Tobacco Use Types Packs/Day Years Used Date Smoking Tobacco: Never Assessed Comments Unknown Sex and Gender Information Value Date Recorded Sex Assigned at Not on file Legal Sex Female 3:14 AM TIMBER APPRAISER Gender Identity Female 03/30/2023 10:16 AM CDT [...] on filedocumented in this encounter Care Teams Electronic Development Technician Relationship Specialty Start Date End Date Micki Pride MD PCP - General 02/28/14 documented as of this encounter
--- OUTSIDE RECORDS SUMMARY | 2025-09-20 15:21 | XMS_ITS | Encounter Summary ---
Author Organization [facility] Address [address] [place] [address] Phone Care Team Providers Care Stopper Maker Name Role Phone Provider, None Primary Care Provider Mario Perez MD Primary Care Provider [phone] Encounter Details Date Type Department Care Team (Late st Contact Info) Description 01/15/2022 Lab Requisition [facility] Laboratory Services [address] [place] [address] Ana Espinoza, ARCHITECT, CONSULAR OFFICER [address] [place] [address] Encounter for pre-employment examination Social [...] COVID-19? No / Unsure 01/15/2022 8:51 AM PROFESSIONAL POKER PLAYER documented as of this encounter Plan of Treatment Not on file documented as of this encounter Procedures Procedure Name Priority Date/Time Associated Diagnosis Comments QUANTIFERON-TB GOLD PLUS Routine 01/15/2022 9:00 AM PROFESSIONAL POKER PLAYER Encounter for pre-employment examination MMRV PANEL Routine 01/15/2022 9:00 AM PROFESSIONAL POKER PLAYER Encounter for pre-employment examination MUMPS IGG Routine 01/15/2022 9:00 AM PROFESSIONAL POKER PLAYER Encounter for pre-employment examination HERPES ZOSTER (VARICELLA) IGG Routine 01/15/2022 9:00 AM PROFESSIONAL POKER PLAYER Encounter for pre-employment examination RUBEOLA (MEASLES) IGG Routine 01/15/2022 9:00 AM PROFESSIONAL POKER PLAYER Encounter for pre-employment examination RUBELLA IMMUNITY IGG Routine 01/15/2022 9:00 AM PROFESSIONAL POKER PLAYER Encounter for pre-employment examination HEPATITIS B SURFACE ANTIBODY (HBSAB) Routine 01/15/2022 9:00 AM PROFESSIONAL POKER PLAYER Encounter for pre-employment examination documented in this encounter Results * HERPES ZOSTER (VARICELLA) IGG (01/15/2022 9:00 AM PROFESSIONAL POKER PLAYER) VARICELLA ZOSTER IGG 4.6 >=1.1 AI 01/15/2022 11:30 PM PROFESSIONAL POKER PLAYER [facility] Blood No Phlebotomy Charged / Unknown 01/15/2022 9:00 AM PROFESSIONAL POKER PLAYER 01/15/2022 1:08 PM PROFESSIONAL POKER PLAYER Narrative [facility] - 01/15/2022 11:30 PM PROFESSIONAL POKER PLAYER <= 0.8 Negative. No detectable VZV IgG antibody. 0.9 - 1.0 Equivocal >=1.1 Positive Antibody testing was performed by multiplex flow immunoassay on the LatamLeap platform. us Ana L Behrenjanuary ARCHITECT, CONSULAR OFFICER IMMUNOLOGY ORDERABL ES Final Result [facility] [address] [facility] [place] [address], * (ABNORMAL) RUBEOLA (MEASLES) IGG (01/15/2022 9:00 AM PROFESSIONAL POKER PLAYER) MEASLES AB IGG 0.7(L) >=1.1 AI 01/15/2022 11:30 PM PROFESSIONAL POKER PLAYER [facility] Blood No Phlebotomy Charged / Unknown 01/15/2022 9:00 AM PROFESSIONAL POKER PLAYER 01/15/2022 1:08 PM PROFESSIONAL POKER PLAYER Narrative [facility] - 01/15/2022 11:30 PM PROFESSIONAL POKER PLAYER <= 0.8 Negative. No detectable Measles IgG antibody. 0.9 - 1.0 Equivocal >=1.1 Positive Antibody testing was performed by multiplex flow immunoassay on the BioPlex platform. Ana Rowdy Behjoe ARCHITECT, CONSULAR OFFICER IMMUNOLOGY ORDERABL ES Final Result Performing Organization Address City/[facility]/ZIP Co de Phone Number [facility] [address] [place] [address], [place] * RUBELLA IMMUNITY IGG (01/15/2022 9:00 AM PROFESSIONAL POKER PLAYER) RUBELLA IMMUNITY Immune Immune, Invalid 01/15/2022 11:30 PM PROFESSIONAL POKER PLAYER [facility] Blood No Phlebotomy Charged / Unknown 01/15/2022 9:00 AM PROFESSIONAL POKER PLAYER 01/15/2022 1:08 PM PROFESSIONAL POKER PLAYER Narrative [facility] - 01/15/2022 11:30 PM PROFESSIONAL POKER PLAYER Antibody testing was performed by multiplex flow immunoassay on the BioPlex platform. us GarzonAna L Behrends ARCHITECT, CONSULAR OFFICER CHEMISTRY ORDERABLE S Final Result Performing Organization Address City/[facility] Co de Phone Number [facility] [address] [place] [address], [place] * MUMPS IGG (01/15/2022 9:00 AM PROFESSIONAL POKER PLAYER) Mumps Ab IgG 1.2 >=1.1 AI 01/15/2022 11:30 PM PROFESSIONAL POKER PLAYER [facility] Blood No Phlebotomy Charged / Unknown 01/15/2022 9:00 AM PROFESSIONAL POKER PLAYER 01/15/2022 1:08 PM PROFESSIONAL POKER PLAYER Narrative [facility] - 01/15/2022 11:30 PM PROFESSIONAL POKER PLAYER <= 0.8 Negative. No detectable Mumps IgG antibody. 0.9 - 1.0 Equivocal >=1.1 Positive Antibody testing was performed by multiplex flow immunoassay on the LatamLeap platform. us Ana Espinoza APRN, CNP IMMUNOLOGY ORDERABL ES Final Result [facility] [address] [place] [address], [place] * QUANTIFERON-TB GOLD PLUS (01/15/2022 9:00 AM PROFESSIONAL POKER PLAYER) NIL CONTROL 0.05 <8.01 IU/mL 01/17/2022 1:34 PM PROFESSIONAL POKER PLAYER [facility] TB ANTIGEN 1 0.03 <0.35 IU/mL 01/17/2022 1:34 PM PROFESSIONAL POKER PLAYER [facility] TB ANTIGEN 2 0.01 <0.35 IU/mL 01/17/2022 1:34 PM PROFESSIONAL POKER PLAYER [facility] MITOGEN CONTROL 8.21 >0.49 IU/mL 01/18/20 22 1:34 PM PROFESSIONAL POKER PLAYER [facility] INTEPRETATION TB NEGATIVE NEGATIVE, NEGATIVE (TB antigen response less than 25% of internal negative control value) 01/17/2022 1:34 PM PROFESSIONAL POKER PLAYER [facility] Comment:No immune response t o Mycobacterium tuberculosis antigens was noted. M. tuberculosis infection unlikely. Blood No Phlebotomy Charged / Unknown 01/15/2022 9:00 AM PROFESSIONAL POKER PLAYER 01/15/2022 1:08 PM PROFESSIONAL POKER PLAYER Narrative [facility] - 01/17/2022 1:34 PM PROFESSIONAL POKER PLAYER A POSITIVE QUANTIFERON-TB GOLD PLUS RESULT SHOULD [...] immunocompromised individuals. https://www.cdc.gov/tb/publications/guidelines/testing.htm us Ana Espinoza APRN, CONSULAR OFFICER IMMUNOLOGY ORDERABL ES Final Result Performing Organization Address City/[facility] Co de Phone Number [facility] [address] [place] [address], [place] * HEPATITIS B SURFACE ANTIBODY (HBSAB) (01/15/2022 9:00 AM PROFESSIONAL POKER PLAYER) HEPATITIS B SURFACE ANTIBODY 47.68 mIU/mL [facility] ARCH [id number] B 01/15/2022 11:22 PM PROFESSIONAL POKER PLAYER [facility] Comment: Detected Range: >12.00 Individual is considered immune to HBV infection Blood No Phlebotomy Charged / Unknown 01/15/2022 9:00 AM PROFESSIONAL POKER PLAYER 01/15/2022 1:08 PM PROFESSIONAL POKER PLAYER us Ana Espinoza ARCHITECT, CONSULAR OFFICER CHEMISTRY ORDERABLE S Final Result Performing Organization Address City/[facility] Co de Phone Number [facility] [address] [place] [address], [place] documented in this encounter Visit Diagnoses Diagnosis Encounter for pre-employment examination Health examination of defined subpopulation documented in this encounter Care Teams Stopper Maker Relationship Specialty Start Date End Date Provider, None [place] PCP - General 01/15/22 08/03/22 Mario Hernandez MD [address] [address] PCP - General Family Medicine 08/04/22 documented as of this encounter
--- OUTSIDE RECORDS SUMMARY | 2025-09-20 15:21 | XMS_ITS | Encounter Summary ---
Author Organization [facility] Healthcare Address [address] [place] [address] Care Team Providers Care Program Dir Name Role Phone Micki Pride MD Primary Care Provider [phone] Encounter Details Date Type Department Care Team (Late st Contact Info) Description 08/02/2025 Orders Only [facility] Health Information Management [address] [place] [address] Massiel Hunt NP [address] [place] [address] [place] [address] Social History Tobacco Use Types Packs/Day Years Used Date Smoking Tobacco: Never Assessed Comments Unknown Sex and Gender Information Value Date Recorded Sex Assigned at Not on file Legal Sex Female 3:14 AM CERAMIC RESTORER Gender Identity Female 03/30/2023 10:16 AM CDT [...] on filedocumented in this encounter Care Teams Program Dir Relationship Specialty Start Date End Date Micki Pride MD PCP - General 02/28/14 documented as of this encounter
[2025-09-20] MEDS: SODIUM CHLORIDE 0.9% IV 1,000 ML 999 ML IV CONT (15:45)
[2025-09-20] MEDS: MORPHINE SULFATE (*CRX) 4 MG/ML INJ IV PUSH (15:45)
[2025-09-20] MEDS: ONDANSETRON INJ 4 MG/2 ML VIAL IV PUSH (15:46)
[2025-09-20 15:58] LABS: Hematocrit 38.1 % (37.0-47.0); Hemoglobin 12.7 g/dL (12.0-15.0); Immature Granulocyte Percent A 0.3 % (0-0.5); Lymphocytes Absolute Auto 1.84 K/mm3 (0.9-3.2); Mean Corpuscular HGB Conc 33.3 g/dl (32-36); Mean Corpuscular Hemoglobin 28.5 pg (26-34); Mean Corpuscular Volume 85.4 fl (80-100); Nucleated Red Blood Cells Absolute Auto 0.000 K/mm3 (0.0-0.012); Nucleated Red Blood Cells Perc 0.0 % (0.0-0.2); Platelet Count Result 276 k/mm3 (150-375); Red Blood Count 4.46 M/mm3 (4.2-5.4); White Blood Count 10.2 K/mm3 (4.5-10.0)
[2025-09-20 16:12] LABS: Anion Gap 8 mmol/L (4-12); Blood Urea Nitrogen 9 mg/dL (7-17); CRP < 0.5 mg/dL (<1.0); Calcium 8.5 mg/dL (8.4-10.2); Carbon Dioxide 24 mmol/L (22-30); Chloride 104 mmol/L (98-107); Creatine Kinase 56 U/L (30-135); Estimated CRCL calculation 89 ml/min; Estimated Glomerular Filt Rate > 60; Glucose 96 mg/dL (65-110); Potassium 4.0 mmol/L (3.4-5.0); Sodium 136 mmol/L (137-145)
[2025-09-20] MEDS: KETOROLAC 15 MG/ML VIAL (*BKC) IV PUSH (16:24)
[2025-09-20] MEDS: HYDROmorphone HCL INJ (*CRX) 1 MG/ML SYR 0.5 MG IV PUSH (16:59)
[2025-09-20 17:00] VITALS: BP 158/110; PULSE 94; RESP 16; O2SAT 94
--- NOTE | 2025-09-20 18:24 | ED.GENADULT ---
HPI - General Adult General Chief complaint: Unspecified Stated complaint: whole body aches Time Seen by Provider: 09/20/25 15:07 Source: patient Mode of arrival: ambulatory Limitations: no limitations History of Present Illness HPI narrative: 39-year-old with a history of major depression, anxiety, peptic ulcer disease with the complaints of generalized body aches muscle twitching for past several days. Patient was seen here in the emergency room had lab work done which showed positive Coxsackie titers. She was seen earlier by her primary doctor and was later referred to the ER. She denies having any headache however complained of chest pain. Onset (ago): week(s) (1) Location: upper extremity and lower extremity Radiation: non-radiation Severity: severe Quality: aching Pain Consistency: constant Relieving factors: none Associated symptoms: denies other symptoms Related Data Home Medications ?Medication ?Instructions ?Recorded ?Confirmed ?Last Taken ?Type alprazolam 1 mg tablet 1 mg PO DAILY PRN anxiety 07/07/21 09/20/25 08/01/25 17:00 History zolpidem 10 mg tablet 10 mg PO QHS 07/07/21 09/20/25 07/31/25 History escitalopram oxalate 20 mg tablet 20 mg PO HS 05/21/25 09/20/25 07/31/25 History ubrogepant 100 mg tablet (Ubrelvy) mg 09/18/25 09/20/25 Unknown History Allergies Allergy/AdvReac Type Severity Reaction Status Date / Time cat dander Allergy Mild Watery Eye Verified 09/20/25 13:29 house dust mite Allergy Mild Watery Eye Verified 09/20/25 13:29 oak Allergy Mild Unknown Verified 09/20/25 13:29 NSAIDS (Non-Steroidal AdvReac Severe Abdominal Verified 09/20/25 13:29 Anti-Inflamma Pain metoclopramide (From Reglan) AdvReac Unknown Anxiety Verified 09/20/25 13:29 Review of Systems Review of Systems: All systems reviewed & are unremarkable except as noted in HPI and below Constitutional: Constitutional: Reports no additional constitutional complaints Eyes: Eyes: Reports no additional eye complaints ENT: Reports system reviewed and no additional complaints, except as documented Cardiovascular: Cardiovascular: Reports no additional cardiovascular complaints Respiratory: Respiratory: Reports no additional respiratory complaints Gastrointestinal: Gastrointestinal: Reports no additional gastrointestinal complaints Musculoskeletal: Musculoskeletal: Reports as per HPI Neurologic: Reports system reviewed and no additional complaints, except as documented PMFSH Past Medical History Medical History GERD (gastroesophageal reflux disease) Stomach ulcer Migraine Arthritis Anxiety Allergies Acute blood loss anemia Coffee ground emesis Peptic ulcer disease Screening for thyroid disorder Bilateral hand pain Neuralgia Well woman exam Back skin lesion Thoracic back pain Screening for lipoid disorders Diarrhea Surgical History Surgical History H/O breast implant Family History Family History Father No problems noted. Mother No problems noted. Grandparent Alcoholism Esophageal cancer Depression Diabetes mellitus Heart disease Hypertension Other Malignant neoplasm of prostate Social History Social History Second hand tobacco smoke exposure: No Alcohol intake: current Drinks per week: 2 Alcohol use details: socially Substance use: never Substance use type: does not use Do You Feel Safe in your Home?: Yes Lack of Transportation: No Lack of Food: Never True Current Housing: I Have Housing Concerned About Future Housing: No Difficulty Paying Gas/Electric Bills: No Difficulty Paying for Meds: No Currently Unemployed: No Education: Master's Degree or Higher Difficulty w/ Childcare or Family Care: No Living arrangements: with family Occupation/Education: occupation 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 HEAD: Normocephalic, atraumatic. EYES: PERRLA and EOMI. ENT: Nares clear, no rhinorrhea or epistaxis. Mucous membranes moist. NECK: Supple. CHEST: Clear to auscultation. No respiratory distress. HEART: Regular rate and rhythm. No murmur heard. Normal peripheral pulses. ABDOMEN: Soft, nontender, nondistended, normal active bowel sounds. EXTREMITIES: Normal range of motion. No edema. SKIN: Warm, dry, no rash. NEURO: No focal deficits. Alert and oriented x3. PSYCH: Normal mood and affect. Course Course Emergency Course: Patient was given IV fluids, IV morphine which did not help the pain. She stated that Toradol helped the last time I did give her IV Toradol which did not make much difference in her pain. I did ultimately give ER and Dilaudid 0.5 mg she states the pain is improved she does have elevated blood pressure reading she saw her primary doctor yesterday and her blood pressure was normal with not quite sure whether it is anxiety versus from pain. I advised her to follow-up with her primary doctor. Vital Signs Vital signs: Vital Signs Temperature 37.0 C 09/20/25 13:38 Pulse Rate 93 09/20/25 13:38 Respiratory Rate 16 09/20/25 13:38 Blood Pressure 153/109 H 09/20/25 13:38 Pulse Oximetry 98 09/20/25 13:38 Temperature 37.0 C 09/20/25 13:38 Pulse Rate 94 09/20/25 17:00 Respiratory Rate 16 09/20/25 17:00 Blood Pressure 158/110 H 09/20/25 17:00 Pulse Oximetry 94 09/20/25 17:00 Medical Decision Making Vital Signs Vital Signs: Vital Signs Temperature 37.0 C 09/20/25 13:38 Pulse Rate 93 09/20/25 13:38 Respiratory Rate 16 09/20/25 13:38 Blood Pressure 153/109 H 09/20/25 13:38 Pulse Oximetry 98 09/20/25 13:38 Temperature 37.0 C 09/20/25 13:38 Pulse Rate 94 09/20/25 17:00 Respiratory Rate 16 09/20/25 17:00 Blood Pressure 158/110 H 09/20/25 17:00 Pulse Oximetry 94 09/20/25 17:00 Lab Data 09/20/25 15:50 09/20/25 15:50 Labs: Lab Results 09/20/25 09/20/25 Range/Units 15:50 15:50 WBC 10.2 H (4.5-10.0) K/mm3 RBC 4.46 (4.2-5.4) M/mm3 Hgb 12.7 (12.0-15.0) g/dL Hct 38.1 (37.0-47.0) % MCV 85.4 (80-100) fl MCH 28.5 (26-34) pg MCHC 33.3 (32-36) g/dl RDW 14.4 (11.5-14.5) % Plt Count 276 (150-375) k/mm3 MPV 9.8 (7.4-10.4) fl Immature Gran % (Auto) 0.3 (0-0.5) % Neut % (Auto) 76.9 H (45.5-73.1) % Lymph % (Auto) 18.0 L (18.3-44.2) % [place] % (Auto) 4.2 (2.6-8.5) % Eos % (Auto) 0.2 (0-4.4) % Baso % (Auto) 0.4 (0.2-1.2) % Lymph # (Auto) 1.84 (0.9-3.2) K/mm3 [place] # (Auto) 0.4 (0.1-0.6) K/mm3 Eos # (Auto) 0.0 (0-0.3) K/mm3 Baso # (Auto) 0.0 (0.0-0.1) K/mm3 Abs Immat Gran (auto) 0.03 (0.00-0.031) K/mm3 Absolute Neuts (auto) 7.9 H (1.3-6.7) K/mm3 Absolute Nucleated RBC 0.000 (0.0-0.012) K/mm3 Nucleated RBC % 0.0 (0.0-0.2) % Sodium 136 L (137-145) mmol/L Potassium 4.0 (3.4-5.0) mmol/L Chloride 104 (98-107) mmol/L Carbon Dioxide 24 (22-30) mmol/L Anion Gap 8 (4-12) mmol/L BUN 9 D (7-17) mg/dL Creatinine 0.64 L (0.7-1.0) mg/dL Estim Creat Clear Calc 89 ml/min Estimated GFR > 60 (59 - ) Glucose 96 (65-110) mg/dL Calcium 8.5 (8.4-10.2) mg/dL Total Creatine Kinase 56 Cancelled (30-135) U/L C-Reactive Protein < 0.5 (<1.0) mg/dL Discharge Plan Discharge Clinical Impression: Elevated blood pressure reading, Myalgia Fatigue Qualifiers: Fatigue type: other Qualified Code(s): R53.83 - Other fatigue Patient Disposition: Home Condition: Stable Instructions: Musculoskeletal Pain (ED) Additional Instructions: Continue home medication, follow-up with your primary doctor in 1 or 2 days regarding a blood pressure. Also advised you to follow-up with the biztalk consultant as scheduled Patient Language: Hungarian Prescriptions: New hydrocodone-acetaminophen 5-325 mg tablet 1 tablet PO Q8H PRN (Reason: pain) Qty: 14 0RF No Action Ubrelvy 100 mg tablet zolpidem 10 mg tablet 10 mg PO QHS alprazolam 1 mg tablet 1 mg PO DAILY PRN (Reason: anxiety) duloxetine 30 mg capsule,delayed release(DR/EC) 30 mg PO DAILY Qty: 90 1RF metoprolol succinate 25 mg tablet extended release 24 hr 25 mg PO DAILY Qty: 90 1RF Rx Instructions: Take with meal or just after you eat in AM escitalopram oxalate 20 mg tablet 20 mg PO HS nitroglycerin 0.4 mg tablet, sublingual 0.4 mg sublingual ONCE Qty: 14 2RF Rx Instructions: as a single dose; administer 5-10 minutes before situation known to precipitate spasm/pain hydrocodone-acetaminophen 5-325 mg tablet 1 tablet PO Q8H PRN (Reason: pain) Qty: 7 0RF gabapentin 300 mg capsule 300 mg PO TID Qty: 90 0RF sucralfate 1 gram tablet 1 g PO DAILY Qty: 30 0RF famotidine 20 mg tablet 20 mg PO DAILY Qty: 30 0RF ondansetron 4 mg tablet,disintegrating 4 mg PO Q8H PRN (Reason: nausea and vomiting) Qty: 14 0RF pantoprazole [Protonix] 40 mg tablet,delayed release (DR/EC) 40 mg PO BID Qty: 60 2RF Follow-up/Referrals: Mario Hernandez MD [Primary Care Provider, Family Practice] Time of Disposition: 18:30
== END 2025-09-20 19:14 | disposition home or self-care (01) ==
PROVIDERS: Emergency Provider Family Medicine; PCP Family Medicine
DX: M79.10 Myalgia, unspecified site (principal); R53.83 Other fatigue; R03.0 Elevated blood-pressure reading, without diagnosis of hypertension; K21.9 Gastro-esophageal reflux disease without esophagitis; M19.90 Unspecified osteoarthritis, unspecified site; F41.9 Anxiety disorder, unspecified; F32.9 Major depressive disorder, single episode, unspecified; Z87.11 Personal history of peptic ulcer disease; Z98.82 Breast implant status; Z79.899 Other long term (current) drug therapy
CPT/HCPCS: 36415; 80048; 82550; 85025; 86140; 96361; 96374; 96375; 99284; J1171; J1885; J2270; J2405; J7030

== ENCOUNTER 2025-10-15 22:01 | Emergency (ER) | payer BC, SELFPAY ==
--- NOTE | ~2025-10-15 | CT_ITS ---
CT brain wo con HISTORY:ams COMPARISON: None. TECHNIQUE: Axial images were obtained of the head without intravenous contrast. FINDINGS: No acute intracranial hemorrhage, mass effect or midline shift. No extra-axial fluid collections. The calvarium is intact. Visualized paranasal sinuses and mastoid air cells are clear. IMPRESSION: No acute intracranial hemorrhage or extra axial fluid collections. All CT scans at this facility are performed using low dose modulation techniques as appropriate to perform exam including the following: automated exposure control; use of iterative reconstruction technique; adjustment of the mA and/or kV according to patient size (this includes techniques or standardized protocols for targeted exams where dose is matched to indication/reason for exam). Reviewed, dictated and finalized at location S. STMENT REPRESENTATIVE IMPRESSION: No acute intracranial hemorrhage or extra axial fluid collections. All CT scans at this facility are performed using low dose modulation techniqu es as appropriate to perform exam including the following: automated exposure c ontrol; use of iterative reconstruction technique; adjustment of the mA and/or kV according to patient size (this includes techniques or standardized protocol s for targeted exams where dose is matched to indication/reason for exam).
--- NOTE | ~2025-10-15 | XR_ITS ---
Examination: XR chest 1V portable Clinical History: ams confusion pain all over Comparison: X-rays 08/01/2025 Technique: Portable AP Findings: Heart size normal. Lungs clear. No acute bony abnormality. IMPRESSION: 1. No acute cardiopulmonary findings given portable technique. Reviewed, dictated and finalized at location R. E CARE PHYSICIAN
[2025-10-15 22:03] VITALS: BP 129/64; PULSE 73; RESP 18; TEMP 36.4; O2SAT 98
--- OUTSIDE RECORDS SUMMARY | 2025-10-15 22:03 | XMS_ITS | Encounter Summary ---
Author Organization [facility] Healthcare Address [address] [place] [address] Care Team Providers Care Cook Ship Name Role Phone Micki Pride MD Primary Care Provider [phone] Encounter Details Date Type Department Care Team (Late st Contact Info) Description 07/22/2025 Orders Only [facility] Health Information Management [address] [place] [id number] Scanning, Provider Social History Tobacco Use Types Packs/Day Years Used Date Smoking Tobacco: Never Assessed Comments Unknown Sex and Gender Information Value Date Recorded Sex Assigned at Not on file Legal Sex Female 3:14 AM BUSINESS 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
--- OUTSIDE RECORDS SUMMARY | 2025-10-15 22:03 | XMS_ITS | Encounter Summary ---
Author Organization [facility] Healthcare Address [address] [place] [address] Care Team Providers Care Director Case Name Role Phone Micki Pride MD Primary Care Provider [phone] Encounter Details Date Type Department Care Team (Late st Contact Info) Description 08/02/2025 Orders Only [facility] Health Information Management [address] [place] [address] Massiel Hunt NP [address] [place] [address] [place] [address] Social History Tobacco Use Types Packs/Day Years Used Date Smoking Tobacco: Never Assessed Comments Unknown Sex and Gender Information Value Date Recorded Sex Assigned at Not on file Legal Sex Female 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
--- OUTSIDE RECORDS SUMMARY | 2025-10-15 22:04 | XMS_ITS | Clinical Summary ---
Author Organization [facility] Physician Office Building [address] [place] [phone] Care Team Providers Care Physics And Astronomy Professor Name Role Phone Micki Pride MD Primary Care Provider [phone] Allergies Active Allergy Reactions Criticality Noted Date [...] 2 5 Active zolpidem (Ambien) 10 mg tabletIndication s:Sleep-Onset Insomnia Take 1 tablet (10 mg total) by mouth nightly as needed for sleep 30 tablet 2 5 Active ALPRAZolam (XANAX) 1 mg tabletIndication s:Anxiety [...] mouth daily Active ARIPiprazole (ABILIFY) 2 mg tabletIndication s:Depression Treatment Adjunct Take 1 tablet (2 mg total) by mouth daily 30 tablet 2 5 Active buPROPion XL (Wellbutrin XL) 300 mg 24 hr tablet Take 1 tablet (300 mg total) by mouth every morning 30 tablet 2 5 Active eszopiclone (LUNESTA) 1 mg tabletIndication s:Insomnia,sleep induction Take 1 tablet (1 mg total) by mouth nightly as needed for sleep Take immediately before bedtime 30 tablet 2 5 Active hydrOXYzine (ATARAX) 25 mg tabletIndication s:sleep maintenance Take 1 tablet (25 mg total) by mouth nightly as needed (sleep maintenance) 30 tablet 2 5 Active eszopiclone (Lunesta) 3 mg tabletIndication s:Insomnia Take 1 tablet (3 mg total) by mouth nightly as needed for sleep (For sleep induction) Take immediately before bedtime for sleep induction 30 tablet 2 5 Active traZODone (DESYREL) 50 mg tabletIndication s:insomnia associated with depression Take 1 tablet (50 mg total) by mouth nightly as needed for sleep (sleep maintenance) For sleep maintenance 30 tablet 2 5 Active Active Problems Problem Noted Date Diagnosed Date Other chest pain 08/16/2025 Recurrent major depression 03/30/2023 Panic disorder 03/30/2023 JOSEPHINE (generalized anxiety disorder) 03/30/2023 ADHD 03/30/2023 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 Encounters Date Type Department Care Team Description 10/09/2025 11:45 AM BUSINESS MANAGEMENT INTERN Telemedicine [facility] [address] [place] [phone] Yobany Mehta MD Attention deficit hyperactivity disorder (ADHD), combined type (Primary Dx); JOSEPHINE (generalized anxiety disorder); Panic disorder; Moderate episode of recurrent major depressive disorder (HCC) 10/08/2025 2:51 PM BUSINESS MANAGEMENT INTERN - 10/08/2025 11:59 PM BUSINESS MANAGEMENT INTERN Hospital Encounter [facility] [address] [place] [address] Pre-employment health screening examination Discharge Disposition: Discharge to home or self care 10/08/2025 Orders Only [facility] [address] [facility] [address] [place] [address] Garfield Biswas MD Pre-employment health screening examination (Primary Dx) 2025 11:45 AM BUSINESS MANAGEMENT INTERN Telemedicine [address] [place] [phone] Yobany Mehta MD Moderate episode of recurrent major depressive disorder (HCC) (Primary Dx); Panic disorder; JOSEPHINE (generalized anxiety disorder); Attention deficit hyperactivity disorder (ADHD), combined type 08/28/2025 4:15 PM CDT Telemedicine [address] [place] [phone] Yobany Mehta MD Moderate episode of recurrent major depressive disorder (HCC) (Primary Dx); Panic disorder; JOSEPHINE (generalized anxiety disorder); Attention deficit hyperactivity disorder (ADHD), combined type 08/20/2025 Orders Only [facility] Cardiology [address] [place] [address] [place] [phone] Jeane Frederick NP 08/19/[address] [place] [phone] Yobany Mehta MD 08/16/2025 1:30 PM CDT Office Visit [facility] Cardiology at [address] [place] [phone] Med Solano MD Other chest pain (Primary Dx) 08/15/2025 Telephone [facility]iology [address] [facility] [address] [place] [phone] Jenniffer Perdomo MA Medical Records Request 08/05/2025 Orders Only [facility] [address] [facility] [address] [place] [phone] Med Solano MD 08/02/2025 Orders Only [facility] Health Information Management [address] [place] [address] Massiel Hunt NP 07/25/2025 1:15 PM CDT Telemedicine [facility] [address] [phone] Yobany Mehta MD Moderate episode of recurrent major depressive disorder (HCC) (Primary Dx); Panic disorder; JOSEPHINE (generalized anxiety disorder); Attention deficit hyperactivity disorder (ADHD), combined type 07/22/2025 Orders Only [facility] Health Information Management [address] [place] [address] Scanning, Provider from Last 3 Months Immunizations Immunization Administration Dates Next Due Influenza, Quadrivalent, Ivon l Culture-based MDCK, Preservative Free, Antibiotic Free, Intramuscular 08/30/2023 Influenza, Quadrivalent, Spl it, Preservative Free, Intramuscular [...] file Legal Sex Female 3:14 AM BUSINESS MANAGEMENT INTERN Gender Identity Female 03/30/2023 10:16 AM CDT Sexual Orientation Not on file Last Filed Vital Signs Vital Sign Reading Time Taken Comments Blood Pressure 122/80 08/16/2025 1:22 PM CDT Pulse 68 08/16/2025 1:22 PM CDT Temperature 36.5 C (97.7 F) 11/01/2023 2:17 PM BUSINESS MANAGEMENT INTERN Respiratory Rate 18 11/01/2023 2:17 PM BUSINESS MANAGEMENT INTERN Oxygen Saturation 98% 08/16/2025 1:22 PM CDT [...] season) 2025 03/17/2021 Influenza Vaccine (#1) 2025 , 10/26/2022 DTaP/Tdap/Td Vaccine (2 - Td or Tdap) 06/27/2027 06/27/2017 Pneumococcal vaccine <65 Aged Out No longer eligible based on patient's age to complete this topic Procedures Procedure Name Priority Date/Time Associated Diagnosis Comments T-SPOT.TB Routine 10/08/2025 1:45 PM BUSINESS MANAGEMENT INTERN Pre-employment health screening examination CARDIOLOGY DOCUMENT SCAN Routine 08/03/2025 4:17 PM CDT CARDIOLOGY DOCUMENT SCAN Routine 08/02/2025 3:28 PM CDT CARDIOLOGY DOCUMENT SCAN 08/02/2025 SCAN - RADIOLOGY/IMAGING 08/02/2025 SCAN - LABS 07/22/2025 from Last 3 Months Results * T-SPOT.TB Blood (10/08/2025 1:45 PM BUSINESS MANAGEMENT INTERN) T-SPOT.TB Negative SeeBelow Comment: Normal Value: Negative A negative test result does not exclude the possibility of exposure to or infection with Mycobacterium tuberculosis (M. tuberculosis). Patients with recent exposure to TB infected individuals exhibiting a negative T-SPOT.TB result should be considered for retesting within 6 weeks or if other relevant clinical symptoms indicate. Results from T-SPOT.TB testing must be used in conjunction with each individual's epidemiological history, current medical status, and results of other diagnostic evaluations. The T-SPOT.TB test is qualitative and results are reported as positive, borderline or negative, given that the test controls perform as expected. In line with the Centers for Disease Control and Prevention's 2010 recommendation to report quantitative measurements alongside the qualitative result, the laboratory provides spot counts for informational purposes only. The T-SPOT.TB test should not be interpreted as a quantitative test. T-SPOT.TB Panel A Spot Count 0 [facility] T-SPOT.TB Panel B Spot Count 0 [facility] T-SPOT.TB Negative Control Passed [facility] T-SPOT.TB Positive Control Passed [facility] Comment: Test Performed at: [facility] [address] [place] [address] BRIAN SORTO,PHD Blood 10/08/2025 1:45 PM BUSINESS MANAGEMENT INTERN 10/08/2025 4:02 PM BUSINESS MANAGEMENT INTERN Narrative [facility] - 10/10/2025 12:52 PM BUSINESS MANAGEMENT INTERN Bill to [place] [id number] Patient is employed by/enrolled at:->[employer] Garfield Biswas MD LAB MICROBIOLOGY - GENERAL OR DERABLES Final Result [facility] [place] [address] * Cardiology Document Scan (08/03/2025 4:17 PM CDT) Anatomical Region Laterality Modality Other Med Solano MD [facility] CARDIAC SERVICES PROC EDURES Final Result * Cardiology Document Scan (08/02/2025 3:28 PM CDT) Anatomical Region Laterality Modality Other Jeane Frederick NP CV CARDIAC SERVICE S PROCEDURES Final Result * SCAN - RADIOLOGY/IMAGING (08/02/2025) Anatomical Region Laterality Modality Other Massiel Hunt NP Edited Resu lt - Final * Cardiology Document Scan (08/02/2025) Anatomical Region Laterality Modality Other Provider Scanning [facility] CARDIAC SERVICES PROCEDURES Final Result * SCAN - LABS (07/22/2025) Provider Scanning Final Result from Last 3 Months Insurance [place] Care Teams Physics And Astronomy Professor Relationship Specialty Start Date End Date Micki Pride MD PCP - General 02/28/14
--- OUTSIDE RECORDS SUMMARY | 2025-10-15 22:04 | XMS_ITS | Clinical Summary ---
Author Organization [facility] Address [address] [phone] Phone Care Team Providers Care Non Profit Director Name Role Phone Mario Hernandez MD Primary Care Provider [phone] Social History Tobacco Use Types Packs/Day Years Used Date Smoking Tobacco: Never Assessed Comments Unknown Sex and Gender Information Value Date Recorded Sex Assigned at Not on file Legal Sex Female 7:09 PM CDT Gender Identity Not on file Sexual Orientation Not on file Plan of Treatment Health Maintenance Due Date Last Done Comments Hepatitis C Virus (HCV) Screening 1983 TdaP Immunization 1983 Varicella Immunization (1 of 2 - 13+ 2-dose series) 1996 Hepatitis B Immunization (1 of 3 - 19+ 3-dose series) 2002 Pap Smear 2004 Human Papillomavirus (HPV) Immunization (1 - 3-dose SCDM series) 2010 Cervical Cancer Screening (CCS) 2013 HPV/Cotest 2013 Influenza Immunization (#1) 2025 SARS-COV-2 Immunization (2024- season) 2025 03/17/2021 Respiratory Syncytial Virus (RSV) [...] age to complete this topic Care Teams Non Profit Director Relationship Specialty Start Date End Date Mario Hernandez MD [address] [place], [place] [id number] PCP - General Family Medicine 08/04/22
--- NOTE | 2025-10-15 22:16 | ECG_ITS ---
Test Date: 2025-10-15 22:43:31 Measurements Intervals Bliss Rate: 64 P: 50 WA: 143 QRS: 35 QRSD: 101 T: 32 QT: 406 QTc: 420 Interpretive Statements SINUS RHYTHM BASELINE ARTIFACT- I, II, III, AVL NORMAL ECG Compared to ECG 08/02/2025 10:38:27 NO SIGNIFICANT CHANGE Electronically Signed On 10-16-2025 06:11:17 PROFESSOR OF VISUAL ARTS by Bryant Sim D.O.
--- NOTE | 2025-10-15 22:16 | ED.AMS ---
HPI - Altered Mental Status General Chief Complaint: Altered Mental Status Stated Complaint: ams Time Seen by Provider: 10/15/25 22:16 Source: patient and family Limitations: no limitations History of Present Illness HPI narrative: Patient is a 40-year-old female presents to the emergency department accompanied by son and for confusion, depressed mentation. This has been common going lately for the past few days, was started on some new medications including gabapentin. Also took some cannabis gummies today which is fairly new for the patient. Patient's mental status has been fluctuating seems to be more depressed confused. Patient denies any history of smoking. Patient denies any chest pain or difficulty breathing. Patient denies any focal weakness or numbness. Patient denies any injuries. Admits to taking multiple medications, unsure she has taken extra doses at times. Denies any difficulty swelling. Admits to feeling dehydrated. Denies any known fevers. Related Data Home Medications ?Medication ?Instructions ?Recorded ?Confirmed ?Last Taken ?Type alprazolam 1 mg tablet 1 mg PO DAILY PRN anxiety 07/07/21 09/23/25 08/01/25 17:00 History zolpidem 10 mg tablet 10 mg PO QHS 07/07/21 09/23/25 07/31/25 History escitalopram oxalate 20 mg tablet 20 mg PO HS 05/21/25 09/23/25 07/31/25 History ubrogepant 100 mg tablet (Ubrelvy) mg 09/18/25 09/23/25 Unknown History bupropion HCl 300 mg 24 hr tablet, 300 mg PO QAM 09/23/25 09/23/25 Unknown History extended release Allergies Allergy/AdvReac Type Severity Reaction Status Date / Time cat dander Allergy Mild Watery Eye Verified 09/23/25 12:16 house dust mite Allergy Mild Watery Eye Verified 09/23/25 12:16 oak Allergy Mild Unknown Verified 09/23/25 12:16 NSAIDS (Non-Steroidal AdvReac Severe Abdominal Verified 09/23/25 12:16 Anti-Inflamma Pain metoclopramide (From Reglan) AdvReac Unknown Anxiety Verified 09/23/25 12:16 Review of Systems Review of Systems: A 10 system review of systems was completed on the patient and is negative except for what is stated in the HPI. Nursing and ancillary documentation was reviewed. [facility] Past Medical History Medical History GERD (gastroesophageal reflux disease) Stomach ulcer Migraine Arthritis Anxiety Allergies Acute blood loss anemia Coffee ground emesis Peptic ulcer disease Screening for thyroid disorder Bilateral hand pain Neuralgia Well woman exam Back skin lesion Thoracic back pain Screening for lipoid disorders Diarrhea Surgical History Surgical History H/O breast implant Family History Family History Father No problems noted. Mother No problems noted. Grandparent Alcoholism Esophageal cancer Depression Diabetes mellitus Heart disease Hypertension Other Malignant neoplasm of prostate Social History Social History Smoking status: Never smoker Second hand tobacco smoke exposure: No Alcohol intake: current Drinks per week: 2 Alcohol use details: socially Substance use: never Substance use type: does not use Lack of Transportation: No Lack of Food: Never True Current Housing: I Have Housing Concerned About Future Housing: No Difficulty Paying Gas/Electric Bills: No Difficulty Paying for Meds: No Currently Unemployed: No Education: Master's Degree or Higher Difficulty w/ Childcare or Family Care: No Living arrangements: with family Occupation/Education: occupation 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 Well nourished. HENMT: Head is normocephalic and atraumatic. Dry mucous membranes. No posterior oropharynx erythema. EYES: No scleral icterus. No conjunctival injection or pallor. PERRL. Pupils are about 2 mm and equal round reactive to light bilaterally. NECK: No meningeal signs. RESP: Able to speak in full sentences. Normal respiratory effort. CTAB. CARDIO: Regular rate. Regular rhythm. 2+ DP and radial pulses bilaterally. GI: Nondistended. No tenderness to palpation. Soft. : No CVA tenderness to palpation. SKIN: No rashes or lesions noted on exposed skin. NEURO: Oriented x3. Moves all extremities. No pronator drift. Motor strength is symmetric throughout all 4 extremities, no focal motor strength deficits. Sensation intact to light touch throughout all 4 extremities. No facial asymmetry. Extraocular motions intact. No nystagmus. Visual pantoja intact to confrontation. Speech is clear and fluent. No dysmetria. No angel inattention or extinction. EXTREM/MSK/BACK: No pedal edema. PSYCH: Normal affect. Course Vital Signs Vital signs: Vital Signs Temperature 97.6 F 10/15/25 22:03 Pulse Rate 73 10/15/25 22:03 Respiratory Rate 18 10/15/25 22:03 Blood Pressure 129/64 10/15/25 22:03 Pulse Oximetry 98 10/15/25 22:03 Oxygen Delivery Room Air 10/15/25 22:03 Temperature 97.6 F 10/15/25 22:03 Pulse Rate 92 10/15/25 23:35 Respiratory Rate 18 10/15/25 23:35 Blood Pressure 129/64 10/15/25 22:03 Pulse Oximetry 98 10/15/25 22:03 Oxygen Delivery Room Air 10/15/25 22:03 MDM MDM Narrative Medical decision making narrative: Patient presents with the above complaint. Initial vitals are remarkable for no significant abnormalities. Physical examination as noted above. Plan discussed: laboratory analysis, EKG, imaging. Patient ordered IVF, naloxone. NIH stroke scale is 0. With under the room patient admits to taking 2 oxycodone today's wound does not want her to know. Patient educated on the right vacations of polysubstance use with the benzodiazepines as she also takes in addition to opiates gabapentin can lower her respiratory drive. To abstain from any illicit substance use and discuss with her doctor about her medications. Patient denies trying to harm herself. Patient notes that she feels well at this time was to go home. Patient was reassessed at the bedside. No changes in physical exam. No respiratory distress, vital signs stable. Patient is in no acute distress. The patient has remained stable throughout the entire ED visit. Counseled patient regarding diagnostic results and potential diagnosis. Anticipatory guidance provided. Patient instructed to follow up with PCP within 1 week. Patient counseled on: false reassurance from an emergency department evaluation; no current evidence of a medical emergency; return immediately for any new, recurrent, worsening, concerning, or refractory symptoms. Medications discussed with patient. Additional verbal and printed discharge instructions were given and discussed with the patient. Patient verbally acknowledges understanding of condition and discharge instructions. All questions were answered to the patient's satisfaction. Patient is in agreement with the plan of care. The patient is stable for discharge and was discharged without incident. Differential Diagnosis Differential Diagnosis: Polypharmacy, substance abuse, metabolic derangement, electrolyte derangement, CVA, thyroid dysfunction, UTI, pneumonia, dysrhythmia, ACS. Lab Data MDM Lab Attestation statement: I personally reviewed the patient's lab results. Lab results narrative: CBC is without any significant abnormalities. Coags are within normal limits. VBG reveals a pH is 7.277 with a pCO2 of 51.6 consistent with a respiratory acidosis. Comprehensive metabolic panel reveals a sodium 134. Troponin is less than 0.012. TSH is 4.35. Total creatine kinase is 92. Ammonia is less than 9. Magnesium is 2.5. Lactic acid is less than 0.5. Urinalysis reveals a turbid appearance 1+ protein, trace leukocyte esterase, 6-10 RBCs, 11-20 wbc's, many squamous epithelial cells, 4+ bacteria. Salicylates were less than 1.0. Acetaminophen is less than 10. UDS is positive for opiates, amphetamines, benzodiazepines, cannabinoids. Ethyl alcohol level is less than 10. Influenza and RSV and COVID testing were negative. 10/15/25 22:21 10/15/25 22:21 Labs: Lab Results 10/15/25 10/15/25 10/15/25 Range/Units 21:45 22:14 22:21 WBC 9.2 (4.5-10.0) K/mm3 RBC 4.39 (4.2-5.4) M/mm3 Hgb 12.6 (12.0-15.0) g/dL Hct 39.0 (37.0-47.0) % MCV 88.8 (80-100) fl MCH 28.7 (26-34) pg MCHC 32.3 (32-36) g/dl RDW 14.5 (11.5-14.5) % Plt Count 279 (150-375) k/mm3 MPV 8.9 (7.4-10.4) fl Immature Gran % (Auto) 0.3 (0-0.5) % Neut % (Auto) 67.4 (45.5-73.1) % Lymph % (Auto) 25.2 (18.3-44.2) % Weakley % (Auto) 4.4 (2.6-8.5) % Eos % (Auto) 2.3 (0-4.4) % Baso % (Auto) 0.4 (0.2-1.2) % Lymph # (Auto) 2.33 (0.9-3.2) K/mm3 Weakley # (Auto) 0.4 (0.1-0.6) K/mm3 Eos # (Auto) 0.2 (0-0.3) K/mm3 Baso # (Auto) 0.0 (0.0-0.1) K/mm3 Abs Immat Gran (auto) 0.03 (0.00-0.031) K/mm3 Absolute Neuts (auto) 6.2 (1.3-6.7) K/mm3 Absolute Nucleated RBC 0.000 (0.0-0.012) K/mm3 Nucleated RBC % 0.0 (0.0-0.2) % PT 13.8 (11.1-14.7) Seconds INR 1.0 APTT 27.2 (22.3-36.8) Seconds Sodium 134 L (137-145) mmol/L Potassium 4.1 (3.4-5.0) mmol/L Chloride 104 (98-107) mmol/L Carbon Dioxide 27 (22-30) mmol/L Anion Gap 3 L (4-12) mmol/L BUN 12 (7-17) mg/dL Creatinine 0.94 (0.7-1.0) mg/dL Estim Creat Clear Calc 61 ml/min Estimated GFR > 60 (59 - ) Glucose 91 (65-110) mg/dL POC Capillary Glucose 91 (65-105) mg/dl Lactic Acid < 0.5 L (0.7-2.0) mmol/L Calcium 8.2 L (8.4-10.2) mg/dL Magnesium 2.5 H (1.6-2.3) mg/dL Total Bilirubin 0.4 (0.2-1.3) mg/dL AST 22 (14-36) U/L ALT 15 (6-35) U/L Alkaline Phosphatase 54 (38-126) U/L Ammonia < 9 L (9-30) umol/L Total Creatine Kinase 92 (30-135) U/L Troponin I < 0.012 (0.000-0.034) ng/mL Total Protein 7.8 (6.3-8.2) g/dL Albumin 4.5 (3.5-5.1) g/dL TSH 4.350 (0.465-4.680) uIU/mL Urine Color (Yellow) Urine Appearance (Clear) Urine pH (5.0-9.0) Ur Specific Polk (1.001-1.035) Urine Protein (Negative) mg/dL Urine Glucose (UA) (Negative) mg/dL Urine Ketones (Negative) mg/dL Ur Blood (Man) (Negative) Urine Nitrate (Negative) Urine Bilirubin (Negative) Urine Urobilinogen (<2.0) mg/dL Add Ur Microanalysis Leukocyte Esterase Rfl (Negative) FOX/UL Urine RBC (0-2) /hpf Urine WBC (0-3) /hpf Ur Squamous Epith Cells (Few) /hpf Urine Bacteria /hpf Urine Casts Hyaline Casts (None) /lpf Urine Mucus /lpf Urine Yeast (Budding) (None) /hpf Salicylates < 1.0 L (2-20) mg/dL Urine Opiates Screen (Negative) Urine Methadone Screen (Negative) Acetaminophen < 10 L (10-30) ug/mL Ur Barbiturates Screen (Negative) Ur Phencyclidine Scrn (Negative) Ur Amphetamine Screen (Negative) U Benzodiazepines Scrn (Negative) Urine Cocaine Screen (Negative) U Cannabinoids Screen (Negative) Ethyl Alcohol < 10 (<10) mg/dL Influenza A (RT-PCR) (Negative) Influenza B (RT-PCR) (Negative) RSV (RT-PCR) (Negative) SARS-CoV-2 RNA (RT-PCR) (Negative) 10/15/25 10/15/25 Range/Units 22:46 23:57 WBC (4.5-10.0) K/mm3 RBC (4.2-5.4) M/mm3 Hgb (12.0-15.0) g/dL Hct (37.0-47.0) % MCV (80-100) fl MCH (26-34) pg MCHC (32-36) g/dl RDW (11.5-14.5) % Plt Count (150-375) k/mm3 MPV (7.4-10.4) fl Immature Gran % (Auto) (0-0.5) % Neut % (Auto) (45.5-73.1) % Lymph % (Auto) (18.3-44.2) % Weakley % (Auto) (2.6-8.5) % Eos % (Auto) (0-4.4) % Baso % (Auto) (0.2-1.2) % Lymph # (Auto) (0.9-3.2) K/mm3 Weakley # (Auto) (0.1-0.6) K/mm3 Eos # (Auto) (0-0.3) K/mm3 Baso # (Auto) (0.0-0.1) K/mm3 Abs Immat Gran (auto) (0.00-0.031) K/mm3 Absolute Neuts (auto) (1.3-6.7) K/mm3 Absolute Nucleated RBC (0.0-0.012) K/mm3 Nucleated RBC % (0.0-0.2) % PT (11.1-14.7) Seconds INR APTT (22.3-36.8) Seconds Sodium (137-145) mmol/L Potassium (3.4-5.0) mmol/L Chloride (98-107) mmol/L Carbon Dioxide (22-30) mmol/L Anion Gap (4-12) mmol/L BUN (7-17) mg/dL Creatinine (0.7-1.0) mg/dL Estim Creat Clear Calc ml/min Estimated GFR (59 - ) Glucose (65-110) mg/dL POC Capillary Glucose (65-105) mg/dl Lactic Acid (0.7-2.0) mmol/L Calcium (8.4-10.2) mg/dL Magnesium (1.6-2.3) mg/dL Total Bilirubin (0.2-1.3) mg/dL AST (14-36) U/L ALT (6-35) U/L Alkaline Phosphatase (38-126) U/L Ammonia (9-30) umol/L Total Creatine Kinase (30-135) U/L Troponin I (0.000-0.034) ng/mL Total Protein (6.3-8.2) g/dL Albumin (3.5-5.1) g/dL TSH (0.465-4.680) uIU/mL Urine Color Yellow (Yellow) Urine Appearance Turbid H (Clear) Urine pH 6.0 (5.0-9.0) Ur Specific Polk 1.022 (1.001-1.035) Urine Protein 1+ H (Negative) mg/dL Urine Glucose (UA) Negative (Negative) mg/dL Urine Ketones Negative (Negative) mg/dL Ur Blood (Man) Negative (Negative) Urine Nitrate Negative (Negative) Urine Bilirubin Negative (Negative) Urine Urobilinogen 0.2 (<2.0) mg/dL Add Ur Microanalysis Reviewed Leukocyte Esterase Rfl Trace H (Negative) FOX/UL Urine RBC 6-10 H (0-2) /hpf Urine WBC 11-20 H (0-3) /hpf Ur Squamous Epith Cells Many H (Few) /hpf Urine Bacteria 4+ H /hpf Urine Casts 6-10 Hyaline Casts Present (None) /lpf Urine Mucus Present /lpf Urine Yeast (Budding) Present H (None) /hpf Salicylates (2-20) mg/dL Urine Opiates Screen Positive A (Negative) Urine Methadone Screen Negative (Negative) Acetaminophen (10-30) ug/mL Ur Barbiturates Screen Negative (Negative) Ur Phencyclidine Scrn Negative (Negative) Ur Amphetamine Screen Positive A (Negative) U Benzodiazepines Scrn Positive A (Negative) Urine Cocaine Screen Negative (Negative) U Cannabinoids Screen Positive A (Negative) Ethyl Alcohol (<10) mg/dL Influenza A (RT-PCR) Negative (Negative) Influenza B (RT-PCR) Negative (Negative) RSV (RT-PCR) Negative (Negative) SARS-CoV-2 RNA (RT-PCR) Negative (Negative) ABG Data ABG results: 10/15/25 22:46 VBG pH 7.277 L VBG pCO2 51.6 H VBG pO2 41.3 VBG HCO3 23.5 L O2 Delivery Device Room air O2 Liters/Min Not Reportable FiO2 21 Imaging Data Radiologist's impression: ITS Impressions Head CT 10/15/25 22:27 IMPRESSION: No acute intracranial hemorrhage or extra axial fluid collections. All CT scans at this facility are performed using low dose modulation techniques as appropriate to perform exam including the following: automated exposure control; use of iterative reconstruction technique; adjustment of the mA and/or kV according to patient size (this includes techniques or standardized protocols for targeted exams where dose is matched to indication/reason for exam). ECG Data EKG #1: Attestation: I personally reviewed and interpreted this ECG as follows: ECG completion date: 10/15/25 ECG completion time: 22:43 Interpretation: Rate of 64, rhythm is sinus rhythm, axis is normal, no ST elevations or depressions, nonspecific T-wave abnormality, MS interval 143 milliseconds, QRS duration of 101 milliseconds, QTC interval of 420 milliseconds. Discharge Plan Discharge Clinical Impression: Polypharmacy, Polysubstance abuse, Acute respiratory acidosis, UTI (urinary tract infection), Yeast infection Patient Disposition: Home Condition: Stable Instructions: Antibiotic Form, Naloxone (Into the nose), Urinary Tract Infection in Women (ED), Yeast Infection (ED), Polysubstance Use Disorder (ED) Additional Instructions: Follow-up with your primary care physician in the next few days for reassessment, rest and stay well-hydrated. Refrain from use of any substances that can lower your respiratory drive such as benzodiazepines, gabapentin, opioids, alcohol. Refrain from any illicit drug use. Talked with primary care physician about your medications and getting these adjusted. Take the antibiotics as prescribed to completion. Take the Diflucan as well as you were found to have yeast in your urine. Return immediately to the emergency department for any new or concerning symptoms especially any emergent concerns for life, limb, eyesight. Patient Language: Nepali Prescriptions: New cephalexin 500 mg capsule 500 mg PO Q12H 7 Days Qty: 14 0RF fluconazole 150 mg tablet 150 mg PO ONCE Qty: 1 0RF Rx Instructions: administer on day 1 of therapy naloxone [Narcan] 4 mg/actuation spray,non-aerosol 4 mg intranasal Q2-3M PRN (Reason: opioid overdose) Qty: 2 0RF Rx Instructions: spray 1 dose into ONE nostril; alternate nostrils w each dose until help arrives No Action Ubrelvy 100 mg tablet zolpidem 10 mg tablet 10 mg PO QHS alprazolam 1 mg tablet 1 mg PO DAILY PRN (Reason: anxiety) bupropion HCl 300 mg tablet extended release 24 hr 300 mg PO QAM triamterene-hydrochlorothiazid 37.5-25 mg tablet 1 tablet PO QAM Qty: 30 0RF hydrocodone-acetaminophen 10-325 mg tablet 1 tablet PO QHS PRN (Reason: pain) Qty: 1 0RF escitalopram oxalate 20 mg tablet 20 mg PO HS gabapentin 300 mg capsule 300 mg PO TID Qty: 90 0RF sucralfate 1 gram tablet 1 g PO DAILY Qty: 30 0RF famotidine 20 mg tablet 20 mg PO DAILY Qty: 30 0RF ondansetron 4 mg tablet,disintegrating 4 mg PO Q8H PRN (Reason: nausea and vomiting) Qty: 14 0RF pantoprazole [Protonix] 40 mg tablet,delayed release (DR/EC) 40 mg PO BID Qty: 60 2RF cholecalciferol (vitamin D3) 1,250 mcg (50,000 unit) capsule 1,250 mcg PO WEEKLY Qty: 8 0RF propranolol 60 mg capsule,extended release 24 hr 60 mg PO DAILY Qty: 90 1RF Follow-up/Referrals: Mario Hernandez MD [Primary Care Provider, [facility]] - 2 Days Time of Disposition: 01:25 Quality Stroke Scale Stroke Scale 1: Stroke scale date:: 10/15/25 Stroke scale time:: 22:12 1a Level of consciousness: alert-0 1b Level of consciousness questions: answers both correctly-0 1c Level of consciousness commands: obeys both correctly-0 2 Best gaze: normal-0 3 Visual: no visual loss-0 4 Facial palsy: normal-0 5a Motor: left arm: no drift-0 5b Motor: right arm: no drift-0 6a Motor: left leg: no drift-0 6b Motor: right leg: no drift-0 7 Limb ataxia: absent-0 8 Sensory: normal-0 9 Best language: no aphasia-0 10 Dysarthria: normal-0 11 Extinction and inattention: no abnormality-0 Level:: 0
[2025-10-15 22:32] LABS: Hematocrit 39.0 % (37.0-47.0); Hemoglobin 12.6 g/dL (12.0-15.0); Immature Granulocyte Percent A 0.3 % (0-0.5); Lymphocytes Absolute Auto 2.33 K/mm3 (0.9-3.2); Mean Corpuscular HGB Conc 32.3 g/dl (32-36); Mean Corpuscular Hemoglobin 28.7 pg (26-34); Mean Corpuscular Volume 88.8 fl (80-100); Nucleated Red Blood Cells Absolute Auto 0.000 K/mm3 (0.0-0.012); Nucleated Red Blood Cells Perc 0.0 % (0.0-0.2); Platelet Count Result 279 k/mm3 (150-375); Red Blood Count 4.39 M/mm3 (4.2-5.4); White Blood Count 9.2 K/mm3 (4.5-10.0)
--- OUTSIDE RECORDS SUMMARY | 2025-10-15 22:34 | XMS_ITS | Encounter Summary ---
Author Organization [facility] Healthcare Address [address] [place] [address] Care Team Providers Care Senior Network Security Engineer Name Role Phone Micki Pride MD Primary Care Provider Encounter Details Date Type Department Care Team (Late st Contact Info) Description 07/22/2025 Orders Only [facility] Health Information Management [address] [place] [id number] Scanning, Provider Social History Tobacco Use Types Packs/Day Years Used Date Smoking Tobacco: Never Assessed Comments Unknown Sex and Gender Information Value Date Recorded Sex Assigned at Not on file 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
--- OUTSIDE RECORDS SUMMARY | 2025-10-15 22:34 | XMS_ITS | Clinical Summary ---
Author Organization [facility] Address [address] [address] Phone Care Team Providers Care Multisensor Intelligence Officer Name Role Phone Mario Hernandez MD Primary Care Provider Social History Tobacco Use Types Packs/Day [...] age to complete this topic Care Teams Multisensor Intelligence Officer Relationship Specialty Start Date End Date Mario Hernandez MD [address] [place], [place] [id number] PCP - General Family Medicine 08/04/22
--- OUTSIDE RECORDS SUMMARY | 2025-10-15 22:34 | XMS_ITS | Encounter Summary ---
Author Organization [facility] Healthcare Address [address] [place] [address] Care Team Providers Care Hearing Stenographer Name Role Phone Micki Pride MD Primary Care Provider [phone] Encounter Details Date Type Department Care Team (Late st Contact Info) Description 08/02/2025 Orders Only [facility] Information Management [address] [place] [address] Massiel Hunt NP [address] [place] [address] [place] [address] Social History Tobacco Use Types Packs/Day Years Used Date Smoking Tobacco: Never Assessed Comments Unknown Sex and Gender Information Value Date Recorded Sex Assigned at Not on file 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
--- OUTSIDE RECORDS SUMMARY | 2025-10-15 22:34 | XMS_ITS | Clinical Summary ---
Author Organization [facility] Physician Office Building [address] [place] [phone] Care Team Providers Care Collet Driller Name Role Phone Micki Pride MD Primary Care Provider [phone] Allergies Active Allergy Reactions Criticality Noted Date [...] Department Care Team Description 10/09/2025 11:45 AM BULLET CASTING OPERATOR Telemedicine [facility] [id number] [place] [phone] Yobany Mehta MD Attention deficit hyperactivity disorder (ADHD), combined type (Primary Dx); JOSEPHINE (generalized anxiety disorder); Panic disorder; Moderate episode of recurrent major depressive disorder (HCC) 10/08/2025 2:51 PM BULLET CASTING OPERATOR - 10/08/2025 11:59 PM BULLET CASTING OPERATOR Hospital Encounter [facility] [address] [place] [address] Pre-employment health screening examination Discharge Disposition: Discharge to home or self care 10/08/2025 Orders Only [facility] [address] [facility] [address] [place] [phone] Garfield Biswas MD Pre-employment health screening examination (Primary Dx) 2025 11:45 AM BULLET CASTING OPERATOR Telemedicine [address] [place] [phone] Yobany Mehta MD Moderate episode of recurrent major depressive disorder (HCC) (Primary Dx); Panic disorder; JOSEPHINE (generalized anxiety disorder); Attention deficit hyperactivity disorder (ADHD), combined type 08/28/2025 4:15 PM CDT Telemedicine [address] [place] [phone] Yobany Mehta MD Moderate episode of recurrent major depressive disorder (HCC) (Primary Dx); Panic disorder; JOSEPHINE (generalized anxiety disorder); Attention deficit hyperactivity disorder (ADHD), combined type 08/20/2025 Orders Only [facility] [address] [place] [address] [place] [phone] Jeane Frederick NP 08/19/[address] [place] [phone] Yobany Mehta MD 08/16/2025 1:30 PM CDT Office Visit [facility] at [address] [place] [phone] Med Solano MD Other chest pain (Primary Dx) 08/15/2025 Telephone [facility] [address] [facility] [address] [place] [phone] Jenniffer Perdomo MA Medical Records Request 08/05/2025 Orders Only [facility] [address] [facility] [address] [place] [phone] Med Soalno MD 08/02/2025 Orders Only [facility] Health Information Management [address] [place] [phone] Massiel Hunt NP 07/25/2025 1:15 PM CDT Telemedicine [facility] [address] [phone] Yobany Mehta MD Moderate episode of recurrent major depressive disorder (HCC) (Primary Dx); Panic disorder; JOSEPHINE (generalized anxiety disorder); Attention deficit hyperactivity disorder (ADHD), combined type 07/22/2025 Orders Only [facility] Health Information Management [address] [place] [phone] Scanning, Provider from Last 3 Months Immunizations [...] on file Legal Sex Female 3:14 AM BULLET CASTING OPERATOR Gender Identity Female 03/30/2023 10:16 AM CDT Sexual Orientation Not on file Last Filed Vital Signs Vital Sign Reading Time Taken Comments Blood Pressure 122/80 08/16/2025 1:22 PM CDT Pulse 68 08/16/2025 1:22 PM CDT Temperature 36.5 C (97.7 F) 11/01/2023 2:17 PM BULLET CASTING OPERATOR Respiratory Rate 18 11/01/2023 2:17 PM BULLET CASTING OPERATOR Oxygen Saturation 98% 08/16/2025 1:22 PM CDT [...] Diagnosis Comments T-SPOT.TB Routine 10/08/2025 1:45 PM BULLET CASTING OPERATOR Pre-employment health screening examination CARDIOLOGY DOCUMENT SCAN Routine 08/03/2025 4:17 PM CDT CARDIOLOGY DOCUMENT SCAN Routine 08/02/2025 3:28 PM CDT CARDIOLOGY DOCUMENT SCAN 08/02/2025 SCAN - RADIOLOGY/IMAGING 08/02/2025 SCAN - LABS 07/22/2025 from Last 3 Months Results * T-SPOT.TB Blood (10/08/2025 1:45 PM BULLET CASTING OPERATOR) T-SPOT.TB Negative SeeBelow Comment: Normal Value: Negative [...] test. T-SPOT.TB Panel A Spot Count 0 [facility] T-SPOT.TB Panel B Spot Count 0 [facility] T-SPOT.TB Negative Control Passed [facility] T-SPOT.TB Positive Control Passed [facility] Comment: Test Performed at: [facility] [address] [place] [address] BRIAN SORTO,PHD Blood 10/08/2025 1:45 PM BULLET CASTING OPERATOR 10/08/2025 4:02 PM BULLET CASTING OPERATOR Narrative [facility] - 10/10/2025 12:52 PM BULLET CASTING OPERATOR Bill to [place] [email or web address] Patient is employed by/enrolled at:->[employer] Garfield Biswas MD LAB MICROBIOLOGY - GENERAL OR DERABLES Final Result [facility] Department [place] [address] * Cardiology Document Scan (08/03/2025 4:17 PM [...] [place] Care Teams Collet Driller Relationship Specialty Start Date End Date Micki Pride MD PCP - General 02/28/14
[2025-10-15 22:38] LABS: Acetaminophen < 10 ug/mL (10-30); Alanine Aminotransferase 15 U/L (6-35); Albumin Level 4.5 g/dL (3.5-5.1); Alkaline Phosphatase 54 U/L (38-126); Ammonia < 9 umol/L (9-30); Anion Gap 3 mmol/L (4-12); Aspartate Amino Transferase 22 U/L (14-36); Bilirubin,Total 0.4 mg/dL (0.2-1.3); Blood Urea Nitrogen 12 mg/dL (7-17); Calcium 8.2 mg/dL (8.4-10.2); Carbon Dioxide 27 mmol/L (22-30); Chloride 104 mmol/L (98-107); Creatine Kinase 92 U/L (30-135); Estimated CRCL calculation 61 ml/min; Estimated Glomerular Filt Rate > 60; Glucose 91 mg/dL (65-110); Potassium 4.1 mmol/L (3.4-5.0); Salicylate < 1.0 mg/dL (2-20); Sodium 134 mmol/L (137-145); Total Protein 7.8 g/dL (6.3-8.2)
[2025-10-15 22:39] LABS: INR 1.0; Partial Thromboplastin Time 27.2 Seconds (22.3-36.8); Prothrombin Time 13.8 Seconds (11.1-14.7)
[2025-10-15 22:50] LABS: Troponin I < 0.012 ng/mL (0.000-0.034)
[2025-10-15] MEDS: SODIUM CHLORIDE 0.9% IV 1,000 ML 999 ML IV CONT (22:52)
[2025-10-15 22:55] LABS: Magnesium 2.5 mg/dL (1.6-2.3)
[2025-10-15 22:56] LABS: Fractional Inspired Oxygen 21 %; HCO3 VBG 23.5 mEq/l (24.0-30.0); PCO2 VBG 51.6 mmHg (42.0-48.0); PO2 VBG 41.3 mmHg (35.0-45.0); pH VBG 7.277 (7.300-7.400)
[2025-10-15 23:09] LABS: Thyroid Stimulating Hormone 4.350 uIU/mL (0.465-4.680)
[2025-10-15 23:31] LABS: Influenza A QL RT-PCR Negative (Negative); Influenza B QL RT-PCR Negative (Negative); RSV RNA, RT-PCR Negative (Negative); SARS-CoV-2 RNA PCR Negative (Negative)
[2025-10-15 23:35] VITALS: PULSE 92; RESP 18
[2025-10-15] MEDS: IPRATROPIUM 0.5 MG/ALBUTEROL SULFATE 2.5 MG (BASE) AMPUL.NEB 3 ML INHALATION ×3 (23:35→23:45)
[2025-10-15] MEDS: NALOXONE HCL 0.4 MG/ML VIAL IV PUSH (23:55)
[2025-10-16 00:30] LABS: Add Urine Microscopic? YES; Appearance Urine Turbid (Clear); Budding Yeast Urine Present /hpf; Glucose Urine UA Negative (Negative); Leukocyte Esterase Ur Trace LEU/UL (Negative); Need Manual Microscopic Reviewed; Nitrate Urine Negative (Negative); Specific Grav Ur 1.022 (1.001-1.035)
[2025-10-16 00:36] LABS: Cannabinoid Screen Urine Positive (Negative)
[2025-10-16 01:21] LABS: BEDSIDEPREGUCG Negative (Negative)
[2025-10-16] MEDS: CEPHALEXIN 500 MG CAPSULE PO (01:33)
[2025-10-18 15:09] LABS: Carbon Monoxide, Blood 3.7 % (0.0-3.6)
== END 2025-10-16 01:47 | disposition home or self-care (01) ==
PROVIDERS: Emergency Provider Student in an Organized Health Care Education/Training Program; PCP Family Medicine
DX: J96.02 Acute respiratory failure with hypercapnia (principal); B37.49 Other urogenital candidiasis; F19.10 Other psychoactive substance abuse, uncomplicated; Z11.52 Encounter for screening for COVID-19; K21.9 Gastro-esophageal reflux disease without esophagitis; M19.90 Unspecified osteoarthritis, unspecified site; F41.9 Anxiety disorder, unspecified; Z87.11 Personal history of peptic ulcer disease; Z79.899 Other long term (current) drug therapy
CPT/HCPCS: 36415; 70450; 71045; 80053; 80143; 80179; 80307; 81001; 81025; 82077; 82140; 82375; 82550; 82803; 82948; 83605; 83735; 84443; 84484; 85025; 85610; 85730; 87637; 93005; 94640; 96361; 96374; 96375; 99284; A9270; J2312; J2919; J7030